=== PATIENT | male | born 1970 | race Caucasian/White ===

== ENCOUNTER 2021-04-27 20:36 | Observation (INO) | payer MEDICAID, SELFPAY ==
--- NOTE | ~2021-04-27 | XR_ITS ---
EXAMINATION: XR SHOULDER, LEFT CLINICAL INFORMATION: Fall and left shoulder pain COMPARISON: None TECHNIQUE: Three views of the left shoulder. FINDINGS: Humeral head is well-seated in the glenoid fossa. I do not appreciate any acute fracture or dislocation. Mild hypertrophic degenerative changes in the acromioclavicular joint. Visualized left ribs and chest unremarkable. XR/XR shoulder LT min 2V IMPRESSION: No acute bony abnormality.
--- NOTE | ~2021-04-27 | CT_ITS ---
EXAMINATION: CT ABDOMEN AND PELVIS WITHOUT CONTRAST CLINICAL INFORMATION: Abdominal pain and distention with vomiting. COMPARISON: None TECHNIQUE: Multidetector volumetric imaging was performed from the superior aspect of the liver through the pubic symphysis. Sagittal and coronal reformatted images were obtained on the technologist's workstation. This CT examination was performed using dose optimization techniques as appropriate, variously including the following: *Automated exposure control *Adjustment of mA and/or kV according to patient size (this includes techniques or standardized protocols for targeted exams where dose is matched to indication/reason for exam; i.e. extremities or head) *Use of iterative reconstruction technique DLP: 851 mGy-cm FINDINGS: Visualized lung bases demonstrate mild dependent atelectasis. The liver demonstrates normal size, contour and attenuation. 5 mm hypodensity within the posterolateral right hepatic lobe is too small to accurately characterize. The gallbladder is normal in appearance. Mild fatty atrophy of the pancreas. The spleen and adrenal glands are unremarkable. Symmetrically sized kidneys. No renal calculi or hydronephrosis bilaterally. Normal caliber loops of small and large bowel. Mild colonic diverticulosis without CT evidence to suggest active diverticulitis. Normal appendix. Tiny fat-containing umbilical hernia. Normal caliber abdominal aorta. No retroperitoneal lymphadenopathy. The bladder is normal in appearance. The prostate gland is normal in size. No gross free pelvic fluid. No inguinal lymphadenopathy. Mild to moderate degenerative changes of the spine. CT/CT abdomen pelvis wo con IMPRESSION: No CT evidence for acute abnormality within the abdomen or pelvis.
[2021-04-27 20:47] VITALS: BP 146/89; BP 147/92; PULSE 77; PULSE 98; RESP 18; TEMP 36.6; O2SAT 98; BMI 35.9
--- NOTE | 2021-04-27 20:55 | ECG_ITS ---
Test Reason : SYNCOPE Blood Pressure : / mmHG Vent. Rate : 054 BPM Atrial Rate : 067 BPM P-R Int : 000 ms QRS Dur : 090 ms QT Int : 468 ms P-R-T Axes : 000 033 052 degrees QTc Int : 443 ms Normal sinus rhythm competing with an ectopic atrial rhythm Borderline ECG No previous ECGs available Referred By: Leandro Sousa Electronically Signed By:Jaime Mcgovern
--- NOTE | 2021-04-27 20:58 | ED_ITS ---
HPI - Nausea/Vomiting/Diarrhea General Chief complaint: Nausea/Vomiting/Diarrhea Stated complaint: NAUSEA AND VOMITING Time Seen by Provider: 04/27/21 20:55 Source: patient and EMS Mode of arrival: EMS Limitations: no limitations History of Present Illness HPI Narrative: 51-year-old male came in by ambulance for evaluation of persistent nausea and vomiting. Symptoms started since yesterday with persistent nausea and vomiting, patient also feel his abdomen is bloated and distended, patient had a normal bowel move ment this morning, but unable to pass gas, patient declined any alcohol intake, no previous abdominal surgeries. Patient vomited several times at home today and patient passed out hurting his left shoulder complaining of left shoulder pain, patient is not taking any blood thinner and did not have head trauma. Has not had similar symptoms in the past. Patient smoked marijuana every night. Related Data Allergies Allergy/AdvReac Type Severity Reaction Status Date / Time Penicillins Allergy Unknown Verified 04/27/21 20:51 Review of Systems Review of Systems: All other systems are reviewed and are negative Constitutional: Reports as per HPI and Reports no additional constitutional complaints Eyes: Reports as per HPI and Reports no additional eye complaints Reports system reviewed and no additional complaints, except as documented Cardiovascular: Reports as per HPI and Reports no additional cardiovascular complaints Respiratory: Reports as per HPI and Reports no additional respiratory complaints Gastrointestinal: Reports as per HPI and Reports no additional gastrointestinal complaints Genitourinary: Reports no additional female genitourinary complaints Musculoskeletal: Reports no additional musculoskeletal complaints Skin/Breast: Reports system reviewed and no additional complaints, except as docu Psychiatric: Reports no additional psychiatric complaints Endocrine: Reports no additional endocrine complaints Hematologic/Lymphatic: Reports no additional hematologic/lymphatic complaints Allergic/Immunologic: Reports no additional allergic/immunologic complaints Reports system reviewed and no additional complaints, except as documented and Reports Abnormal speech present [facility] Past Medical History Medical History NAMITA (acute kidney injury) Heart attack Seizure Social History Social History Advance Directives: No Advance Directives Information Provided: Yes Physical Exam Vital Signs: Vital Signs: Last Vital Signs Temp 97.9 F 04/27/21 22:10 Pulse 59 04/27/21 23:29 Resp 14 04/27/21 23:29 BP 159/89 H 04/27/21 23:29 Pulse Ox 98 04/27/21 22:10 Body Mass Index 35.9 Vital signs have been reviewed as appeared to be correct. Blood pressure n ormal. Heart rate normal. Respiration rate normal. Temperature normal. Oxygen saturation normal. Appearance: Alert. Oriented X3. No acute distress. Head: Normal external exam. Normocephalic. Atraumatic. No Hernandez signs noted. No raccoon eyes noted Eyes: PERRLA. EOMI. Conjunctiva and sclera normal. Eyelids normal. ENT: TM's Normal. Pharynx normal. Uvula midline. Moist mucous membranes. No trismus noted. No drooling noted. No muffled voice noted. Neck: Normal inspection. Neck supple. FROM. No adenopathy. Thyroid Normal. No meningeal signs. No neck mass noted. CVS: Normal heart rate and rhythm. Heart sound normal. No murmurs noted. Pulses normal throughout. Respiratory: No respiratory distress. Painless inspiration. Breath sounds normal. No wheezes/rales/rhonchi noted. Chest nontender. No accessory muscle usage noted or decreased air movement noted. Abdomen: Soft and nontender. Bowel sounds normal in all 4 quadrants. No distention noted. No organomegaly noted. No visible injury noted. Back: No CVA tenderness. Full range of motion noted. Skin: Skin warm and dry. Normal skin color. Normal skin turgor. No rashes/lesions/lacerations noted. Extremities: No lower extremity edema. Extremities exhibit normal range of motion. Extremities nontender. Neuro: Oriented X 3. No motor deficit. No sensory deficit. Reflexes normal. Course Course Course Narrative: Assessment and plan. 51-year-old male came in with intractable vomiting, patient required multiple doses of antiemetic medication, and pain medication. CT revealed no acute intra-abdominal pathology. Patient with history of daily use of marijuana which can precipitate vomiting cyclic syndrome. Will admit the patient for IV hydration and aggressive vomiting treatment. MDM - Nausea/Vomiting/Diarrhea Lab Data Attestation: I reviewed the patient's lab results. Result diagrams: 04/27/21 21:18 04/27/21 21:18 Labs: Lab Results 04/27/21 04/27/21 04/27/21 Range/Units 21:18 21:18 21:18 WBC 14.0 H (4.8-10.8) X10*3/uL RBC 5.14 (4.60-5.80) X10*6/uL Hgb 15.1 (14.0-18.0) g/dl Hct 43.9 (42-52) % MCV 85.4 (80-98) fL MCH 29.4 (27.0-33.0) pg MCHC 34.4 (31.0-36.0) g/dl RDW 12.8 (11.0-16.0) % Plt Count 209 (160-400) X10*3/uL MPV 9.2 L (9.4-12.4) fL Immature Gran % (Auto) 0.6 H (0.0-0.4) % Neut % (Auto) 87.1 H (45-73) % Lymph % (Auto) 8.7 L (20-40) % [place] % (Auto) 3.3 (2-11) % Eos % (Auto) 0.0 (0-4) % Baso % (Auto) 0.3 (0-2) % Lymph # (Auto) 1.2 (1.2-4.9) X10*3/uL [place] # (Auto) 0.5 (0.1-1.2) X10*3/uL Eos # (Auto) 0.0 (0.0-0.4) X10*3/uL Baso # (Auto) 0.0 (0.0-0.2) X10*3/uL Abs Immat Gran (auto) 0.09 H (0.00-0.03) X10*3/uL Absolute Neuts (auto) 12.2 H (2.0-8.3) X10*3/uL Absolute Nucleated RBC 0.000 (0.0-0.012) X10*3/uL Nucleated RBC % (auto) 0.0 (0.0-0.2) /100WBC Sodium 140 (135-145) mmol/L Potassium 4.2 (3.3-5.1) mmol/L Chloride 111 H (96-108) mmol/L Carbon Dioxide 17 L (22-29) mmol/L Anion Gap 16 (12-20) BUN 17 H (9-16) mg/dL Creatinine 0.97 (0.5-1.4) mg/dL Estim Creat Clear Calc 106.8 Estimated GFR > 60 Random Glucose 145 H (60-115) mg/dL Calcium 9.2 (8.4-10.2) mg/dL Total Bilirubin 0.5 (0.0-1.0) mg/dL Direct Bilirubin 0.2 (0.0-0.5) mg/dL AST 32 (5-37) U/L ALT 57 H (0-40) U/L Alkaline Phosphatase 66 (39-117) U/L Troponin I High Sens < 3.5 (<3.5-35.0) ng/L Total Protein 7.5 (6.5-8.0) g/dL Albumin 4.7 (3.5-5.0) g/dL Lipase 17 (8-78) U/L Urine Color Urine Appearance Urine pH (5.0-8.0) Ur Specific [place] (1.005-1.025) Urine Protein (NEG-TRACE) MG/DL Urine Glucose (UA) (NEG) MG/DL Urine Ketones (NEG) MG/DL Urine Blood (NEG) Urine Nitrite (NEG) Ur Leukocyte Esterase (NEG) Urine RBC (0) /HPF Urine WBC (0-4) /HPF Ur Squamous Epith Cells /LPF Urine Bacteria /LPF COVID-19 (FADMUO) (Negative) COVID-19 Clin Com 04/27/21 04/27/21 Range/Units 21:19 22:16 WBC (4.8-10.8) X10*3/uL RBC (4.60-5.80) X10*6/uL Hgb (14.0-18.0) g/dl Hct (42-52) % MCV (80-98) fL MCH (27.0-33.0) pg MCHC (31.0-36.0) g/dl RDW (11.0-16.0) % Plt Count (160-400) X10*3/uL MPV (9.4-12.4) fL Immature Gran % (Auto) (0.0-0.4) % Neut % (Auto) (45-73) % Lymph % (Auto) (20-40) % [place] % (Auto) (2-11) % Eos % (Auto) (0-4) % Baso % (Auto) (0-2) % Lymph # (Auto) (1.2-4.9) X10*3/uL [place] # (Auto) (0.1-1.2) X10*3/uL Eos # (Auto) (0.0-0.4) X10*3/uL Baso # (Auto) (0.0-0.2) X10*3/uL Abs Immat Gran (auto) (0.00-0.03) X10*3/uL Absolute Neuts (auto) (2.0-8.3) X10*3/uL Absolute Nucleated RBC (0.0-0.012) X10*3/uL Nucleated RBC % (auto) (0.0-0.2) /100WBC Sodium (135-145) mmol/L Potassium (3.3-5.1) mmol/L Chloride (96-108) mmol/L Carbon Dioxide (22-29) mmol/L Anion Gap (12-20) BUN (9-16) mg/dL Creatinine (0.5-1.4) mg/dL Estim Creat Clear Calc Estimated GFR Random Glucose (60-115) mg/dL Calcium (8.4-10.2) mg/dL Total Bilirubin (0.0-1.0) mg/dL Direct Bilirubin (0.0-0.5) mg/dL AST (5-37) U/L ALT (0-40) U/L Alkaline Phosphatase (39-117) U/L Troponin I High Sens (<3.5-35.0) ng/L Total Protein (6.5-8.0) g/dL Albumin (3.5-5.0) g/dL Lipase (8-78) U/L Urine Color YELLOW Urine Appearance CLEAR Urine pH 6.0 (5.0-8.0) Ur Specific [place] >= 1.030 H (1.005-1.025) Urine Protein 1+ H (NEG-TRACE) MG/DL Urine Glucose (UA) NEG (NEG) MG/DL Urine Ketones NEG (NEG) MG/DL Urine Blood TRACE (NEG) Urine Nitrite NEG (NEG) Ur Leukocyte Esterase NEG (NEG) Urine RBC 0-2 (0) /HPF Urine WBC 0 (0-4) /HPF Ur Squamous Epith Cells NONE /LPF Urine Bacteria NONE /LPF COVID-19 (FADUMO) Negative (Negative) COVID-19 Clin Com See Note Imaging Data CT abdomen pelvis: Radiologist's impression: No acute pathology. Left shoulder x-ray: Radiologist's impression: No acute pathology. Discharge Plan Discharge Clinical Impression: Vomiting Patient Disposition: Admitted As Inpatient
[2021-04-27] MEDS: Famotidine/PF 20 MG/2 ML VIAL IVPUSH (21:12)
[2021-04-27] MEDS: 0.9 % Sodium Chloride 1,000 ML 999 ML IVCONT ×2 (21:14→23:40)
[2021-04-27 21:24] LABS: MANUAL DIFF FLAG NO
[2021-04-27 21:26] LABS: Basophils Percent Auto 0.3 % (0-2); Hematocrit 43.9 % (42-52); Hemoglobin 15.1 g/dl (14.0-18.0); Imm Gran Abs Auto 0.09 X10*3/uL (0.00-0.03); Imm Gran Pct Auto 0.6 % (0.0-0.4); Lymphocytes Absolute Auto 1.2 X10*3/uL (1.2-4.9); Lymphocytes Percent Auto 8.7 % (20-40); Mean Corpuscular HGB Conc 34.4 g/dl (31.0-36.0); Mean Corpuscular Hemoglobin 29.4 pg (27.0-33.0); Mean Corpuscular Volume 85.4 fL (80-98); Mean Platelet Volume 9.2 fL (9.4-12.4); Monocytes Absolute Auto 0.5 X10*3/uL (0.1-1.2); Monocytes Percent Auto 3.3 % (2-11); Neutrophils Absolute Auto 12.2 X10*3/uL (2.0-8.3); Neutrophils Percent Auto 87.1 % (45-73); Platelet Count 209 X10*3/uL (160-400); Red Blood Count 5.14 X10*6/uL (4.60-5.80); Red Cell Distribution Width 12.8 % (11.0-16.0)
[2021-04-27 21:42] LABS: COVID-19 Test Negative (Negative)
[2021-04-27 21:47] LABS: Alanine Aminotransferase 57 U/L (0-40); Albumin Level 4.7 g/dL (3.5-5.0); Alkaline Phosphatase 66 U/L (39-117); Anion Gap 16 (12-20); Aspartate Amino Transferase 32 U/L (5-37); Bilirubin Direct 0.2 mg/dL (0.0-0.5); Bilirubin Total 0.5 mg/dL (0.0-1.0); Blood Urea Nitrogen 17 mg/dL (9-16); Calcium 9.2 mg/dL (8.4-10.2); Carbon Dioxide 17 mmol/L (22-29); Chloride 111 mmol/L (96-108); Creatinine Clr Calc Pharmacy 106.8; Estimated Glomerular Filt Rate > 60; Glucose Random 145 mg/dL (60-115); Lipase 17 U/L (8-78); Potassium 4.2 mmol/L (3.3-5.1); Sodium 140 mmol/L (135-145); Total Protein 7.5 g/dL (6.5-8.0)
[2021-04-27] MEDS: Metoclopramide HCl 10 MG/2 ML VIAL IVPUSH (21:49)
--- NOTE | 2021-04-27 21:50 | PC.NURSE ---
Pt dry heaving, squiriming around in bed, states he is unable to stay still, c/o L shoulder pain,acute on chronic.
[2021-04-27 21:52] LABS: Troponin-I High Sensitivity < 3.5 ng/L (<3.5-35.0)
[2021-04-27] MEDS: Ketorolac Tromethamine 15 MG/ML VIAL 30 MG IVPUSH (22:09)
[2021-04-27 22:10] VITALS: BP 162/82; PULSE 50; PULSE 58; RESP 18; TEMP 36.6; O2SAT 98
[2021-04-27 22:12] VITALS: BP 163/78; BP 167/80; PULSE 56; PULSE 57
[2021-04-27 22:24] LABS: Appearance Urine CLEAR; Color Urine YELLOW; Glucose Urine UA NEG (NEG); Leukocyte Esterase Urine NEG (NEG); Nitrite Urine NEG (NEG); Specific Gravity - Urine >= 1.030 (1.005-1.025); UACC Culture Trigger NO; Urine Blood TRACE (NEG); Urine Ketones NEG (NEG); Urine Protein 1+ MG/DL (NEG-TRACE)
[2021-04-27 22:32] LABS: RBC Urine 0-2 /HPF (0); WBC Urine 0 /HPF (0-4)
--- NOTE | 2021-04-27 23:01 | PC.NURSE ---
Pt reports accidentally removing own IV, found laying on ground dry heaving. pt assisted back to bed. Drr. Sousa aware of request for antimetics and pain medication.
[2021-04-27 23:29] VITALS: BP 159/89; PULSE 59; RESP 14
[2021-04-28] VITALS (12 sets, daily range): BP systolic 104–172; BP diastolic 56–84; PULSE 50–90; RESP 16–20; TEMP 36.5–37; O2SAT 93–100
[2021-04-28] MEDS: Morphine Sulfate 2 MG/ML CARTRIDGE IVPUSH (00:13)
--- NOTE | 2021-04-28 00:43 | PC.NURSE ---
pt states his shoulder pain has resolved. pt still has 8/10 abd pain. pt is trying to vomit to feel better per pt. pt instructed not to force vomiting.
--- NOTE | 2021-04-28 01:11 | PC.NURSE ---
Repeat EKG done at 0109 by this pct
--- NOTE | 2021-04-28 02:13 | PM.IMHP ---
History of Present Illness Date of Service: 04/28/21 Chief Complaint: Nausea vomiting and abdominal discomfort 51-year-old male with a past medical history of hypertension, hyperlipidemia, asthma, anxiety, depression, bipolar, history of seizure disorder, history of chronic back pain, history of rotator cuff surgery; chronic shoulder pain presented to the hospital today with a chief complaint of nausea vomiting and abdominal discomfort. Patient mentions that for the past couple days he has been having nausea vomiting and abdominal discomfort; unable to keep anything down. Mentioned that he has been complaint adjust home medications. Mentions he uses cannabis. Denies any fever chills cough. Denies any urinary symptoms. Reports he has occasional blood streaks in the vomitus. Review of all other systems is negative except mentioned above ER course: Per ER team patient noted to have benign examination; CT scan showed no acute findings; admitted to the hospital for further management of cyclic vomiting syndrome. [facility] Medical History NAMITA (acute kidney injury) CAD (coronary artery disease) Chronic systolic (congestive) heart failure Seizure Surgical History Stented coronary artery Social History Patient Tobacco Use Status: Current everyday Tobacco user Tobacco use type: Cigarette Second Hand Smoke Exposure: No Advance Directives: No Advance Directives Information Provided: Yes service: Yes Current occupational status: disabled Meds Allergies Allergy/AdvReac Type Severity Reaction Status Date / Time Penicillins Allergy Unknown Unknown Verified 05/17/21 22:05 Active Medications: Current Medications Generic Name Dose Route Start Last Admin Trade Name Freq PRN Reason Stop Dose Admin Acetaminophen 650 mg 04/28/21 02:07 Acetaminophen 325 Mg Tablet PO Q6H PRN Pain, Mild (Pain Scale 1-3) Hydromorphone HCl 0.5 mg 04/28/21 02:07 Hydromorphone Hcl 0.5 Mg/0.5 Ml Syringe IVPUSH Q4H PRN Pain, Severe (Pain Scale 7-10) Dextrose/Sodium Chloride 1,000 mls @ 100 mls/hr 04/28/21 02:15 D51/2ns IVCONT .Q10H WILMER Levetiracetam 750 mg 04/28/21 02:15 Levetiracetam 250 Mg Tablet PO BID [facility] Melatonin 6 mg 04/28/21 02:07 Melatonin 3 Mg Tablet PO BEDTIME PRN Insomnia Sodium Chloride 3 ml 04/28/21 08:00 0.9 % Sodium Chloride Flush 3 Ml Syringe IVFLUSH QSHIFT [facility] Home Medications Medication Instructions Recorded Confirmed Last Taken Type albuterol sulfate 90 mcg/actuation 2 puff PO Q4H PRN 04/28/21 05/18/21 04/27/21 History aerosol inhaler aspirin 81 mg tablet,delayed 1 tab PO DAILY 04/28/21 05/18/21 04/27/21 History release cholecalciferol (vitamin D3) 25 25 mcg PO DAILY 04/28/21 05/18/21 04/27/21 History mcg (1,000 unit) tablet (Vitamin D3) cyanocobalamin (vitamin B-12) 1,000 mcg PO DAILY 04/28/21 05/18/21 04/27/21 History 1,000 mcg tablet mdcgazqh-ayt-azsej acid 300 1 tab PO DAILY 04/28/21 05/18/21 04/27/21 History mcg-lycopene 600 mcg-lutein 300 mcg tablet (Centrum Silver Men) nitroglycerin 0.4 mg sublingual 0.4 mg SUBLINGUAL Q5M PRN 04/28/21 05/18/21 04/27/21 History tablet amitriptyline 100 mg tablet 2 tab PO DAILY 05/17/21 05/18/21 Unknown History clonazepam 2 mg tablet 1 tab PO TID PRN 05/17/21 05/18/21 Unknown History clonidine HCl 0.1 mg tablet 1 tab PO BID 05/17/21 05/18/21 Unknown History famotidine 40 mg tablet 1 tab PO DAILY 05/17/21 05/18/21 Unknown History levetiracetam 750 mg tablet 1 tab PO Q12H 05/17/21 05/18/21 Unknown History loratadine 10 mg tablet 1 tab PO DAILY 05/17/21 05/18/21 Unknown History methocarbamol 750 mg tablet 1 tab PO BID PRN 05/17/21 05/18/21 Unknown History metoprolol succinate 25 mg 1 tab PO DAILY 05/17/21 05/18/21 Unknown History tablet,extended release 24 hr rosuvastatin 20 mg tablet 1 tab PO BEDTIME 05/17/21 05/18/21 Unknown History tamsulosin 0.4 mg capsule 1 cap PO DAILY 05/17/21 05/18/21 Unknown History testosterone 50 mg/5 gram (1 %) 5 g TOPICAL DAILY 05/17/21 05/18/21 Unknown History transdermal gel Physical Exam Vital Signs and Narrative: Vital Signs: Last Vital Signs Temp 97.9 F 04/27/21 22:10 Pulse 61 04/28/21 00:42 Resp 16 04/28/21 00:42 BP 136/78 04/28/21 00:42 Pulse Ox 97 04/28/21 00:42 Body Mass Index 35.9 Gen: Appears be in no acute distress HEENT: NCAT, Moist mucosa. Pulmonary: Vesicular breath sounds, fair air entry CVS: Normal S1-S2 Abdomen: BS+, Soft, mildly tender diffusely on deep palpation. Extremities: Warm well perfused Neuro: Alert and awake. Results Labs CBC and Chem 7: 04/30/21 06:38 04/30/21 06:38 Labs: Laboratory Results - last 24 hr 04/27/21 04/27/21 04/27/21 21:18 21:18 21:18 MCV 85.4 MCH 29.4 MCHC 34.4 RDW 12.8 Plt Count 209 MPV 9.2 L Immature Gran % (Auto) 0.6 H Neut % (Auto) 87.1 H Lymph % (Auto) 8.7 L [place] % (Auto) 3.3 Eos % (Auto) 0.0 Baso % (Auto) 0.3 Lymph # (Auto) 1.2 [place] # (Auto) 0.5 Eos # (Auto) 0.0 Baso # (Auto) 0.0 Abs Immat Gran (auto) 0.09 H Absolute Neuts (auto) 12.2 H Absolute Nucleated RBC 0.000 Nucleated RBC % (auto) 0.0 Anion Gap 16 Estim Creat Clear Calc 106.8 Estimated GFR > 60 Random Glucose 145 H Calcium 9.2 Total Bilirubin 0.5 Direct Bilirubin 0.2 AST 32 ALT 57 H Alkaline Phosphatase 66 Troponin I High Sens < 3.5 Total Protein 7.5 Albumin 4.7 Lipase 17 Urine Color Urine Appearance Urine pH Ur Specific [place] Urine Protein Urine Glucose (UA) Urine Ketones Urine Blood Urine Nitrite Ur Leukocyte Esterase Urine RBC Urine WBC Ur Squamous Epith Cells Urine Bacteria COVID-19 (FADUMO) COVID-19 Clin Com 04/27/21 04/27/21 21:19 22:16 MCV MCH MCHC RDW Plt Count MPV Immature Gran % (Auto) Neut % (Auto) Lymph % (Auto) [place] % (Auto) Eos % (Auto) Baso % (Auto) Lymph # (Auto) [place] # (Auto) Eos # (Auto) Baso # (Auto) Abs Immat Gran (auto) Absolute Neuts (auto) Absolute Nucleated RBC Nucleated RBC % (auto) Anion Gap Estim Creat Clear Calc Estimated GFR Random Glucose Calcium Total Bilirubin Direct Bilirubin AST ALT Alkaline Phosphatase Troponin I High Sens Total Protein Albumin Lipase Urine Color YELLOW Urine Appearance CLEAR Urine pH 6.0 Ur Specific [place] >= 1.030 H Urine Protein 1+ H Urine Glucose (UA) NEG Urine Ketones NEG Urine Blood TRACE Urine Nitrite NEG Ur Leukocyte Esterase NEG Urine RBC 0-2 Urine WBC 0 Ur Squamous Epith Cells NONE Urine Bacteria NONE COVID-19 (FADUMO) Negative COVID-19 Clin Com See Note Imaging Radiologist's Impressions: Impressions Shoulder X-Ray 04/27/21 20:55 IMPRESSION: No acute bony abnormality. Abdomen/Pelvis CT 04/27/21 20:57 IMPRESSION: No CT evidence for acute abnormality within the abdomen or pelvis. Assessment and Plan (1) Vomiting: Qualifiers: Nausea presence: with nausea Vomiting Intractability: intractable Status: Acute 51-year-old male with a past medical history of hypertension, hyperlipidemia, anxiety, depression, bipolar, seizure disorder, chronic back pain, chronic shoulder pain, history of rotator cuff surgery presented to the hospital with a chief complaint of nausea vomiting and abdominal discomfort; reports he uses cannabis; admitted to the hospital for cyclic vomiting syndrome. Cyclic vomiting syndrome on labs noted a mild leukocytosis. CT scan showed no acute intra-abdominal pathology. Supportive care IV fluids NPO-advanced diet as tolerated Zofran p.r.n. History of seizure disorder: Continue home Keppra. History of anxiety, depression; continue home medications Hypertension/hyperlipidemia: Continue home meds DVT prophylaxis: Subcu heparin Code status: Full code Quality Stroke Does the patient have a stroke diagnosis?: No VTE Prior VTE?: No VTE Risk Level:: Medical - moderate - high VTE Device Contraindication: N/A - Device Ordered VTE Drug Contraindication: Treatment Not Indicated
[2021-04-28] MEDS: levETIRAcetam 250 MG TABLET 750 MG PO ×3 (02:46→20:32)
[2021-04-28] MEDS: Dextrose 5 % and 0.45 % NaCl 1,000 ML 100 ML IVCONT ×2 (03:20→11:40)
[2021-04-28] MEDS: HYDROmorphone HCl 0.5 MG/0.5 ML SYRINGE IVPUSH ×5 (03:20→20:31)
[2021-04-28] MEDS: Famotidine/PF 20 MG/2 ML VIAL IVPUSH ×2 (06:27→20:32)
[2021-04-28 06:28] LABS: MANUAL DIFF FLAG NO
[2021-04-28 06:45] LABS: Basophils Percent Auto 0.2 % (0-2); Hematocrit 41.8 % (42-52); Hemoglobin 14.2 g/dl (14.0-18.0); Imm Gran Abs Auto 0.06 X10*3/uL (0.00-0.03); Imm Gran Pct Auto 0.5 % (0.0-0.4); Lymphocytes Absolute Auto 1.3 X10*3/uL (1.2-4.9); Lymphocytes Percent Auto 11.4 % (20-40); Mean Corpuscular Hemoglobin 29.5 pg (27.0-33.0); Mean Corpuscular Volume 86.9 fL (80-98); Mean Platelet Volume 9.9 fL (9.4-12.4); Monocytes Absolute Auto 0.6 X10*3/uL (0.1-1.2); Monocytes Percent Auto 5.4 % (2-11); Neutrophils Absolute Auto 9.3 X10*3/uL (2.0-8.3); Neutrophils Percent Auto 82.5 % (45-73); Platelet Count 214 X10*3/uL (160-400); Red Blood Count 4.81 X10*6/uL (4.60-5.80); Red Cell Distribution Width 12.9 % (11.0-16.0); White Blood Count 11.3 X10*3/uL (4.8-10.8)
[2021-04-28 07:05] LABS: Anion Gap 12 (12-20); Blood Urea Nitrogen 14 mg/dL (9-16); Calcium 8.6 mg/dL (8.4-10.2); Carbon Dioxide 25 mmol/L (22-29); Chloride 107 mmol/L (96-108); Creatinine Clr Calc Pharmacy 124.8; Estimated Glomerular Filt Rate > 60; Glucose Random 141 mg/dL (60-115); Potassium 4.2 mmol/L (3.3-5.1); Sodium 140 mmol/L (135-145)
--- NOTE | 2021-04-28 07:14 | PC.NURSE ---
Rn and [employer] Lead Engineer [facility], pt found on with knees on floor leaning on bed in praying postion. Pt stated multiple times to this RN That he did not fall that he put himself this way to help with nausea and abd pain. Confirmed with Tele sitter that pt did not fall but placed himself that way. This Rn gave zofran at this time. pt made aware that pain medication not do at this time. pt helped back to bed and educated again on high fall risk, call montanez use. pt stated he cannot help it that it makes his stomach feel better. Bed alarm on telesitter remains in place, reported to nursing sujpervisor and oncoming RN. will continue to monitor
[2021-04-28] MEDS: 0.9 % Sodium Chloride Flush 3 ML SYRINGE IVFLUSH ×3 (07:34→20:33)
--- NOTE | 2021-04-28 08:38 | PHA.MEDREC ---
Pharmacy Consult ? Medication Reconciliation Pharmacy has completed the medication reconciliation.Spoke with patient on floor
--- NOTE | 2021-04-28 09:34 | MHC.CM.PN ---
RU 04/28/21 Male 51 DX Cyclical vomiting. [place] He uses a cane. He requires supervision/assist with ADLs. PMX SZ disorder PMH Rolator cuff and knee surgery. DP home with resumption of [employer] 1.5hours 4-7 x a week. He may need assistance with transportation at discharge
--- NOTE | 2021-04-28 13:52 | HO.PM.IMPN ---
Subjective Subjective Date of Service: 04/28/21 Interval History: anusea Cardiovascular Cardiovascular: Reports no additional cardiovascular complaints Respiratory Respiratory: Reports no additional respiratory complaints Physical Exam Vital Signs: Vital Signs: Last Vital Signs Temp 98.6 F 04/28/21 11:31 Pulse 87 04/28/21 11:31 Resp 18 04/28/21 11:31 BP 104/63 04/28/21 11:31 Pulse Ox 96 04/28/21 11:31 Body Mass Index 35.9 General: AO X 3, no acute distress Resp: CTA bilateral CVS: S1,S2,RRR GI: soft, non tender, non distended Neuro: motor grossly intact Psych: appropriate affect Objective Data Current Medications Generic Name Dose Route Start Last Admin Trade Name Freq PRN Reason Stop Dose Admin Acetaminophen 650 mg 04/28/21 02:07 Acetaminophen 325 Mg Tablet PO Q6H PRN Pain, Mild (Pain Scale 1-3) Famotidine 20 mg 04/28/21 09:00 04/28/21 06:27 Famotidine/Pf 20 Mg/2 Ml Vial IVPUSH 20 mg BID WILMER Administration Hydromorphone HCl 0.5 mg 04/28/21 02:07 04/28/21 12:22 Hydromorphone Hcl 0.5 Mg/0.5 Ml Syringe IVPUSH 0.5 mg Q4H PRN Administration Pain, Severe (Pain Scale 7-10) Dextrose/Sodium Chloride 1,000 mls @ 100 mls/hr 04/28/21 02:15 04/28/21 11:40 D51/2ns IVCONT 100 mls/hr .Q10H WILMER Administration Levetiracetam 750 mg 04/28/21 02:15 04/28/21 07:34 Levetiracetam 250 Mg Tablet PO 750 mg BID WILMER Administration Melatonin 6 mg 04/28/21 02:07 Melatonin 3 Mg Tablet PO BEDTIME PRN Insomnia Ondansetron HCl 4 mg 04/28/21 06:24 04/28/21 06:40 Ondansetron Hcl 4 Mg/2 Ml Vial IVPUSH 4 mg Q8H PRN Administration Nausea and Vomiting Sodium Chloride 3 ml 04/28/21 08:00 04/28/21 07:34 0.9 % Sodium Chloride Flush 3 Ml Syringe IVFLUSH 3 ml QSHIFT WILMER Administration Labs CBC & Chem 7: 04/28/21 05:29 04/28/21 05:29 Labs: Laboratory Results - last 24 hr 04/27/21 04/27/21 04/27/21 21:18 21:18 21:18 MCV 85.4 MCH 29.4 MCHC 34.4 RDW 12.8 Plt Count 209 MPV 9.2 L Immature Gran % (Auto) 0.6 H Neut % (Auto) 87.1 H Lymph % (Auto) 8.7 L [place] % (Auto) 3.3 Eos % (Auto) 0.0 Baso % (Auto) 0.3 Lymph # (Auto) 1.2 [place] # (Auto) 0.5 Eos # (Auto) 0.0 Baso # (Auto) 0.0 Abs Immat Gran (auto) 0.09 H Absolute Neuts (auto) 12.2 H Absolute Nucleated RBC 0.000 Nucleated RBC % (auto) 0.0 Anion Gap 16 Estim Creat Clear Calc 106.8 Estimated GFR > 60 Random Glucose 145 H Calcium 9.2 Total Bilirubin 0.5 Direct Bilirubin 0.2 AST 32 ALT 57 H Alkaline Phosphatase 66 Troponin I High Sens < 3.5 Total Protein 7.5 Albumin 4.7 Lipase 17 Urine Color Urine Appearance Urine pH Ur Specific [place] Urine Protein Urine Glucose (UA) Urine Ketones Urine Blood Urine Nitrite Ur Leukocyte Esterase Urine RBC Urine WBC Ur Squamous Epith Cells Urine Bacteria COVID-19 ([facility]) COVID-19 Clin Com 04/27/21 04/27/21 04/28/21 21:19 22:16 05:29 MCV 86.9 MCH 29.5 MCHC 34.0 RDW 12.9 Plt Count 214 MPV 9.9 Immature Gran % (Auto) 0.5 H Neut % (Auto) 82.5 H Lymph % (Auto) 11.4 L [place] % (Auto) 5.4 Eos % (Auto) 0.0 Baso % (Auto) 0.2 Lymph # (Auto) 1.3 [place] # (Auto) 0.6 Eos # (Auto) 0.0 Baso # (Auto) 0.0 Abs Immat Gran (auto) 0.06 H Absolute Neuts (auto) 9.3 H Absolute Nucleated RBC 0.000 Nucleated RBC % (auto) 0.0 Anion Gap Estim Creat Clear Calc Estimated GFR Random Glucose Calcium Total Bilirubin Direct Bilirubin AST ALT Alkaline Phosphatase Troponin I High Sens Total Protein Albumin Lipase Urine Color YELLOW Urine Appearance CLEAR Urine pH 6.0 Ur Specific [place] >= 1.030 H Urine Protein 1+ H Urine Glucose (UA) NEG Urine Ketones NEG Urine Blood TRACE Urine Nitrite NEG Ur Leukocyte Esterase NEG Urine RBC 0-2 Urine WBC 0 Ur Squamous Epith Cells NONE Urine Bacteria NONE COVID-19 ([facility]) Negative COVID-19 Clin Com See Note 04/28/21 05:29 MCV MCH MCHC RDW Plt Count MPV Immature Gran % (Auto) Neut % (Auto) Lymph % (Auto) [place] % (Auto) Eos % (Auto) Baso % (Auto) Lymph # (Auto) [place] # (Auto) Eos # (Auto) Baso # (Auto) Abs Immat Gran (auto) Absolute Neuts (auto) Absolute Nucleated RBC Nucleated RBC % (auto) Anion Gap 12 Estim Creat Clear Calc 124.8 Estimated GFR > 60 Random Glucose 141 H Calcium 8.6 D Total Bilirubin Direct Bilirubin AST ALT Alkaline Phosphatase Troponin I High Sens Total Protein Albumin Lipase Urine Color Urine Appearance Urine pH Ur Specific [place] Urine Protein Urine Glucose (UA) Urine Ketones Urine Blood Urine Nitrite Ur Leukocyte Esterase Urine RBC Urine WBC Ur Squamous Epith Cells Urine Bacteria COVID-19 ([facility]) COVID-19 Clin Com Assessment and Plan (1) Chronic systolic (congestive) heart failure: Status: Acute Assessment and Plan: 51M presented with nasuea and vomiting cyclic vomitting advance as tolerated symptomatic management seirzure disorder keppra CAD s/p pci 2018 asa, statin ischemic cardiomyopathy with recovered EF toprol bph flomax htn clonidine, toprol Quality Stroke Does the patient have a stroke diagnosis?: No VTE Prior VTE?: No VTE Risk Level:: Medical - moderate - high VTE Device Contraindication: N/A - Device Ordered VTE Drug Contraindication: Treatment Not Indicated
[2021-04-28] MEDS: Atorvastatin Calcium 80 MG TABLET PO (20:32)
[2021-04-28] MEDS: Melatonin 3 MG TABLET 6 MG PO (20:32)
[2021-04-29 03:52] VITALS: BP 155/85; PULSE 76; RESP 18; TEMP 36.6; O2SAT 93
[2021-04-29] MEDS: HYDROmorphone HCl 0.5 MG/0.5 ML SYRINGE IVPUSH ×5 (03:57→22:10)
[2021-04-29 06:12] LABS: Hematocrit 44.1 % (42-52); Hemoglobin 14.8 g/dl (14.0-18.0); Mean Corpuscular HGB Conc 33.6 g/dl (31.0-36.0); Mean Corpuscular Hemoglobin 28.8 pg (27.0-33.0); Mean Platelet Volume 9.8 fL (9.4-12.4); Platelet Count 189 X10*3/uL (160-400); Red Blood Count 5.13 X10*6/uL (4.60-5.80); Red Cell Distribution Width 12.8 % (11.0-16.0); White Blood Count 6.3 X10*3/uL (4.8-10.8)
[2021-04-29 06:36] LABS: Anion Gap 11 (12-20); Blood Urea Nitrogen 16 mg/dL (9-16); Carbon Dioxide 25 mmol/L (22-29); Chloride 108 mmol/L (96-108); Creatinine Clr Calc Pharmacy 110.2; Estimated Glomerular Filt Rate > 60; Glucose Fasting 96 mg/dL (60-99); Magnesium 2.1 mg/dL (1.6-2.6); Sodium 140 mmol/L (135-145)
[2021-04-29 08:00] VITALS: BP 126/87; PULSE 75; RESP 18; TEMP 36.5; O2SAT 95
[2021-04-29] MEDS: Famotidine/PF 20 MG/2 ML VIAL IVPUSH ×2 (08:17→22:10)
[2021-04-29] MEDS: 0.9 % Sodium Chloride Flush 3 ML SYRINGE IVFLUSH ×3 (08:18→22:11)
[2021-04-29] MEDS: levETIRAcetam 250 MG TABLET 750 MG PO ×2 (08:19→22:11)
[2021-04-29] MEDS: Thiamine HCL 100 MG TABLET 50 MG PO (08:19)
[2021-04-29] MEDS: Cyanocobalamin (Vitamin B-12) 1,000 MCG TABLET 1000 MCG PO (08:19)
[2021-04-29 08:20] VITALS: BP 126/87; PULSE 75
[2021-04-29] MEDS: Vitamin E (Dl,Tocopheryl Acet) 180 MG (400 UNIT) CAPSULE PO (08:20)
[2021-04-29] MEDS: Metoprolol Succinate ER 25 MG TAB.ER.24H PO (08:20)
[2021-04-29] MEDS: Aspirin Enteric Coated 81 MG TABLET.DR PO (08:20)
[2021-04-29 12:00] VITALS: BP 178/93; PULSE 52; RESP 19; TEMP 37.6; O2SAT 95
--- NOTE | 2021-04-29 12:07 | HO.PM.IMPN ---
Subjective Subjective Date of Service: 04/29/21 Interval History: nausea Constitutional Constitutional: Reports no additional constitutional complaints Eyes Eyes: Reports no additional eye complaints Physical Exam Vital Signs: Vital Signs: Last Vital Signs Temp 97.7 F 04/29/21 08:00 Pulse 75 04/29/21 08:20 Resp 18 04/29/21 08:00 BP 126/87 04/29/21 08:20 Pulse Ox 95 04/29/21 08:00 Body Mass Index 35.9 General: AO X 3, no acute distress Resp:? CTA bilateral CVS: S1,S2,RRR GI: soft, non tender, non distended Neuro:? motor grossly intact Psych: appropriate affect Objective Data Current Medications Generic Name Dose Route Start Last Admin Trade Name Freq PRN Reason Stop Dose Admin Acetaminophen 650 mg 04/28/21 02:07 Acetaminophen 325 Mg Tablet PO Q6H PRN Pain, Mild (Pain Scale 1-3) Amitriptyline HCl 200 mg 04/29/21 21:00 Amitriptyline Hcl 25 Mg Tablet PO BEDTIME WILMER Aspirin 81 mg 04/29/21 09:00 04/29/21 08:20 Aspirin Enteric Coated 81 Mg Tablet. PO 81 mg DAILY WILMER Administration Atorvastatin Calcium 80 mg 04/28/21 21:00 04/28/21 20:32 Atorvastatin Calcium 80 Mg Tablet PO 80 mg BEDTIME WILMER Administration Cyanocobalamin 1,000 mcg 04/29/21 09:00 04/29/21 08:19 Cyanocobalamin (Vitamin B-12) 1,000 Mcg Tablet PO 1,000 mcg DAILY WILMER Administration Famotidine 20 mg 04/28/21 09:00 04/29/21 08:17 Famotidine/Pf 20 Mg/2 Ml Vial IVPUSH 20 mg BID WILMER Administration Hydromorphone HCl 0.5 mg 04/28/21 02:07 04/29/21 12:05 Hydromorphone Hcl 0.5 Mg/0.5 Ml Syringe IVPUSH 0.5 mg Q4H PRN Administration Pain, Severe (Pain Scale 7-10) Levetiracetam 750 mg 04/28/21 02:15 04/29/21 08:19 Levetiracetam 250 Mg Tablet PO 750 mg BID WILMER Administration Melatonin 6 mg 04/28/21 02:07 08/04/21 20:32 Melatonin 3 Mg Tablet PO 6 mg BEDTIME PRN Administration Insomnia Metoprolol Succinate 25 mg 04/29/21 09:00 04/29/21 08:20 Metoprolol Succinate Er 25 Mg Tab.Er.24h PO 25 mg DAILY WILMER Administration Protocol Ondansetron HCl 4 mg 04/28/21 06:24 04/29/21 12:05 Ondansetron Hcl 4 Mg/2 Ml Vial IVPUSH 4 mg Q8H PRN Administration Nausea and Vomiting Sodium Chloride 3 ml 04/28/21 08:00 04/29/21 08:18 0.9 % Sodium Chloride Flush 3 Ml Syringe IVFLUSH 3 ml QSHIFT WILMER Administration Thiamine HCl 50 mg 04/29/21 09:00 04/29/21 08:19 Thiamine Hcl 100 Mg Tablet PO 50 mg DAILY WILMER Administration Vitamin E 180 mg 04/29/21 09:00 04/29/21 08:20 Vitamin E (Dl,Tocopheryl Acet) 180 Mg (400 Unit) Capsule PO 180 mg DAILY WILMER Administration Labs CBC & Chem 7: 04/29/21 05:31 04/29/21 05:31 Labs: Laboratory Results - last 24 hr 04/29/21 04/29/21 05:31 05:31 MCV 86.0 MCH 28.8 MCHC 33.6 RDW 12.8 Plt Count 189 MPV 9.8 Absolute Nucleated RBC 0.000 Nucleated RBC % (auto) 0.0 Anion Gap 11 L Estim Creat Clear Calc 110.2 Estimated GFR > 60 Fasting Glucose 96 Calcium 9.0 Magnesium 2.1 Assessment and Plan (1) Chronic systolic (congestive) heart failure: Status: Acute Assessment and Plan: 51M presented with nasuea and vomiting cyclic vomitting advance as tolerated symptomatic management did well with dinner last night, but nausea and vomitting this AM seirzure disorder keppra CAD s/p pci 2018 asa, statin ischemic cardiomyopathy with recovered EF toprol bph flomax htn clonidine, toprol Quality Stroke Does the patient have a stroke diagnosis?: No VTE Prior VTE?: No VTE Risk Level:: Medical - moderate - high VTE Device Contraindication: N/A - Device Ordered VTE Drug Contraindication: Treatment Not Indicated
[2021-04-29 15:08] VITALS: BP 151/80; PULSE 71; RESP 20; TEMP 36.8; O2SAT 97
[2021-04-29 19:07] VITALS: BP 146/75; PULSE 99; RESP 20; TEMP 37.3; O2SAT 94
[2021-04-29] MEDS: Melatonin 3 MG TABLET 6 MG PO (22:12)
[2021-04-29] MEDS: Atorvastatin Calcium 80 MG TABLET PO (22:12)
[2021-04-29] MEDS: Amitriptyline HCl 25 MG TABLET 200 MG PO (22:12)
[2021-04-30] VITALS (9 sets, daily range): BP systolic 114–160; BP diastolic 60–92; PULSE 77–108; RESP 15–20; TEMP 35.5–37.5; O2SAT 93–96
--- NOTE | 2021-04-30 | ECG_ITS ---
Test Reason : pain Blood Pressure : / mmHG Vent. Rate : 073 BPM Atrial Rate : 073 BPM P-R Int : 164 ms QRS Dur : 090 ms QT Int : 400 ms P-R-T Axes : 027 003 038 degrees QTc Int : 440 ms Normal sinus rhythm Inferior infarct , age undetermined Abnormal ECG No previous ECGs available Referred By: Derian Mays Electronically Signed By:Jaime Mcgovern
[2021-04-30 06:52] LABS: Hematocrit 47.3 % (42-52); Hemoglobin 16.3 g/dl (14.0-18.0); Mean Corpuscular HGB Conc 34.5 g/dl (31.0-36.0); Mean Corpuscular Hemoglobin 29.1 pg (27.0-33.0); Mean Corpuscular Volume 84.3 fL (80-98); Mean Platelet Volume 9.4 fL (9.4-12.4); Platelet Count 215 X10*3/uL (160-400); Red Blood Count 5.61 X10*6/uL (4.60-5.80); Red Cell Distribution Width 12.6 % (11.0-16.0); White Blood Count 8.1 X10*3/uL (4.8-10.8)
[2021-04-30 07:16] LABS: Anion Gap 16 (12-20); Blood Urea Nitrogen 16 mg/dL (9-16); Calcium 9.3 mg/dL (8.4-10.2); Carbon Dioxide 20 mmol/L (22-29); Chloride 106 mmol/L (96-108); Creatinine Clr Calc Pharmacy 120.5; Estimated Glomerular Filt Rate > 60; Glucose Fasting 109 mg/dL (60-99); Magnesium 2.2 mg/dL (1.6-2.6); Potassium 3.6 mmol/L (3.3-5.1); Sodium 138 mmol/L (135-145)
[2021-04-30] MEDS: Famotidine/PF 20 MG/2 ML VIAL IVPUSH ×2 (08:58→21:37)
[2021-04-30] MEDS: 0.9 % Sodium Chloride Flush 3 ML SYRINGE IVFLUSH ×3 (08:58→21:38)
[2021-04-30] MEDS: Metoprolol Succinate ER 25 MG TAB.ER.24H PO (08:59)
[2021-04-30] MEDS: HYDROmorphone HCl 0.5 MG/0.5 ML SYRINGE IVPUSH ×2 (08:59→13:09)
[2021-04-30] MEDS: Aspirin Enteric Coated 81 MG TABLET.DR PO (08:59)
[2021-04-30] MEDS: Vitamin E (Dl,Tocopheryl Acet) 180 MG (400 UNIT) CAPSULE PO (08:59)
[2021-04-30] MEDS: Cyanocobalamin (Vitamin B-12) 1,000 MCG TABLET 1000 MCG PO (08:59)
[2021-04-30] MEDS: levETIRAcetam 250 MG TABLET 750 MG PO ×2 (08:59→21:37)
[2021-04-30] MEDS: Thiamine HCL 100 MG TABLET 50 MG PO (08:59)
[2021-04-30] MEDS: Albuterol Sulfate 90 MCG 8 GM INHALER 2 PUFF INHALE (09:21)
--- NOTE | 2021-04-30 12:07 | HO.PM.IMPN ---
Subjective Subjective Date of Service: 04/30/21 Interval History: still nauseous Constitutional Constitutional: Reports no additional constitutional complaints Eyes Eyes: Reports no additional eye complaints Physical Exam Vital Signs: Vital Signs: Last Vital Signs Temp 96 F L 04/30/21 11:10 Pulse 90 04/30/21 11:10 Resp 18 04/30/21 11:10 BP 132/68 04/30/21 11:10 Pulse Ox 96 04/30/21 11:10 Body Mass Index 35.9 General: AO X 3, no acute distress Resp: CTA bilateral CVS: S1,S2,RRR GI: soft, non tender, non distended Neuro: motor grossly intact Psych: appropriate affect Objective Data Current Medications Generic Name Dose Route Start Last Admin Trade Name Freq PRN Reason Stop Dose Admin Acetaminophen 650 mg 04/28/21 02:07 Acetaminophen 325 Mg Tablet PO Q6H PRN Pain, Mild (Pain Scale 1-3) Albuterol Sulfate 2 puff 04/29/21 12:07 04/30/21 09:21 Albuterol Sulfate 90 Mcg 8 Gm Inhaler INHALE 2 puff RQ4H PRN Administration sob Amitriptyline HCl 200 mg 04/29/21 21:00 04/29/21 22:12 Amitriptyline Hcl 25 Mg Tablet PO 200 mg BEDTIME WILMER Administration Aspirin 81 mg 04/29/21 09:00 04/30/21 08:59 Aspirin Enteric Coated 81 Mg Tablet.Dr PO 81 mg DAILY WILMER Administration Atorvastatin Calcium 80 mg 04/28/21 21:00 04/29/21 22:12 Atorvastatin Calcium 80 Mg Tablet PO 80 mg BEDTIME WILMER Administration Cyanocobalamin 1,000 mcg 04/29/21 09:00 04/30/21 08:59 Cyanocobalamin (Vitamin B-12) 1,000 Mcg Tablet PO 1,000 mcg DAILY WILMER Administration Famotidine 20 mg 04/28/21 09:00 04/30/21 08:58 Famotidine/Pf 20 Mg/2 Ml Vial IVPUSH 20 mg BID WILMER Administration Hydromorphone HCl 0.5 mg 04/28/21 02:07 04/30/21 08:59 Hydromorphone Hcl 0.5 Mg/0.5 Ml Syringe IVPUSH 0.5 mg Q4H PRN Administration Pain, Severe (Pain Scale 7-10) Levetiracetam 750 mg 04/28/21 02:15 04/30/21 08:59 Levetiracetam 250 Mg Tablet PO 750 mg BID WILMER Administration Melatonin 6 mg 04/28/21 02:07 04/29/21 22:12 Melatonin 3 Mg Tablet PO 6 mg BEDTIME PRN Administration Insomnia Metoprolol Succinate 25 mg 04/29/21 09:00 04/30/21 08:59 Metoprolol Succinate Er 25 Mg Tab.Er.24h PO 25 mg DAILY WILMER Administration Protocol Ondansetron HCl 4 mg 04/28/21 06:24 04/29/21 22:10 Ondansetron Hcl 4 Mg/2 Ml Vial IVPUSH 4 mg Q8H PRN Administration Nausea and Vomiting Sodium Chloride 3 ml 04/28/21 08:00 04/30/21 08:58 0.9 % Sodium Chloride Flush 3 Ml Syringe IVFLUSH 3 ml QSHIFT WILMER Administration Thiamine HCl 50 mg 04/29/21 09:00 04/30/21 08:59 Thiamine Hcl 100 Mg Tablet PO 50 mg DAILY WILMER Administration Vitamin E 180 mg 04/29/21 09:00 04/30/21 08:59 Vitamin E (Dl,Tocopheryl Acet) 180 Mg (400 Unit) Capsule PO 180 mg DAILY WILMER Administration Labs CBC & Chem 7: 04/30/21 06:38 04/30/21 06:38 Labs: Laboratory Results - last 24 hr 04/30/21 04/30/21 06:38 06:38 MCV 84.3 MCH 29.1 MCHC 34.5 RDW 12.6 Plt Count 215 MPV 9.4 Absolute Nucleated RBC 0.000 Nucleated RBC % (auto) 0.0 Anion Gap 16 Estim Creat Clear Calc 120.5 Estimated GFR > 60 Fasting Glucose 109 H Calcium 9.3 Magnesium 2.2 Assessment and Plan (1) Chronic systolic (congestive) heart failure: Status: Acute Assessment and Plan: 51M presented with nasuea and vomiting cyclic vomitting advance as tolerated symptomatic management continues to have nausea and vomiting seirzure disorder keppra CAD s/p pci 2018 asa, statin ischemic cardiomyopathy with recovered EF toprol bph flomax htn clonidine, toprol Quality Stroke Does the patient have a stroke diagnosis?: No VTE Prior VTE?: No VTE Risk Level:: Medical - moderate - high VTE Device Contraindication: N/A - Device Ordered VTE Drug Contraindication: Treatment Not Indicated
--- NOTE | 2021-04-30 15:20 | MHC.CM.PN ---
Male 51 DX Cyclic vomiting syndrome. 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 He will need assistance with transportation home. CM will follow. Pt continues to N/V+ today per MD rounds.
[2021-04-30] MEDS: HYDROmorphone HCl 1 MG/ML SYRINGE 0.5 MG IVPUSH ×2 (16:54→21:38)
[2021-04-30] MEDS: Atorvastatin Calcium 80 MG TABLET PO (21:37)
[2021-04-30] MEDS: Amitriptyline HCl 25 MG TABLET 200 MG PO (21:48)
[2021-04-30] MEDS: Nitroglycerin 0.4 MG TAB.SUBL SUBLINGUAL (22:57)
--- NOTE | 2021-04-30 23:33 | PC.NURSE ---
Pt c/o sudden 05/[address] Mays notified. Ekg ordered and completed. Nitro ordered and administered with good effect. Troponins ordered, first troponin negative. Pt now resting in bed, tele to be placed on pt.
[2021-04-30 23:50] LABS: Troponin-I High Sensitivity 5.7 ng/L (<3.5-35.0)
[2021-05-01] VITALS: BP 126/68; PULSE 84; RESP 18; TEMP 37; O2SAT 95
[2021-05-01 02:35] LABS: Troponin-I High Sensitivity 4.4 ng/L (<3.5-35.0)
[2021-05-01 03:55] VITALS: BP 130/65; PULSE 82; RESP 18; TEMP 37.1; O2SAT 96
[2021-05-01 07:42] VITALS: BP 120/76; PULSE 98; RESP 17; TEMP 36.6; O2SAT 92
[2021-05-01 08:31] VITALS: BP 120/76; PULSE 98
[2021-05-01] MEDS: Metoprolol Succinate ER 25 MG TAB.ER.24H PO (08:31)
[2021-05-01] MEDS: levETIRAcetam 250 MG TABLET 750 MG PO (08:31)
[2021-05-01] MEDS: Famotidine/PF 20 MG/2 ML VIAL IVPUSH (08:31)
[2021-05-01] MEDS: Thiamine HCL 100 MG TABLET 50 MG PO (08:32)
[2021-05-01] MEDS: Aspirin Enteric Coated 81 MG TABLET.DR PO (08:34)
[2021-05-01] MEDS: 0.9 % Sodium Chloride Flush 3 ML SYRINGE IVFLUSH (08:34)
[2021-05-01] MEDS: Cyanocobalamin (Vitamin B-12) 1,000 MCG TABLET 1000 MCG PO (08:34)
[2021-05-01] MEDS: Vitamin E (Dl,Tocopheryl Acet) 180 MG (400 UNIT) CAPSULE PO (08:34)
[2021-05-01] MEDS: HYDROmorphone HCl 1 MG/ML SYRINGE 0.5 MG IVPUSH (09:07)
--- NOTE | 2021-05-01 10:41 | PM.DS ---
DS: Providers Provider Date of Service: 05/01/21 Date of admission: 04/28/21 02:07 Primary care physician: Jessy Dwyer NP DS: Diagnosis Discharge Diagnosis (1) Chronic systolic (congestive) heart failure: Status: Acute DS: Medications Discharge Medications Home Medications: Home Medications Medication Instructions Recorded Confirmed albuterol sulfate 90 mcg/actuation 2 puff PO Q4H PRN 04/28/21 04/28/21 aerosol inhaler amitriptyline 100 mg tablet 2 tab PO BEDTIME 04/28/21 04/29/21 aspirin 81 mg tablet,delayed 1 tab PO DAILY 04/28/21 04/28/21 release cholecalciferol (vitamin D3) 25 25 mcg PO DAILY 04/28/21 04/28/21 mcg (1,000 unit) tablet (Vitamin D3) clonazepam 2 mg tablet 2 tab PO TID PRN 04/28/21 04/28/21 clonidine HCl 0.1 mg tablet 1 tab PO BID 04/28/21 04/28/21 cyanocobalamin (vitamin B-12) 1,000 mcg PO DAILY 04/28/21 04/28/21 1,000 mcg tablet famotidine 40 mg tablet 1 tab PO DAILY 04/28/21 04/28/21 levetiracetam 750 mg tablet 1 tab PO BID 04/28/21 04/28/21 lisinopril 2.5 mg tablet 1 tab PO DAILY 04/28/21 04/28/21 loratadine 10 mg tablet 1 tab PO DAILY 04/28/21 04/28/21 meloxicam 15 mg tablet 1 tab PO DAILY PRN 04/28/21 04/28/21 methocarbamol 750 mg tablet 1 tab PO BID PRN 04/28/21 04/28/21 metoprolol succinate 25 mg 1 tab PO DAILY 04/28/21 04/28/21 tablet,extended release 24 hr [id number] acid 300 1 tab PO DAILY 04/28/21 04/28/21 mcg-lycopene 600 mcg-lutein 300 mcg tablet (Centrum Silver Men) nitroglycerin 0.4 mg sublingual 0.4 mg SUBLINGUAL Q5M PRN 04/28/21 04/28/21 tablet rosuvastatin 20 mg tablet 1 tab PO BEDTIME 04/28/21 04/28/21 tamsulosin 0.4 mg capsule 1 cap PO DAILY@1700 04/28/21 04/28/21 testosterone 50 mg/5 gram (1 %) 5 g TOPICAL DAILY 04/28/21 04/28/21 transdermal gel thiamine HCl (vitamin B1) 50 mg 50 mg PO DAILY 04/28/21 04/28/21 tablet vitamin E 400 unit capsule 400 unit PO DAILY 04/28/21 04/28/21 DS: Summary Hospital Course Hospital Course: kwasi was admitted for cyclic vomiting episode. he was treated symptomatically and eventaully improved 75% by time of discharge and was able to tolerate solid diet. he is feeling better and will be discharged home. Time Spent with Patient Time attestation: Total time spent providing and/or coordinating discharge services: Discharge coordination time: Greater than 30 minutes Quality: Stroke Does the patient have a stroke diagnosis?: No Physical Exam Vital Signs: Vital Signs: Last Vital Signs Temp 97.8 F 05/01/21 07:42 Pulse 98 05/01/21 08:31 Resp 17 05/01/21 07:42 BP 120/76 05/01/21 08:31 Pulse Ox 92 05/01/21 07:42 Body Mass Index 35.9 General: AO X 3, no acute distress Resp: CTA bilateral CVS: S1,S2,RRR GI: soft, non tender, non distended Neuro: motor grossly intact Psych: appropriate affect DS: Data Data Completed and Pending Labs on day of discharge: Laboratory Results - last 24 hr 04/30/21 05/01/21 23:14 01:52 Troponin I High Sens 5.7 D 4.4 Discharge Plan Discharge Patient Disposition: Home, Self-Care Referrals: Jessy Dwyer [employer] [Primary Care Provider] - 1 Week Discharge Medications: Continued clonidine HCl 0.1 mg tablet 1 tab PO BID RF: 0 meloxicam 15 mg tablet 1 tab PO DAILY PRN (Reason: right arm pain) RF: 0 famotidine 40 mg tablet 1 tab PO DAILY RF: 0 cyanocobalamin (vitamin B-12) 1,000 mcg Tablet 1,000 mcg PO DAILY RF: 0 aspirin 81 mg tablet,delayed release (DR/EC) 1 tab PO DAILY RF: 0 tamsulosin 0.4 mg capsule 1 cap PO DAILY@1700 RF: 0 clonazepam 2 mg tablet 2 tab PO TID PRN (Reason: Anxiety) RF: 0 nitroglycerin 0.4 mg Tablet, Sublingual 0.4 mg SUBLINGUAL Q5M PRN (Reason: Chest Pain) RF: 0 levetiracetam 750 mg tablet 1 tab PO BID RF: 0 metoprolol succinate 25 mg tablet extended release 24 hr 1 tab PO DAILY RF: 0 albuterol sulfate 90 mcg/actuation HFA aerosol inhaler 2 puff PO Q4H PRN (Reason: Shortness Of Breath) RF: 0 amitriptyline 100 mg tablet 2 tab PO BEDTIME RF: 0 lisinopril 2.5 mg tablet 1 tab PO DAILY RF: 0 vitamin E 400 unit Capsule 400 unit PO DAILY RF: 0 loratadine 10 mg tablet 1 tab PO DAILY RF: 0 thiamine HCl (vitamin B1) 50 mg Tablet 50 mg PO DAILY RF: 0 rosuvastatin 20 mg tablet 1 tab PO BEDTIME RF: 0 testosterone 50 mg/5 gram (1 %) gel 5 g topical DAILY RF: 0 cholecalciferol (vitamin D3) [Vitamin D3] 25 mcg (1,000 unit) Tablet 25 mcg PO DAILY RF: 0 Centrum Silver Men 300-600-300 mcg Tablet 1 tab PO DAILY RF: 0 methocarbamol 750 mg tablet 1 tab PO BID PRN (Reason: Muscle Spasm) RF: 0 Discharge Orders: Discharge Order (Routine); Ordered 05/01/21 Ordered By: Dick Lees Diet: advance to usual diet Activity on Discharge: As tolerated Stand Alone Forms: Patient Portal Discharge page Care Plan Goals: recovery Health Concerns: nausea and vomitting Plan of Treatment: maintain hydration Assessment: see above
--- NOTE | 2021-05-01 10:53 | MHC.CM.PN ---
Addendum entered by Jeanie Hodge 05/01/21 13:26: PT UNABLE TO SECURE A RIDE HOME. [employer] PROVIDED Original Note: PT CLEARED FOR DC HOME TODAY WITH RESUMPTION OF HIS DIRECTOR REPORT SERVICES.
[2021-05-01 11:37] VITALS: BP 100/77; PULSE 90; RESP 18; TEMP 36.5; O2SAT 95
== END 2021-05-01 14:19 | disposition home or self-care (01) ==
LOC: HO.ED 04-28 00:09 → HO.IMC 04-28 02:33
PROVIDERS: Admitting Provider Hospitalist; Emergency Provider Emergency Medicine; PCP Nurse Practitioner Family; Visit Provider Internal Medicine
DX: I50.22 Chronic systolic (congestive) heart failure (principal); R55 Syncope and collapse; R11.15 Cyclical vomiting syndrome unrelated to migraine; R10.9 Unspecified abdominal pain; R14.0 Abdominal distension (gaseous); N17.9 Acute kidney failure, unspecified; R94.31 Abnormal electrocardiogram [ECG] [EKG]; F12.10 Cannabis abuse, uncomplicated; Z20.822 Contact with and (suspected) exposure to COVID-19; Z88.0 Allergy status to penicillin; Z79.899 Other long term (current) drug therapy
CPT/HCPCS: 36415; 73030; 74176; 80048; 80076; 81001; 83690; 83735; 84484; 85025; 85027; 87635; 93005; 96374; 96375; 96376; 99219; 99285; J1170; J1885; J2270; J2405; J2765

== ENCOUNTER 2021-05-17 21:40 | Emergency (ER) | payer MEDICAID, SELFPAY ==
[2021-05-17 22:06] VITALS: BP 108/70; BP 94/58; PULSE 66; PULSE 69; RESP 18; TEMP 36.9; O2SAT 95; O2SAT 96; BMI 34.9
--- NOTE | 2021-05-17 22:14 | ED_ITS ---
HPI - Psych General Chief Complaint: Psychiatric Symptoms Stated Complaint: crisis Time Seen by Provider: 05/17/21 22:03 Source: patient and EMS Mode of arrival: EMS Limitations: no limitations History of Present Illness HPI Narrative: Patient comes to the emergency room for SI. EMS reports that the patient: After patient woke up, patient realized that he had a loose laceration to the left upper extremity. Patient reported to EMS that he has history of dissociative seizures disorder, patient told EMS that he had plants with a friend which got canceled because he blacked out a few times today due to the seizures, then seems that he self lacerated his left arm. Patient states that he does not remember grabbing a knife, but remembers cutting himself and did not want to stop. When asked if he has any plans of attempting harming himself, patient states that he does not know but states ?I can tell you I do note that I would rather be ? Related Data Home Medications Medication Instructions Recorded Confirmed albuterol sulfate 90 mcg/actuation 2 puff PO Q4H PRN 04/28/21 04/28/21 aerosol inhaler aspirin 81 mg tablet,delayed 1 tab PO DAILY 04/28/21 04/28/21 release cholecalciferol (vitamin D3) 25 25 mcg PO DAILY 04/28/21 04/28/21 mcg (1,000 unit) tablet (Vitamin D3) cyanocobalamin (vitamin B-12) 1,000 mcg PO DAILY 04/28/21 04/28/21 1,000 mcg tablet ixjkrpko-fen-hhhzl acid 300 1 tab PO DAILY 04/28/21 04/28/21 mcg-lycopene 600 mcg-lutein 300 mcg tablet (Centrum Silver Men) nitroglycerin 0.4 mg sublingual 0.4 mg SUBLINGUAL Q5M PRN 04/28/21 04/28/21 tablet Allergies Allergy/AdvReac Type Severity Reaction Status Date / Time Penicillins Allergy Unknown Unknown Verified 05/17/21 22:05 Review of Systems Review of Systems: Constitutional : No Weight loss, No Fever, No Chills, No Night Sweats, No Fatigue, No Malaise ENT/Mouth : No Hearing loss, No Ear Pain, No Nasal Congestion, No Sinus Pain, No Hoarseness, No sore throat, No Rhinorrhea, No Swallowing Difficulty Eyes: No Eye Pain, No Swelling, No Redness, No Foreign Body, No Discharge, No Vision Changes Cardiovascular : No Chest Pain, No SOB, No Dyspnea on Exertion, No Orthopnea, No Edema, No Palpitations Respiratory : No Cough, No Sputum, No Wheezing, No Smoke Exposure, No Dyspnea Gastrointestinal : No Nausea, No Vomiting, No Diarrhea, No Constipation, No abdominal Pain, No Hematochezia, No Melena Genitourinary : no irregular bleeding, No Dysuria, No Urinary Frequency, No Hematuria, No Urinary Incontinence, No Urgency, No Flank Pain, No Urinary Flow Changes, No Hesitancy Musculoskeletal : No joint pain, No Myalgias, No Joint Swelling Skin : Signing a large laceration to the forearm on the left side Neuro : No Weakness, No Numbness, No Paresthesias, No Loss of Consciousness, No Dizziness, No Headache Psych : No Anxiety/Panic, complaining of depression and possible suicide attempt Heme/Lymph: No Bruising, No Bleeding,No Lymphadenopathy Endocrine : No Polyuria, No Polydipsia, No Temperature Intolerance [facility] Past Medical History Medical History NAMITA (acute kidney injury) CAD (coronary artery disease) Chronic systolic (congestive) heart failure Seizure Surgical History Stented coronary artery Social History Social History Patient Tobacco Use Status: Current everyday Tobacco user Tobacco use type: Cigarette Second Hand Smoke Exposure: No Advance Directives: No Advance Directives Information Provided: Yes service: Yes Current occupational status: disabled Physical Exam Vital Signs: Vital Signs: Last Vital Signs Temp 98.4 F 05/17/21 22:06 Pulse 66 05/17/21 22:06 Resp 18 05/17/21 22:06 BP 94/58 L 05/17/21 22:06 Pulse Ox 95 05/17/21 22:06 Body Mass Index 34.9 Const: Other: Appearance: Alert. Oriented X3. No acute distress. Seems intoxicated, calm and cooperative Eyes: Pupils equal, round and reactive to light. ENT: Pharynx normal. Neck: Normal inspection. Neck supple. No lymph nodes noted. No crepitus CVS: Normal heart rate and rhythm. Pulses normal. Normal S1 and S2 Respiratory: No respiratory distress. Breath sounds normal. No Wheezing. No rales Abdomen: Soft and nontender. No rigidity. No distention. good BS x4 Skin: Skin warm and dry. Two 5 cm lacerations in the forearm on the left side Extremities: No lower extremity edema. No Lacerations. No Rash Neuro: Oriented X 3. No motor deficit. No sensory deficit. Moving all exter mities. No slurred speech. Course Course Course Narrative: Positive for benzos, marijuana and alcohol. Patient's forearm was sutured, he required 12 figure 8 stitches. Patient states he is up-to-date with his immunization, patient states it has been less than 5 years since he get immunized. Patient ready to be seen by [facility] consult pending, patient is under Section 12 Physician observation started at 23:50 [facility] - Psych Lab Data Result diagrams: 05/17/21 22:58 05/17/21 22:58 Labs: Lab Results 05/17/21 05/17/21 05/17/21 Range/Units 22:11 22:58 22:58 WBC 7.3 (4.8-10.8) X10*3/uL RBC 4.86 (4.60-5.80) X10*6/uL Hgb 14.2 (14.0-18.0) g/dl Hct 41.5 L (42-52) % MCV 85.4 (80-98) fL MCH 29.2 (27.0-33.0) pg MCHC 34.2 (31.0-36.0) g/dl RDW 13.1 (11.0-16.0) % Plt Count 213 (160-400) X10*3/uL MPV 9.4 (9.4-12.4) fL Immature Gran % (Auto) 0.5 H (0.0-0.4) % Neut % (Auto) 62.6 (45-73) % Lymph % (Auto) 27.5 (20-40) % [place] % (Auto) 6.9 (2-11) % Eos % (Auto) 1.8 (0-4) % Baso % (Auto) 0.7 (0-2) % Lymph # (Auto) 2.0 (1.2-4.9) X10*3/uL [place] # (Auto) 0.5 (0.1-1.2) X10*3/uL Eos # (Auto) 0.1 (0.0-0.4) X10*3/uL Baso # (Auto) 0.1 (0.0-0.2) X10*3/uL Abs Immat Gran (auto) 0.04 H (0.00-0.03) X10*3/uL Absolute Neuts (auto) 4.6 (2.0-8.3) X10*3/uL Absolute Nucleated RBC 0.000 (0.0-0.012) X10*3/uL Nucleated RBC % (auto) 0.0 (0.0-0.2) /100WBC Sodium 140 (135-145) mmol/L Potassium 4.0 (3.3-5.1) mmol/L Chloride 109 H (96-108) mmol/L Carbon Dioxide 19 L (22-29) mmol/L Anion Gap 16 (12-20) BUN 10 (9-16) mg/dL Creatinine 0.99 (0.5-1.4) mg/dL Estim Creat Clear Calc 103.3 Estimated GFR > 60 POC Glucose 108 (60-115) mg/dL Random Glucose 102 (60-115) mg/dL Lactic Acid (0.5-2.0) mmol/L Calcium 8.9 (8.4-10.2) mg/dL Total Bilirubin 0.4 (0.0-1.0) mg/dL Direct Bilirubin 0.2 (0.0-0.5) mg/dL AST 27 (5-37) U/L ALT 59 H (0-40) U/L Alkaline Phosphatase 59 (39-117) U/L Total Protein 6.7 (6.5-8.0) g/dL Albumin 4.2 (3.5-5.0) g/dL Urine Opiates Screen (Not Detect) Urine Fentanyl Screen (Not Detect) Ur Barbiturates Screen (Not Detect) Ur Phencyclidine Scrn (Not Detect) Ur Amphetamines Screen (Not Detect) U Benzodiazepines Scrn (Not Detect) Urine Cocaine Screen (Not Detect) U Marijuana (THC) Screen (Not Detect) Ethyl Alcohol mg/dL COVID-19 (FADUMO) (Negative) COVID-19 Clin Com 05/17/21 05/17/21 05/17/21 Range/Units 22:58 22:58 22:58 WBC (4.8-10.8) X10*3/uL RBC (4.60-5.80) X10*6/uL Hgb (14.0-18.0) g/dl Hct (42-52) % MCV (80-98) fL MCH (27.0-33.0) pg MCHC (31.0-36.0) g/dl RDW (11.0-16.0) % Plt Count (160-400) X10*3/uL MPV (9.4-12.4) fL Immature Gran % (Auto) (0.0-0.4) % Neut % (Auto) (45-73) % Lymph % (Auto) (20-40) % [place] % (Auto) (2-11) % Eos % (Auto) (0-4) % Baso % (Auto) (0-2) % Lymph # (Auto) (1.2-4.9) X10*3/uL [place] # (Auto) (0.1-1.2) X10*3/uL Eos # (Auto) (0.0-0.4) X10*3/uL Baso # (Auto) (0.0-0.2) X10*3/uL Abs Immat Gran (auto) (0.00-0.03) X10*3/uL Absolute Neuts (auto) (2.0-8.3) X10*3/uL Absolute Nucleated RBC (0.0-0.012) X10*3/uL Nucleated RBC % (auto) (0.0-0.2) /100WBC Sodium (135-145) mmol/L Potassium (3.3-5.1) mmol/L Chloride (96-108) mmol/L Carbon Dioxide (22-29) mmol/L Anion Gap (12-20) BUN (9-16) mg/dL Creatinine (0.5-1.4) mg/dL Estim Creat Clear Calc Estimated GFR POC Glucose (60-115) mg/dL Random Glucose (60-115) mg/dL Lactic Acid 1.5 (0.5-2.0) mmol/L Calcium (8.4-10.2) mg/dL Total Bilirubin (0.0-1.0) mg/dL Direct Bilirubin (0.0-0.5) mg/dL AST (5-37) U/L ALT (0-40) U/L Alkaline Phosphatase (39-117) U/L Total Protein (6.5-8.0) g/dL Albumin (3.5-5.0) g/dL Urine Opiates Screen (Not Detect) Urine Fentanyl Screen (Not Detect) Ur Barbiturates Screen (Not Detect) Ur Phencyclidine Scrn (Not Detect) Ur Amphetamines Screen (Not Detect) U Benzodiazepines Scrn (Not Detect) Urine Cocaine Screen (Not Detect) U Marijuana (THC) Screen (Not Detect) Ethyl Alcohol 82 mg/dL COVID-19 (FADUMO) Negative (Negative) COVID-19 Clin Com See Note 05/17/21 Range/Units 22:58 WBC (4.8-10.8) X10*3/uL RBC (4.60-5.80) X10*6/uL Hgb (14.0-18.0) g/dl Hct (42-52) % MCV (80-98) fL MCH (27.0-33.0) pg MCHC (31.0-36.0) g/dl RDW (11.0-16.0) % Plt Count (160-400) X10*3/uL MPV (9.4-12.4) fL Immature Gran % (Auto) (0.0-0.4) % Neut % (Auto) (45-73) % Lymph % (Auto) (20-40) % [place] % (Auto) (2-11) % Eos % (Auto) (0-4) % Baso % (Auto) (0-2) % Lymph # (Auto) (1.2-4.9) X10*3/uL [place] # (Auto) (0.1-1.2) X10*3/uL Eos # (Auto) (0.0-0.4) X10*3/uL Baso # (Auto) (0.0-0.2) X10*3/uL Abs Immat Gran (auto) (0.00-0.03) X10*3/uL Absolute Neuts (auto) (2.0-8.3) X10*3/uL Absolute Nucleated RBC (0.0-0.012) X10*3/uL Nucleated RBC % (auto) (0.0-0.2) /100WBC Sodium (135-145) mmol/L Potassium (3.3-5.1) mmol/L Chloride (96-108) mmol/L Carbon Dioxide (22-29) mmol/L Anion Gap (12-20) BUN (9-16) mg/dL Creatinine (0.5-1.4) mg/dL Estim Creat Clear Calc Estimated GFR POC Glucose (60-115) mg/dL Random Glucose (60-115) mg/dL Lactic Acid (0.5-2.0) mmol/L Calcium (8.4-10.2) mg/dL Total Bilirubin (0.0-1.0) mg/dL Direct Bilirubin (0.0-0.5) mg/dL AST (5-37) U/L ALT (0-40) U/L Alkaline Phosphatase (39-117) U/L Total Protein (6.5-8.0) g/dL Albumin (3.5-5.0) g/dL Urine Opiates Screen Not Detected (Not Detect) Urine Fentanyl Screen Not Detected (Not Detect) Ur Barbiturates Screen Not Detected (Not Detect) Ur Phencyclidine Scrn Not Detected (Not Detect) Ur Amphetamines Screen Not Detected (Not Detect) U Benzodiazepines Scrn POSITIVE H (Not Detect) Urine Cocaine Screen Not Detected (Not Detect) U Marijuana (THC) Screen POSITIVE H (Not Detect) Ethyl Alcohol mg/dL COVID-19 (FADUMO) (Negative) COVID-19 Clin Com Procedures Laceration Laceration 1: Site: upper extremity Side (If applicable): left Size (cm): 15 Description: linear Depth: simple, single layer Local Anesthetic: lidocaine 2% Amount of anesthesia used (mL): 10 Pre-repair: wound explored Skin layer closed with: nylon Size (cm): 4-0 Number of sutures: 12 Technique: other (Figure 8) Discharge Plan Discharge Clinical Impression: Suicide attempt, Polysubstance abuse, Laceration Prescriptions: No Action cyanocobalamin (vitamin B-12) 1,000 mcg Tablet 1,000 mcg PO DAILY RF: 0 aspirin 81 mg tablet,delayed release (DR/EC) 1 tab PO DAILY RF: 0 nitroglycerin 0.4 mg Tablet, Sublingual 0.4 mg SUBLINGUAL Q5M PRN (Reason: Chest Pain) RF: 0 albuterol sulfate 90 mcg/actuation HFA aerosol inhaler 2 puff PO Q4H PRN (Reason: Shortness Of Breath) RF: 0 cholecalciferol (vitamin D3) [Vitamin D3] 25 mcg (1,000 unit) Tablet 25 mcg PO DAILY RF: 0 Centrum Silver Men 300-600-300 mcg Tablet 1 tab PO DAILY RF: 0
[2021-05-17 22:15] LABS: Glucose, Whole Blood 108 mg/dL (60-115)
[2021-05-17] MEDS: Lidocaine HCl 2 % MPF 5 ML VIAL 10 ML INFILTRATI (22:37)
--- NOTE | 2021-05-17 22:37 | PC.NURSE ---
carine scanned and given to Dr Infante for bedside use.
[2021-05-17 23:04] LABS: MANUAL DIFF FLAG NO
[2021-05-17 23:05] LABS: Basophils Absolute Auto 0.1 X10*3/uL (0.0-0.2); Basophils Percent Auto 0.7 % (0-2); Eosinophils Absolute Auto 0.1 X10*3/uL (0.0-0.4); Eosinophils Percent Auto 1.8 % (0-4); Hematocrit 41.5 % (42-52); Hemoglobin 14.2 g/dl (14.0-18.0); Imm Gran Abs Auto 0.04 X10*3/uL (0.00-0.03); Imm Gran Pct Auto 0.5 % (0.0-0.4); Lymphocytes Percent Auto 27.5 % (20-40); Mean Corpuscular HGB Conc 34.2 g/dl (31.0-36.0); Mean Corpuscular Hemoglobin 29.2 pg (27.0-33.0); Mean Corpuscular Volume 85.4 fL (80-98); Mean Platelet Volume 9.4 fL (9.4-12.4); Monocytes Absolute Auto 0.5 X10*3/uL (0.1-1.2); Monocytes Percent Auto 6.9 % (2-11); Neutrophils Absolute Auto 4.6 X10*3/uL (2.0-8.3); Neutrophils Percent Auto 62.6 % (45-73); Platelet Count 213 X10*3/uL (160-400); Red Blood Count 4.86 X10*6/uL (4.60-5.80); Red Cell Distribution Width 13.1 % (11.0-16.0); White Blood Count 7.3 X10*3/uL (4.8-10.8)
--- NOTE | 2021-05-17 23:14 | PC.NURSE ---
Pt with seizure pads on both side rails of stretcher. Pt continues with 1:1 sitter at bedside.
--- NOTE | 2021-05-17 23:14 | PC.NURSE ---
Dr Infante at bedside providing wound care to pt.
[2021-05-17 23:17] LABS: COVID-19 Test Negative (Negative)
[2021-05-17 23:23] LABS: Lactic Acid 1.5 mmol/L (0.5-2.0)
[2021-05-17 23:26] LABS: Ethanol 82 mg/dL
[2021-05-17 23:30] LABS: Alanine Aminotransferase 59 U/L (0-40); Amphetamine Screen Urine Not Detected (Not Detect); Barbiturates, Urine Not Detected (Not Detect); Benzodiazepines Screen Urine POSITIVE (Not Detect); Bilirubin Direct 0.2 mg/dL (0.0-0.5); Cannabinoid Screen Urine POSITIVE (Not Detect); Cocaine Screen Urine Not Detected (Not Detect); Fentanyl, urine Not Detected (Not Detect); Opiate Screen Urine Not Detected (Not Detect); Phencyclidine Screen Urine Not Detected (Not Detect)
[2021-05-17 23:34] LABS: Albumin Level 4.2 g/dL (3.5-5.0); Alkaline Phosphatase 59 U/L (39-117); Anion Gap 16 (12-20); Aspartate Amino Transferase 27 U/L (5-37); Bilirubin Total 0.4 mg/dL (0.0-1.0); Blood Urea Nitrogen 10 mg/dL (9-16); Calcium 8.9 mg/dL (8.4-10.2); Carbon Dioxide 19 mmol/L (22-29); Chloride 109 mmol/L (96-108); Creatinine Clr Calc Pharmacy 103.3; Estimated Glomerular Filt Rate > 60; Glucose Random 102 mg/dL (60-115); Sodium 140 mmol/L (135-145); Total Protein 6.7 g/dL (6.5-8.0)
[2021-05-18 00:28] VITALS: BP 104/70; PULSE 74; RESP 18; TEMP 36.6; O2SAT 95
[2021-05-18] MEDS: Ibuprofen 800 MG TABLET PO (02:29)
[2021-05-18] MEDS: clonazePAM 1 MG TABLET 2 MG PO (02:30)
[2021-05-18] MEDS: traMADoL HCL 50 MG TABLET PO ×2 (03:22→10:11)
--- NOTE | 2021-05-18 03:45 | PC.NURSE ---
Patient complain of left hand pain 03/04, ibuprofen 800 mg administered as ordered, patient reported no effect and reported 04/03, provider notified/ordered Tramodol 50 mg/administered as ordered/pending effect, GANESHN referall completed confirmed by MILAGRO, patient will be seen in the morning, will continue to monitor.
--- NOTE | 2021-05-18 06:30 | PC.NURSE ---
Patient over all slept well, patient was up from 0230 and 0330, sleeping since 329, no distress reported at this time, patient has self inflicted laceration on left hand with 14 sutures, covered with gauze and secured with paper taps, patent's referral completed/confirmed/awaiting BHN evaluation in the morning, med compliant, behavior appropriate mostly, elimination intact, VSS, will continue to monitor.
--- NOTE | 2021-05-18 07:16 | PC.NURSE ---
patient appeared to remain at rest upon arrival to shift, at present, the patient is nearly coninually talking to staff, seems a little restless.
[2021-05-18 07:31] VITALS: BP 120/74; PULSE 78; RESP 14; TEMP 36.6; O2SAT 97
[2021-05-18 08:34] VITALS: BP 120/74; PULSE 78
[2021-05-18] MEDS: Cyanocobalamin (Vitamin B-12) 1,000 MCG TABLET 1000 MCG PO (08:34)
[2021-05-18] MEDS: Aspirin Enteric Coated 81 MG TABLET.DR PO (08:34)
[2021-05-18] MEDS: Cholecalciferol (Vitamin D3) 25 MCG TABLET PO (08:34)
[2021-05-18] MEDS: Loratadine 10 MG TABLET PO (08:34)
[2021-05-18] MEDS: cloNIDine HCL 0.1 MG TABLET PO (08:34)
--- NOTE | 2021-05-18 08:53 | PHA.MEDREC ---
Pharmacy Consult ? Medication Reconciliation Med rec completed by nurse overnight. Pharmacy reviewed work. Yumiko Martin, MilkaD
[2021-05-18] MEDS: Famotidine 20 MG TABLET 40 MG PO (09:08)
[2021-05-18 09:09] VITALS: BP 120/74; PULSE 78
[2021-05-18] MEDS: levETIRAcetam 250 MG TABLET 750 MG PO (09:09)
[2021-05-18] MEDS: Metoprolol Succinate ER 25 MG TAB.ER.24H PO (09:09)
[2021-05-18] MEDS: Tamsulosin HCL 0.4 MG CAPSULE PO (09:09)
== END 2021-05-18 11:53 | disposition home or self-care (01) ==
PROVIDERS: Emergency Provider Emergency Medicine
DX: S41.112A Laceration without foreign body of left upper arm, initial encounter (principal); F33.1 Major depressive disorder, recurrent, moderate; R45.851 Suicidal ideations; W26.9XXA Contact with unspecified sharp object(s), initial encounter; Y93.9 Activity, unspecified; Y92.9 Unspecified place or not applicable; Y99.9 Unspecified external cause status; Z20.822 Contact with and (suspected) exposure to COVID-19; Z79.899 Other long term (current) drug therapy; Z79.82 Long term (current) use of aspirin
CPT/HCPCS: 12005; 36415; 80048; 80076; 80307; 82077; 82947; 83605; 85025; 87635; 99284; 99285

== ENCOUNTER 2022-01-28 18:25 | Emergency (ER) | payer MEDICARE, MEDICAID, SELFPAY ==
--- NOTE | ~2022-01-28 | CT_ITS ---
EXAMINATION: CT HEAD WITHOUT CONTRAST CLINICAL INFORMATION: Fall, loss of consciousness COMPARISON: None TECHNIQUE: Contiguous axial imaging was performed from the skull base to vertex without intravenous administration of contrast. This CT examination was performed using dose optimization techniques as appropriate, variously including the following: *Automated exposure control *Adjustment of mA and/or kV according to patient size (this includes techniques or standardized protocols for targeted exams where dose is matched to indication/reason for exam; i.e. extremities or head) *Use of iterative reconstruction technique DLP: 881 mGy-cm FINDINGS: There is no evidence of acute intracranial hemorrhage or territorial infarction. No abnormal mass effect or midline shift is seen. Kay to white matter differentiation is well preserved. No extra-axial fluid collections are identified. The ventricles are normal in size. There is no abnormal attenuation within the brain parenchyma. The osseous structures and soft tissues are normal. The mastoid air cells and visualized portions of the paranasal sinuses are well aerated. CT/CT head/brain wo con IMPRESSION: No acute intracranial pathology.
--- NOTE | ~2022-01-28 | US_ITS ---
EXAMINATION: US VENOUS ULTRASOUND WITH DOPPLER LOWER EXTREMITY, LEFT CLINICAL INFORMATION: Status post knee surgery, severe calf pain COMPARISON: None TECHNIQUE: Ultrasound of the deep veins is performed from the hip to the calf with compression sonography and color and pulse Doppler assessment. Spectral analysis with color-flow imaging is performed. FINDINGS: There is normal venous compression and respiratory variation and augmented flow. The visualized common femoral vein, superficial femoral vein, profunda femoral vein, popliteal vein, and the trifurcation region shows no evidence of deep venous thrombosis. There is no significant popliteal fossa cyst. If the patient's symptoms persist, followup ultrasound in 5 days 7 days might be of value to exclude proximal propagation from a non-visualized calf vein. US/US venous duplex LE LT IMPRESSION: No DVT demonstrated in the left lower extremity.
[2022-01-28 19:43] VITALS: BP 104/71; PULSE 86; RESP 18; TEMP 36.8; O2SAT 98; BMI 34.2
--- NOTE | 2022-01-28 19:52 | PC.NURSE ---
IV to left hand by EMS removed in triage
[2022-01-28 20:04] LABS: MANUAL DIFF FLAG NO
[2022-01-28 20:10] LABS: Basophils Absolute Auto 0.1 X10*3/uL (0.0-0.2); Basophils Percent Auto 0.7 % (0-2); Eosinophils Absolute Auto 0.2 X10*3/uL (0.0-0.4); Hematocrit 46.1 % (42.0-52.0); Hemoglobin 15.3 g/dl (14.0-18.0); Lymphocytes Absolute Auto 1.9 X10*3/uL (1.2-4.9); Lymphocytes Percent Auto 18.9 % (20-40); Mean Corpuscular HGB Conc 33.2 g/dl (31.0-36.0); Mean Corpuscular Hemoglobin 29.4 pg (27.0-33.0); Mean Corpuscular Volume 88.5 fL (80.0-98.0); Mean Platelet Volume 9.4 fL (9.4-12.4); Monocytes Absolute Auto 0.8 X10*3/uL (0.1-1.2); Monocytes Percent Auto 7.5 % (2-11); Neutrophils Percent Auto 68.9 % (45-73); Platelet Count 209 X10*3/uL (160-400); Red Blood Count 5.21 X10*6/uL (4.60-5.80); Red Cell Distribution Width 13.6 % (11.0-16.0); White Blood Count 10.1 X10*3/uL (4.8-10.8)
[2022-01-28 20:17] LABS: Anion Gap 12 (12-20); Blood Urea Nitrogen 10 mg/dL (9-16); Calcium 8.9 mg/dL (8.4-10.2); Carbon Dioxide 22 mmol/L (22-29); Chloride 107 mmol/L (96-108); Creatinine Clr Calc Pharmacy 123.4; Estimated Glomerular Filt Rate > 60; Glucose Random 154 mg/dL (60-115); Potassium 3.9 mmol/L (3.3-5.1); Sodium 137 mmol/L (135-145)
--- NOTE | 2022-01-29 00:31 | ECG_ITS ---
Test Reason : SOB Blood Pressure : / mmHG Vent. Rate : 073 BPM Atrial Rate : 073 BPM P-R Int : 208 ms QRS Dur : 098 ms QT Int : 372 ms P-R-T Axes : 061 055 058 degrees QTc Int : 409 ms Normal sinus rhythm Normal ECG When compared with ECG of 30-APR-2021 22:40, Criteria for Inferior infarct are no longer Present Referred By: Lilliana Infante Electronically Signed By:Jaime Mcgovern
--- NOTE | 2022-01-29 00:50 | ED_ITS ---
HPI - General Adult General Chief complaint: Extremity Problem Stated complaint: L LEG PAIN Time Seen by Provider: 01/29/22 00:27 Source: patient Mode of arrival: ambulatory Limitations: no limitations History of Present Illness HPI narrative: Patient comes to the emergency room complaining of left lower extremity pain. Eight days ago, patient had a knee surgery done at [facility]. Patient states that the 1st 2 days he was doing well, but shortly after he started developing calf pain. Patient states his leg is now swollen and tender from the ankle up to the knee especially in the posterior aspect. Patient is not on blood thinners. Also, patient states that 2 days ago he went to sleep, and in the morning he woke up with a bump in his head. Patient states that he has history of seizures, not on medications, last seizure 4-5 years ago. Patient states he is not sure if he had a seizure. Patient has no headache, no other injuries. Related Data Home Medications Medication Instructions Recorded Confirmed albuterol sulfate 90 mcg/actuation 2 puff PO Q4H PRN 04/28/21 05/18/21 aerosol inhaler aspirin 81 mg tablet,delayed 1 tab PO DAILY 04/28/21 05/18/21 release cholecalciferol (vitamin D3) 25 25 mcg PO DAILY 04/28/21 05/18/21 mcg (1,000 unit) tablet (Vitamin D3) cyanocobalamin (vitamin B-12) 1,000 mcg PO DAILY 04/28/21 05/18/21 1,000 mcg tablet ruxmvkbr-ioo-pcfyw acid 300 1 tab PO DAILY 04/28/21 05/18/21 mcg-lycopene 600 mcg-lutein 300 mcg tablet (Centrum Silver Men) nitroglycerin 0.4 mg sublingual 0.4 mg SUBLINGUAL Q5M PRN 04/28/21 05/18/21 tablet amitriptyline 100 mg tablet 2 tab PO DAILY 05/17/21 05/18/21 clonazepam 2 mg tablet 1 tab PO TID PRN 05/17/21 05/18/21 clonidine HCl 0.1 mg tablet 1 tab PO BID 05/17/21 05/18/21 famotidine 40 mg tablet 1 tab PO DAILY 05/17/21 05/18/21 levetiracetam 750 mg tablet 1 tab PO Q12H 05/17/21 05/18/21 loratadine 10 mg tablet 1 tab PO DAILY 05/17/21 05/18/21 methocarbamol 750 mg tablet 1 tab PO BID PRN 05/17/21 05/18/21 metoprolol succinate 25 mg 1 tab PO DAILY 05/17/21 05/18/21 tablet,extended release 24 hr rosuvastatin 20 mg tablet 1 tab PO BEDTIME 05/17/21 05/18/21 tamsulosin 0.4 mg capsule 1 cap PO DAILY 05/17/21 05/18/21 testosterone 50 mg/5 gram (1 %) 5 g TOPICAL DAILY 05/17/21 05/18/21 transdermal gel Previous Rx's Medication Instructions Recorded ketorolac 10 mg tablet 10 mg PO BID PRN #8 tab 01/29/22 oxycodone 5 mg tablet 5 mg PO BID PRN #7 tab 01/29/22 Allergies Allergy/AdvReac Type Severity Reaction Status Date / Time Penicillins Allergy Unknown Unknown Verified 01/28/22 19:50 Review of Systems Review of Systems: Constitutional : No Weight loss, No Fever, No Chills, No Night Sweats, No Fatigue, No Malaise ENT/Mouth : No Hearing loss, No Ear Pain, No Nasal Congestion, No Sinus Pain, No Hoarseness, No sore throat, No Rhinorrhea, No Swallowing Difficulty Eyes: No Eye Pain, No Swelling, No Redness, No Foreign Body, No Discharge, No Vision Changes Cardiovascular : No Chest Pain, No SOB, No Dyspnea on Exertion, No Orthopnea, No Edema, No Palpitations Respiratory : No Cough, No Sputum, No Wheezing, No Smoke Exposure, No Dyspnea Gastrointestinal : No Nausea, No Vomiting, No Diarrhea, No Constipation, No abdominal Pain, No Hematochezia, No Melena Genitourinary : no irregular bleeding, No Dysuria, No Urinary Frequency, No Hematuria, No Urinary Incontinence, No Urgency, No Flank Pain, No Urinary Flow Changes, No Hesitancy Musculoskeletal : Patient complaining of left lower extremity pain swelling, status post knee surgery Skin : Complaining of a small ecchymosis in his forehead. [place] Neuro : No Weakness, No Numbness, No Paresthesias, No Loss of Consciousness, No Dizziness, No Headache Psych : No Anxiety/Panic, No Depression, No SI/HI/AH/VH, No Social Issues, Heme/Lymph: No Bruising, No Bleeding,No Lymphadenopathy Endocrine : No Polyuria, No Polydipsia, No Temperature Intolerance [facility] Past Medical History Medical History NAMITA (acute kidney injury) CAD (coronary artery disease) Chronic systolic (congestive) heart failure Seizure Surgical History Stented coronary artery Social History Social History Patient Tobacco Use Status: Current everyday Tobacco user Tobacco use type: Cigarette Second Hand Smoke Exposure: No Advance Directives: No Advance Directives Information Provided: Yes service: Yes Current occupational status: disabled Physical Exam ED Vital Signs: Vital Signs - 24 hr 01/28/22 19:43 01/29/22 01:56 Temperature 98.3 F 97.5 F Pulse Rate 86 81 Respiratory Rate 18 18 Blood Pressure 104/71 113/76 Pulse Oximetry 98 95 BMI result Body Mass Index 34.2 Const Other: Appearance: Alert. Oriented X3. No acute distress. Eyes: Pupils equal, round and reactive to light. ENT: Pharynx normal. Neck: Normal inspection. Neck supple. No lymph nodes noted. No crepitus CVS: Normal heart rate and rhythm. Pulses normal. Normal S1 and S2 Respiratory: No respiratory distress. Breath sounds normal. No Wheezing. No rales Abdomen: Soft and nontender. No rigidity. No distention. Skin: Skin warm and dry. Normal skin color. Normal skin turgor. Extremities: +1 nonpitting edema in left lower extremity, painful to touch especially in the calf area, no signs of infection in the knee, able to flex and extend with no pain, joint infection of suspected. No joint effusion, no redness, no additional warmth to touch Neuro: Oriented X 3. No motor deficit. No sensory deficit. Moving all extremities. No slurred speech. CN 2 through 12 grossly intact Psych: calm, cooperative, normal affect Course Course Course Narrative: It is unclear why patient has a small ecchymosis in his forehead. Patient does not recall having a seizure, patient was in bed and woke up with a small ecchymosis. Left lower extremity ultrasound pending Patient was given 1 dose of IM ketorolac and 1 dose of p.o. oxycodone Ultrasound negative for DVT. Patient instructed to follow-up with his primary care physician. Medical Decision Making Lab Data Result diagrams: 01/28/22 19:58 01/28/22 19:58 Labs: Lab Results 01/28/22 01/28/22 01/29/22 Range/Units 19:58 19:58 01:26 WBC 10.1 (4.8-10.8) X10*3/uL RBC 5.21 (4.60-5.80) X10*6/uL Hgb 15.3 (14.0-18.0) g/dl Hct 46.1 (42.0-52.0) % MCV 88.5 (80.0-98.0) fL MCH 29.4 (27.0-33.0) pg MCHC 33.2 (31.0-36.0) g/dl RDW 13.6 (11.0-16.0) % Plt Count 209 (160-400) X10*3/uL MPV 9.4 (9.4-12.4) fL Immature Gran % (Auto) 2.0 H (0.0-0.4) % Neut % (Auto) 68.9 (45-73) % Lymph % (Auto) 18.9 L (20-40) % Ford % (Auto) 7.5 (2-11) % Eos % (Auto) 2.0 (0-4) % Baso % (Auto) 0.7 (0-2) % Lymph # (Auto) 1.9 (1.2-4.9) X10*3/uL [place] # (Auto) 0.8 (0.1-1.2) X10*3/uL Eos # (Auto) 0.2 (0.0-0.4) X10*3/uL Baso # (Auto) 0.1 (0.0-0.2) X10*3/uL Abs Immat Gran (auto) 0.20 H (0.00-0.03) X10*3/uL Absolute Neuts (auto) 7.0 (2.0-8.3) x10*3/uL Absolute Nucleated RBC 0.000 (0.0-0.012) X10*3/uL Nucleated RBC % (auto) 0.0 (0.0-0.2) /100WBC Sodium 137 (135-145) mmol/L Potassium 3.9 (3.3-5.1) mmol/L Chloride 107 (96-108) mmol/L Carbon Dioxide 22 (22-29) mmol/L Anion Gap 12 (12-20) BUN 10 (9-16) mg/dL Creatinine 0.82 (0.5-1.4) mg/dL Estim Creat Clear Calc 123.4 Estimated GFR > 60 Random Glucose 154 H D (60-115) mg/dL Lactic Acid 1.0 (0.5-2.0) mmol/L Calcium 8.9 (8.4-10.2) mg/dL Total Creatine Kinase 78 (38-174) U/L Troponin I High Sens (<3.5-35.0) ng/L 01/29/22 Range/Units 19:58 WBC (4.8-10.8) X10*3/uL RBC (4.60-5.80) X10*6/uL Hgb (14.0-18.0) g/dl Hct (42.0-52.0) % MCV (80.0-98.0) fL MCH (27.0-33.0) pg MCHC (31.0-36.0) g/dl RDW (11.0-16.0) % Plt Count (160-400) X10*3/uL MPV (9.4-12.4) fL Immature Gran % (Auto) (0.0-0.4) % Neut % (Auto) (45-73) % Lymph % (Auto) (20-40) % Ford % (Auto) (2-11) % Eos % (Auto) (0-4) % Baso % (Auto) (0-2) % Lymph # (Auto) (1.2-4.9) X10*3/uL Ford # (Auto) (0.1-1.2) X10*3/uL Eos # (Auto) (0.0-0.4) X10*3/uL Baso # (Auto) (0.0-0.2) X10*3/uL Abs Immat Gran (auto) (0.00-0.03) X10*3/uL Absolute Neuts (auto) (2.0-8.3) x10*3/uL Absolute Nucleated RBC (0.0-0.012) X10*3/uL Nucleated RBC % (auto) (0.0-0.2) /100WBC Sodium (135-145) mmol/L Potassium (3.3-5.1) mmol/L Chloride (96-108) mmol/L Carbon Dioxide (22-29) mmol/L Anion Gap (12-20) BUN (9-16) mg/dL Creatinine (0.5-1.4) mg/dL Estim Creat Clear Calc Estimated GFR Random Glucose (60-115) mg/dL Lactic Acid (0.5-2.0) mmol/L Calcium (8.4-10.2) mg/dL Total Creatine Kinase (38-174) U/L Troponin I High Sens < 3.5 (<3.5-35.0) ng/L Imaging Data CT scan - head: Radiologist's impression: FINDINGS: There is no evidence of acute intracranial hemorrhage or territorial infarction. No abnormal mass effect or midline shift is seen. Kay to white matter differentiation is well preserved. No extra-axial fluid collections are identified. The ventricles are normal in size. There is no abnormal attenuation within the brain parenchyma. The osseous structures and soft tissues are normal. The mastoid air cells and visualized portions of the paranasal sinuses are well aerated. ? CT/CT head/brain wo con IMPRESSION: No acute intracranial pathology. Venous US: Radiologist's impression: FINDINGS: There is normal venous compression and respiratory variation and augmented flow. The visualized common femoral vein, superficial femoral vein, profunda femoral vein, popliteal vein, and the trifurcation region shows no evidence of deep venous thrombosis. There is no significant popliteal fossa cyst. If the patient's symptoms persist, followup ultrasound in 5 days 7 days might be of value to exclude proximal propagation from a non-visualized calf vein. US/US venous duplex LE LT IMPRESSION: No DVT demonstrated in the left lower extremity. Discharge Plan Discharge Clinical Impression: Left leg pain Patient Disposition: Home, Self-Care Instructions: Leg Pain (ED) Additional Instructions: Please follow-up with your orthopedic surgeon and with your primary care physician tomorrow. If you have any worsening or new symptoms, please return to the emergency room or call 911 Prescriptions: New ketorolac 10 mg tablet 10 mg PO BID PRN (Reason: pain) Qty: 8 0RF oxycodone 5 mg tablet 5 mg PO BID PRN (Reason: pain) Qty: 7 0RF Rx Instructions: Avoid taking oxycodone, tried ketorolac first No Action cyanocobalamin (vitamin B-12) 1,000 mcg Tablet 1,000 mcg PO DAILY 0RF aspirin 81 mg tablet,delayed release (DR/EC) 1 tab PO DAILY 0RF nitroglycerin 0.4 mg Tablet, Sublingual 0.4 mg SUBLINGUAL Q5M PRN (Reason: Chest Pain) 0RF albuterol sulfate 90 mcg/actuation HFA aerosol inhaler 2 puff PO Q4H PRN (Reason: Shortness Of Breath) 0RF cholecalciferol (vitamin D3) [Vitamin D3] 25 mcg (1,000 unit) Tablet 25 mcg PO DAILY 0RF Centrum Silver Men 300-600-300 mcg Tablet 1 tab PO DAILY 0RF clonidine HCl 0.1 mg tablet 1 tab PO BID 0RF famotidine 40 mg tablet 1 tab PO DAILY 0RF methocarbamol 750 mg tablet 1 tab PO BID PRN (Reason: Pain) 0RF tamsulosin 0.4 mg capsule 1 cap PO DAILY 0RF clonazepam 2 mg tablet 1 tab PO TID PRN (Reason: Anxiety) 0RF levetiracetam 750 mg tablet 1 tab PO Q12H 0RF metoprolol succinate 25 mg tablet extended release 24 hr 1 tab PO DAILY 0RF amitriptyline 100 mg tablet 2 tab PO DAILY 0RF loratadine 10 mg tablet 1 tab PO DAILY 0RF testosterone 50 mg/5 gram (1 %) gel 5 g topical DAILY 0RF rosuvastatin 20 mg tablet 1 tab PO BEDTIME 0RF
[2022-01-29 01:09] LABS: Troponin-I High Sensitivity < 3.5 ng/L (<3.5-35.0)
[2022-01-29 01:56] VITALS: BP 113/76; PULSE 81; RESP 18; TEMP 36.4; O2SAT 95
[2022-01-29] MEDS: oxyCODONE HCl Immed Release 5 MG TABLET PO (02:17)
[2022-01-29] MEDS: Ketorolac Tromethamine 60 MG/2 ML VIAL IM (02:17)
== END 2022-01-29 02:32 | disposition home or self-care (01) ==
PROVIDERS: Emergency Provider Emergency Medicine
DX: M79.605 Pain in left leg (principal); R23.3 Spontaneous ecchymoses; I50.20 Unspecified systolic (congestive) heart failure
CPT/HCPCS: 36415; 70450; 80048; 82550; 83605; 84484; 85025; 93005; 93971; 96372; 99284; J1885

== ENCOUNTER 2022-03-20 09:07 | Inpatient (IN) | payer MEDICARE, MEDICAID, SELFPAY ==
[2022-03-20] VITALS (8 sets, daily range): BP systolic 110–162; BP diastolic 58–109; PULSE 88–133; RESP 14–26; TEMP 36.9–37.1; O2SAT 92–96; BMI 38.6
--- NOTE | ~2022-03-20 | CT_ITS ---
EXAMINATION: CT ABDOMEN AND PELVIS WITHOUT CONTRAST CLINICAL INFORMATION: Epigastric pain COMPARISON: CT abdomen 04/27/2021 TECHNIQUE: Multidetector volumetric imaging was performed from the superior aspect of the liver through the pubic symphysis. Sagittal and coronal reformatted images were obtained on the technologist's workstation. This CT examination was performed using dose optimization techniques as appropriate, variously including the following: *Automated exposure control *Adjustment of mA and/or kV according to patient size (this includes techniques or standardized protocols for targeted exams where dose is matched to indication/reason for exam; i.e. extremities or head) *Use of iterative reconstruction technique DLP: 962 mGy-cm FINDINGS: LUNG BASES: Patchy patchy airspace/ground glass opacities in the lingula. There is peribronchial opacities in the right middle lobe and right lower lobe. This may reflect infectious or inflammatory process. LIVER, GALLBLADDER, AND BILIARY TREE: Hepatic steatosis. No focal liver lesion. No biliary duct dilatation. The previously seen hypodense lesion in the right lobe is not clearly evident in today's study. The gallbladder is unremarkable with no evidence of radiopaque gallstones, gallbladder wall thickening, or obvious pericholecystic inflammatory changes. PANCREAS: Hypoattenuation suggestive of edema within the pancreas, with inflammatory changes surrounding the pancreas and in the right abdomen extending inferiorly to the pelvis. Findings are compatible with pancreatitis. No loculated fluid collections are seen. SPLEEN: Unremarkable. ADRENAL GLANDS: Unremarkable. KIDNEYS AND URETERS: The kidneys are normal in size, shape, and attenuation. No hydronephrosis, hydroureter, or calculi seen. No perinephric stranding. BLADDER: Unremarkable. GASTROINTESTINAL TRACT: Mild colonic diverticulosis without evidence of diverticulitis. Nonobstructive bowel gas pattern. The appendix of normal caliber containing air. There are inflammatory changes adjacent to the appendix, but these appear to be related to the inflammatory changes associated with the pancreas. ABDOMINAL WALL: No significant hernia is appreciated. LYMPH NODES: No adenopathy seen in the abdomen or pelvis. VASCULAR: Normal caliber aorta. Atherosclerotic vascular calcification. PELVIC VISCERA: Prostate is within normal limits. OSSEOUS STRUCTURES: Multilevel degenerative changes spine. CT/CT abdomen pelvis wo con IMPRESSION: 1. Findings associated with pancreas correlate with acute pancreatitis. Recommend follow-up imaging to ensure resolution.. 2. Hepatic steatosis. 3. Colonic diverticulosis without evidence of diverticulitis. 4. There are some inflammatory changes adjacent to the appendix, with these appear to be secondary to the inflammatory changes from the acute pancreatitis. 5. Findings in the lingula and the right middle lobes, could be related to infectious or inflammatory process. Fleischner guidelines were followed.
--- NOTE | ~2022-03-20 | XR_ITS ---
EXAMINATION: XR CHEST CLINICAL INFORMATION: Fever COMPARISON: None TECHNIQUE: Frontal view of the chest was obtained. FINDINGS: Lung volumes are slightly low. Opacity at the left lung base blunted left costophrenic angle with partial obscuration of the left hemidiaphragm. Mild patchy opacity at the medial right lung base, presumably atelectasis. No right pleural effusion or pneumothorax. Normal cardiomediastinal silhouette and pulmonary vascularity. No acute osseous injury. Suture anchors in the left humeral head compatible with prior rotator cuff repair. XR/XR chest 1V IMPRESSION: 1. Patchy opacity at the left lung base which could represent atelectasis or consolidation/pneumonia with suspected small left pleural effusion. 2. Probable moderate bibasilar atelectasis.
--- NOTE | ~2022-03-20 | US_ITS ---
EXAMINATION: US ABDOMEN LIMITED CLINICAL INFORMATION: Acute pancreatitis. Rule out cholecystitis. COMPARISON: CT abdomen and pelvis 03/20/2022. TECHNIQUE: Real-time imaging of the right upper quadrant abdominal viscera. FINDINGS: PANCREAS: Not visualized due to bowel gas LIVER: Liver echotexture is increased. The liver contour is normal. No focal hepatic lesion. There is no intrahepatic biliary duct dilatation seen. GALLBLADDER: The gallbladder is upper normal in size. There is a fluid fluid level with dependent echogenic bile in the gallbladder. No gallstones are seen. The gallbladder wall does not appear thickened. There is no pericholecystic fluid. The medical technologist clinical reports the patient is tender over the gallbladder. COMMON BILE DUCT: Normal in caliber measuring 0.6 cm in diameter. RIGHT KIDNEY: Normal. No hydronephrosis. No renal calculi or focal parenchymal lesions. The kidney measures 12.2 cm in maximum dimension. FREE FLUID: None. US/US abdomen limited IMPRESSION: Upper normal-size gallbladder with a fluid fluid level and dependent echogenic bile. No gallstones seen. Normal gallbladder wall. If there is clinical concern of cholecystitis, HIDA scan would be recommended. Echogenic liver probably representing fatty infiltration. Nonvisualization of the pancreas.
--- NOTE | ~2022-03-20 | CT_ITS ---
EXAMINATION: CT ABDOMEN AND PELVIS WITH CONTRAST CLINICAL INFORMATION: abd pain/pancreatitis/fevers COMPARISON: 10/20/2021 TECHNIQUE: Multidetector volumetric images were obtained from the superior aspect of the liver through the pubic symphysis following administration 85 mL of Omnipaque 350 intravenous contrast. Sagittal and coronal reformatted images were obtained on the technologist's workstation. Oral contrast: No This CT examination was performed using dose optimization techniques as appropriate, variously including the following: *Automated exposure control *Adjustment of mA and/or kV according to patient size (this includes techniques or standardized protocols for targeted exams where dose is matched to indication/reason for exam; i.e. extremities or head) *Use of iterative reconstruction technique DLP: 1020 mGy-cm FINDINGS: LUNG BASES: Mild dependent atelectasis. Trace left pleural effusion. LIVER, GALLBLADDER, AND BILIARY TREE: Relative hypoattenuation of the hepatic parenchyma is most consistent with hepatic steatosis. There is a more focal fatty infiltration evident in the right hepatic lobe anteriorly. Small wedge-shaped focus of hypoattenuation adjacent to the falciform ligament likely corresponds or more pronounced focal fatty infiltration. No suspicious hepatic lesions. Liver is mildly enlarged, measuring 21 cm craniocaudal. Normal hepatic contour. The gallbladder is unremarkable with no evidence of radiopaque gallstones, gallbladder wall thickening, or obvious pericholecystic inflammatory changes. PANCREAS: There is diffuse peripancreatic fat stranding with a small volume of fluid in the retroperitoneal fascial planes. The pancreatic parenchyma appears edematous. No focal areas of nonenhancement are identified on this single phase of enhancement. No pancreatic ductal dilatation. No focal lesions are identified on these images. SPLEEN: Unremarkable. ADRENAL GLANDS: Unremarkable. KIDNEYS AND URETERS: The kidneys are normal in size, shape, and attenuation. No hydronephrosis, hydroureter, or calculi seen. No perinephric stranding. BLADDER: Unremarkable. GASTROINTESTINAL TRACT: Stomach, small bowel, and colon are normal in caliber. There is likely secondary inflammation of the second and third portions of the duodenum due to the adjacent pancreatitis. No evidence of obstruction. No additional areas of bowel inflammation identified.. Appendix is normal. No intraperitoneal free fluid or free air. ABDOMINAL WALL: Injection-related foci of gas are present in the subcutaneous soft tissues anteriorly. A small fat-containing umbilical hernia. No bowel involvement. LYMPH NODES: Normal. VASCULAR: Atherosclerotic calcifications are present in the abdominal aorta and iliac arteries. No aneurysmal dilatation. PELVIC VISCERA: The prostate and seminal vesicles are unremarkable. OSSEOUS STRUCTURES: Mild multilevel degenerative spondylosis. No acute osseous findings. CT/CT abdomen pelvis w con IMPRESSION: 1. Acute interstitial pancreatitis with a small volume of surrounding fluid in the adjacent retroperitoneal fascial planes. No appreciable ductal dilatation or ductal calcifications. 2. Hepatic steatosis and mild hepatomegaly. 3. Trace left pleural effusion. Fleischner guidelines were followed.
--- NOTE | 2022-03-20 11:06 | ED_ITS ---
HPI - Abdominal Pain General Chief Complaint: Abdominal Pain Stated Complaint: ABD PAIN Time Seen by Provider: 03/20/22 11:06 Source: patient Mode of arrival: ambulatory Limitations: no limitations History of Present Illness HPI narrative: 52 year old female history of CAD, heart faliure, seizure presents today with abdominal pain, nausea, vomiting, constipation that has been progressively worsening since 17:00 yesterday. Patient reports abdominal pain in the epigastric region that radiates to bilateral flanks pain is reported as ?15 at of 10? that is constant in nature, nausea constant throughout the day, constipation noted over the last 3 days patient reports taking an unknown laxative medication yesterday and today and notes that his stool has been small hard and dark in color, however having bowel movements and passing flatus. Patient is diaphoretic in complaints of shortness of breath not relieved by rest and not made worse by exertion. Patient denies drug use and alchol use. Patient denies headache, fever, palpitations, chest pain. MD elicited complaint: abdominal pain Pertinent past history: none Onset (ago): day(s) (2) Related Data Home Medications Medication Instructions Recorded Confirmed albuterol sulfate 90 mcg/actuation 2 puff PO Q4H PRN Shortness Of 04/28/21 05/18/21 aerosol inhaler Breath aspirin 81 mg tablet,delayed 1 tab PO DAILY 04/28/21 05/18/21 release cholecalciferol (vitamin D3) 25 25 mcg PO DAILY 04/28/21 05/18/21 mcg (1,000 unit) tablet (Vitamin D3) cyanocobalamin (vitamin B-12) 1,000 mcg PO DAILY 04/28/21 05/18/21 1,000 mcg tablet enmdfbkg-dqs-qgrzy acid 300 1 tab PO DAILY 04/28/21 05/18/21 mcg-lycopene 600 mcg-lutein 300 mcg tablet (Centrum Silver Men) nitroglycerin 0.4 mg sublingual 0.4 mg sublingual Q5M PRN Chest 04/28/21 05/18/21 tablet Pain amitriptyline 100 mg tablet 2 tab PO DAILY 05/17/21 05/18/21 clonazepam 2 mg tablet 1 tab PO TID PRN Anxiety 05/17/21 05/18/21 clonidine HCl 0.1 mg tablet 1 tab PO BID 05/17/21 05/18/21 famotidine 40 mg tablet 1 tab PO DAILY 05/17/21 05/18/21 levetiracetam 750 mg tablet 1 tab PO Q12H 05/17/21 05/18/21 loratadine 10 mg tablet 1 tab PO DAILY 05/17/21 05/18/21 methocarbamol 750 mg tablet 1 tab PO BID PRN Pain 05/17/21 05/18/21 metoprolol succinate 25 mg 1 tab PO DAILY 05/17/21 05/18/21 tablet,extended release 24 hr rosuvastatin 20 mg tablet 1 tab PO BEDTIME 05/17/21 05/18/21 tamsulosin 0.4 mg capsule 1 cap PO DAILY 05/17/21 05/18/21 testosterone 50 mg/5 gram (1 %) 5 g topical DAILY 05/17/21 05/18/21 transdermal gel Previous Rx's Medication Instructions Recorded ketorolac 10 mg tablet 10 mg PO BID PRN pain 0 days #8 01/29/22 tabs oxycodone 5 mg tablet 5 mg PO BID PRN pain #7 tabs 01/29/22 Allergies Allergy/AdvReac Type Severity Reaction Status Date / Time Penicillins Allergy Unknown Unknown Verified 01/28/22 19:50 Review of Systems Review of Systems Constitutional : No Weight loss, No Fever, No Chills, No Fatigue, No Malaise ENT/Mouth : No sore throat, No Rhinorrhea Eyes: No Eye Pain, No Swelling, No Redness Cardiovascular : + SOB, No Chest Pain, No Dyspnea on Exertion, No Orthopnea, No Edema, No Palpitations Respiratory : No Cough, No Sputum, No Wheezing Gastrointestinal : + Nausea, + Vomiting, + Constipation, + abdominal Pain, No Hematochezia, No Melena, No Diarrhea Genitourinary : No Dysuria, No Urinary Frequency, No Hematuria, Musculoskeletal : No joint pain, No Myalgias, No Joint Swelling Skin : No Skin Lesions, No rash Neuro : No Weakness, No Numbness, No Dizziness, No Headache Psych : No Anxiety/Panic, No Depression All other systems reviewed and are negative Yes all other systems are reviewed and are negative [facility] Past Medical History Attestation statement: The following information was validated with the patient. Source: old records reviewed and nursing notes reviewed Medical History (Updated 03/20/22 @ 12:58 by TARUN Meade) NAMITA (acute kidney injury) Heart attack Seizure Surgical History Stented coronary artery Social History Social History Patient Tobacco Use Status: Former Tobacco user Tobacco use type: Cigarette Second Hand Smoke Exposure: No Use of substances other than those prescribed or required for medical reasons: No Advance Directives: No Advance Directives Information Provided: No service: Yes Current occupational status: disabled Physical Exam ED Vital Signs: Vital Signs - 24 hr 03/20/22 09:25 03/20/22 09:33 03/20/22 12:32 Temperature 98.7 F 98.4 F Pulse Rate 129 H 128 H 127 H Respiratory Rate 22 H 26 H 22 H Blood Pressure 148/103 H 148/103 H 150/104 H Pulse Oximetry 94 92 Oxygen Delivery Method Room Air Room Air 03/20/22 12:38 Temperature Pulse Rate Respiratory Rate Blood Pressure 158/99 H Pulse Oximetry Oxygen Delivery Method BMI result Body Mass Index 38.6 BP elevated and tachycardia Appearance: Alert.? Oriented X3.? No acute distress.? Head: Normocephalic, atraumatic, no step-offs or deformities Eyes: Pupils equal, round and reactive to light.? ENT: Pharynx normal.? Neck: Normal inspection.? Neck supple.? CVS: Normal heart rate and rhythm.? Pulses normal.? Respiratory: No respiratory distress.? Breath sounds normal.? Abdomen: Soft and +severe diffusely tender .? Skin: Skin warm and dry.? Normal skin color.? Normal skin turgor.? Extremities: No lower extremity edema.? No calf ttp. 5/5 strength to bilateral upper and lower extremities Neuro: Oriented X 3.? No motor deficit.? No sensory deficit. CN 2-12 intact Course Reevaluation(s) Reevaluation #1: Patient is noted to have a significant leukocytosis, severe pain, at this time rolling around pain out of proportion of this time infection is suspected blood cultures, lactic acid, fluids and antibiotics will be ordered. Patient has a PNC allergy will order IV levo and Flagyl at this time. At this time sepsis alert called. Time: 12:54 Reevaluation #2: Patient is noted to have a significant leukocytosis, hemoconcentration, transa minases slightly elevated, lipase 1021 consistent with acute pancreatitis. Time: 13:06 Reevaluation #3: Dr. Madrigal also suspects acute pancreatitis, radiology report pending. Plan at this time is hospital admission spoke w/ Dr. Lees who will admit patient. Time: 13:36 MDM - Abdominal Pain MDM Narrative Medical decision making narrative: 1131 52 yo m hx of CAD, heart faliure, seizure, presents with diffuse abdominal pain, nausea, vomiting, constipation that has been progressively worsening since 17:00 yesterday. PE:Diffuse abdominal pain, high blood pressure, tachycardia diet, diaphoresis. Patient's is tachycardic and hypertensive likely secondary to significant pain. Will rule out nephrolithiasis, appendicitis, diverticulitis, cholecystitis, pancreatitis Concern for acute abdomen Plan: Will obtain CT abdomen, basic labs, OBS, UA with of culture and reflux. Medical Records Attestation: I reviewed the patient's medical records. Lab Data Attestation: I reviewed the patient's lab results. Result diagrams: 03/20/22 12:18 03/20/22 12:18 Labs: Lab Results 03/20/22 03/20/22 03/20/22 Range/Units 12:18 12:18 12:18 WBC 31.0 H* (4.8-10.8) X10*3/uL RBC 6.50 H D (4.60-5.80) X10*6/uL Hgb 19.1 H D (14.0-18.0) g/dl Hct 56.0 H D (42.0-52.0) % MCV 86.2 (80.0-98.0) fL MCH 29.4 (27.0-33.0) pg MCHC 34.1 (31.0-36.0) g/dl RDW 13.8 (11.0-16.0) % Plt Count 203 (160-400) X10*3/uL MPV 9.2 L (9.4-12.4) fL Immature Gran % (Auto) Cancelled Neut % (Auto) Cancelled Lymph % (Auto) Cancelled [place] % (Auto) Cancelled Eos % (Auto) Cancelled Baso % (Auto) Cancelled Lymph # (Auto) Cancelled [place] # (Auto) Cancelled Eos # (Auto) Cancelled Baso # (Auto) Cancelled Abs Immat Gran (auto) Cancelled Absolute Neuts (auto) Cancelled Absolute Nucleated RBC 0.000 (0.0-0.012) X10*3/uL Nucleated RBC % (auto) 0.0 (0.0-0.2) /100WBC Neutrophils % (Manual) 78 H (45-73) % Band Neutrophils % 17 H (3-5) % Lymphocytes % (Manual) 1 L (20-40) % Monocytes % (Manual) 4 (2-11) % Abs Neuts (Manual) 29.5 H (2.0-8.3) X10*3/uL Lymphocytes # (Manual) 0.3 L (1.2-4.9) X10*3/uL Monocytes # (Manual) 1.2 (0.1-1.2) X10*3/uL Platelet Estimate NORMAL (NORMAL) Plt Morphology Comment NORMAL RBC Morphology NORMAL Sodium 136 (135-145) mmol/L Potassium 3.7 (3.3-5.1) mmol/L Chloride 103 (96-108) mmol/L Carbon Dioxide 20 L (22-29) mmol/L Anion Gap 17 (12-20) BUN 21 H D (9-16) mg/dL Creatinine 0.90 (0.5-1.4) mg/dL Estim Creat Clear Calc 118.3 Estimated GFR > 60 Random Glucose 138 H (60-115) mg/dL Lactic Acid (0.5-2.0) mmol/L Calcium 9.0 (8.4-10.2) mg/dL Magnesium 1.8 (1.6-2.6) mg/dL Total Bilirubin 1.0 (0.0-1.0) mg/dL AST 54 H (5-37) U/L ALT 76 H (0-40) U/L Alkaline Phosphatase 85 D (39-117) U/L Total Protein 7.7 (6.5-8.0) g/dL Albumin 4.4 (3.5-5.0) g/dL Lipase 1021 H (8-78) U/L Stool Occult Blood (NEGATIVE) COVID-19 (FADUMO) Negative (Negative) COVID-19 Clin Com See Note 06/26/22 06/26/22 Range/Units 12:19 13:02 WBC (4.8-10.8) X10*3/uL RBC (4.60-5.80) X10*6/uL Hgb (14.0-18.0) g/dl Hct (42.0-52.0) % MCV (80.0-98.0) fL MCH (27.0-33.0) pg MCHC (31.0-36.0) g/dl RDW (11.0-16.0) % Plt Count (160-400) X10*3/uL MPV (9.4-12.4) fL Immature Gran % (Auto) Neut % (Auto) Lymph % (Auto) [place] % (Auto) Eos % (Auto) Baso % (Auto) Lymph # (Auto) [place] # (Auto) Eos # (Auto) Baso # (Auto) Abs Immat Gran (auto) Absolute Neuts (auto) Absolute Nucleated RBC (0.0-0.012) X10*3/uL Nucleated RBC % (auto) (0.0-0.2) /100WBC Neutrophils % (Manual) (45-73) % Band Neutrophils % (3-5) % Lymphocytes % (Manual) (20-40) % Monocytes % (Manual) (2-11) % Abs Neuts (Manual) (2.0-8.3) X10*3/uL Lymphocytes # (Manual) (1.2-4.9) X10*3/uL Monocytes # (Manual) (0.1-1.2) X10*3/uL Platelet Estimate (NORMAL) Plt Morphology Comment RBC Morphology Sodium (135-145) mmol/L Potassium (3.3-5.1) mmol/L Chloride (96-108) mmol/L Carbon Dioxide (22-29) mmol/L Anion Gap (12-20) BUN (9-16) mg/dL Creatinine (0.5-1.4) mg/dL Estim Creat Clear Calc Estimated GFR Random Glucose (60-115) mg/dL Lactic Acid 1.4 (0.5-2.0) mmol/L Calcium (8.4-10.2) mg/dL Magnesium (1.6-2.6) mg/dL Total Bilirubin (0.0-1.0) mg/dL AST (5-37) U/L ALT (0-40) U/L Alkaline Phosphatase (39-117) U/L Total Protein (6.5-8.0) g/dL Albumin (3.5-5.0) g/dL Lipase (8-78) U/L Stool Occult Blood NEGATIVE (NEGATIVE) COVID-19 (FADUMO) (Negative) COVID-19 Clin Com Critical Care Time Critical Care Time Critical Care Time: Yes Total Critical Care Time: 35 Attestation: I attest to this time spent taking care of the patient, obtaining history, phy sical, reviewing labs, imaging, speaking to my attending, speaking to specialist. Discharge Plan Discharge Clinical Impression: Acute pancreatitis Patient Disposition: Admitted As Inpatient
[2022-03-20] MEDS: Morphine Sulfate 4 MG/ML CARTRIDGE IVPUSH (12:22)
[2022-03-20 12:26] LABS: OBS Int Ctl Valid YES; OBS1 NEGATIVE (NEGATIVE)
[2022-03-20 12:26] LABS: Hemoglobin 19.1 g/dl (14.0-18.0); Mean Corpuscular HGB Conc 34.1 g/dl (31.0-36.0); Mean Corpuscular Hemoglobin 29.4 pg (27.0-33.0); Mean Corpuscular Volume 86.2 fL (80.0-98.0); Mean Platelet Volume 9.2 fL (9.4-12.4); Platelet Count 203 X10*3/uL (160-400); Red Cell Distribution Width 13.8 % (11.0-16.0)
--- NOTE | 2022-03-20 12:34 | PC.NURSE ---
pt alert and oriented, skin pwd, respirations even and unlabored, pt reports 4 days of abd pain/vomiting/constipation, abd very distended/hard to touch this rn did not hear bowel sounds on the left and right upper quadrant of the abd, very mini bowels sounds on the lower left and right, pt reports feeling sob, ls clear in all story but sating only 92% on room air, sinus tach on the monitor. pt also states he did not urinate since about 0200 last night and having nausea, last bowel movement this morning but very minim as well per pt rabbit pellets
[2022-03-20 12:43] LABS: Alanine Aminotransferase 76 U/L (0-40); Albumin Level 4.4 g/dL (3.5-5.0); Alkaline Phosphatase 85 U/L (39-117); Anion Gap 17 (12-20); Aspartate Amino Transferase 54 U/L (5-37); Blood Urea Nitrogen 21 mg/dL (9-16); Carbon Dioxide 20 mmol/L (22-29); Chloride 103 mmol/L (96-108); Creatinine Clr Calc Pharmacy 118.3; Estimated Glomerular Filt Rate > 60; Glucose Random 138 mg/dL (60-115); Lipase 1021 U/L (8-78); Magnesium 1.8 mg/dL (1.6-2.6); Potassium 3.7 mmol/L (3.3-5.1); Sodium 136 mmol/L (135-145); Total Protein 7.7 g/dL (6.5-8.0)
[2022-03-20 12:47] LABS: COVID-19 Test Negative (Negative)
[2022-03-20 12:50] LABS: Band Neutrophils Percent 17 % (3-5); Lymphocytes Absolute Manual 0.3 X10*3/uL (1.2-4.9); Lymphocytes Percent Manual 1 % (20-40); Monocytes Absolute Manual 1.2 X10*3/uL (0.1-1.2); Monocytes Percent Manual 4 % (2-11); Neutrophils Absolute Manual 29.5 X10*3/uL (2.0-8.3); Neutrophils Percent Manual 78 % (45-73)
[2022-03-20 12:51] LABS: Platelet Estimate NORMAL (NORMAL); Platelet Morphology Comment NORMAL; RBC Morphology NORMAL
[2022-03-20] MEDS: metroNIDAZOLE/NS 500 MG/100 ML PIGGYBACK 100 MG IV (13:07)
--- NOTE | 2022-03-20 13:15 | PC.NURSE ---
pt put on oxygen at 2l via nasal cannual because oxygen dropping down to 90% on room air
[2022-03-20 13:30] LABS: Lactic Acid 1.4 mmol/L (0.5-2.0)
[2022-03-20] MEDS: HYDROmorphone HCl 1 MG/ML SYRINGE IVPUSH (14:24)
[2022-03-20] MEDS: levoFLOXacin/D5W 750 MG/150 ML PIGGYBACK 100 MG IV (14:29)
[2022-03-20 14:30] LABS: Appearance Urine HAZY; Color Urine YELLOW; Glucose Urine UA NEG (NEG); Leukocyte Esterase Urine NEG (NEG); Nitrite Urine NEG (NEG); Specific Gravity - Urine 1.025 (1.005-1.025); UACC Culture Trigger NO; Urine Blood 3+ (NEG); Urine Ketones >=80 MG/DL (NEG); Urine Protein 2+ MG/DL (NEG-TRACE)
[2022-03-20 14:45] LABS: Triglycerides 74 mg/dL
[2022-03-20 14:53] LABS: Bacteria Urine TRACE /LPF; Mucus Urine 1+ /LPF; WBC Urine 0-2 /HPF (0-4)
--- NOTE | 2022-03-20 15:08 | PHA.MEDREC ---
Pharmacy Consult ? Medication Reconciliation Pharmacy has completed the medication reconciliation. Pt had list of medications, said all were current.
--- NOTE | 2022-03-20 15:20 | PM.IMHP ---
History of Present Illness Date of Service: 03/20/22 Chief Complaint: Abdominal pain 52 year old female history of CAD, heart faliure, seizure desorder, alcohol use desorder who presents with excruciating epigagstric abdominal pain radiating to the flank area, nausea, vomiting that started after dinner the day prior and has been progressively intensifying, pain i s 15/10 . No pariticular agravating factors, paritial relief with dialudid in the ED.? He has been fairly constipated despite OTC laxative, describes stool as hard dark, no kathrine blood. ED work up: WBC 31, Hgb 19, BUN 21, Cr 0.9, normal lactic acid, AST 54, ALT 76, triglyceride 74, LIPASE 1021. CT report pending per my review inflamation around pancreas Review of Systems Review of Systems: Gen: no fever Resp: no sob, no cough CV: no chest, no REYES, no leg edema GI: +n/v, + abd pain Neuro: No confusion, no seizures Yes all other systems are reviewed and are negative [facility] Medical History NAMITA (acute kidney injury) Heart attack Seizure Surgical History Stented coronary artery Social History Patient Tobacco Use Status: Former Tobacco user Tobacco use type: Cigarette Second Hand Smoke Exposure: No Use of substances other than those prescribed or required for medical reasons: No Advance Directives: No Advance Directives Information Provided: No service: Yes Current occupational status: disabled Meds Allergies Allergy/AdvReac Type Severity Reaction Status Date / Time Penicillins Allergy Unknown Unknown Verified 01/28/22 19:50 Home Medications Medication Instructions Recorded Confirmed Last Taken Type albuterol sulfate 90 mcg/actuation 2 puff PO Q4H PRN Shortness Of 04/28/21 03/20/22 04/27/21 History aerosol inhaler Breath aspirin 81 mg tablet,delayed 1 tab PO DAILY 04/28/21 03/20/22 03/19/22 History release cholecalciferol (vitamin D3) 25 25 mcg PO DAILY 04/28/21 03/20/22 03/20/22 History mcg (1,000 unit) tablet (Vitamin D3) cyanocobalamin (vitamin B-12) 1,000 mcg PO DAILY 04/28/21 03/20/22 03/19/22 History 1,000 mcg tablet amitriptyline 100 mg tablet 2 tab PO BEDTIME 05/17/21 03/20/22 03/19/22 History clonazepam 2 mg tablet 1 tab PO DAILY@1200 05/17/21 03/20/22 03/20/22 History clonidine HCl 0.1 mg tablet 1 tab PO DAILY 05/17/21 03/20/22 03/19/22 History famotidine 40 mg tablet 2 tab PO DAILY 05/17/21 03/20/22 03/19/22 History levetiracetam 750 mg tablet 1 tab PO BID 05/17/21 03/20/22 03/19/22 History loratadine 10 mg tablet 1 tab PO DAILY 05/17/21 03/20/22 03/19/22 History metoprolol succinate 25 mg 1 tab PO DAILY 05/17/21 03/20/22 03/19/22 History tablet,extended release 24 hr rosuvastatin 20 mg tablet 1 tab PO DAILY 05/17/21 03/20/22 03/19/22 History tamsulosin 0.4 mg capsule 1 cap PO DAILY 05/17/21 03/20/22 03/19/22 History acetaminophen 325 mg tablet 975 mg PO Q8H PRN Pain 03/20/22 03/20/22 03/19/22 History aspirin 325 mg tablet,delayed 1 tab PO DAILY@1200 PRN Pain 03/20/22 03/20/22 Unknown History release clonazepam 2 mg tablet 1 tab PO DAILY PRN Anxiety 03/20/22 03/20/22 Unknown History multivitamin 1 tab PO DAILY 03/20/22 03/20/22 03/20/22 History testosterone 20.25 mg/1.25 gram 5 pump topical DAILY 03/20/22 03/20/22 03/19/22 History (1.62 %) transdermal gel pump Physical Exam Vital Signs and Narrative: Vital Signs: Last Vital Signs Temp 98.4 F 03/20/22 12:32 Pulse 127 H 03/20/22 12:32 Resp 22 H 03/20/22 12:32 BP 158/99 H 03/20/22 12:38 Pulse Ox 92 06/26/22 12:32 O2 Del Method 03/20/22 12:32 BMI result Body Mass Index 38.6 Const: Other: Constitutional: Alert, in no distress, Mental Status: Oriented to person, place and time. Eyes: Pupils are equal, round and reactive to light. Ear, Nose and Throat: Oropharynx clear, mucous membranes moist. Respiratory: Clear to auscultation. No wheezing, rales or rhonchi. Cardiovascular: S1 S2 regular. No murmurs, rubs or gallops. tachycardic Gastrointestinal: Abdomen soft, epigastric tenderness and voluntary guardingr, non-distended. decrease bowel sounds Neurologic: Cranial nerves II-XII grossly intact. No focal neurological deficits. Moves all extremities spontaneously.? Skin: No rashes or lesions.? Musculoskeletal: No cyanosis or clubbing. Psychiatric: Normal mood and affect? Results Labs CBC and Chem 7: 03/20/22 12:18 03/20/22 12:18 Assessment and Plan (1) Acute pancreatitis: Status: Acute (2) SIRS (systemic inflammatory response syndrome): Status: Acute (3) Leukocytosis: Status: Acute (4) Alcohol withdrawal: Status: Acute Plan 52 year old mal with history of CAD, alcohol use, seizure desorder here with abdominal pain, SIRS, due to acute pancreatitis, likely alcoholic related #Acute pancreatitis--conservative management now -Agresive IV fluid, IV dilaudid for pain #SIRS d/t above, treat underlying issues #Alcohol use desorder and high risk for withdrawal -Start Phenobarbital -Folic Acid and thiamine #Luekocytosis--reactive #Hemoconcentration #Dehydration --these are all related to dehydration and should improve with IVF Lovneox for DVT prophylaxis Admission to [facility] at least 2 midnight for treatment of acute, severe pancratitis, SIRS need IVF and IV narcotics Quality Stroke Does the patient have a stroke diagnosis?: No VTE Prior VTE?: No VTE Risk Level:: Medical - moderate - high VTE Device Contraindication: Treatment Not Indicated VTE Drug Contraindication: N/A - Med Ordered
[2022-03-20] MEDS: HYDROmorphone HCl 0.5 MG/0.5 ML SYRINGE 1 MG IVPUSH (16:37)
[2022-03-20] MEDS: Enoxaparin Sodium 40 MG/0.4 ML SYRINGE SUBCUT (16:37)
[2022-03-20] MEDS: 0.9 % Sodium Chloride Flush 3 ML SYRINGE IVFLUSH (16:42)
[2022-03-20] MEDS: Dextrose 5 % and 0.45 % NaCl 1,000 ML 200 ML IVCONT (16:59)
[2022-03-20] MEDS: PHENobarbitaL 200 MG, PHENobarbitaL 60 MG, PHENobarbitaL 15 MG 275 MG PO (17:03)
[2022-03-20] MEDS: PHENobarbitaL 200 MG, PHENobarbitaL 15 MG 215 MG PO (21:13)
[2022-03-20] MEDS: levETIRAcetam 500 MG TABLET PO (21:15)
[2022-03-20] MEDS: levETIRAcetam 250 MG TABLET PO (21:15)
--- NOTE | 2022-03-20 21:15 | PC.NURSE ---
Hospitlaiist ordered to give phenobarbital with DBP 109
--- NOTE | 2022-03-20 21:18 | PC.NURSE ---
Pharmacy clarified order for Jesus. Amptryptilin being brought to ED from pharmacy.
[2022-03-20] MEDS: Amitriptyline HCl 50 MG TABLET 200 MG PO (22:01)
[2022-03-21] VITALS (8 sets, daily range): BP systolic 122–162; BP diastolic 63–97; PULSE 62–132; RESP 17–40; TEMP 36.4–37.3; O2SAT 88–97; BMI 38.6
[2022-03-21] MEDS: PHENobarbitaL 200 MG, PHENobarbitaL 15 MG 215 MG PO (00:24)
[2022-03-21] MEDS: HYDROmorphone HCl 0.5 MG/0.5 ML SYRINGE 1 MG IVPUSH ×2 (00:38→05:10)
[2022-03-21] MEDS: clonazePAM 1 MG TABLET 2 MG PO ×2 (00:39→12:10)
--- NOTE | 2022-03-21 00:46 | PC.NURSE ---
IV established by this RN, IVF infusing per MAR. Pt noted to be extremely anxious and restless. Pt noted to be tachycardic @ 130 bpm. Pt medicated for pain/anxiety, assisted into POC. VSS @ this time. Continue to monitor.
[2022-03-21] MEDS: 0.9 % Sodium Chloride Flush 3 ML SYRINGE IVFLUSH ×2 (01:14→21:42)
--- NOTE | 2022-03-21 07:23 | PC.NURSE ---
THIS FILM BOOKER ASSUMED CARE OF THIS PT AT 0700. PT ALERT AND ORIENTED, VSS. HE REMAINS NPO. BED ASSIGNED [id number]. THIS FILM BOOKER CALLED TO GIVE NURSE-NURSE REPORT, RECEIVING NURSE IN REPORT, WILL CALL WHEN DONE.
[2022-03-21] MEDS: Dextrose 5 % and 0.45 % NaCl 1,000 ML 200 ML IVCONT ×4 (07:41→21:44)
--- NOTE | 2022-03-21 08:35 | PC.NURSE ---
0200 SCHEDULED D5 1/2 NS NOT HUNG BY PREVIOUS RN. THIS ACID PURIFIER HUNG SCHEDULES 0700 D5 1/2 NS AT 0741. NURSE TO NURSE REPORT GIVEN TO RECEIVING RN TAD. PT TO BE TRANFERRED TO 487, HE IS AWARE OF THE PLAN.
[2022-03-21 08:40] LABS: Basophils Absolute Auto 0.1 X10*3/uL (0.0-0.2); Basophils Percent Auto 0.2 % (0-2); Hematocrit 43.9 % (42.0-52.0); Hemoglobin 14.9 g/dl (14.0-18.0); Imm Gran Abs Auto 0.43 X10*3/uL (0.00-0.03); Imm Gran Pct Auto 1.6 % (0.0-0.4); Lymphocytes Absolute Auto 0.9 X10*3/uL (1.2-4.9); Lymphocytes Percent Auto 3.1 % (20-40); MANUAL DIFF FLAG SCAN; Mean Corpuscular HGB Conc 33.9 g/dl (31.0-36.0); Mean Corpuscular Hemoglobin 30.5 pg (27.0-33.0); Mean Platelet Volume 9.6 fL (9.4-12.4); Monocytes Absolute Auto 1.4 X10*3/uL (0.1-1.2); Monocytes Percent Auto 5.2 % (2-11); Neutrophils Absolute Auto 24.8 x10*3/uL (2.0-8.3); Neutrophils Percent Auto 89.9 % (45-73); Platelet Count 143 X10*3/uL (160-400); Red Blood Count 4.88 X10*6/uL (4.60-5.80); Red Cell Distribution Width 14.2 % (11.0-16.0); SCAN SMEAR FLAG 1; White Blood Count 27.6 X10*3/uL (4.8-10.8)
[2022-03-21 09:29] LABS: SLIDE REVIEW VERIFIED
[2022-03-21 10:02] LABS: Anion Gap 15 (12-20); Blood Urea Nitrogen 12 mg/dL (9-16); Calcium 7.2 mg/dL (8.4-10.2); Carbon Dioxide 21 mmol/L (22-29); Chloride 103 mmol/L (96-108); Creatinine Clr Calc Pharmacy 136.5; Estimated Glomerular Filt Rate > 60; Glucose Random 144 mg/dL (60-115); Potassium 3.7 mmol/L (3.3-5.1); Sodium 135 mmol/L (135-145)
[2022-03-21] MEDS: Cyanocobalamin (Vitamin B-12) 1,000 MCG TABLET 1000 MCG PO (10:34)
[2022-03-21] MEDS: Metoprolol Succinate ER 25 MG TAB.ER.24H PO (10:35)
[2022-03-21] MEDS: levETIRAcetam 250 MG TABLET PO ×2 (10:35→21:43)
[2022-03-21] MEDS: PHENobarbitaL 15 MG TABLET 45 MG PO ×2 (10:35→21:44)
[2022-03-21] MEDS: cloNIDine HCL 0.1 MG TABLET PO (10:35)
[2022-03-21] MEDS: hydrOXYzine HCL 25 MG TABLET PO ×2 (10:36→17:35)
[2022-03-21] MEDS: Cholecalciferol (Vitamin D3) 25 MCG TABLET PO (10:36)
[2022-03-21] MEDS: Aspirin Enteric Coated 81 MG TABLET.DR PO (10:36)
[2022-03-21] MEDS: Folic Acid 1 MG TABLET PO (10:36)
[2022-03-21] MEDS: Famotidine 20 MG TABLET 80 MG PO (10:36)
[2022-03-21] MEDS: Tamsulosin HCL 0.4 MG CAPSULE PO (10:36)
[2022-03-21] MEDS: Loratadine 10 MG TABLET PO (10:37)
[2022-03-21] MEDS: levETIRAcetam 500 MG TABLET PO ×2 (10:38→21:42)
[2022-03-21] MEDS: Thiamine HCL 100 MG TABLET 50 MG PO (10:44)
--- NOTE | 2022-03-21 12:04 | P.CDIC_ITS ---
CDI Concurrent Query Documentation Clarification: PHYSICIAN'S DOCUMENTATION REQUEST Date of Query: 03/21/22 1205 Patient Name: Audie Nuñez Admit Date: 03/20/22 Dear Doctor, A review of the medical record indicates additional documentation may be needed. Please review below and update the documentation accordingly. Clinical Indicators: Risk Factors/Clinical Indicators/Treatments Nursing height and weight - BMI 38.6 Class II Obesity If possible, please provide an associated diagnosis related to the abnormal BMI, such as: l For a BMI >= 35: * Overweight * Obesity * Due to excess calories * Drug induced * Due to other cause * Severe or Morbid Obesity * With alveolar hypoventilation * Without alveolar hypoventilation Or: * BMI is not significant * Other (please specify) * Unable to determine Use of terms such as suspected, likely, concern for, or probable (associated with a specific diagnosis that is being evaluated, monitored, or treated as if it exists) are acceptable and can be coded in the inpatient setting, when documented at the time of discharge. Thank you, Janette Torres [facility], CDIS Extension: [phone] Please use your independent medical judgment in providing your response. THIS QUERY IS PART OF THE PERMANENT MEDICAL RECORD Provider Response: Obesity
--- NOTE | 2022-03-21 12:04 | MHC.CDI.CONC ---
CDI Concurrent Query Documentation Clarification: PHYSICIAN'S DOCUMENTATION REQUEST Date of Query: 03/21/22 1205 Patient Name: Audie Nuñez Admit Date: 03/20/22 Dear Doctor, A review of the medical record indicates additional documentation may be needed. Please review below and update the documentation accordingly. Clinical Indicators: Risk Factors/Clinical Indicators/Treatments Nursing height and weight - BMI 38.6 Class II Obesity If possible, please provide an associated diagnosis related to the abnormal BMI, such as: For a BMI >= 35: Overweight Obesity Due to excess calories Drug induced Due to other cause Severe or Morbid Obesity With alveolar hypoventilation Without alveolar hypoventilation Or: BMI is not significant Other (please specify) Unable to determine Use of terms such as suspected, likely, concern for, or probable (associated with a specific diagnosis that is being evaluated, monitored, or treated as if it exists) are acceptable and can be coded in the inpatient setting, when documented at the time of discharge. Thank you, Janette Torres [facility], CDIS Extension: [phone] Please use your independent medical judgment in providing your response. THIS QUERY IS PART OF THE PERMANENT MEDICAL RECORD Provider Response: Obesity
--- NOTE | 2022-03-21 12:52 | MHC.CM.PN ---
Addendum entered by Celi Dick 03/21/22 13:18: nO vaxx Original Note: Male 52 DX Acute Pancreatitis. He lives in [place] apartment [facility]. He is independent with ADLs. Recent rt knee surgery. He uses a cane prn. [facility] has [facility] for [facility] is Jessy Dwyer. DP home resume VNA services. Patient may need assist with transportation.
--- NOTE | 2022-03-21 12:59 | P.PNIM_ITS ---
Subjective Subjective Date of Service: 04/03/22 Interval History: Seen in f/u for acute pancreatitis, alcohol withdrawal Interval history: Persistent abdominal pain that is slightly better, but still excruciating Review of Systems Gen: no fever Resp: no sob, no cough CV: no chest, no REYES, no leg edema GI: -n/v, + abd pain Neuro: No confusion, no seizures Physical Exam 2 Vital Signs: Vital Signs: Last Vital Signs Temp 98.3 F 03/21/22 07:32 Pulse 126 H 03/21/22 07:32 Resp 23 H 03/21/22 07:32 BP 159/97 H 03/21/22 07:32 Pulse Ox 93 03/21/22 07:32 O2 Del Method 03/21/22 07:32 O2 Flow Rate 4 03/21/22 07:32 BMI result Body Mass Index 38.6 Const: Other: General: AO X 3, no acute distress Resp: CTA bilateral CVS: S1,S2,RRR GI: +epigastric tenderness, voluntary guarding, +BS Skin: No rash Neuro: motor grossly intact Psych: appropriate affect Objective Data Active Medications Acetaminophen (Acetaminophen Supp 650 Mg Supp.Rect) 650 mg PA Q6H PRN PRN Reason: Pain, Mild (Pain Scale 1-3) Albuterol Sulfate (Albuterol Sulfate 90 Mcg 8 Gm Inhaler) 2 puff INHALE Q4H PRN PRN Reason: Shortness Of Breath Amitriptyline HCl (Amitriptyline Hcl 50 Mg Tablet) 200 mg PO BEDTIME [facility] Last Admin: 03/20/22 22:01 Dose: 200 mg Documented By: LUANNE Aspirin (Aspirin Enteric Coated 81 Mg Tablet.) 81 mg PO DAILY [facility] Last Admin: 03/21/22 10:36 Dose: 81 mg Documented By: ASTRID Atorvastatin Calcium (Atorvastatin Calcium 80 Mg Tablet) 80 mg PO DAILY [facility] Last Admin: 03/21/22 08:59 Dose: Not Given Documented By: GIOVANNI Non-Admin Reason: NPO Clonazepam (Clonazepam 1 Mg Tablet) 2 mg PO DAILY PRN PRN Reason: Anxiety Last Admin: 03/21/22 00:39 Dose: 2 mg Documented By: TORITO Clonazepam (Clonazepam 1 Mg Tablet) 2 mg PO DAILY@1200 [facility] Last Admin: 03/21/22 12:10 Dose: 2 mg Documented By: ASTRID Clonidine HCl (Clonidine Hcl 0.1 Mg Tablet) 0.1 mg PO DAILY [facility]; Protocol Last Admin: 03/21/22 10:35 Dose: 0.1 mg Documented By: ASTRID Cyanocobalamin (Cyanocobalamin (Vitamin B-12) 1,000 Mcg Tablet) 1,000 mcg PO DAILY [facility] Last Admin: 03/21/22 10:34 Dose: 1,000 mcg Documented By: ASTRID Enoxaparin Sodium (Enoxaparin Sodium 40 Mg/0.4 Ml Syringe) 40 mg SUBCUT Q24H [facility] Last Admin: 03/20/22 16:37 Dose: 40 mg Documented By: ANGELICA Famotidine (Famotidine 20 Mg Tablet) 80 mg PO DAILY [facility] Last Admin: 03/21/22 10:36 Dose: 80 mg Documented By: ASTRID Folic Acid (Folic Acid 1 Mg Tablet) 1 mg PO DAILY [facility] Stop: 03/23/22 09:01 Last Admin: 03/21/22 10:36 Dose: 1 mg Documented By: ASTRID Hydromorphone HCl (Hydromorphone Hcl 0.5 Mg/0.5 Ml Syringe) 1 mg IVPUSH Q4H PRN; Protocol PRN Reason: Pain, Severe (Pain Scale 7-10) Last Admin: 03/21/22 05:10 Dose: 1 mg Documented By: LEONILA Hydroxyzine HCl (Hydroxyzine Hcl 25 Mg Tablet) 25 mg PO Q6H PRN PRN Reason: Anxiety Last Admin: 03/21/22 10:36 Dose: 25 mg Documented By: ASTRID Dextrose/Sodium Chloride (D51/2ns) 1,000 mls @ 200 mls/hr IVCONT .Q5H [facility] Last Admin: 03/21/22 12:09 Dose: 200 mls/hr Documented By: ASTRID Levetiracetam (Levetiracetam 250 Mg Tablet) 250 mg PO BID [facility] Last Admin: 03/21/22 10:35 Dose: 250 mg Documented By: ASTRID Levetiracetam (Levetiracetam 500 Mg Tablet) 500 mg PO BID [facility] Last Admin: 03/21/22 10:38 Dose: 500 mg Documented By: ASTRID Loratadine (Loratadine 10 Mg Tablet) 10 mg PO DAILY [facility] Last Admin: 03/21/22 10:37 Dose: 10 mg Documented By: ASTRID Magnesium Hydroxide (Milk Of Magnesia 30 Ml Oral.Susp) 30 ml PO DAILY PRN PRN Reason: Constipation Melatonin (Melatonin 3 Mg Tablet) 6 mg PO BEDTIME PRN PRN Reason: Insomnia Metoprolol Succinate (Metoprolol Succinate Er 25 Mg Tab.Er.24h) 25 mg PO DAILY [facility]; Protocol Last Admin: 03/21/22 10:35 Dose: 25 mg Documented By: ASTRID Multivitamins/Vitamin C (Multivitamin Tablet) 1 tab PO DAILY [facility] Last Admin: 03/21/22 09:00 Dose: Not Given Documented By: GIOVANNI Non-Admin Reason: NPO Non-Formulary Medication (Testosterone) 5 pump TOPICAL DAILY [facility] Pharmacy Consult (Consult Rx Etoh Phenob Po Only) 1 each MISCELLANE ONCE PRN; Protocol PRN Reason: Consult order Phenobarbital (Phenobarbital 15 Mg Tablet) 45 mg PO BID [facility] Stop: 03/22/22 21:01 Last Admin: 03/21/22 10:35 Dose: 45 mg Documented By: ASTRID Phenobarbital (Phenobarbital 15 Mg Tablet) 15 mg PO BID [facility] Stop: 03/24/22 21:01 Phenobarbital (Phenobarbital 15 Mg Tablet) 15 mg PO DAILY [facility] Stop: 03/26/22 09:01 Sodium Chloride (0.9 % Sodium Chloride Flush 3 Ml Syringe) 3 ml IVFLUSH QSHIFT [facility] Last Admin: 03/21/22 07:53 Dose: Not Given Documented By: GIOVANNI Non-Admin Reason: IV Running Tamsulosin HCl (Tamsulosin Hcl 0.4 Mg Capsule) 0.4 mg PO DAILY [facility] Last Admin: 03/21/22 10:36 Dose: 0.4 mg Documented By: ASTRID Thiamine HCl (Thiamine Hcl 100 Mg Tablet) 50 mg PO DAILY [facility] Last Admin: 03/21/22 10:44 Dose: 50 mg Documented By: ASTRID Vitamin D (Cholecalciferol (Vitamin D3) 25 Mcg Tablet) 25 mcg PO DAILY [facility] Last Admin: 03/21/22 10:36 Dose: 25 mcg Documented By: ASTRID Labs CBC & Chem 7: 03/26/22 06:19 03/26/22 06:19 Labs: Laboratory Results - last 24 hr 03/20/22 03/20/22 03/20/22 12:18 13:02 14:18 MCV MCH MCHC RDW Plt Count MPV Immature Gran % (Auto) Neut % (Auto) Lymph % (Auto) Cloud % (Auto) Eos % (Auto) Baso % (Auto) Lymph # (Auto) Cloud # (Auto) Eos # (Auto) Baso # (Auto) Abs Immat Gran (auto) Absolute Neuts (auto) Absolute Nucleated RBC Nucleated RBC % (auto) Smear Tech's Comments Anion Gap Estim Creat Clear Calc Estimated GFR Random Glucose Lactic Acid 1.4 Calcium Triglycerides 74 Urine Color YELLOW Urine Appearance HAZY Urine pH 6.0 Ur Specific [place] 1.025 Urine Protein 2+ H Urine Glucose (UA) NEG Urine Ketones >=80 Urine Blood 3+ H Urine Nitrite NEG Ur Leukocyte Esterase NEG Urine RBC 15-29 H Urine WBC 0-2 Ur Squamous Epith Cells NONE Urine Bacteria TRACE Urine Mucus 1+ 03/21/22 03/21/22 08:24 09:33 MCV 90.0 MCH 30.5 MCHC 33.9 RDW 14.2 Plt Count 143 L D MPV 9.6 Immature Gran % (Auto) 1.6 H Neut % (Auto) 89.9 H Lymph % (Auto) 3.1 L Cloud % (Auto) 5.2 Eos % (Auto) 0.0 Baso % (Auto) 0.2 Lymph # (Auto) 0.9 L Cloud # (Auto) 1.4 H Eos # (Auto) 0.0 Baso # (Auto) 0.1 Abs Immat Gran (auto) 0.43 H Absolute Neuts (auto) 24.8 H Absolute Nucleated RBC 0.000 Nucleated RBC % (auto) 0.0 Smear Tech's Comments VERIFIED Anion Gap 15 Estim Creat Clear Calc 136.5 Estimated GFR > 60 Random Glucose 144 H Lactic Acid Calcium 7.2 L D Triglycerides Urine Color Urine Appearance Urine pH Ur Specific [place] Urine Protein Urine Glucose (UA) Urine Ketones Urine Blood Urine Nitrite Ur Leukocyte Esterase Urine RBC Urine WBC Ur Squamous Epith Cells Urine Bacteria Urine Mucus Assessment and Plan (1) Fever: Status: Acute (2) Alcohol withdrawal: Status: Acute (3) Leukocytosis: Status: Acute Plan 52 year old mal with history of CAD, alcohol use, seizure desorder here with abdominal pain, SIRS, due to acute pancreatitis, likely alcoholic related #Acute pancreatitis likely from alcohol, normal TG, no stones seen on CT -Agresive IV fluid, IV dilaudid for pain and follow clinicall #? PNA on CT with Low O2, and high WBC, will treat empirically with Levaquin #Sepsis d/t PNA--Levaquint as above #Alcohol use desorder and high risk for withdrawal -continue Phenobarbital -Folic Acid and thiamine #Luekocytosis--reactive and possibly due to pna #Hemoconcentration #Dehydration --these are all related to dehydration and should improve with IVF Lovneox for DVT prophylaxis Need for admission: Sepsis, severe pancreaitis with excruciating pain and needin IV narcotics Quality Stroke Does the patient have a stroke diagnosis?: No VTE Prior VTE?: No VTE Risk Level:: Medical - moderate - high VTE Device Contraindication: Treatment Not Indicated VTE Drug Contraindication: N/A - Med Ordered
[2022-03-21] MEDS: HYDROmorphone HCl 1 MG/ML SYRINGE IVPUSH ×3 (14:58→21:42)
[2022-03-21] MEDS: Milk of Magnesia 30 ML ORAL.SUSP PO (14:58)
[2022-03-21] MEDS: levoFLOXacin/D5W 750 MG/150 ML PIGGYBACK 100 MG IV (14:59)
--- NOTE | 2022-03-21 15:08 | MHC.CLN ---
PT TRIGGERED FOR -# WT LOSS ON NURSING ADMISSION ASSESSMENT WT HX REVEALS FOLLOWS: 115.2KG 03/20/22 107KG 04/27/21 PT WITH 8% NONSIGNIFICANT WT GAIN X 10 MONTHS PT DOES NOT TRIGGER FOR WT LOSS AT THIS TIME RD TO FOLLOW WEEKLY
[2022-03-21] MEDS: Enoxaparin Sodium 40 MG/0.4 ML SYRINGE SUBCUT (17:35)
[2022-03-21] MEDS: Amitriptyline HCl 50 MG TABLET 200 MG PO (21:43)
[2022-03-22] VITALS (7 sets, daily range): BP systolic 131–175; BP diastolic 74–90; PULSE 98–127; RESP 16–20; TEMP 36.8–37.4; O2SAT 89–93
[2022-03-22] MEDS: HYDROmorphone HCl 1 MG/ML SYRINGE IVPUSH ×7 (00:36→23:30)
[2022-03-22] MEDS: Dextrose 5 % and 0.45 % NaCl 1,000 ML 200 ML IVCONT ×4 (03:46→13:12)
[2022-03-22 06:12] LABS: Hematocrit 48.1 % (42.0-52.0); Hemoglobin 15.9 g/dl (14.0-18.0); Mean Corpuscular HGB Conc 33.1 g/dl (31.0-36.0); Mean Corpuscular Hemoglobin 29.4 pg (27.0-33.0); Mean Corpuscular Volume 89.1 fL (80.0-98.0); Mean Platelet Volume 9.5 fL (9.4-12.4); Platelet Count 152 X10*3/uL (160-400); Red Cell Distribution Width 13.9 % (11.0-16.0); White Blood Count 24.5 X10*3/uL (4.8-10.8)
[2022-03-22 06:33] LABS: Anion Gap 14 (12-20); Blood Urea Nitrogen 12 mg/dL (9-16); Calcium 7.4 mg/dL (8.4-10.2); Carbon Dioxide 22 mmol/L (22-29); Chloride 102 mmol/L (96-108); Creatinine Clr Calc Pharmacy 145.8; Estimated Glomerular Filt Rate > 60; Glucose Random 106 mg/dL (60-115); Potassium 3.3 mmol/L (3.3-5.1); Sodium 135 mmol/L (135-145)
[2022-03-22] MEDS: 0.9 % Sodium Chloride Flush 3 ML SYRINGE IVFLUSH ×2 (08:12→20:30)
[2022-03-22] MEDS: Thiamine HCL 100 MG TABLET 50 MG PO (08:12)
[2022-03-22] MEDS: Loratadine 10 MG TABLET PO (08:14)
[2022-03-22] MEDS: Famotidine 20 MG TABLET 80 MG PO (08:14)
[2022-03-22] MEDS: PHENobarbitaL 15 MG TABLET 45 MG PO ×2 (08:15→20:30)
[2022-03-22] MEDS: Metoprolol Succinate ER 25 MG TAB.ER.24H PO (08:16)
[2022-03-22] MEDS: Cyanocobalamin (Vitamin B-12) 1,000 MCG TABLET 1000 MCG PO (08:16)
[2022-03-22] MEDS: cloNIDine HCL 0.1 MG TABLET PO (08:16)
[2022-03-22] MEDS: Atorvastatin Calcium 80 MG TABLET PO (08:16)
[2022-03-22] MEDS: Aspirin Enteric Coated 81 MG TABLET.DR PO (08:16)
[2022-03-22] MEDS: Tamsulosin HCL 0.4 MG CAPSULE PO (08:16)
[2022-03-22] MEDS: Multivitamin TABLET 1 TAB PO (08:17)
[2022-03-22] MEDS: levETIRAcetam 500 MG TABLET PO ×2 (08:17→20:29)
[2022-03-22] MEDS: hydrOXYzine HCL 25 MG TABLET PO ×2 (08:18→14:30)
[2022-03-22] MEDS: Folic Acid 1 MG TABLET PO (08:18)
[2022-03-22] MEDS: levETIRAcetam 250 MG TABLET PO ×2 (08:18→20:29)
[2022-03-22] MEDS: Cholecalciferol (Vitamin D3) 25 MCG TABLET PO (08:18)
[2022-03-22] MEDS: Milk of Magnesia 30 ML ORAL.SUSP PO (08:21)
[2022-03-22] MEDS: Potassium Chloride/H20 10 MEQ/100 ML PIGGYBACK 100 MEQ IV ×2 (11:27→13:11)
[2022-03-22] MEDS: clonazePAM 1 MG TABLET 2 MG PO (11:28)
[2022-03-22] MEDS: Enoxaparin Sodium 40 MG/0.4 ML SYRINGE SUBCUT (14:30)
--- NOTE | 2022-03-22 15:01 | HO.PM.IMPN ---
Subjective Subjective Date of Service: 03/22/22 Interval History: f/u for acute pancreatitis, alcohol withdrawal Review of Systems still has abd pain , feels nauseated , does not tolerate diet. Physical Exam Vital Signs: Vital Signs: Last Vital Signs Temp 98.2 F 03/22/22 12:00 Pulse 105 H 03/22/22 12:00 Resp 20 03/22/22 12:00 BP 131/74 03/22/22 12:00 Pulse Ox 92 03/22/22 12:00 O2 Del Method 03/22/22 12:00 O2 Flow Rate 4 03/21/22 07:32 BMI result Body Mass Index 38.6 General: AO X 3, no acute distress Resp:? CTA bilateral CVS: S1,S2,RRR GI: +epigastric tenderness, voluntary guarding, +BS Skin: No rash Neuro:? motor grossly intact Psych: appropriate affect Objective Data Active Medications Acetaminophen (Acetaminophen Supp 650 Mg Supp.Rect) 650 mg RI Q6H PRN PRN Reason: Pain, Mild (Pain Scale 1-3) Albuterol Sulfate (Albuterol Sulfate 90 Mcg 8 Gm Inhaler) 2 puff INHALE Q4H PRN PRN Reason: Shortness Of Breath Amitriptyline HCl (Amitriptyline Hcl 50 Mg Tablet) 200 mg PO BEDTIME [facility] Last Admin: 03/21/22 21:43 Dose: 200 mg Documented By: RUPALI Aspirin (Aspirin Enteric Coated 81 Mg Tablet.) 81 mg PO DAILY [facility] Last Admin: 03/22/22 08:16 Dose: 81 mg Documented By: ASTRID Atorvastatin Calcium (Atorvastatin Calcium 80 Mg Tablet) 80 mg PO DAILY [facility] Last Admin: 03/22/22 08:16 Dose: 80 mg Documented By: ASTRID Clonazepam (Clonazepam 1 Mg Tablet) 2 mg PO DAILY PRN PRN Reason: Anxiety Last Admin: 03/21/22 00:39 Dose: 2 mg Documented By: TORITO Clonazepam (Clonazepam 1 Mg Tablet) 2 mg PO DAILY@1200 [facility] Last Admin: 03/22/22 11:28 Dose: 2 mg Documented By: ASTRID Clonidine HCl (Clonidine Hcl 0.1 Mg Tablet) 0.1 mg PO DAILY [facility]; Protocol Last Admin: 03/22/22 08:16 Dose: 0.1 mg Documented By: ASTRID Cyanocobalamin (Cyanocobalamin (Vitamin B-12) 1,000 Mcg Tablet) 1,000 mcg PO DAILY [facility] Last Admin: 03/22/22 08:16 Dose: 1,000 mcg Documented By: ASTRID Enoxaparin Sodium (Enoxaparin Sodium 40 Mg/0.4 Ml Syringe) 40 mg SUBCUT Q24H [facility] Last Admin: 03/22/22 14:30 Dose: 40 mg Documented By: ASTRID Famotidine (Famotidine 20 Mg Tablet) 80 mg PO DAILY [facility] Last Admin: 03/22/22 08:14 Dose: 80 mg Documented By: ASTRID Folic Acid (Folic Acid 1 Mg Tablet) 1 mg PO DAILY [facility] Stop: 03/23/22 09:01 Last Admin: 03/22/22 08:18 Dose: 1 mg Documented By: ASTRID Hydromorphone HCl (Hydromorphone Hcl 1 Mg/Ml Syringe) 1 mg IVPUSH Q3H PRN; Protocol PRN Reason: Pain, Severe (Pain Scale 7-10) Last Admin: 03/22/22 11:41 Dose: 1 mg Documented By: ASTRID Hydroxyzine HCl (Hydroxyzine Hcl 25 Mg Tablet) 25 mg PO Q6H PRN PRN Reason: Anxiety Last Admin: 03/22/22 14:30 Dose: 25 mg Documented By: ASTRID Dextrose/Sodium Chloride (D51/2ns) 1,000 mls @ 200 mls/hr IVCONT .Q5H [facility] Last Admin: 03/22/22 13:12 Dose: 200 mls/hr Documented By: ASTRID Levofloxacin (Levaquin) 750 mg in 150 mls @ 100 mls/hr IV Q24H [facility] Last Infusion: 03/21/22 17:31 Dose: 0 mls/hr Documented By: ASTRID Levetiracetam (Levetiracetam 250 Mg Tablet) 250 mg PO BID [facility] Last Admin: 03/22/22 08:18 Dose: 250 mg Documented By: ASTRID Levetiracetam (Levetiracetam 500 Mg Tablet) 500 mg PO BID [facility] Last Admin: 03/22/22 08:17 Dose: 500 mg Documented By: ASTRID Loratadine (Loratadine 10 Mg Tablet) 10 mg PO DAILY [facility] Last Admin: 03/22/22 08:14 Dose: 10 mg Documented By: ASTRID Magnesium Hydroxide (Milk Of Magnesia 30 Ml Oral.Susp) 30 ml PO DAILY PRN PRN Reason: Constipation Last Admin: 03/22/22 08:21 Dose: 30 ml Documented By: ASTRID Melatonin (Melatonin 3 Mg Tablet) 6 mg PO BEDTIME PRN PRN Reason: Insomnia Metoprolol Succinate (Metoprolol Succinate Er 25 Mg Tab.Er.24h) 25 mg PO DAILY [facility]; Protocol Last Admin: 03/22/22 08:16 Dose: 25 mg Documented By: ASTRID Multivitamins/Vitamin C (Multivitamin Tablet) 1 tab PO DAILY [facility] Last Admin: 03/22/22 08:17 Dose: 1 tab Documented By: ASTRID Non-Formulary Medication (Testosterone) 5 pump TOPICAL DAILY [facility] Pharmacy Consult (Consult Rx Etoh Phenob Po Only) 1 each MISCELLANE ONCE PRN; Protocol PRN Reason: Consult order Phenobarbital (Phenobarbital 15 Mg Tablet) 45 mg PO BID [facility] Stop: 03/22/22 21:01 Last Admin: 03/22/22 08:15 Dose: 45 mg Documented By: ASTRID Phenobarbital (Phenobarbital 15 Mg Tablet) 15 mg PO BID [facility] Stop: 03/24/22 21:01 Phenobarbital (Phenobarbital 15 Mg Tablet) 15 mg PO DAILY [facility] Stop: 03/26/22 09:01 Sodium Chloride (0.9 % Sodium Chloride Flush 3 Ml [facility]) [facility] Admin: 03/22/22 08:12 Dose: 3 ml Documented By: ASTRID Tamsulosin HCl (Tamsulosin Hcl 0.4 Mg Capsule) 0.4 mg PO DAILY [facility] Last Admin: 03/22/22 08:16 Dose: 0.4 mg Documented By: ASTRID Thiamine HCl (Thiamine Hcl 100 Mg Tablet) 50 mg PO DAILY [facility] Last Admin: 03/22/22 08:12 Dose: 50 mg Documented By: ASTRID Vitamin D (Cholecalciferol (Vitamin D3) 25 Mcg Tablet) 25 mcg PO DAILY [facility] Last Admin: 03/22/22 08:18 Dose: 25 mcg Documented By: ASTRID Labs CBC & Chem 7: 03/22/22 05:38 03/22/22 05:38 Labs: Laboratory Results - last 24 hr 03/22/22 03/22/22 05:38 05:38 MCV 89.1 MCH 29.4 MCHC 33.1 RDW 13.9 Plt Count 152 L MPV 9.5 Absolute Nucleated RBC 0.000 Nucleated RBC % (auto) 0.0 Anion Gap 14 Estim Creat Clear Calc 145.8 Estimated GFR > 60 Random Glucose 106 Calcium 7.4 L Magnesium 2.0 Microbiology Microbiology Results: Microbiology 03/20/22 13:05 Blood Culture - Preliminary Blood - Venous No growth after 24 hours. 03/20/22 13:02 Blood Culture - Preliminary Blood - Venous No growth after 24 hours. Assessment and Plan (1) Alcohol withdrawal: Status: Acute (2) Acute pancreatitis: Status: Acute Plan 52 year old mal with history of CAD, alcohol use, seizure desorder here with abdominal pain, SIRS, due to acute pancreatitis, likely alcoholic related #Acute pancreatitis likely from alcohol, normal TG, no stones seen on CT -Agresive IV fluid, IV dilaudid for pain and follow clinicall added Gi eval #? PNA on CT with Low O2, and high WBC, will treat empirically with Levaquin Leukocytosis trending down, blood culture negative at 48 hours #Sepsis d/t PNA--Levaquin as above #Alcohol use desorder and high risk for withdrawal -continue Phenobarbital -Folic Acid and thiamine #Luekocytosis--reactive and possibly due to pna #Hemoconcentration #Dehydration --these are all related to dehydration and should improve with IVF Lovneox for DVT prophylaxis Need for admission: Sepsis, severe pancreaitis with excruciating pain and needin IV narcotics Quality Stroke Does the patient have a stroke diagnosis?: No VTE Prior VTE?: No VTE Risk Level:: Medical - moderate - high VTE Device Contraindication: Treatment Not Indicated VTE Drug Contraindication: N/A - Med Ordered
--- NOTE | 2022-03-22 15:28 | PM.GICN ---
History of Present Illness Data of Consult Service Date: 03/22/22 Requesting physician: Sheryl Deras Primary Care Provider: Unknown Physician HPI Reason for consult: acute pancreatitis 52 YM with CAD, heart faliure, seizure desorder, alcohol abuse admitted on 03/20/22 with excruciating epigagstric pain radiating to the flank area, nausea, vomiting that started after dinner the day prior and has been progressively intensifying Pt described the pain as 15/10 in intensity. No pariticular? agravating factors,? paritial relief with dialudid in the ED.? Pt has been fairly constipated despite OTC laxative, describes stool as hard dark, no kathrine blood.? ED work up: WBC 31, Hgb 19, BUN 21, Cr 0.9, normal lactic acid, AST 54, ALT 76, triglyceride 74,??LIPASE 1021.? Pt reports abdominal pain improved to 8/10 today. Taking a liquid diet and complains of abdominal pain on taking liquids. Admits to drinking 1-2 drinks of Vodka a few times a week. Patient denies past history of pancreatitis. Patient denies family history of pancreatic disease, colon polyps or GI malignancy. 03/20/[address] SCAN SHOWED: 1. Findings associated with pancreas correlate with acute pancreatitis. Recommend follow-up imaging to ensure resolution.. ?2. Hepatic steatosis. ?3. Colonic diverticulosis without evidence of diverticulitis. ?4. There are some inflammatory changes adjacent to the appendix, with these appear to be secondary to the inflammatory changes from the acute pancreatitis. ?5. Findings in the lingula and the right middle lobes, could be related to infectious or inflammatory process. Review of Systems Review of Systems: Gen: no fever Resp: no sob, no cough CV: no chest, no REYES, no leg edema GI: +n/v, + abd pain Neuro: No confusion, no seizures Yes all other systems are reviewed and are negative [facility] Past Medical History Medical History NAMITA (acute kidney injury) Heart attack Seizure Surgical History Surgical History Stented coronary artery Social History Social History (Updated 03/21/22 @ 11:01 by Michelle Tanmay Sofia, RN) Household Members: None Housing: Apartment Are you a primary cardiac care nurse to a significant other at home: No Do you presently have visiting nurse or other home services: Yes Patient Tobacco Use Status: Former Tobacco user Tobacco use type: Cigarette Second Hand Smoke Exposure: No Use of substances other than those prescribed or required for medical reasons: No Substance Use Type: Marijuana Substance Use Frequency: Weekly Last Used Substance: Days (ago) Last Used Substance Other:: marijuana Currently Displaying Signs/Symptoms of Drug Intoxication Withdrawal: No Any prior treatment program specific to substance use: No Have you been hit, kicked, punched, or otherwise hurt by someone within the past year? If so, by whom?: No Do you feel safe in your current relationship?: Yes Is there a partner from a previous relationship who is making you feel unsafe now?: No Are you made to feel afraid or neglected: No Advance Directives: No Advance Directives Information Provided: No Do you have thoughts of harming others: None Do you have a plan to hurt others: No Plan Recently lost weight without trying: Yes How much weight loss: 14-23 pounds Nutrition Risks: No Nutritional Risk Poor oral hygiene: No service: Yes Current occupational status: disabled Meds Allergies Allergy/AdvReac Type Severity Reaction Status Date / Time Penicillins Allergy Unknown Unknown Verified 01/28/22 19:50 Active Medications: Current Medications Acetaminophen (Acetaminophen Supp 650 Mg Supp.Rect) 650 mg [place] Q6H PRN PRN Reason: Pain, Mild (Pain Scale 1-3) Albuterol Sulfate (Albuterol Sulfate 90 Mcg 8 Gm Inhaler) 2 puff INHALE Q4H PRN PRN Reason: Shortness Of Breath Amitriptyline HCl (Amitriptyline Hcl 50 Mg Tablet) 200 mg PO BEDTIME [facility] Last Admin: 03/21/22 21:43 Dose: 200 mg Aspirin (Aspirin Enteric Coated 81 Mg Tablet.Dr) 81 mg PO DAILY [facility] Last Admin: 03/22/22 08:16 Dose: 81 mg Atorvastatin Calcium (Atorvastatin Calcium 80 Mg Tablet) 80 mg PO DAILY [facility] Last Admin: 03/22/22 08:16 Dose: 80 mg Clonazepam (Clonazepam 1 Mg Tablet) 2 mg PO DAILY PRN PRN Reason: Anxiety Last Admin: 03/21/22 00:39 Dose: 2 mg Clonazepam (Clonazepam 1 Mg Tablet) 2 mg PO DAILY@1200 [facility] Last Admin: 03/22/22 11:28 Dose: 2 mg Clonidine HCl (Clonidine Hcl 0.1 Mg Tablet) 0.1 mg PO DAILY [facility]; Protocol Last Admin: 03/22/22 08:16 Dose: 0.1 mg Cyanocobalamin (Cyanocobalamin (Vitamin B-12) 1,000 Mcg Tablet) 1,000 mcg PO DAILY [facility] Last Admin: 03/22/22 08:16 Dose: 1,000 mcg Enoxaparin Sodium (Enoxaparin Sodium 40 Mg/0.4 Ml Syringe) 40 mg SUBCUT Q24H [facility] Last Admin: 03/22/22 14:30 Dose: 40 mg Famotidine (Famotidine 20 Mg Tablet) 80 mg PO DAILY [facility] Last Admin: 03/22/22 08:14 Dose: 80 mg Folic Acid (Folic Acid 1 Mg Tablet) 1 mg PO DAILY [facility] Stop: 03/23/22 09:01 Last Admin: 03/22/22 08:18 Dose: 1 mg Hydromorphone HCl (Hydromorphone Hcl 1 Mg/Ml Syringe) 1 mg IVPUSH Q3H PRN; Protocol PRN Reason: Pain, Severe (Pain Scale 7-10) Last Admin: 03/22/22 11:41 Dose: 1 mg Hydroxyzine HCl (Hydroxyzine Hcl 25 Mg Tablet) 25 mg PO Q6H PRN PRN Reason: Anxiety Last Admin: 03/22/22 14:30 Dose: 25 mg Dextrose/Sodium Chloride (D51/2ns) 1,000 mls @ 200 mls/hr IVCONT .Q5H [facility] Last Admin: 03/22/22 13:12 Dose: 200 mls/hr Levofloxacin (Levaquin) 750 mg in 150 mls @ 100 mls/hr IV Q24H [facility] Last Infusion: 03/21/22 17:31 Dose: Infused Levetiracetam (Levetiracetam 250 Mg Tablet) 250 mg PO BID [facility] Last Admin: 03/22/22 08:18 Dose: 250 mg Levetiracetam (Levetiracetam 500 Mg Tablet) 500 mg PO BID [facility] Last Admin: 03/22/22 08:17 Dose: 500 mg Loratadine (Loratadine 10 Mg Tablet) 10 mg PO DAILY [facility] Last Admin: 03/22/22 08:14 Dose: 10 mg Magnesium Hydroxide (Milk Of Magnesia 30 Ml Oral.Susp) 30 ml PO DAILY PRN PRN Reason: Constipation Last Admin: 03/22/22 08:21 Dose: 30 ml Melatonin (Melatonin 3 Mg Tablet) 6 mg PO BEDTIME PRN PRN Reason: Insomnia Metoprolol Succinate (Metoprolol Succinate Er 25 Mg Tab.Er.24h) 25 mg PO DAILY [facility]; Protocol Last Admin: 03/22/22 08:16 Dose: 25 mg Multivitamins/Vitamin C (Multivitamin Tablet) 1 tab PO DAILY [facility] Last Admin: 03/22/22 08:17 Dose: 1 tab Non-Formulary Medication (Testosterone) 5 pump TOPICAL DAILY [facility] Pharmacy Consult (Consult Rx Etoh Phenob Po Only) 1 each MISCELLANE ONCE PRN; Protocol PRN Reason: Consult order Phenobarbital (Phenobarbital 15 Mg Tablet) 45 mg PO BID [facility] Stop: 03/22/22 21:01 Last Admin: 03/22/22 08:15 Dose: 45 mg Phenobarbital (Phenobarbital 15 Mg Tablet) 15 mg PO BID [facility] Stop: 03/24/22 21:01 Phenobarbital (Phenobarbital 15 Mg Tablet) 15 mg PO DAILY [facility] Stop: 03/26/22 09:01 Sodium Chloride (0.9 % Sodium Chloride Flush 3 Ml Syringe) 3 ml IVFLUSH QSHIFT [facility] Last Admin: 03/22/22 08:12 Dose: 3 ml Tamsulosin HCl (Tamsulosin Hcl 0.4 Mg Capsule) 0.4 mg PO DAILY [facility] Last Admin: 03/22/22 08:16 Dose: 0.4 mg Thiamine HCl (Thiamine Hcl 100 Mg Tablet) 50 mg PO DAILY [facility] Last Admin: 03/22/22 08:12 Dose: 50 mg Vitamin D (Cholecalciferol (Vitamin D3) 25 Mcg Tablet) 25 mcg PO DAILY [facility] Last Admin: 03/22/22 08:18 Dose: 25 mcg Home Medications Medication Instructions Recorded Confirmed Last Taken Type albuterol sulfate 90 mcg/actuation 2 puff PO Q4H PRN Shortness Of 04/28/21 03/20/22 04/27/21 History aerosol inhaler Breath aspirin 81 mg tablet,delayed 1 tab PO DAILY 04/28/21 03/20/22 03/19/22 History release cholecalciferol (vitamin D3) 25 25 mcg PO DAILY 04/28/21 03/20/2222 History mcg (1,000 unit) tablet (Vitamin D3) cyanocobalamin (vitamin B-12) 1,000 mcg PO DAILY 04/28/21 03/20/22 03/19/22 History 1,000 mcg tablet amitriptyline 100 mg tablet 2 tab PO BEDTIME 05/17/21 03/20/22 03/19/22 History clonazepam 2 mg tablet 1 tab PO DAILY@1200 05/17/21 03/20/22 03/20/22 History clonidine HCl 0.1 mg tablet 1 tab PO DAILY 05/17/21 03/20/22 03/19/22 History famotidine 40 mg tablet 2 tab PO DAILY 05/17/21 03/20/22 03/19/22 History levetiracetam 750 mg tablet 1 tab PO BID 05/17/21 03/20/22 03/19/22 History loratadine 10 mg tablet 1 tab PO DAILY 05/17/21 03/20/22 03/19/22 History metoprolol succinate 25 mg 1 tab PO DAILY 05/17/21 03/20/22 03/19/22 History tablet,extended release 24 hr rosuvastatin 20 mg tablet 1 tab PO DAILY 05/17/21 03/20/22 03/19/22 History tamsulosin 0.4 mg capsule 1 cap PO DAILY 05/17/21 03/20/22 03/19/22 History acetaminophen 325 mg tablet 975 mg PO Q8H PRN Pain 03/20/22 03/20/22 03/19/22 History aspirin 325 mg tablet,delayed 1 tab PO DAILY@1200 PRN Pain 03/20/22 03/20/22 Unknown History release clonazepam 2 mg tablet 1 tab PO DAILY PRN Anxiety 03/20/22 03/20/22 Unknown History multivitamin 1 tab PO DAILY 03/20/22 03/20/22 03/20/22 History testosterone 20.25 mg/1.25 gram 5 pump topical DAILY 03/20/22 03/20/22 03/19/22 History (1.62 %) transdermal gel pump Physical Exam Vital Signs: Vital Signs: Last Vital Signs Temp 98.2 F 03/22/22 12:00 Pulse 105 H 03/22/22 12:00 Resp 20 03/22/22 12:00 BP 131/74 03/22/22 12:00 Pulse Ox 92 03/22/22 12:00 O2 Del Method 03/22/22 12:00 O2 Flow Rate 4 03/21/22 07:32 BMI result Body Mass Index 38.6 Const: General: no acute distress Nutritional Appearance: obese Orientation/consciousness: patient oriented x3 Limitations: no limitations HEENT: Head: Yes normal to inspection Ears: hearing grossly normal bilaterally Mouth: Normal oral and palatal mucosa present Eyes: Sclerae: sclerae normal Pupils: Equal, round and reactive pupils present Neck: Neck: Yes normal visual inspection Chest: Chest palpation & inspection: normal inspection of the chest Resp: Effort & Inspection: normal respiratory effort Auscultation: clear to auscultation bilaterally Cardio: Palpation: normal PMI Rate: regular rate Rhythm: regular rhythm Heart sounds: S1 normal heart sound present, S2 normal heart sound present and no murmurs GI: Inspection: Yes distended Palpation (GI): Soft to palpation, Tenderness to palpation present (GI) (mild epigastric tenderness without rebound) and No hepatosplenomegaly present Auscultation: normal bowel sounds Rectal Exam - Male: Yes deferred Skin: General skin exam: no rashes or lesions noted Neuro: General: patient oriented x3, gait normal and moves all extremities Cranial nerves: Yes Equal, round and reactive pupils present Psych: Appearance: grossly normal Mental Status: mental status grossly normal Results Labs CBC & Chem 7: 03/26/22 06:19 03/26/22 06:19 Labs: Short CBC 03/22/22 Range/Units 05:38 WBC 24.5 H (4.8-10.8) X10*3/uL Hgb 15.9 (14.0-18.0) g/dl Hct 48.1 (42.0-52.0) % Plt Count 152 L (160-400) X10*3/uL BMP 03/22/22 05:38 Sodium 135 Potassium 3.3 Chloride 102 Carbon Dioxide 22 BUN 12 Creatinine 0.73 Calcium 7.4 L Microbiology Microbiology Results: Microbiology 03/20/22 13:05 Blood - Venous Blood Culture - Preliminary No growth after 48 hours. 03/20/22 13:02 Blood - Venous Blood Culture - Preliminary No growth after 48 hours. Assessment and Plan (1) Acute pancreatitis: Status: Acute Plan 52 YM with CAD, heart faliure, seizure desorder, alcohol abuse admitted on 6/26/22 with abdominal pain radiating to the flank area, nausea, vomiting and elevated lipase. Abdominal pain is improving slowly and patient is taking a liquid diet. Marked elevation of WBC count which is improving Normal triglycerides. Pt has mildly elevated transaminases likely due to SOUZA related to obesity. RECOMMENDATIONS: 1. Continue IV fluids and pain medications 2. Repeat lipase and LFTs in the am. 3. Advance to a full liquid diet in the am if lipase is normal. 4. Abdominal US to rule out [id number] gallstones Procedures Date of Service Date of Service: 03/22/22
[2022-03-22] MEDS: levoFLOXacin/D5W 750 MG/150 ML PIGGYBACK 100 MG IV (16:42)
[2022-03-22] MEDS: polyethylene glycoL 3350 17 GM POWD.PACK PO (19:12)
[2022-03-22] MEDS: Amitriptyline HCl 50 MG TABLET 200 MG PO (20:29)
[2022-03-22] MEDS: Docusate Sodium 100 MG CAPSULE PO (20:29)
[2022-03-23 04:00] VITALS: BP 147/88; PULSE 112; RESP 18; TEMP 36.8; O2SAT 90
[2022-03-23] MEDS: HYDROmorphone HCl 1 MG/ML SYRINGE IVPUSH ×5 (04:34→20:52)
[2022-03-23 07:25] VITALS: BP 145/91; PULSE 112; RESP 20; TEMP 37.1; O2SAT 90
[2022-03-23 07:33] LABS: Alanine Aminotransferase 53 U/L (0-40); Alkaline Phosphatase 86 U/L (39-117); Anion Gap 15 (12-20); Aspartate Amino Transferase 42 U/L (5-37); Bilirubin Total 0.7 mg/dL (0.0-1.0); Blood Urea Nitrogen 10 mg/dL (9-16); Calcium 7.5 mg/dL (8.4-10.2); Carbon Dioxide 21 mmol/L (22-29); Chloride 102 mmol/L (96-108); Creatinine Clr Calc Pharmacy 154.3; Estimated Glomerular Filt Rate > 60; Glucose Random 107 mg/dL (60-115); Lipase 24 U/L (8-78); Potassium 3.4 mmol/L (3.3-5.1); Sodium 135 mmol/L (135-145)
[2022-03-23 07:43] LABS: Albumin Level 3.4 g/dL (3.5-5.0); Total Protein 5.9 g/dL (6.5-8.0)
[2022-03-23] MEDS: 0.9 % Sodium Chloride Flush 3 ML SYRINGE IVFLUSH ×3 (08:34→20:55)
[2022-03-23] MEDS: Thiamine HCL 100 MG TABLET 50 MG PO (10:52)
[2022-03-23] MEDS: Aspirin Enteric Coated 81 MG TABLET.DR PO (10:52)
[2022-03-23] MEDS: Famotidine 20 MG TABLET 80 MG PO (10:52)
[2022-03-23] MEDS: Metoprolol Succinate ER 25 MG TAB.ER.24H PO (10:53)
[2022-03-23] MEDS: Cyanocobalamin (Vitamin B-12) 1,000 MCG TABLET 1000 MCG PO (10:53)
[2022-03-23] MEDS: levETIRAcetam 250 MG TABLET PO ×2 (10:53→20:52)
[2022-03-23] MEDS: levETIRAcetam 500 MG TABLET PO ×2 (10:53→20:55)
[2022-03-23] MEDS: cloNIDine HCL 0.1 MG TABLET PO (10:54)
[2022-03-23] MEDS: Cholecalciferol (Vitamin D3) 25 MCG TABLET PO (10:54)
[2022-03-23] MEDS: Multivitamin TABLET 1 TAB PO (10:54)
[2022-03-23] MEDS: Loratadine 10 MG TABLET PO (10:54)
[2022-03-23] MEDS: Tamsulosin HCL 0.4 MG CAPSULE PO (10:54)
[2022-03-23] MEDS: Atorvastatin Calcium 80 MG TABLET PO (10:54)
[2022-03-23] MEDS: PHENobarbitaL 15 MG TABLET PO ×2 (10:54→20:55)
[2022-03-23] MEDS: Folic Acid 1 MG TABLET PO (10:54)
[2022-03-23 11:11] VITALS: BP 145/86; PULSE 108; RESP 16; TEMP 36.9; O2SAT 93
[2022-03-23] MEDS: Milk of Magnesia 30 ML ORAL.SUSP PO (11:33)
[2022-03-23] MEDS: clonazePAM 1 MG TABLET 2 MG PO (11:33)
[2022-03-23] MEDS: levoFLOXacin/D5W 750 MG/150 ML PIGGYBACK 100 MG IV (15:06)
[2022-03-23 15:43] VITALS: BP 158/86; PULSE 101; RESP 16; TEMP 36.8; O2SAT 93
--- NOTE | 2022-03-23 16:10 | P.PNIM_ITS ---
Subjective Subjective Date of Service: 03/23/22 Interval History: Acute pancreatitis Review of Systems Abdominal pain slightly better than yesterday, denies any chest pain or shortness of breath or fever chills or cough or phlegm Physical Exam Vital Signs: Vital Signs: Last Vital Signs Temp 98.3 F 03/23/22 15:43 Pulse 101 H 03/23/22 15:43 Resp 16 03/23/22 15:43 BP 158/86 H 03/23/22 15:43 Pulse Ox 93 03/23/22 15:43 O2 Del Method 03/23/22 15:43 O2 Flow Rate 4 03/21/22 07:32 BMI result Body Mass Index 38.6 General: AO X 3, no acute distress Resp:? CTA bilateral CVS: S1,S2,RRR GI: +epigastric tenderness, voluntary guarding, +BS Skin: No rash Neuro:? motor grossly intact Psych: appropriate affect Objective Data Active Medications Acetaminophen (Acetaminophen Supp 650 Mg Supp.Rect) 650 mg NE Q6H PRN PRN Reason: Pain, Mild (Pain Scale 1-3) Albuterol Sulfate (Albuterol Sulfate 90 Mcg 8 Gm Inhaler) 2 puff INHALE Q4H PRN PRN Reason: Shortness Of Breath Amitriptyline HCl (Amitriptyline Hcl 50 Mg Tablet) 200 mg PO BEDTIME [facility] Last Admin: 03/22/22 20:29 Dose: 200 mg Documented By: RUPALI Aspirin (Aspirin Enteric Coated 81 Mg Tablet.) 81 mg PO DAILY [facility] Last Admin: 03/23/22 10:52 Dose: 81 mg Documented By: JOHN Atorvastatin Calcium (Atorvastatin Calcium 80 Mg Tablet) 80 mg PO DAILY [facility] Last Admin: 03/23/22 10:54 Dose: 80 mg Documented By: JOHN Clonazepam (Clonazepam 1 Mg Tablet) 2 mg PO DAILY PRN PRN Reason: Anxiety Last Admin: 03/21/22 00:39 Dose: 2 mg Documented By: TORITO Clonazepam (Clonazepam 1 Mg Tablet) 2 mg PO DAILY@1200 [facility] Last Admin: 03/23/22 11:33 Dose: 2 mg Documented By: JOHN Clonidine HCl (Clonidine Hcl 0.1 Mg Tablet) 0.1 mg PO DAILY [facility]; Protocol Last Admin: 03/23/22 10:54 Dose: 0.1 mg Documented By: JOHN Cyanocobalamin (Cyanocobalamin (Vitamin B-12) 1,000 Mcg Tablet) 1,000 mcg PO DAILY [facility] Last Admin: 03/23/22 10:53 Dose: 1,000 mcg Documented By: JOHN Docusate Sodium (Docusate Sodium 100 Mg Capsule) 100 mg PO BEDTIME [facility] Last Admin: 03/22/22 20:29 Dose: 100 mg Documented By: RUPALI Enoxaparin Sodium (Enoxaparin Sodium 40 Mg/0.4 Ml Syringe) 40 mg SUBCUT Q24H [facility] Last Admin: 03/22/22 14:30 Dose: 40 mg Documented By: ASTRID Famotidine (Famotidine 20 Mg Tablet) 80 mg PO DAILY [facility] Last Admin: 03/23/22 10:52 Dose: 80 mg Documented By: JOHN Hydromorphone HCl (Hydromorphone Hcl 1 Mg/Ml Syringe) 1 mg IVPUSH Q4H PRN; Protocol PRN Reason: Pain, Severe (Pain Scale 7-10) Last Admin: 03/23/22 12:02 Dose: 1 mg Documented By: JOHN Hydroxyzine HCl (Hydroxyzine Hcl 25 Mg Tablet) 25 mg PO Q6H PRN PRN Reason: Anxiety Last Admin: 03/22/22 14:30 Dose: 25 mg Documented By: ASTRID Levofloxacin (Levaquin) 750 mg in 150 mls @ 100 mls/hr IV Q24H [facility] Last Admin: 03/23/22 15:06 Dose: 100 mls/hr Documented By: JOHN Levetiracetam (Levetiracetam 250 Mg Tablet) 250 mg PO BID [facility] Last Admin: 03/23/22 10:53 Dose: 250 mg Documented By: JOHN Levetiracetam (Levetiracetam 500 Mg Tablet) 500 mg PO BID [facility] Last Admin: 03/23/22 10:53 Dose: 500 mg Documented By: JOHN Loratadine (Loratadine 10 Mg Tablet) 10 mg PO DAILY [facility] Last Admin: 03/23/22 10:54 Dose: 10 mg Documented By: JOHN Magnesium Hydroxide (Milk Of Magnesia 30 Ml Oral.Susp) 30 ml PO DAILY PRN PRN Reason: Constipation Last Admin: 03/23/22 11:33 Dose: 30 ml Documented By: JOHN Melatonin (Melatonin 3 Mg Tablet) 6 mg PO BEDTIME PRN PRN Reason: Insomnia Metoprolol Succinate (Metoprolol Succinate Er 25 Mg Tab.Er.24h) 25 mg PO DAILY [facility]; Protocol Last Admin: 03/23/22 10:53 Dose: 25 mg Documented By: JOHN Multivitamins/Vitamin C (Multivitamin Tablet) 1 tab PO DAILY [facility] Last Admin: 03/23/22 10:54 Dose: 1 tab Documented By: JOHN Non-Formulary Medication (Testosterone) 5 pump TOPICAL DAILY [facility] Pharmacy Consult (Consult Rx Etoh Phenob Po Only) 1 each MISCELLANE ONCE PRN; Protocol PRN Reason: Consult order Phenobarbital (Phenobarbital 15 Mg Tablet) 15 mg PO BID [facility] Stop: 03/24/22 21:01 Last Admin: 03/23/22 10:54 Dose: 15 mg Documented By: JOHN Phenobarbital (Phenobarbital 15 Mg Tablet) 15 mg PO DAILY [facility] Stop: 03/26/22 09:01 Polyethylene Glycol (Polyethylene Glycol 3350 17 Gm Powd.Pack) 17 gm PO BIDWM [facility] Sodium Chloride (0.9 % Sodium Chloride Flush 3 Ml Syringe) 3 ml IVFLUSH QSHIFT [facility] Last Admin: 03/23/22 08:34 Dose: 3 ml Documented By: JOHN Tamsulosin HCl (Tamsulosin Hcl 0.4 Mg Capsule) 0.4 mg PO DAILY [facility] Last Admin: 03/23/22 10:54 Dose: 0.4 mg Documented By: JOHN Thiamine HCl (Thiamine Hcl 100 Mg Tablet) 50 mg PO DAILY [facility] Last Admin: 03/23/22 10:52 Dose: 50 mg Documented By: JOHN Vitamin D (Cholecalciferol (Vitamin D3) 25 Mcg Tablet) 25 mcg PO DAILY [facility] Last Admin: 03/23/22 10:54 Dose: 25 mcg Documented By: JOHN Labs CBC & Chem 7: 03/22/22 05:38 03/23/22 06:25 Labs: Laboratory Results - last 24 hr 03/23/22 06:25 Anion Gap 15 Estim Creat Clear Calc 154.3 Estimated GFR > 60 Random Glucose 107 Calcium 7.5 L Total Bilirubin 0.7 AST 42 H ALT 53 H Alkaline Phosphatase 86 Total Protein 5.9 L D Albumin 3.4 L D Lipase 24 Microbiology Microbiology Results: Microbiology 03/20/22 13:05 Blood Culture - Preliminary Blood - Venous No growth after 48 hours. 03/20/22 13:02 Blood Culture - Preliminary Blood - Venous No growth after 48 hours. Assessment and Plan (1) Alcohol withdrawal: Status: Acute (2) Acute pancreatitis: Status: Acute Plan 52 year old mal with history of CAD, alcohol use, seizure desorder here with abdominal pain, SIRS, due to acute pancreatitis, likely alcoholic related #Acute pancreatitis likely from alcohol, normal TG, no stones seen on CT -Agresive IV fluid, IV dilaudid for pain and follow clinically lipase and lft's improving abd us -seems fine ,no gallstone Gi eval noted-advanced diet to full liquids #? PNA on CT with Low O2, and high WBC, will treat empirically with Levaquin Leukocytosis trending down, blood culture negative at 48 hours #Sepsis d/t PNA--Levaquin as above #Alcohol use desorder and high risk for withdrawal -continue Phenobarbital -Folic Acid and thiamine #Luekocytosis--reactive and possibly due to pna #Hemoconcentration #Dehydration --these are all related to dehydration and should improve with IVF Lovneox for DVT prophylaxis Need for admission: Sepsis, severe pancreaitis with excruciating pain and needin IV narcotics Quality Stroke Does the patient have a stroke diagnosis?: No VTE Prior VTE?: No VTE Risk Level:: Medical - moderate - high VTE Device Contraindication: Treatment Not Indicated VTE Drug Contraindication: N/A - Med Ordered
[2022-03-23] MEDS: Enoxaparin Sodium 40 MG/0.4 ML SYRINGE SUBCUT (16:28)
[2022-03-23] MEDS: polyethylene glycoL 3350 17 GM POWD.PACK PO (16:30)
[2022-03-23 19:16] VITALS: BP 156/100; PULSE 104; RESP 16; TEMP 36.8; O2SAT 93
[2022-03-23] MEDS: Amitriptyline HCl 50 MG TABLET 200 MG PO (20:52)
[2022-03-23] MEDS: Melatonin 3 MG TABLET 6 MG PO (20:54)
[2022-03-23 23:49] VITALS: BP 177/93; PULSE 114; RESP 16; TEMP 36.6; O2SAT 91
[2022-03-24] VITALS (7 sets, daily range): BP systolic 133–153; BP diastolic 77–93; PULSE 87–106; RESP 16–20; TEMP 36.9–37.2; O2SAT 90–94
[2022-03-24] MEDS: HYDROmorphone HCl 1 MG/ML SYRINGE IVPUSH ×4 (02:26→19:15)
[2022-03-24] MEDS: Docusate Sodium 100 MG CAPSULE PO ×2 (02:27→19:16)
[2022-03-24] MEDS: Milk of Magnesia 30 ML ORAL.SUSP PO ×2 (02:32→19:20)
[2022-03-24] MEDS: Metoprolol Succinate ER 25 MG TAB.ER.24H PO (07:24)
[2022-03-24] MEDS: polyethylene glycoL 3350 17 GM POWD.PACK PO ×2 (07:24→16:59)
[2022-03-24] MEDS: Cyanocobalamin (Vitamin B-12) 1,000 MCG TABLET 1000 MCG PO (07:24)
[2022-03-24] MEDS: levETIRAcetam 500 MG TABLET PO ×2 (07:25→19:16)
[2022-03-24] MEDS: Aspirin Enteric Coated 81 MG TABLET.DR PO (07:25)
[2022-03-24] MEDS: Famotidine 20 MG TABLET 80 MG PO (07:25)
[2022-03-24] MEDS: Atorvastatin Calcium 80 MG TABLET PO (07:26)
[2022-03-24] MEDS: Thiamine HCL 100 MG TABLET 50 MG PO (07:26)
[2022-03-24] MEDS: Loratadine 10 MG TABLET PO (07:26)
[2022-03-24] MEDS: PHENobarbitaL 15 MG TABLET PO ×2 (07:26→19:16)
[2022-03-24] MEDS: Multivitamin TABLET 1 TAB PO (07:26)
[2022-03-24] MEDS: Tamsulosin HCL 0.4 MG CAPSULE PO (07:27)
[2022-03-24] MEDS: cloNIDine HCL 0.1 MG TABLET PO (07:27)
[2022-03-24] MEDS: Cholecalciferol (Vitamin D3) 25 MCG TABLET PO (07:27)
[2022-03-24] MEDS: levETIRAcetam 250 MG TABLET PO ×2 (07:27→19:16)
[2022-03-24] MEDS: 0.9 % Sodium Chloride Flush 3 ML SYRINGE IVFLUSH ×3 (07:28→19:17)
[2022-03-24] MEDS: clonazePAM 1 MG TABLET 2 MG PO (12:30)
--- NOTE | 2022-03-24 12:58 | HO.PM.IMPN ---
Subjective Subjective Date of Service: 03/24/22 Interval History: Acute pancreatitis Review of Systems Patient has abdominal pain but slowly improving, denies any nausea or vomiting. Will try to advance the diet further. Denies any chest pain or shortness of breath or fever or chills. Physical Exam Vital Signs: Vital Signs: Last Vital Signs Temp 98.5 F 03/24/22 12:00 Pulse 87 03/24/22 12:00 Resp 20 03/24/22 12:00 BP 142/88 H 03/24/22 12:00 Pulse Ox 91 L 03/24/22 12:00 O2 Del Method 03/24/22 12:00 O2 Flow Rate 4 03/21/22 07:32 BMI result Body Mass Index 38.6 General: AO X 3, no acute distress Resp:? CTA bilateral CVS: S1,S2,RRR GI: +epigastric tenderness, voluntary guarding, +BS Skin: No rash Neuro:? motor grossly intact Psych: appropriate affect Objective Data Active Medications Acetaminophen (Acetaminophen Supp 650 Mg Supp.Rect) 650 mg DE Q6H PRN PRN Reason: Pain, Mild (Pain Scale 1-3) Albuterol Sulfate (Albuterol Sulfate 90 Mcg 8 Gm Inhaler) 2 puff INHALE Q4H PRN PRN Reason: Shortness Of Breath Amitriptyline HCl (Amitriptyline Hcl 50 Mg Tablet) 200 mg PO BEDTIME [facility] Last Admin: 03/23/22 20:52 Dose: 200 mg Documented By: KAREN Aspirin (Aspirin Enteric Coated 81 Mg Tablet.) 81 mg PO DAILY [facility] Last Admin: 03/24/22 07:25 Dose: 81 mg Documented By: RICKY Atorvastatin Calcium (Atorvastatin Calcium 80 Mg Tablet) 80 mg PO DAILY [facility] Last Admin: 03/24/22 07:26 Dose: 80 mg Documented By: RICKY Clonazepam (Clonazepam 1 Mg Tablet) 2 mg PO DAILY PRN PRN Reason: Anxiety Last Admin: 03/21/22 00:39 Dose: 2 mg Documented By: TORITO Clonazepam (Clonazepam 1 Mg Tablet) 2 mg PO DAILY@1200 [facility] Last Admin: 03/24/22 12:30 Dose: 2 mg Documented By: RICKY Clonidine HCl (Clonidine Hcl 0.1 Mg Tablet) 0.1 mg PO DAILY [facility]; Protocol Last Admin: 03/24/22 07:27 Dose: 0.1 mg Documented By: RICKY Cyanocobalamin (Cyanocobalamin (Vitamin B-12) 1,000 Mcg Tablet) 1,000 mcg PO DAILY [facility] Last Admin: 03/24/22 07:24 Dose: 1,000 mcg Documented By: RICKY Docusate Sodium (Docusate Sodium 100 Mg Capsule) 100 mg PO BEDTIME [facility] Last Admin: 03/24/22 02:27 Dose: 100 mg Documented By: KAERN Enoxaparin Sodium (Enoxaparin Sodium 40 Mg/0.4 Ml Syringe) 40 mg SUBCUT Q24H [facility] Last Admin: 03/23/22 16:28 Dose: 40 mg Documented By: RICKY Famotidine (Famotidine 20 Mg Tablet) 80 mg PO DAILY [facility] Last Admin: 03/24/22 07:25 Dose: 80 mg Documented By: RICKY Hydromorphone HCl (Hydromorphone Hcl 1 Mg/Ml Syringe) 1 mg IVPUSH Q6H PRN; Protocol PRN Reason: Pain, Severe (Pain Scale 7-10) Hydroxyzine HCl (Hydroxyzine Hcl 25 Mg Tablet) 25 mg PO Q6H PRN PRN Reason: Anxiety Last Admin: 03/22/22 14:30 Dose: 25 mg Documented By: CTORRDiallo Levofloxacin (Levaquin) 750 mg in 150 mls @ 100 mls/hr IV Q24H [facility] Last Infusion: 03/23/22 16:37 Dose: 0 mls/hr Documented By: RICKY Levetiracetam (Levetiracetam 250 Mg Tablet) 250 mg PO BID [facility] Last Admin: 03/24/22 07:27 Dose: 250 mg Documented By: RICKY Levetiracetam (Levetiracetam 500 Mg Tablet) 500 mg PO BID [facility] Last Admin: 03/24/22 07:25 Dose: 500 mg Documented By: RICKY Loratadine (Loratadine 10 Mg Tablet) 10 mg PO DAILY [facility] Last Admin: 03/24/22 07:26 Dose: 10 mg Documented By: RICKY Magnesium Hydroxide (Milk Of Magnesia 30 Ml Oral.Susp) 30 ml PO DAILY PRN PRN Reason: Constipation Last Admin: 03/24/22 02:32 Dose: 30 ml Documented By: KAREN Melatonin (Melatonin 3 Mg Tablet) 6 mg PO BEDTIME PRN PRN Reason: Insomnia Last Admin: 03/23/22 20:54 Dose: 6 mg Documented By: KAREN Metoprolol Succinate (Metoprolol Succinate Er 25 Mg Tab.Er.24h) 25 mg PO DAILY [facility]; Protocol Last Admin: 03/24/22 07:24 Dose: 25 mg Documented By: RICKY Multivitamins/Vitamin C (Multivitamin Tablet) 1 tab PO DAILY [facility] Last Admin: 03/24/22 07:26 Dose: 1 tab Documented By: RICKY Non-Formulary Medication (Testosterone) 5 pump TOPICAL DAILY [facility] Pharmacy Consult (Consult Rx Etoh Phenob Po Only) 1 each MISCELLANE ONCE PRN; Protocol PRN Reason: Consult order Phenobarbital (Phenobarbital 15 Mg Tablet) 15 mg PO BID [facility] Stop: 03/24/22 21:01 Last Admin: 03/24/22 07:26 Dose: 15 mg Documented By: RICKY Phenobarbital (Phenobarbital 15 Mg Tablet) 15 mg PO DAILY [facility] Stop: 03/26/22 09:01 Polyethylene Glycol (Polyethylene Glycol 3350 17 Gm Powd.Pack) 17 gm PO BIDWM [facility] Last Admin: 03/24/22 07:24 Dose: 17 gm Documented By: RICKY Sodium Chloride (0.9 % Sodium Chloride Flush 3 Ml Syringe) 3 ml IVFLUSH [facility] Last Admin: 03/24/22 07:28 Dose: 3 ml Documented By: RICKY Tamsulosin HCl (Tamsulosin Hcl 0.4 Mg Capsule) 0.4 mg PO DAILY [facility] Last Admin: 03/24/22 07:27 Dose: 0.4 mg Documented By: RICKY Thiamine HCl (Thiamine Hcl 100 Mg Tablet) 50 mg PO DAILY [facility] Last Admin: 03/24/22 07:26 Dose: 50 mg Documented By: RICKY Vitamin D (Cholecalciferol (Vitamin D3) 25 Mcg Tablet) 25 mcg PO DAILY [facility] Last Admin: 03/24/22 07:27 Dose: 25 mcg Documented By: RICKY Labs CBC & Chem 7: 03/22/22 05:38 03/23/22 06:25 Assessment and Plan (1) Alcohol withdrawal: Status: Acute (2) Acute pancreatitis: Status: Acute Plan 52 year old mal with history of CAD, alcohol use, seizure desorder here with abdominal pain, SIRS, due to acute pancreatitis, likely alcoholic related #Acute pancreatitis likely from alcohol, normal TG, no stones seen on CT -Agresive IV fluid, IV dilaudid for pain and follow clinically lipase and lft's improving abd us -seems fine ,no gallstone ?Gi eval noted-advanced diet further but says still could not tolerate has pain #? PNA on CT with Low O2, and high WBC, will treat empirically with Levaquin Leukocytosis trending down, blood culture negative at 48 hours #Sepsis d/t PNA--Levaquin as above #Alcohol use desorder and high risk for withdrawal -continue Phenobarbital -Folic Acid and thiamine #Luekocytosis--reactive and possibly due to pna #Hemoconcentration #Dehydration --these are all related to dehydration and should improve with? IVF Lovneox for DVT prophylaxis Need for admission:? Sepsis, severe pancreaitis with excruciating pain and needin IV narcotics Quality Stroke Does the patient have a stroke diagnosis?: No VTE Prior VTE?: No VTE Risk Level:: Medical - moderate - high VTE Device Contraindication: Treatment Not Indicated VTE Drug Contraindication: N/A - Med Ordered
[2022-03-24] MEDS: levoFLOXacin/D5W 750 MG/150 ML PIGGYBACK 150 MG IV (13:22)
[2022-03-24] MEDS: Enoxaparin Sodium 40 MG/0.4 ML SYRINGE SUBCUT (16:49)
[2022-03-24] MEDS: Amitriptyline HCl 50 MG TABLET 200 MG PO (19:16)
[2022-03-25] VITALS (7 sets, daily range): BP systolic 130–159; BP diastolic 79–96; PULSE 85–104; RESP 16–20; TEMP 36.4–38.4; O2SAT 90–98
[2022-03-25] MEDS: HYDROmorphone HCl 1 MG/ML SYRINGE IVPUSH (04:02)
[2022-03-25] MEDS: Thiamine HCL 100 MG TABLET 50 MG PO (08:58)
[2022-03-25] MEDS: Famotidine 20 MG TABLET 80 MG PO (08:59)
[2022-03-25] MEDS: Atorvastatin Calcium 80 MG TABLET PO (09:00)
[2022-03-25] MEDS: Multivitamin TABLET 1 TAB PO (09:00)
[2022-03-25] MEDS: Cholecalciferol (Vitamin D3) 25 MCG TABLET PO (09:01)
[2022-03-25] MEDS: cloNIDine HCL 0.1 MG TABLET PO (09:01)
[2022-03-25] MEDS: levETIRAcetam 500 MG TABLET PO ×2 (09:01→20:27)
[2022-03-25] MEDS: Tamsulosin HCL 0.4 MG CAPSULE PO (09:01)
[2022-03-25] MEDS: levETIRAcetam 250 MG TABLET PO ×2 (09:01→20:26)
[2022-03-25] MEDS: Metoprolol Succinate ER 25 MG TAB.ER.24H PO (09:02)
[2022-03-25] MEDS: Loratadine 10 MG TABLET PO (09:02)
[2022-03-25] MEDS: 0.9 % Sodium Chloride Flush 3 ML SYRINGE IVFLUSH ×2 (09:02→20:27)
[2022-03-25] MEDS: Cyanocobalamin (Vitamin B-12) 1,000 MCG TABLET 1000 MCG PO (09:02)
[2022-03-25] MEDS: PHENobarbitaL 15 MG TABLET PO (09:02)
[2022-03-25] MEDS: polyethylene glycoL 3350 17 GM POWD.PACK PO (09:03)
[2022-03-25] MEDS: Aspirin Enteric Coated 81 MG TABLET.DR PO (09:04)
[2022-03-25] MEDS: HYDROmorphone HCl 2 MG TABLET 1 MG PO ×4 (09:33→23:59)
[2022-03-25] MEDS: hydrOXYzine HCL 25 MG TABLET PO ×2 (09:37→23:58)
[2022-03-25] MEDS: clonazePAM 1 MG TABLET 2 MG PO ×2 (12:12→19:13)
[2022-03-25] MEDS: Milk of Magnesia 30 ML ORAL.SUSP PO (13:29)
--- NOTE | 2022-03-25 14:45 | MHC.CM.PN ---
PT WILL DC SATUDAY WITH [facility]F [facility]. PT TO ARRANGE HIS OWN TRANSPORTATION
[2022-03-25] MEDS: Enoxaparin Sodium 40 MG/0.4 ML SYRINGE SUBCUT (15:44)
--- NOTE | 2022-03-25 16:01 | HO.PM.IMPN ---
Subjective Subjective Date of Service: 03/25/22 Interval History: Acute pancreatitis Review of Systems Patient has fever, still has abdominal pain Denies any nausea vomiting otherwise started tolerating little bit tight today, but not feeling well yet abdominal pain reed and also feels weak. Physical Exam Vital Signs: Vital Signs: Last Vital Signs Temp 101.2 F H 03/25/22 15:20 Pulse 100 03/25/22 15:20 Resp 16 03/25/22 15:20 BP 141/86 H 03/25/22 15:20 Pulse Ox 90 L 03/25/22 15:20 O2 Del Method 03/25/22 15:20 O2 Flow Rate 4 03/21/22 07:32 BMI result Body Mass Index 38.6 ?General: AO X 3, no acute distress Resp:? CTA bilateral CVS: S1,S2,RRR GI: +epigastric tenderness, no guarding or distension, +BS,passed bm today as per patient Skin: No rash Neuro:? motor grossly intact Psych: appropriate affect Objective Data Active Medications Acetaminophen (Acetaminophen Supp 650 Mg Supp.Rect) 650 mg [place] Q6H PRN PRN Reason: Pain, Mild (Pain Scale 1-3) Acetaminophen (Acetaminophen 325 Mg Tablet) 975 mg PO Q6H PRN PRN Reason: Pain, Mild (Pain Scale 1-3) Albuterol Sulfate (Albuterol Sulfate 90 Mcg 8 Gm Inhaler) 2 puff INHALE Q4H PRN PRN Reason: Shortness Of Breath Amitriptyline HCl (Amitriptyline Hcl 50 Mg Tablet) 200 mg PO BEDTIME [facility] Last Admin: 03/24/22 19:16 Dose: 200 mg Documented By: CHRISTIANO Aspirin (Aspirin Enteric Coated 81 Mg Tablet.) 81 mg PO DAILY [facility] Last Admin: 03/25/22 09:04 Dose: 81 mg Documented By: MELANIE Atorvastatin Calcium (Atorvastatin Calcium 80 Mg Tablet) 80 mg PO DAILY [facility] Last Admin: 03/25/22 09:00 Dose: 80 mg Documented By: MELANIE Clonazepam (Clonazepam 1 Mg Tablet) 2 mg PO DAILY PRN PRN Reason: Anxiety Last Admin: 03/21/22 00:39 Dose: 2 mg Documented By: TORITO Clonazepam (Clonazepam 1 Mg Tablet) 2 mg PO DAILY@1200 [facility] Last Admin: 03/25/22 12:12 Dose: 2 mg Documented By: MELANIE Clonidine HCl (Clonidine Hcl 0.1 Mg Tablet) 0.1 mg PO DAILY [facility]; Protocol Last Admin: 03/25/22 09:01 Dose: 0.1 mg Documented By: MELANIE Cyanocobalamin (Cyanocobalamin (Vitamin B-12) 1,000 Mcg Tablet) 1,000 mcg PO DAILY [facility] Last Admin: 03/25/22 09:02 Dose: 1,000 mcg Documented By: MELANIE Docusate Sodium (Docusate Sodium 100 Mg Capsule) 100 mg PO BEDTIME [facility] Last Admin: 03/24/22 19:16 Dose: 100 mg Documented By: CHRISTIANO Enoxaparin Sodium (Enoxaparin Sodium 40 Mg/0.4 Ml Syringe) 40 mg SUBCUT Q24H [facility] Last Admin: 03/25/22 15:44 Dose: 40 mg Documented By: MELANIE Famotidine (Famotidine 20 Mg Tablet) 80 mg PO DAILY [facility] Last Admin: 03/25/22 08:59 Dose: 80 mg Documented By: MELANIE Hydromorphone HCl (Hydromorphone Hcl 2 Mg Tablet) 1 mg PO Q8H PRN PRN Reason: Pain, Mild (Pain Scale 1-3) Last Admin: 03/25/22 13:30 Dose: 1 mg Documented By: MELANIE Hydroxyzine HCl (Hydroxyzine Hcl 25 Mg Tablet) 25 mg PO Q6H PRN PRN Reason: Anxiety Last Admin: 03/25/22 09:37 Dose: 25 mg Documented By: MELANIE Levofloxacin (Levaquin) 750 mg in 150 mls @ 100 mls/hr IV Q24H [facility] Last Admin: 03/25/22 15:42 Dose: 150 mls/hr Documented By: MELANIE Levetiracetam (Levetiracetam 250 Mg Tablet) 250 mg PO BID [facility] Last Admin: 03/25/22 09:01 Dose: 250 mg Documented By: MELANIE Levetiracetam (Levetiracetam 500 Mg Tablet) 500 mg PO BID [facility] Last Admin: 03/25/22 09:01 Dose: 500 mg Documented By: MELANIE Loratadine (Loratadine 10 Mg Tablet) 10 mg PO DAILY [facility] Last Admin: 03/25/22 09:02 Dose: 10 mg Documented By: MELANIE Magnesium Hydroxide (Milk Of Magnesia 30 Ml Oral.Susp) 30 ml PO DAILY PRN PRN Reason: Constipation Last Admin: 03/24/22 19:20 Dose: 30 ml Documented By: CHRISTIANO Melatonin (Melatonin 3 Mg Tablet) 6 mg PO BEDTIME PRN PRN Reason: Insomnia Last Admin: 03/23/22 20:54 Dose: 6 mg Documented By: KAREN Metoprolol Succinate (Metoprolol Succinate Er 25 Mg Tab.Er.24h) 25 mg PO DAILY [facility]; Protocol Last Admin: 03/25/22 09:02 Dose: 25 mg Documented By: MELANIE Multivitamins/Vitamin C (Multivitamin Tablet) 1 tab PO DAILY [facility] Last Admin: 03/25/22 09:00 Dose: 1 tab Documented By: MELANIE Pharmacy Consult (Consult Rx Etoh Phenob Po Only) 1 each MISCELLANE ONCE PRN; Protocol PRN Reason: Consult order Phenobarbital (Phenobarbital 15 Mg Tablet) 15 mg PO DAILY [facility] Stop: 03/26/22 09:01 Last Admin: 03/25/22 09:02 Dose: 15 mg Documented By: MELANIE Polyethylene Glycol (Polyethylene Glycol 3350 17 Gm Powd.Pack) 17 gm PO BIDWM [facility] Last Admin: 03/25/22 09:03 Dose: 17 gm Documented By: MELANIE Sodium Chloride (0.9 % Sodium Chloride Flush 3 Ml Syringe) 3 ml IVFLUSH QSHIFT [facility] Last Admin: 03/25/22 09:02 Dose: 3 ml Documented By: MELANIE Tamsulosin HCl (Tamsulosin Hcl 0.4 Mg Capsule) 0.4 mg PO DAILY [facility] Last Admin: 03/25/22 09:01 Dose: 0.4 mg Documented By: MELANIE Thiamine HCl (Thiamine Hcl 100 Mg Tablet) 50 mg PO DAILY [facility] Last Admin: 03/25/22 08:58 Dose: 50 mg Documented By: MELANIE Vitamin D (Cholecalciferol (Vitamin D3) 25 Mcg Tablet) 25 mcg PO DAILY [facility] Last Admin: 03/25/22 09:01 Dose: 25 mcg Documented By: MELANIE Labs CBC & Chem 7: 03/22/22 05:38 03/23/22 06:25 Microbiology Microbiology Results: Microbiology 03/20/22 13:05 Blood Culture - Final Blood - Venous No growth after 5 days. 03/20/22 13:02 Blood Culture - Final Blood - Venous No growth after 5 days. Assessment and Plan (1) Alcohol withdrawal: Status: Acute (2) Leukocytosis: Status: Acute (3) Acute pancreatitis: Status: Acute Plan 52 year old mal with history of CAD, alcohol use, seizure desorder here with abdominal pain, SIRS, due to acute pancreatitis, likely alcoholic related #Acute pancreatitis likely from alcohol, normal TG, no stones seen on CT -Agresive IV fluid, IV dilaudid for pain and follow clinically lipase and lft's improving abd us -seems fine ,no gallstone we will repeat cxr,ua ,abd ct -since still has abd pain/fevers ?Gi eval noted-advanced diet further but says still could not tolerate has pain #? PNA on CT with Low O2, and high WBC, will treat empirically with Levaquin Leukocytosis trending down, blood culture negative at 48 hours #Sepsis d/t PNA--Levaquin as above #Alcohol use desorder and high risk for withdrawal -continue Phenobarbital -Folic Acid and thiamine #Luekocytosis--reactive and possibly due to pna #Hemoconcentration #Dehydration --these are all related to dehydration and should improve with? IVF Lovneox for DVT prophylaxis Need for admission:? Sepsis, pancreatitis , fever Quality Stroke Does the patient have a stroke diagnosis?: No VTE Prior VTE?: No VTE Risk Level:: Medical - moderate - high VTE Device Contraindication: Treatment Not Indicated VTE Drug Contraindication: N/A - Med Ordered
[2022-03-25 16:35] LABS: Hemoglobin 16.2 g/dl (14.0-18.0); Mean Corpuscular HGB Conc 33.8 g/dl (31.0-36.0); Mean Corpuscular Hemoglobin 29.7 pg (27.0-33.0); Mean Corpuscular Volume 88.1 fL (80.0-98.0); Mean Platelet Volume 8.9 fL (9.4-12.4); Platelet Count 225 X10*3/uL (160-400); Red Blood Count 5.45 X10*6/uL (4.60-5.80); Red Cell Distribution Width 14.2 % (11.0-16.0); White Blood Count 17.5 X10*3/uL (4.8-10.8)
[2022-03-25 16:58] LABS: Anion Gap 14 (12-20); Blood Urea Nitrogen 11 mg/dL (9-16); Carbon Dioxide 26 mmol/L (22-29); Chloride 98 mmol/L (96-108); Creatinine Clr Calc Pharmacy 136.5; Estimated Glomerular Filt Rate > 60; Glucose Random 144 mg/dL (60-115); Lipase 60 U/L (8-78); Potassium 3.6 mmol/L (3.3-5.1); Sodium 134 mmol/L (135-145)
[2022-03-25 18:06] LABS: Alanine Aminotransferase 116 U/L (0-40); Albumin Level 3.4 g/dL (3.5-5.0); Alkaline Phosphatase 147 U/L (39-117); Aspartate Amino Transferase 94 U/L (5-37); Bilirubin Direct 0.3 mg/dL (0.0-0.5); Bilirubin Total 0.6 mg/dL (0.0-1.0); Total Protein 6.5 g/dL (6.5-8.0)
[2022-03-25 18:25] LABS: Procalcitonin 0.31 ng/mL
[2022-03-25 18:26] LABS: Lactic Acid 1.5 mmol/L (0.5-2.0)
[2022-03-25] MEDS: Amitriptyline HCl 50 MG TABLET 200 MG PO (20:26)
[2022-03-25] MEDS: Docusate Sodium 100 MG CAPSULE PO (20:27)
[2022-03-25] MEDS: iohexoL 350 MG/ML 100 ML INFUS..BTL IV (21:24)
[2022-03-26] MEDS: Lactated Ringers 1,000 ML 100 ML IVCONT ×2 (02:18→21:06)
[2022-03-26 03:21] VITALS: BP 139/79; PULSE 102; RESP 18; TEMP 36.5; O2SAT 95
[2022-03-26] MEDS: HYDROmorphone HCl 2 MG TABLET 1 MG PO ×4 (06:39→21:03)
[2022-03-26 07:13] LABS: Hematocrit 47.8 % (42.0-52.0); Mean Corpuscular HGB Conc 33.5 g/dl (31.0-36.0); Mean Corpuscular Volume 86.8 fL (80.0-98.0); Mean Platelet Volume 9.2 fL (9.4-12.4); Platelet Count 208 X10*3/uL (160-400); Red Blood Count 5.51 X10*6/uL (4.60-5.80); Red Cell Distribution Width 14.2 % (11.0-16.0); White Blood Count 17.6 X10*3/uL (4.8-10.8)
[2022-03-26 07:29] LABS: Anion Gap 14 (12-20); Blood Urea Nitrogen 10 mg/dL (9-16); Calcium 7.9 mg/dL (8.4-10.2); Carbon Dioxide 22 mmol/L (22-29); Chloride 101 mmol/L (96-108); Creatinine Clr Calc Pharmacy 141.9; Estimated Glomerular Filt Rate > 60; Glucose Random 151 mg/dL (60-115); Potassium 3.4 mmol/L (3.3-5.1); Sodium 134 mmol/L (135-145)
[2022-03-26 07:38] VITALS: BP 159/103; PULSE 107; RESP 20; TEMP 37.3; O2SAT 91
[2022-03-26 08:39] LABS: Alanine Aminotransferase 108 U/L (0-40); Albumin Level 3.3 g/dL (3.5-5.0); Alkaline Phosphatase 135 U/L (39-117); Aspartate Amino Transferase 73 U/L (5-37); Bilirubin Direct 0.3 mg/dL (0.0-0.5); Bilirubin Total 0.8 mg/dL (0.0-1.0); Total Protein 6.3 g/dL (6.5-8.0)
[2022-03-26] MEDS: Metoprolol Succinate ER 25 MG TAB.ER.24H PO (09:13)
[2022-03-26] MEDS: Aspirin Enteric Coated 81 MG TABLET.DR PO (09:14)
[2022-03-26] MEDS: Cholecalciferol (Vitamin D3) 25 MCG TABLET PO (09:14)
[2022-03-26] MEDS: PHENobarbitaL 15 MG TABLET PO (09:14)
[2022-03-26] MEDS: cloNIDine HCL 0.1 MG TABLET PO (09:14)
[2022-03-26] MEDS: Multivitamin TABLET 1 TAB PO (09:15)
[2022-03-26] MEDS: Famotidine 20 MG TABLET 80 MG PO (09:15)
[2022-03-26] MEDS: Cyanocobalamin (Vitamin B-12) 1,000 MCG TABLET 1000 MCG PO (09:16)
[2022-03-26] MEDS: Tamsulosin HCL 0.4 MG CAPSULE PO (09:16)
[2022-03-26] MEDS: Thiamine HCL 100 MG TABLET 50 MG PO (09:17)
[2022-03-26] MEDS: Atorvastatin Calcium 80 MG TABLET PO (09:17)
[2022-03-26] MEDS: levETIRAcetam 500 MG TABLET PO ×2 (09:17→21:02)
[2022-03-26] MEDS: polyethylene glycoL 3350 17 GM POWD.PACK PO ×2 (09:21→17:23)
[2022-03-26] MEDS: Acetaminophen 325 MG TABLET 975 MG PO (09:26)
[2022-03-26] MEDS: levETIRAcetam 250 MG TABLET PO ×2 (09:40→21:02)
[2022-03-26 11:35] VITALS: BP 160/88; PULSE 107; RESP 20; TEMP 36.3; O2SAT 93
[2022-03-26] MEDS: Loratadine 10 MG TABLET PO (11:40)
[2022-03-26] MEDS: clonazePAM 1 MG TABLET 2 MG PO (11:46)
[2022-03-26 15:49] VITALS: BP 151/83; PULSE 105; RESP 17; TEMP 36.8; O2SAT 92
--- NOTE | 2022-03-26 16:02 | HO.PM.IMPN ---
Subjective Subjective Date of Service: 03/26/22 Interval History: abd pain,fevers Review of Systems No new fever episode today, still has abdominal pain when he eats otherwise improving slowly Physical Exam Vital Signs: Vital Signs: Last Vital Signs Temp 98.2 F 03/26/22 15:49 Pulse 105 H 03/26/22 15:49 Resp 17 03/26/22 15:49 BP 151/83 H 03/26/22 15:49 Pulse Ox 92 03/26/22 15:49 O2 Del Method 03/26/22 15:49 O2 Flow Rate 4 03/21/22 07:32 BMI result Body Mass Index 38.6 ?General: AO X 3, no acute distress Resp:? CTA bilateral CVS: S1,S2,RRR GI: +epigastric tendernessseems improving, no guarding or distension, +BS,passed bm today as per patient Skin: No rash Neuro:? motor grossly intact Psych: appropriate affect Objective Data Active Medications Acetaminophen (Acetaminophen Supp 650 Mg Supp.Rect) 650 mg [place] Q6H PRN PRN Reason: Pain, Mild (Pain Scale 1-3) Acetaminophen (Acetaminophen 325 Mg Tablet) 975 mg PO Q6H PRN PRN Reason: Pain, Mild (Pain Scale 1-3) Last Admin: 03/26/22 09:26 Dose: 975 mg Documented By: ASTRID Albuterol Sulfate (Albuterol Sulfate 90 Mcg 8 Gm Inhaler) 2 puff INHALE Q4H PRN PRN Reason: Shortness Of Breath Amitriptyline HCl (Amitriptyline Hcl 50 Mg Tablet) 200 mg PO BEDTIME [facility] Last Admin: 03/25/22 20:26 Dose: 200 mg Documented By: SANTOS Aspirin (Aspirin Enteric Coated 81 Mg Tablet.) 81 mg PO DAILY [facility] Last Admin: 03/26/22 09:14 Dose: 81 mg Documented By: ASTRID Atorvastatin Calcium (Atorvastatin Calcium 80 Mg Tablet) 80 mg PO DAILY [facility] Last Admin: 03/26/22 09:17 Dose: 80 mg Documented By: ASTRID Clonazepam (Clonazepam 1 Mg Tablet) 2 mg PO DAILY PRN PRN Reason: Anxiety Last Admin: 03/25/22 19:13 Dose: 2 mg Documented By: MELANIE Clonazepam (Clonazepam 1 Mg Tablet) 2 mg PO DAILY@1200 [facility] Last Admin: 03/26/22 11:46 Dose: 2 mg Documented By: ASTRID Clonidine HCl (Clonidine Hcl 0.1 Mg Tablet) 0.1 mg PO DAILY [facility]; Protocol Last Admin: 03/26/22 09:14 Dose: 0.1 mg Documented By: ASTRID Cyanocobalamin (Cyanocobalamin (Vitamin B-12) 1,000 Mcg Tablet) 1,000 mcg PO DAILY [facility] Last Admin: 03/26/22 09:16 Dose: 1,000 mcg Documented By: ASTRID Docusate Sodium (Docusate Sodium 100 Mg Capsule) 100 mg PO BEDTIME [facility] Last Admin: 03/25/22 20:27 Dose: 100 mg Documented By: SANTOS Enoxaparin Sodium (Enoxaparin Sodium 40 Mg/0.4 Ml Syringe) 40 mg SUBCUT Q24H [facility] Last Admin: 03/25/22 15:44 Dose: 40 mg Documented By: MELANIE Famotidine (Famotidine 20 Mg Tablet) 80 mg PO DAILY [facility] Last Admin: 03/26/22 09:15 Dose: 80 mg Documented By: ASTRID Hydromorphone HCl (Hydromorphone Hcl 2 Mg Tablet) 1 mg PO Q4H PRN PRN Reason: Pain, Mild (Pain Scale 1-3) Last Admin: 03/26/22 11:42 Dose: 1 mg Documented By: ASTRID Hydroxyzine HCl (Hydroxyzine Hcl 25 Mg Tablet) 25 mg PO Q6H PRN PRN Reason: Anxiety Last Admin: 03/25/22 23:58 Dose: 25 mg Documented By: JEFF Levofloxacin (Levaquin) 750 mg in 150 mls @ 100 mls/hr IV Q24H [facility] Last Admin: 03/25/22 19:49 Dose: Not Given Documented By: MELANIE Non-Admin Reason: No Access Lactated Ringer's (Lr) 1,000 mls @ 100 mls/hr IVCONT .Q10H [facility] Last Infusion: 03/26/22 12:21 Dose: 0 mls/hr Documented By: TANISHA Levetiracetam (Levetiracetam 250 Mg Tablet) 250 mg PO BID [facility] Last Admin: 03/26/22 09:40 Dose: 250 mg Documented By: ASTRID Levetiracetam (Levetiracetam 500 Mg Tablet) 500 mg PO BID [facility] Last Admin: 03/26/22 09:17 Dose: 500 mg Documented By: ASTRID Loratadine (Loratadine 10 Mg Tablet) 10 mg PO DAILY [facility] Last Admin: 03/26/22 11:40 Dose: 10 mg Documented By: ASTRID Magnesium Hydroxide (Milk Of Magnesia 30 Ml Oral.Susp) 30 ml PO DAILY PRN PRN Reason: Constipation Last Admin: 03/24/22 19:20 Dose: 30 ml Documented By: CHRISTIANO Melatonin (Melatonin 3 Mg Tablet) 6 mg PO BEDTIME PRN PRN Reason: Insomnia Last Admin: 03/23/22 20:54 Dose: 6 mg Documented By: KAREN Metoprolol Succinate (Metoprolol Succinate Er 25 Mg Tab.Er.24h) 25 mg PO DAILY [facility]; Protocol Last Admin: 03/26/22 09:13 Dose: 25 mg Documented By: ASTRID Multivitamins/Vitamin C (Multivitamin Tablet) 1 tab PO DAILY [facility] Last Admin: 03/26/22 09:15 Dose: 1 tab Documented By: ASTRID Pharmacy Consult (Consult Rx Etoh Phenob Po Only) 1 each MISCELLANE ONCE PRN; Protocol PRN Reason: Consult order Polyethylene Glycol (Polyethylene Glycol 3350 17 Gm Powd.Pack) 17 gm PO BIDWM [facility] Last Admin: 03/26/22 09:21 Dose: 17 gm Documented By: ASTRID Sodium Chloride (0.9 % Sodium Chloride Flush 3 Ml Syringe) 3 ml IVFLUSH QSHIFT [facility] Last Admin: 03/25/22 20:27 Dose: 3 ml Documented By: SANTOS Tamsulosin HCl (Tamsulosin Hcl 0.4 Mg Capsule) 0.4 mg PO DAILY [facility] Last Admin: 03/26/22 09:16 Dose: 0.4 mg Documented By: ASTRID Thiamine HCl (Thiamine Hcl 100 Mg Tablet) 50 mg PO DAILY [facility] Last Admin: 03/26/22 09:17 Dose: 50 mg Documented By: ASTRID Vitamin D (Cholecalciferol (Vitamin D3) 25 Mcg Tablet) 25 mcg PO DAILY [facility] Last Admin: 03/26/22 09:14 Dose: 25 mcg Documented By: ASTRID Labs CBC & Chem 7: 03/26/22 06:19 03/26/22 06:19 Labs: Laboratory Results - last 24 hr 03/25/22 03/25/22 03/25/22 16:25 16:25 16:25 MCV 88.1 MCH 29.7 MCHC 33.8 RDW 14.2 Plt Count 225 D MPV 8.9 L Absolute Nucleated RBC 0.000 Nucleated RBC % (auto) 0.0 Anion Gap 14 Estim Creat Clear Calc 136.5 Estimated GFR > 60 Random Glucose 144 H Lactic Acid Calcium 8.0 L D Total Bilirubin 0.6 Direct Bilirubin 0.3 AST 94 H ALT 116 H Alkaline Phosphatase 147 H D Total Protein 6.5 Albumin 3.4 L Lipase 60 Cancelled Procalcitonin 03/25/22 03/25/22 03/26/22 16:25 18:10 06:19 MCV 86.8 MCH 29.0 MCHC 33.5 RDW 14.2 Plt Count 208 MPV 9.2 L Absolute Nucleated RBC 0.000 Nucleated RBC % (auto) 0.0 Anion Gap Estim Creat Clear Calc Estimated GFR Random Glucose Lactic Acid 1.5 Calcium Total Bilirubin Direct Bilirubin AST ALT Alkaline Phosphatase Total Protein Albumin Lipase Procalcitonin 0.31 03/26/22 06:19 MCV MCH MCHC RDW Plt Count MPV Absolute Nucleated RBC Nucleated RBC % (auto) Anion Gap 14 Estim Creat Clear Calc 141.9 Estimated GFR > 60 Random Glucose 151 H Lactic Acid Calcium 7.9 L Total Bilirubin 0.8 Direct Bilirubin 0.3 AST 73 H ALT 108 H Alkaline Phosphatase 135 H Total Protein 6.3 L Albumin 3.3 L Lipase Procalcitonin Microbiology Microbiology Results: Microbiology 03/20/22 13:05 Blood Culture - Final Blood - Venous No growth after 5 days. 03/20/22 13:02 Blood Culture - Final Blood - Venous No growth after 5 days. Assessment and Plan (1) Leukocytosis: Status: Acute (2) Acute pancreatitis: Status: Acute (3) Fever: Status: Acute Plan 52 year old mal with history of CAD, alcohol use, seizure desorder here with abdominal pain, SIRS, due to acute pancreatitis, likely alcoholic related #Acute pancreatitis likely from alcohol, normal TG, no stones seen on CT -Agresive IV fluid, IV dilaudid for pain and follow clinically lipase and lft's improving abd us -seems fine ,no gallstone we will repeat cxr,ua ,abd ct -since still has abd pain/fevers ?Gi eval noted-advanced diet further but says still could not tolerate has pain #? PNA on CT with Low O2, and high WBC, will treat empirically with Levaquin Leukocytosis trending down, blood culture negative at 48 hours #Sepsis d/t PNA--Levaquin as above #Alcohol use desorder and high risk for withdrawal -continue Phenobarbital -Folic Acid and thiamine #Luekocytosis/fvers --reactive and possibly due to pna added blood cultures-pendin ct abd seems fine #Hemoconcentration #Dehydration --these are all related to dehydration and should improve with? IVF Lovneox for DVT prophylaxis Need for admission:? Sepsis, pancreatitis , fever-moniter until blood culture neg 24 hrs Quality Stroke Does the patient have a stroke diagnosis?: No VTE Prior VTE?: No VTE Risk Level:: Medical - moderate - high VTE Device Contraindication: Treatment Not Indicated VTE Drug Contraindication: N/A - Med Ordered
[2022-03-26] MEDS: Enoxaparin Sodium 40 MG/0.4 ML SYRINGE SUBCUT (17:24)
[2022-03-26] MEDS: 0.9 % Sodium Chloride Flush 3 ML SYRINGE IVFLUSH ×2 (18:02→21:03)
[2022-03-26] MEDS: levoFLOXacin/D5W 750 MG/150 ML PIGGYBACK 100 MG IV (18:08)
[2022-03-26 20:00] VITALS: BP 130/78; PULSE 111; RESP 18; TEMP 37.1; O2SAT 92
[2022-03-26] MEDS: Amitriptyline HCl 50 MG TABLET 200 MG PO (21:02)
[2022-03-26] MEDS: Docusate Sodium 100 MG CAPSULE PO (21:03)
[2022-03-27] VITALS: BP 132/81; PULSE 103; RESP 18; TEMP 37; O2SAT 92
[2022-03-27] MEDS: HYDROmorphone HCl 2 MG TABLET 1 MG PO ×2 (01:18→09:08)
[2022-03-27 04:00] VITALS: BP 148/76; PULSE 110; RESP 18; TEMP 36.4; O2SAT 92
[2022-03-27 08:00] VITALS: BP 148/86; PULSE 107; RESP 20; TEMP 36.7; O2SAT 93
[2022-03-27] MEDS: Thiamine HCL 100 MG TABLET 50 MG PO (09:09)
[2022-03-27] MEDS: Tamsulosin HCL 0.4 MG CAPSULE PO (09:10)
[2022-03-27] MEDS: polyethylene glycoL 3350 17 GM POWD.PACK PO (09:10)
[2022-03-27] MEDS: levETIRAcetam 250 MG TABLET PO (09:10)
[2022-03-27] MEDS: Multivitamin TABLET 1 TAB PO (09:10)
[2022-03-27] MEDS: Aspirin Enteric Coated 81 MG TABLET.DR PO (09:10)
[2022-03-27] MEDS: cloNIDine HCL 0.1 MG TABLET PO (09:10)
[2022-03-27] MEDS: Famotidine 20 MG TABLET 80 MG PO (09:10)
[2022-03-27] MEDS: Metoprolol Succinate ER 25 MG TAB.ER.24H PO (09:11)
[2022-03-27] MEDS: Atorvastatin Calcium 80 MG TABLET PO (09:11)
[2022-03-27] MEDS: Cyanocobalamin (Vitamin B-12) 1,000 MCG TABLET 1000 MCG PO (09:11)
[2022-03-27] MEDS: Loratadine 10 MG TABLET PO (09:11)
[2022-03-27] MEDS: levETIRAcetam 500 MG TABLET PO (09:11)
[2022-03-27] MEDS: Cholecalciferol (Vitamin D3) 25 MCG TABLET PO (09:11)
[2022-03-27] MEDS: levoFLOXacin 750 MG TABLET PO (10:16)
--- NOTE | 2022-03-27 10:55 | MHC.CM.PN ---
PT TO DC HOME TODAY WITH NO SERVICES
--- NOTE | 2022-04-19 08:32 | P.DS_ITS ---
DS: Providers Provider Date of Service: 03/27/22 Date of admission: 03/20/22 15:46 Primary care physician: Jessy Dwyer NP Consults: 03/22/22 15:08 Consult to Gastroenterology Routine Consulting Provider: [facility] [place] [facility] Reason for consultation: acute pancreatitis Has provider been notified: No DS: Diagnosis Discharge Diagnosis (1) Fever: Status: Acute (2) Alcohol withdrawal: Status: Acute (3) Leukocytosis: Status: Acute DS: Summary Hospital Course Hospital Course: Date of discharge and service: 03/27/22. Hpi:52 year old female history of CAD, heart faliure, seizure desorder, alcohol use desorder who presents with excruciating epigagstric ? abdominal pain radiating to the flank area, nausea, vomiting that started after dinner the day prior and has been progressively intensifying, pain i s 09/07 . No pariticular? agravating factors,? paritial relief with dialudid in the ED.? He has been fairly constipated despite OTC laxative, describes stool as hard dark, no kathrine blood.? ED work up: WBC 31, Hgb 19, BUN 21, Cr 0.9, normal lactic acid, AST 54, ALT 76, triglyceride 74,?lipase 1021.?CT report pending per my review inflamation around pancrease. hospital course: Patient was admitted because of alcohol withdrawal, acute pancreatitis, pneumonia-treated with supportive care for alcohol withdrawal and phenobarb protocol, also completed antibiotics treatment for pneumonia as well as pancreatitis improved with supportive care. patient is tolerating diet, no fever or cough, WBC count trending down, lft's improving,repeat blood cultures negative prelim@24hrs. Patient is going home. Further management outpatient with PCP. Patient was strongly advised to abstain from alcohol. Above management discussed with the patient in detail length he understand and in agreement with the above plan, time spent 50 minutes and 50% time spent on counseling. Significant findings: As above. Procedures performed: None. Treatment and response: As above. Complications: None. Time Spent with Patient Time attestation: Total time spent providing and/or coordinating discharge services: Discharge coordination time: Greater than 30 minutes Quality: Safe Use of Opioids Does Pt have an Active Cancer Diagnosis on the Problem List?: No Quality: Stroke Does the patient have a stroke diagnosis?: No Physical Exam Vital Signs: Vital Signs: Last Vital Signs Temp 98.1 F 03/27/22 08:00 Pulse 107 H 03/27/22 08:00 Resp 20 03/27/22 08:00 BP 148/86 H 03/27/22 08:00 Pulse Ox 93 03/27/22 08:00 O2 Del Method 03/27/22 08:00 O2 Flow Rate 4 03/21/22 07:32 BMI result Body Mass Index 38.6 General: AO X 3, no acute distress Resp:? CTA bilateral CVS: S1,S2,RRR GI: soft, no guarding or distension, +BS,passed bm today as per patient Skin: No rash Neuro:? motor grossly intact Psych: appropriate affect DS: Data Data Completed and Pending Completed studies during hospitalization [Text1]: Procedures Detoxification Services for Substance Abuse Treatment (03/20/22) Additional Comments Additional comments: 03/25/22 03/25/22 03/25/22 ? 16:25 16:25 16:25 MCV ?88.1 ? ? MCH ?29.7 ? ? MCHC ?33.8 ? ? RDW ?14.2 ? ? Plt Count ?225? D ? ? MPV ?8.9 L ? ? Absolute Nucleated RBC ?0.000 ? ? Nucleated RBC % (auto) ?0.0 ? ? Anion Gap ? ?14 ? Estim Creat Clear Calc ? ?136.5 ? Estimated GFR ? ?> 60 ? Random Glucose ? ?144 H ? Lactic Acid ? ? ? Calcium ? ?8.0 L D ? Total Bilirubin ? ?0.6 ? Direct Bilirubin ? ?0.3 ? AST ? ?94 H ? ALT ? ?116 H ? Alkaline Phosphatase ? ?147 H D ? Total Protein ? ?6.5 ? Albumin ? ?3.4 L ? Lipase ? ?60 ?Cancelled Procalcitonin ? 03/25/22 03/25/22 03/26/22 ? 16:25 18:10 06:19 MCV ? ? ?86.8 MCH ? ? ?29.0 MCHC ? ? ?33.5 RDW ? ? ?14.2 Plt Count ? ? ?208 MPV ? ? ?9.2 L Absolute Nucleated RBC ? ? ?0.000 D Nucleated RBC % (auto) ? ? ?0.0 Anion Gap ? ? ? Estim Creat Clear Calc ? ? ? Estimated GFR ? ? ? Random Glucose ? ? ? Lactic Acid ? ?1.5 ? Calcium ? ? ? Total Bilirubin ? ? ? Direct Bilirubin ? ? ? AST ? ? ? ALT ? ? ? Alkaline Phosphatase ? ? ? Total Protein ? ? ? Albumin ? ? ? Lipase ? ? ? Procalcitonin ?0.31 ? ? ? 03/26/22 ? 06:19 MCV ? MCH ? MCHC ? RDW ? Plt Count ? MPV ? Absolute Nucleated RBC ? Nucleated RBC % (auto) ? Anion Gap ?14 Estim Creat Clear Calc ?141.9 Estimated GFR ?> 60 Random Glucose ?151 H Lactic AcidB ? Calcium ?7.9 L Total Bilirubin ?0.8 Direct Bilirubin ?0.3 AST ?73 H ALT ?108 H Alkaline Phosphatase ?135 H Total Protein ?6.3 L D Albumin ?3.3 L Lipase ? Procalcitonin ? Microbiology Microbiology Results: Microbiology ?03/20/22 13:05 Blood Culture - Final ?Blood - Venous ?? No growth after 5 days. ?03/20/22 13:02 Blood Culture - Final ?Blood - Venous ?? No growth after 5 days. Discharge Plan Discharge Patient Disposition: Home, Self-Care Discharge Diagnosis: Pneumonia, acute pancreatitis Referrals: Jessy Dwyer, [employer] [Primary Care Provider] - 1 Week Discharge Medications: New polyethylene glycol 3350 17 gram Powder In Packet 17 g PO BIDWM Qty: 10 0RF docusate sodium 100 mg Capsule 100 mg PO BEDTIME Qty: 30 0RF thiamine mononitrate (vit B1) 100 mg Tablet 50 mg PO DAILY Qty: 30 0RF oxycodone 5 mg capsule 5 mg PO BID PRN (Reason: pain) Qty: 6 0RF Rx Instructions: Partial Fill upon patient request. Continued cyanocobalamin (vitamin B-12) 1,000 mcg Tablet 1,000 mcg PO DAILY aspirin 81 mg tablet,delayed release (DR/EC) 1 tab PO DAILY albuterol sulfate 90 mcg/actuation HFA aerosol inhaler 2 puff PO Q4H PRN (Reason: Shortness Of Breath) cholecalciferol (vitamin D3) [Vitamin D3] 25 mcg (1,000 unit) Tablet 25 mcg PO DAILY clonidine HCl 0.1 mg tablet 1 tab PO DAILY famotidine 40 mg tablet 2 tab PO DAILY tamsulosin 0.4 mg capsule 1 cap PO DAILY clonazepam 2 mg tablet 1 tab PO DAILY@1200 levetiracetam 750 mg tablet 1 tab PO BID metoprolol succinate 25 mg tablet extended release 24 hr 1 tab PO DAILY amitriptyline 100 mg tablet 2 tab PO BEDTIME loratadine 10 mg tablet 1 tab PO DAILY rosuvastatin 20 mg tablet 1 tab PO DAILY aspirin 325 mg tablet,delayed release (DR/EC) 1 tab PO DAILY@1200 PRN (Reason: Pain) testosterone 20.25 mg/1.25 gram (1.62 %) gel in metered-dose pump 5 pump topical DAILY multivitamin Tablet 1 tab PO DAILY acetaminophen 325 mg Tablet 975 mg PO Q8H PRN (Reason: Pain) clonazepam 2 mg tablet 1 tab PO DAILY PRN (Reason: Anxiety) Discharge Orders: Discharge Order (Routine); Ordered 03/27/22 Ordered By: Sheryl Deras Diet: Advance to usual diet Activity on Discharge: As tolerated Stand Alone Forms: Patient Portal Discharge page Care Plan Goals: Patient was admitted because of alcohol withdrawal, acute pancreatitis, pneumonia-treated with supportive care for alcohol withdrawal and phenobarb protocol, also completed treatment for pneumonia as well as supportive care for pancreatitis. patient is tolerating diet, no fever or cough, WBC count trending down,repeat blood cultures negative prelim@24hrs. Patient is going home. Further management outpatient with PCP. Patient was strongly advised to abstain from alcohol. Health Concerns: As above. Plan of Treatment: As above. Assessment: As above. Discharge Date/Time: 03/27/22 10:29
== END 2022-03-27 10:29 | disposition home or self-care (01) | DRG 871 ==
LOC: HO.ED 13:34 → HO.EDOVER 15:54 → HO.IMC 03-21 07:08
PROVIDERS: Internal Medicine Gastroenterology; Physician Assistant; Admitting Provider Internal Medicine; Emergency Provider Emergency Medicine Emergency Medical Services; PCP Nurse Practitioner Family; Visit Provider Internal Medicine
DX: A41.9 Sepsis, unspecified organism (principal); J18.9 Pneumonia, unspecified organism; K85.20 Alcohol induced acute pancreatitis without necrosis or infection; I50.22 Chronic systolic (congestive) heart failure; F10.139 Alcohol abuse with withdrawal, unspecified; I25.10 Atherosclerotic heart disease of native coronary artery without angina pectoris; Z20.822 Contact with and (suspected) exposure to COVID-19; K59.00 Constipation, unspecified; I25.2 Old myocardial infarction; E86.0 Dehydration; E66.9 Obesity, unspecified; Z68.38 Body mass index [BMI] 38.0-38.9, adult; G40.909 Epilepsy, unspecified, not intractable, without status epilepticus; Z87.891 Personal history of nicotine dependence; Z79.82 Long term (current) use of aspirin; Z79.899 Other long term (current) drug therapy
CPT/HCPCS: 36415; 71045; 74176; 74177; 76705; 80048; 80053; 80076; 81001; 82272; 83605; 83690; 83735; 84145; 84478; 85007; 85025; 85027; 87040; 87635; 96361; 96374; 96375; 99285; J1170; J1650; J1956; J2270; Q9967

== ENCOUNTER 2022-06-19 11:37 | Inpatient (IN) | payer MEDICARE, MEDICAID, SELFPAY ==
[2022-06-19] VITALS (10 sets, daily range): BP systolic 114–158; BP diastolic 77–98; PULSE 70–111; RESP 12–22; TEMP 36.9; O2SAT 92–98; BMI 33.4
--- NOTE | ~2022-06-19 | XR_ITS ---
EXAMINATION: XR CHEST CLINICAL INFORMATION: Syncope COMPARISON: Previous chest x-ray March 2022 TECHNIQUE: Frontal view of the chest was obtained. FINDINGS: The cardiac and mediastinal contours are stable. There is mild subsegmental atelectasis at the lung bases. The lungs are otherwise clear. There is no pleural effusion or pneumothorax. There are degenerative changes of the spine. There are postsurgical changes to the shoulders. XR/XR chest 1V IMPRESSION: Minimal subsegmental atelectasis at the lung bases.
--- NOTE | ~2022-06-19 | CT_ITS ---
EXAMINATION: CT abdomen pelvis w IV con CLINICAL INFORMATION: Reason for Exam Bilateral flank pain. Diffuse abdominal pain COMPARISON: No prior CT available for comparison. TECHNIQUE: Multidetector volumetric imaging was performed from the superior aspect of the liver through the pubic symphysis 85 mL Omnipaque 350 injected Sagittal and coronal reformatted images were obtained on the technologist's workstation. This CT examination was performed using dose optimization techniques as appropriate, variously including the following: *Automated exposure control *Adjustment of mA and/or kV according to patient size (this includes techniques or standardized protocols for targeted exams where dose is matched to indication/reason for exam; i.e. extremities or head) *Use of iterative reconstruction technique DLP: 830 mGy-cm FINDINGS: LOWER THORAX: Included lung bases are clear. HEPATOBILIARY: No focal hepatic lesions. No biliary ductal dilatation. GALLBLADDER: Gallbladder unremarkable. SPLEEN: Spleen is normal in size. PANCREAS: Complex solid and cystic mass protruding from the head of the pancreas measures 4.6 x 3.4 cm differential diagnoses would include cystic mass, pseudocyst. This may require further evaluation with MRI or EUS ultrasound. STOMACH AND GASTROINTESTINAL TRACT: Stomach is grossly unremarkable. There is no bowel distention or thickening. No CT evidence of appendicitis. ADRENALS: No adrenal nodules. KIDNEYS/URETERS: No hydronephrosis, stones or solid mass lesions. URINARY BLADDER: Partially decompressed. PELVIC VISCERA: Unremarkable PERITONEUM: No free air or fluid. LYMPH NODES: No lymphadenopathy. VASCULAR:Abdominal aorta normal in size, no aneurysm found. BONES, ABDOMINAL WALL AND SOFT TISSUES: Age-appropriate changes of the spine and skeletal system, no destructive osteolytic or osteosclerotic bone lesion found CT/CT abdomen pelvis w IV con IMPRESSION: *Complex solid and cystic mass protruding from the head of the pancreas roughly 4 cm, cannot rule out pancreatic neoplasm, this would require further investigation with contrast-enhanced MRI and/or EUS. *No CT evidence of kidney stone or hydronephrosis. (Referring physician staff is being called, to be alerted of the above findings and recommendations.) AJ
--- NOTE | ~2022-06-19 | CT_ITS ---
EXAM: Noncontrast CT scan of the head and cervical spine. INDICATION: Unknown head trauma COMPARISON: Head CT January 29, 2022 TECHNIQUE: Axial slices were obtained from skull base to vertex and displayed. This was followed by helical, multislice, multidetector axial images from the occiput to the upper thorax. Coronal and sagittal reformats of the cervical spine in addition to coronal reformats of the head were obtained at the technologist workstation. DLP: 1460 mGy-cm FINDINGS: HEAD: There is no evidence of acute intracranial hemorrhage or territorial infarction. No abnormal mass effect or midline shift is appreciated. Kay-white differentiation is well preserved. No extra-axial fluid collections. The ventricular system and cortical sulci are normal in size. The osseous structures and soft tissues are normal. There are mild calcifications of the cavernous internal carotid arteries. The visualized paranasal sinuses and mastoid air cells are well aerated. SPINE: There is straightening of the normal cervical lordosis. Alignment is otherwise unremarkable. Normal C1/2 articulation. Cervical vertebral body heights are maintained. There is mild to moderate narrowing of the C5/6 and C6/7 disc space heights. Small osteophytes are noted within the mid and lower cervical spine. Mild diffuse facet hypertrophy bilaterally, but slightly more prominent on the left. CT/CT cervical spine wo IV con IMPRESSION: 1. No acute intracranial pathology. 2. No fractures or dislocations of the cervical spine. This CT examination was performed using dose optimization techniques as appropriate, variously including the following: *Automated exposure control *Adjustment of mA and/or kV according to patient size (this includes techniques or standardized protocols for targeted exams where dose is matched to indication/reason for exam; i.e. extremities or head) *Use of iterative reconstruction technique
--- NOTE | ~2022-06-19 | MR_ITS ---
EXAMINATION: MRI ABDOMEN WITH AND WITHOUT CONTRAST CLINICAL INFORMATION: Pancreatic mass COMPARISON: CT scans 06/19/2022 and 03/25/2022 TECHNIQUE: Multiple routine MRI sequences through the abdomen were obtained on a high-field 1.5 Diane MRI before and after the uneventful administration of 10 mL of Gadavist gadolinium-based IV contrast. Dynamic post-contrast images were obtained. FINDINGS: LUNG BASES: Bibasilar atelectasis. Normal heart size. No pleural or pericardial effusion. LIVER: Mild to moderate patchy loss of signal on opposed phase gradient echo T1 weighted images consistent with patchy hepatic steatosis. Liver enhances normally. 6 mm cyst along the posterior lateral periphery of the right lobe of the liver. No suspicious or concerning liver lesion seen.. Hepatic and portal veins enhance normally. GALLBLADDER AND BILIARY TREE: There is a fold in the neck of the gallbladder. No definite calculi seen. No gallbladder wall thickening or pericholecystic fluid. No biliary ductal dilatation. SPLEEN: Normal. Normal size. No focal lesion. Splenic vein enhances normally. PANCREAS: Mild peripancreatic fluid is present. The appearance is similar to the CT scan 06/19/2022 but actually improved from the CT scan 03/25/2022 which showed a greater degree of peripancreatic fluid consistent with acute interstitial pancreatitis. There is mild irregularity of the pancreatic duct but it is nondilated. Anterior and inferior to the head of the pancreas there is an irregular heterogeneous 4.1 x 3.1 cm rim-enhancing fluid collection. There were focal phlegmonous changes in this location on the prior CT scan 03/25/2022 favoring this represents interval development of a pseudocyst. No pancreatic necrosis identified on the current exam nor on the prior CT 03/25/2012. There is a 1.6 cm focus of dark T2, bright T1 signal posterior to the proximal body of the pancreas series 4 image 19/33 and series 10 image 49/92. This corresponds to a high density fluid seen on series 4 image [address] scan. The appearance is consistent with peripancreatic fluid with internal proteinaceous material or blood products. No peripheral rim enhancement. ADRENAL GLANDS: Normal. No adrenal mass. KIDNEYS AND URETERS: Normal symmetric renal enhancement. No hydronephrosis or mass. LYMPHOVASCULAR STRUCTURES: Normal caliber aorta. IVC patent. No pathologically enlarged abdominal or retroperitoneal lymphadenopathy by short axis size criteria. OSSEOUS STRUCTURES: No acute or suspicious osseous abnormalities. MR/MR abdomen wo/w con IMPRESSION: Heterogeneous 4.1 cm rim-enhancing fluid collection seen anterior to the inferior aspect of the head of the pancreas. Given the findings of acute interstitial pancreatitis on the prior study 03/25/2022 with phlegmonous changes in this region, most likely this represents a pseudocyst. It seems much less likely that a pancreatic malignancy has developed in the short interval since the earlier CT scan. Recommend continued attention on CT follow-up. Mild peripancreatic fluid is seen, improved but not resolved from the prior study which showed acute interstitial pancreatitis. There is an additional 1.6 cm and encapsulated collection of fluid posterior to the proximal body of the pancreas with MRI signal suggesting internal blood products or proteinaceous material. The splenic vein, main portal vein, and superior mesenteric vein enhance normally without evidence of thrombosis. Mild bibasilar atelectasis.
--- NOTE | 2022-06-19 11:40 | ED.GENADULT ---
HPI - General Adult General Stated complaint: SYNCOPE X 2, FALL,+COLLAR,-THINNERS, BLACKOUT Time Seen by Provider: 06/19/22 11:40 Source: patient Mode of arrival: ambulatory Limitations: no limitations Related Data Home Medications Medication Instructions Recorded Confirmed albuterol sulfate 90 mcg/actuation 2 puff PO Q4H PRN Shortness Of 04/28/21 03/20/22 aerosol inhaler Breath aspirin 81 mg tablet,delayed 1 tab PO DAILY 04/28/21 03/20/22 release cholecalciferol (vitamin D3) 25 25 mcg PO DAILY 04/28/21 03/20/22 mcg (1,000 unit) tablet (Vitamin D3) cyanocobalamin (vitamin B-12) 1,000 mcg PO DAILY 04/28/21 03/20/22 1,000 mcg tablet amitriptyline 100 mg tablet 2 tab PO BEDTIME 05/17/21 03/20/22 clonazepam 2 mg tablet 1 tab PO DAILY@1200 05/17/21 03/20/22 clonidine HCl 0.1 mg tablet 1 tab PO DAILY 05/17/21 03/20/22 famotidine 40 mg tablet 2 tab PO DAILY 05/17/21 03/20/22 levetiracetam 750 mg tablet 1 tab PO BID 05/17/21 03/20/22 loratadine 10 mg tablet 1 tab PO DAILY 05/17/21 03/20/22 metoprolol succinate 25 mg 1 tab PO DAILY 05/17/21 03/20/22 tablet,extended release 24 hr rosuvastatin 20 mg tablet 1 tab PO DAILY 05/17/21 03/20/22 tamsulosin 0.4 mg capsule 1 cap PO DAILY 05/17/21 03/20/22 acetaminophen 325 mg tablet 975 mg PO Q8H PRN Pain 03/20/22 03/20/22 aspirin 325 mg tablet,delayed 1 tab PO DAILY@1200 PRN Pain 03/20/22 03/20/22 release clonazepam 2 mg tablet 1 tab PO DAILY PRN Anxiety 03/20/22 03/20/22 multivitamin 1 tab PO DAILY 03/20/22 03/20/22 testosterone 20.25 mg/1.25 gram 5 pump topical DAILY 03/20/22 03/20/22 (1.62 %) transdermal gel pump Previous Rx's Medication Instructions Recorded docusate sodium 100 mg capsule 100 mg PO BEDTIME #30 caps 03/27/22 oxycodone 5 mg capsule 5 mg PO BID PRN pain #6 caps 03/27/22 polyethylene glycol 3350 17 gram 17 g PO BIDWM #10 ea 03/27/22 oral powder packet thiamine mononitrate (vit B1) 100 50 mg PO DAILY #30 tabs 03/27/22 mg tablet Allergies Allergy/AdvReac Type Severity Reaction Status Date / Time Penicillins Allergy Unknown Unknown Verified 01/28/22 19:50 [facility], [facility] Past Medical History Medical History NAMITA (acute kidney injury) Heart attack Seizure Surgical History Stented coronary artery Social History Social History (Updated 03/21/22 @ 11:01 by Michelle Sofia RN) Household Members: None Housing: Apartment Are you a primary care asst to a significant other at home: No Do you presently have visiting nurse or other home services: Yes Patient Tobacco Use Status: Former Tobacco user Tobacco use type: Cigarette Second Hand Smoke Exposure: No Substance Use Type: Marijuana service: Yes Current occupational status: disabled Discharge Plan Discharge Prescriptions: No Action cyanocobalamin (vitamin B-12) 1,000 mcg Tablet 1,000 mcg PO DAILY aspirin 81 mg tablet,delayed release (DR/EC) 1 tab PO DAILY albuterol sulfate 90 mcg/actuation HFA aerosol inhaler 2 puff PO Q4H PRN (Reason: Shortness Of Breath) cholecalciferol (vitamin D3) [Vitamin D3] 25 mcg (1,000 unit) Tablet 25 mcg PO DAILY clonidine HCl 0.1 mg tablet 1 tab PO DAILY famotidine 40 mg tablet 2 tab PO DAILY tamsulosin 0.4 mg capsule 1 cap PO DAILY clonazepam 2 mg tablet 1 tab PO DAILY@1200 levetiracetam 750 mg tablet 1 tab PO BID metoprolol succinate 25 mg tablet extended release 24 hr 1 tab PO DAILY amitriptyline 100 mg tablet 2 tab PO BEDTIME loratadine 10 mg tablet 1 tab PO DAILY rosuvastatin 20 mg tablet 1 tab PO DAILY aspirin 325 mg tablet,delayed release (DR/EC) 1 tab PO DAILY@1200 PRN (Reason: Pain) testosterone 20.25 mg/1.25 gram (1.62 %) gel in metered-dose pump 5 pump topical DAILY multivitamin Tablet 1 tab PO DAILY acetaminophen 325 mg Tablet 975 mg PO Q8H PRN (Reason: Pain) clonazepam 2 mg tablet 1 tab PO DAILY PRN (Reason: Anxiety) polyethylene glycol 3350 17 gram Powder In Packet 17 g PO BIDWM Qty: 10 0RF docusate sodium 100 mg Capsule 100 mg PO BEDTIME Qty: 30 0RF thiamine mononitrate (vit B1) 100 mg Tablet 50 mg PO DAILY Qty: 30 0RF oxycodone 5 mg capsule 5 mg PO BID PRN (Reason: pain) Qty: 6 0RF Rx Instructions: Partial Fill upon patient request.
--- NOTE | 2022-06-19 12:17 | ECG_ITS ---
Test Reason : SYNCOPE Blood Pressure : / mmHG Vent. Rate : 063 BPM Atrial Rate : 063 BPM P-R Int : 112 ms QRS Dur : 092 ms QT Int : 408 ms P-R-T Axes : 108 058 068 degrees QTc Int : 417 ms Normal sinus rhythm Normal ECG When compared with ECG of 29-JAN-2022 01:10, No significant change was found Referred By: Lola Gill Electronically Signed By:TONIA ROJAS
[2022-06-19] MEDS: ondansetron HCL 4 MG/2 ML VIAL IVPUSH ×2 (12:40→18:53)
[2022-06-19] MEDS: Famotidine/PF 20 MG/2 ML VIAL IVPUSH (12:41)
[2022-06-19] MEDS: Morphine Sulfate 2 MG/ML CARTRIDGE IVPUSH ×2 (12:42→16:46)
[2022-06-19] MEDS: 0.9 % Sodium Chloride 1,000 ML 999 ML IV ×3 (12:43→16:46)
--- NOTE | 2022-06-19 12:53 | ED_ITS ---
HPI - Syncope General Chief Complaint: Syncope Stated Complaint: SYNCOPE X 2, FALL,+COLLAR,-THINNERS, BLACKOUT Time Seen by Provider: 06/19/22 11:40 Source: patient and EMS Mode of arrival: EMS History of Present Illness HPI narrative: 52-year-old male with a past medical history of CAD, heart failure, seizure disorder, alcohol use disorder, recently admitted to our facility discharged on 03/30/2022 for alcohol withdrawal, acute pancreatitis, and pneumonia, presenting to the ED today complaining of multiple syncopal episodes at home since last night, unsure if hit head, lives home alone, admits to waking up on the ground. Reports associated hematuria, dysuria, bilateral flank pain and diffuse abdominal pain with nausea and vomiting. Was recently treated for UTI by PCP. Unclear if syncope was secondary to pain. Denies chest pain, shortness of breath, pedal edema, fever, chills, headache, neck pain. Denies taking anticoagulation. Patient denies being daily drinker, denies ETOH today or history of ETOH withdrawal MD complaint: loss of consciousness and felt faint Onset (ago): hour(s) Related Data Home Medications Medication Instructions Recorded Confirmed albuterol sulfate 90 mcg/actuation 2 puff PO Q4H PRN Shortness Of 04/28/21 06/19/22 aerosol inhaler Breath aspirin 81 mg tablet,delayed 1 tab PO DAILY 04/28/21 06/19/22 release amitriptyline 100 mg tablet 2 tab PO BEDTIME 05/17/21 06/19/22 clonidine HCl 0.1 mg tablet 1 tab PO BID 05/17/21 06/19/22 famotidine 40 mg tablet 1 tab PO DAILY 05/17/21 06/19/22 levetiracetam 750 mg tablet 1 tab PO BID 05/17/21 06/19/22 loratadine 10 mg tablet 1 tab PO DAILY 05/17/21 06/19/22 metoprolol succinate 25 mg 1 tab PO DAILY 05/17/21 06/19/22 tablet,extended release 24 hr rosuvastatin 20 mg tablet 1 tab PO DAILY 05/17/21 06/19/22 tamsulosin 0.4 mg capsule 1 cap PO BID 05/17/21 06/19/22 acetaminophen 325 mg tablet 975 mg PO Q8H PRN Pain 03/20/22 06/19/22 clonazepam 2 mg tablet 1 tab PO BID PRN Anxiety 03/20/22 06/19/22 multivitamin 1 tab PO DAILY 03/20/22 06/19/22 testosterone 20.25 mg/1.25 gram 5 pump topical DAILY 03/20/22 06/19/22 (1.62 %) transdermal gel pump clonazepam 2 mg tablet 1 tab PO DAILY 06/19/22 06/19/22 sulfamethoxazole 800 1 tab PO Q12H 06/19/22 mg-trimethoprim 160 mg tablet Allergies Allergy/AdvReac Type Severity Reaction Status Date / Time Penicillins Allergy Unknown Unknown Verified 01/28/22 19:50 Review of Systems Review of Systems: Constitutional: No Fever, No Chills, No Fatigue, No Malaise ENT/Mouth: No Ear Pain, No Nasal Congestion, No sore throat, No Rhinorrhea, No Swallowing Difficulty Eyes: No Eye Pain, No Swelling, No Redness, No Vision Changes Cardiovascular: No Chest Pain, No SOB, No Dyspnea on Exertion, No Orthopnea, No Edema, No Palpitations Respiratory: No Cough, No Sputum, No Dyspnea Gastrointestinal: + Nausea, + Vomiting, No Diarrhea, No Constipation, + Abdominal pain Genitourinary: + Dysuria, No Urinary Frequency, + Hematuria, No Urinary Incontinence/retention, No Urgency, + Flank Pain, No Urinary Flow Changes, No Hesitancy Musculoskeletal: No joint pain, No Myalgias, No Joint Swelling Skin: No Skin Lesions, No rash Neuro: No Weakness, No Numbness, No Paresthesias, + Loss of Consciousness, No Dizziness, No Headache Yes all other systems are reviewed and are negative Constitutional: Constitutional: Reports as per HPI Neurologic: Denies Abnormal speech present [facility] Past Medical History Attestation statement: The following information was validated with the patient. Medical History NAMITA (acute kidney injury) CAD (coronary artery disease) Chronic systolic (congestive) heart failure Heart attack Seizure Surgical History Stented coronary artery Social History Social History Household Members: None Housing: Apartment Are you a primary primary care provider to a significant other at home: No Do you presently have visiting nurse or other home services: Yes Patient Tobacco Use Status: Former Tobacco user Tobacco use type: Cigarette Second Hand Smoke Exposure: No Substance Use Type: Marijuana Advance Directives: No Advance Directives Information Provided: Yes service: Yes Current occupational status: disabled Physical Exam Vital Signs: Vital Signs: Last Vital Signs Temp 98.5 F 06/19/22 11:45 Pulse 70 06/19/22 11:45 Resp 20 06/19/22 12:42 BP 158/98 H 06/19/22 11:45 Pulse Ox 96 06/19/22 11:45 O2 Del Method 06/19/22 11:45 BMI result Body Mass Index 33.4 Const: Other: In pain General: cooperative, healthy appearing and no acute distress Orientation/consciousness: patient oriented x3 Limitations: no limitations HEENT: Head: Yes normal to inspection and Yes atraumatic Ears: hearing xu ssly normal bilaterally General nose exam: Normal external nose present Face and sinus: Yes normal facial exam Mouth: Normal oral and palatal mucosa present Throat: Yes posterior oropharynx normal Eyes: General: appearance normal, both eyes and all related structures Pupils: Equal, round and reactive pupils present EOM: EOMs intact bilaterally Neck: Neck: Yes normal visual inspection and Yes no meningeal signs Resp: Effort & Inspection: normal respiratory effort and no respiratory distress Auscultation: clear to auscultation bilaterally, no crackles, no rales, no rhonchi and no wheezes Cardio: Rate: regular rate Heart sounds: S1 normal heart sound present and S2 normal heart sound present GI: Inspection: Yes normal to inspection and Yes distended Palpation (GI): Soft to palpation, Tenderness to palpation present (GI) (Diffuse) with no rebound tenderness, no guarding and not rigid : General: Yes CVA tenderness bilateral Back/Spine/Pelvis: Back: CVA tenderness Skin: Rashes: no rashes Wounds: no wounds Neuro: General: patient oriented x3, tone normal, moves all extremities, no meningeal signs, no focal motor deficits and CN's II-XI intact bilaterally Cranial nerves: Yes CN's II-XII intact bilaterally, Yes Equal, round and reactive pupils present and Yes Bilaterally intact EOM present Cognition (Neuro): normal cognition Speech: No Abnormal speech present Motor exam (neuro): 5/5 motor strength present throughout, Pronator motor function not present and no tremor noted Coordination: [id number] test normal Romberg Test: Negative Extrem: General: Yes normal to inspection Course Course Course Narrative: -1414--noted leukocytosis of 14.4 > likely reactive from nausea/vomiting. D- dimer negative. Lactic acid negative. Initial troponin 6.1 > will obtain 3 hour repeat, labs otherwise reassuring -ethanol negative XR chest 1V IMPRESSION: Minimal subsegmental atelectasis at the lung bases. ? 1610--CT head/brain wo IV con/CT cervical spine wo IV con IMPRESSION: 1. No acute intracranial pathology. 2. No fractures or dislocations of the cervical spine. ? CT abdomen pelvis w IV con IMPRESSION: *Complex solid and cystic mass protruding from the head of the pancreas roughly 4 cm, cannot rule out pancreatic neoplasm, this would require further investigation with contrast-enhanced MRI and/or EUS. ? *No CT evidence of kidney stone or hydronephrosis. >> will consult General surgery, Dr. Madrigal -Dr. 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 Plan to admit patient for further management MDM - Syncope MDM Narrative Medical decision making narrative: 52-year-old male with a past medical history of CAD, heart failure, seizure disorder, alcohol use disorder, recently admitted to our facility discharged on 03/30/2022 for alcohol withdrawal, acute pancreatitis, and pneumonia, presenting to the ED today complaining of multiple syncopal episodes at home since last night, w/ associated hematuria, dysuria, bilateral flank pain and diffuse abdominal pain, nausea and vomiting. On exam vital signs stable, appears in pain, no focal neuro deficits, lungs CTA, bilateral CVA tenderness and diffuse abdominal tenderness noted, no rebound or guarding. No pedal edema. Concern for renal stone/pyelo/UTI vs recurrent pancreatitis vs appendicitis/diverticulitis vs ACS/PE vs Vasovagal syncope secondary to pain /dehydrationg from emesis. R/o ICH although of low suspicion. Low suspicion for CVA Plan: EKG, labs, UA, CXR, head/C-spine CT, CT abdomen/pelvis, IVF, orthostatics, admission Differential Diagnosis Differential diagnosis: Likely syncope due to orthostatic hypotension, vasovagal syncope, pulmonary embolism and dehydration Medical Records Attestation: I reviewed the patient's medical records. Lab Data Attestation: I reviewed the patient's lab results. Result diagrams: 06/19/22 13:05 06/19/22 13:05 Labs: Lab Results 06/19/22 06/19/22 06/19/22 Range/Units 13:04 13:05 13:05 WBC 14.4 H (4.8-10.8) X10*3/uL RBC 6.28 H (4.60-5.80) X10*6/uL Hgb 17.9 (14.0-18.0) g/dl Hct 54.4 H (42.0-52.0) % MCV 86.6 (80.0-98.0) fL MCH 28.5 (27.0-33.0) pg MCHC 32.9 (31.0-36.0) g/dl RDW 13.8 (11.0-16.0) % Plt Count 197 (160-400) X10*3/uL MPV 9.8 (9.4-12.4) fL Immature Gran % (Auto) 0.8 H (0.0-0.4) % Neut % (Auto) 88.6 H (45-73) % Lymph % (Auto) 7.8 L (20-40) % Crook % (Auto) 2.4 (2-11) % Eos % (Auto) 0.0 (0-4) % Baso % (Auto) 0.4 (0-2) % Lymph # (Auto) 1.1 L (1.2-4.9) X10*3/uL Crook # (Auto) 0.3 (0.1-1.2) X10*3/uL Eos # (Auto) 0.0 (0.0-0.4) X10*3/uL Baso # (Auto) 0.1 (0.0-0.2) X10*3/uL Abs Immat Gran (auto) 0.12 H (0.00-0.03) X10*3/uL Absolute Neuts (auto) 12.8 H (2.0-8.3) x10*3/uL Absolute Nucleated RBC 0.000 (0.0-0.012) X10*3/uL Nucleated RBC % (auto) 0.0 (0.0-0.2) /100WBC D-Dimer High Sensitivty NG/ML Sodium 139 (135-145) mmol/L Potassium 4.1 D (3.3-5.1) mmol/L Chloride 103 (96-108) mmol/L Carbon Dioxide 20 L (22-29) mmol/L Anion Gap 20 (12-20) BUN 12 (9-16) mg/dL Creatinine 0.92 (0.5-1.4) mg/dL Estim Creat Clear Calc 107.5 Estimated GFR > 60 Random Glucose 135 H (60-115) mg/dL Lactic Acid 1.8 (0.5-2.0) mmol/L Calcium 9.5 D (8.4-10.2) mg/dL Magnesium 1.8 (1.6-2.6) mg/dL Total Bilirubin 0.6 (0.0-1.0) mg/dL Direct Bilirubin 0.3 (0.0-0.5) mg/dL AST 27 D (5-37) U/L ALT 41 H (0-40) U/L Alkaline Phosphatase 90 D (39-117) U/L Total Creatine Kinase 194 H D (38-174) U/L Troponin I High Sens (<3.5-35.0) ng/L B-Natriuretic Peptide (<100) pg/mL Total Protein 8.0 D (6.5-8.0) g/dL Albumin 4.8 D (3.5-5.0) g/dL Lipase 4 L (8-78) U/L Ethyl Alcohol < 10 mg/dL COVID-19 ([facility]) (Negative) COVID-19 Clin Com 06/19/22 06/19/22 06/19/22 Range/Units 13:05 13:06 13:07 WBC (4.8-10.8) X10*3/uL RBC (4.60-5.80) X10*6/uL Hgb (14.0-18.0) g/dl Hct (42.0-52.0) % MCV (80.0-98.0) fL MCH (27.0-33.0) pg MCHC (31.0-36.0) g/dl RDW (11.0-16.0) % Plt Count (160-400) X10*3/uL MPV (9.4-12.4) fL Immature Gran % (Auto) (0.0-0.4) % Neut % (Auto) (45-73) % Lymph % (Auto) (20-40) % Crook % (Auto) (2-11) % Eos % (Auto) (0-4) % Baso % (Auto) (0-2) % Lymph # (Auto) (1.2-4.9) X10*3/uL Crook # (Auto) (0.1-1.2) X10*3/uL Eos # (Auto) (0.0-0.4) X10*3/uL Baso # (Auto) (0.0-0.2) X10*3/uL Abs Immat Gran (auto) (0.00-0.03) X10*3/uL Absolute Neuts (auto) (2.0-8.3) x10*3/uL Absolute Nucleated RBC (0.0-0.012) X10*3/uL Nucleated RBC % (auto) (0.0-0.2) /100WBC D-Dimer High Sensitivty NG/ML Sodium (135-145) mmol/L Potassium (3.3-5.1) mmol/L Chloride (96-108) mmol/L Carbon Dioxide (22-29) mmol/L Anion Gap (12-20) BUN (9-16) mg/dL Creatinine (0.5-1.4) mg/dL Estim Creat Clear Calc Estimated GFR Random Glucose (60-115) mg/dL Lactic Acid (0.5-2.0) mmol/L Calcium (8.4-10.2) mg/dL Magnesium (1.6-2.6) mg/dL Total Bilirubin (0.0-1.0) mg/dL Direct Bilirubin (0.0-0.5) mg/dL AST (5-37) U/L ALT (0-40) U/L Alkaline Phosphatase (39-117) U/L Total Creatine Kinase (38-174) U/L Troponin I High Sens 6.1 D (<3.5-35.0) ng/L B-Natriuretic Peptide 17 (<100) pg/mL Total Protein (6.5-8.0) g/dL Albumin (3.5-5.0) g/dL Lipase (8-78) U/L Ethyl Alcohol mg/dL COVID-19 ([facility]) Negative (Negative) COVID-19 Clin Com See Note 06/19/22 Range/Units 13:07 WBC (4.8-10.8) X10*3/uL RBC (4.60-5.80) X10*6/uL Hgb (14.0-18.0) g/dl Hct (42.0-52.0) % MCV (80.0-98.0) fL MCH (27.0-33.0) pg MCHC (31.0-36.0) g/dl RDW (11.0-16.0) % Plt Count (160-400) X10*3/uL MPV (9.4-12.4) fL Immature Gran % (Auto) (0.0-0.4) % Neut % (Auto) (45-73) % Lymph % (Auto) (20-40) % Crook % (Auto) (2-11) % Eos % (Auto) (0-4) % Baso % (Auto) (0-2) % Lymph # (Auto) (1.2-4.9) X10*3/uL Crook # (Auto) (0.1-1.2) X10*3/uL Eos # (Auto) (0.0-0.4) X10*3/uL Baso # (Auto) (0.0-0.2) X10*3/uL Abs Immat Gran (auto) (0.00-0.03) X10*3/uL Absolute Neuts (auto) (2.0-8.3) x10*3/uL Absolute Nucleated RBC (0.0-0.012) X10*3/uL Nucleated RBC % (auto) (0.0-0.2) /100WBC D-Dimer High Sensitivty < 150 NG/ML Sodium (135-145) mmol/L Potassium (3.3-5.1) mmol/L Chloride (96-108) mmol/L Carbon Dioxide (22-29) mmol/L Anion Gap (12-20) BUN (9-16) mg/dL Creatinine (0.5-1.4) mg/dL Estim Creat Clear Calc Estimated GFR Random Glucose (60-115) mg/dL Lactic Acid (0.5-2.0) mmol/L Calcium (8.4-10.2) mg/dL Magnesium (1.6-2.6) mg/dL Total Bilirubin (0.0-1.0) mg/dL Direct Bilirubin (0.0-0.5) mg/dL AST (5-37) U/L ALT (0-40) U/L Alkaline Phosphatase (39-117) U/L Total Creatine Kinase (38-174) U/L Troponin I High Sens (<3.5-35.0) ng/L B-Natriuretic Peptide (<100) pg/mL Total Protein (6.5-8.0) g/dL Albumin (3.5-5.0) g/dL Lipase (8-78) U/L Ethyl Alcohol mg/dL COVID-19 ([facility]) (Negative) COVID-19 Clin Com ECG Data Attestation: I personally reviewed and interpreted this ECG as follows: ECG interpretation date: 06/19/22 ECG interpretation time: 12:41 Prior ECG tracings: available for review Interpretation: EKG normal sinus rhythm at a rate of 63. Pr interval 112. No STEMI/nonischemic Discharge Plan Discharge Clinical Impression: Syncope and collapse, Mass of pancreas, Abdominal pain Patient Disposition: Admitted As Inpatient
[2022-06-19 13:14] LABS: MANUAL DIFF FLAG NO
[2022-06-19 13:29] LABS: Basophils Absolute Auto 0.1 X10*3/uL (0.0-0.2); Basophils Percent Auto 0.4 % (0-2); Hematocrit 54.4 % (42.0-52.0); Hemoglobin 17.9 g/dl (14.0-18.0); Imm Gran Abs Auto 0.12 X10*3/uL (0.00-0.03); Imm Gran Pct Auto 0.8 % (0.0-0.4); Lymphocytes Absolute Auto 1.1 X10*3/uL (1.2-4.9); Lymphocytes Percent Auto 7.8 % (20-40); Mean Corpuscular HGB Conc 32.9 g/dl (31.0-36.0); Mean Corpuscular Hemoglobin 28.5 pg (27.0-33.0); Mean Corpuscular Volume 86.6 fL (80.0-98.0); Mean Platelet Volume 9.8 fL (9.4-12.4); Monocytes Absolute Auto 0.3 X10*3/uL (0.1-1.2); Monocytes Percent Auto 2.4 % (2-11); Neutrophils Absolute Auto 12.8 x10*3/uL (2.0-8.3); Neutrophils Percent Auto 88.6 % (45-73); Platelet Count 197 X10*3/uL (160-400); Red Blood Count 6.28 X10*6/uL (4.60-5.80); Red Cell Distribution Width 13.8 % (11.0-16.0); White Blood Count 14.4 X10*3/uL (4.8-10.8)
[2022-06-19 13:30] LABS: COVID-19 Test Negative (Negative); IDNOW Serial# 55D5AD1C
[2022-06-19 13:41] LABS: D Dimer High Sensitivity < 150 NG/ML
[2022-06-19 13:45] LABS: Lactic Acid 1.8 mmol/L (0.5-2.0)
[2022-06-19 13:52] LABS: Alanine Aminotransferase 41 U/L (0-40); Albumin Level 4.8 g/dL (3.5-5.0); Alkaline Phosphatase 90 U/L (39-117); Anion Gap 20 (12-20); Aspartate Amino Transferase 27 U/L (5-37); Bilirubin Direct 0.3 mg/dL (0.0-0.5); Bilirubin Total 0.6 mg/dL (0.0-1.0); Blood Urea Nitrogen 12 mg/dL (9-16); Calcium 9.5 mg/dL (8.4-10.2); Carbon Dioxide 20 mmol/L (22-29); Chloride 103 mmol/L (96-108); Creatinine Clr Calc Pharmacy 107.5; Estimated Glomerular Filt Rate > 60; Ethanol < 10 mg/dL; Glucose Random 135 mg/dL (60-115); Lipase 4 U/L (8-78); Magnesium 1.8 mg/dL (1.6-2.6); Potassium 4.1 mmol/L (3.3-5.1); Sodium 139 mmol/L (135-145)
[2022-06-19 13:53] LABS: Troponin-I High Sensitivity 6.1 ng/L (<3.5-35.0)
[2022-06-19 13:54] LABS: B Type Natriuretic Peptide 17 pg/mL (<100)
--- NOTE | 2022-06-19 14:02 | PHA.MEDREC ---
Pharmacy Consult ? Medication Reconciliation Pharmacy has completed the medication reconciliation. BACTRIM WAS DISCONTINUED PER PATIENT Thanks Mark
[2022-06-19] MEDS: iohexoL 350 MG/ML 100 ML INFUS..BTL IV (14:48)
[2022-06-19 17:10] LABS: Appearance Urine Clear; Color Urine Yellow; Glucose Urine UA Negative (Negative); Leukocyte Esterase Urine Negative (Negative); Nitrite Urine Negative (Negative); PH 7.5 (5.0-9.0); Specific Gravity - Urine >= 1.030 (1.005-1.025); UMIC TRIGGER UACC YES; Urine Blood Trace (Negative); Urine Ketones 40 mg/dL (Negative); Urine Protein 30 (1+) mg/dL (Neg-Trace)
[2022-06-19 17:13] LABS: Bacteria Urine None Seen (None Seen); Hyaline Casts Urine 0-2 /LPF (0-2); Squamous Epithelial Cell Urine 0-2 /HPF (0-2); WBC Urine 0-5 /HPF (0-5)
[2022-06-19 17:21] LABS: Amphetamine Screen Urine Not Detected (Not Detect); Barbiturates, Urine Not Detected (Not Detect); Benzodiazepines Screen Urine Not Detected (Not Detect); Cannabinoid Screen Urine POSITIVE (Not Detect); Cocaine Screen Urine Not Detected (Not Detect); Fentanyl, urine Not Detected (Not Detect); Phencyclidine Screen Urine Not Detected (Not Detect)
--- NOTE | 2022-06-19 17:24 | P.HPHOSP_ITS ---
History of Present Illness Date of Service: 06/19/22 <TARUN Schultz - Last Filed: 06/19/22 18:28> Attending physician on admission: Jyoti Guzmán <TARUN Schultz - Last Filed: 06/19/22 18:28> Chief Complaint: syncope, abdominal pain <TARUN Schultz - Last Filed: 06/19/22 18:28> 52 year old male with history of CAD s/p MICHAEL 4 year ago, htn, hld, depression/anxiety, unspecified seizure disorder, former cigarette smoker with 30 pack year history, and history of alcohol abuse induced pancreatitis presented to the ED earlier today following syncopal episodes. Reports he developed diffuse abdominal pain, most prominent LUQ radiating rated 10/10 with associated nausea and many episodes of vomiting. Reports some bright red blood one episode vomiting that has not recurred. States following the vomiting episode, he was exiting the bathroom and developed lightheadedness with tunnel vision and syncopized. He is endorse how long he lost consciousness. No post ictal period. He states 2 similar episodes following this. Had one episode of diarrhea last night without any hematochezia or melena. He was recently treated outpt for UTI and tells me he had some trauma from blount catheter placed at [facility] following a seizure episode 2 weeks ago. He denies any ongoing dysuria, hematuria, increased urinary frequency. No fevers, chills. States he was diagnosed with an arrhythmia years ago in the service but has not had any issues with arrhythmia since. Denies lightheadedness currently, palpitations, or chest pain. He smokes marijuana multiple times daily for mental health and pain. Denies any illicit drug use. States has a history of excessive alcohol consumption but has been working on lifestyle and only consumes alcohol occassionally. Reports having a single alcoholic beverage two days ago. Has lost 60 pounds in the last 4 months intentionally with diet and exercise. Pt on tele in ED without dysrhythmia. Mildly tachycardic at times to 101 with intermittent tachypnea 22. Blood pressures normal, no hypoxia. EKG NSR, no ST/T wave abnormality. UA with elecated spec gravity, 1+ protein, neg leuks, neg nitrites, neg bacteria. WBC 14.4. Lactic acid 1.8. Renal function normal. Lipase 4. H/H baseline, no anemia. CXR with minimal subsegmental atelectasis b/l. Head CT and cervical spine CT negative for fracture/dislocation or acute intracranial patholgy. Ct abd/pelvis with complex solid and cystic mass protruding from neaveh head of the pancreas roughly 4cm, cannot rule out neoplasm without contrast enhanced-MRI and/or EUS. No evidence of kidney stone or hydronephrosis. <TARUN Schultz - Last Filed: 06/19/22 18:28> Review of Systems Review of Systems: General: No fevers, malaise, unintentional weight loss HEENT: No blurred vision, diplopia Cardiovascular: No chest pain, palpitations, or leg edema Respiratory: No shortness of breath, wheezing, cough GI: +abd pain, +n/v. No persistent diarrhea, constipation, melena, hematochezia : No dysuria, hematuria, increased urinary frequency MSK: +bilateral low back pain Neuro: +LOC, +lightheadedness. No headaches, weakness, paresthesias Skin: No rashes or lesions <TARUN Schultz Last Filed: 06/19/22 18:28> [facility] Medical History: Medical History (Updated 06/19/22 @ 17:53 by Sheldon Madrigal MD) Acute pancreatitis NAMITA (acute kidney injury) Alcohol withdrawal CAD (coronary artery disease) Chronic systolic (congestive) heart failure Depression with anxiety Heart attack Pancreatic cyst Seizure <TARUN Schultz - Last Filed: 06/19/22 18:28> Family History: Family History (Updated 06/19/22 @ 17:53 by TARUN Schultz) Mother Breast cancer CAD (coronary artery disease) Father Psoriasis <TARUN Schultz - Last Filed: 06/19/22 18:28> Surgical History: Surgical History Stented coronary artery <TARUN Schultz Last Filed: 06/19/22 18:28> Social History: Social History Household Members: None Housing: Apartment Are you a primary animal care specialist to a significant other at home: No Do you presently have visiting nurse or other home services: Yes Patient Tobacco Use Status: Former Tobacco user Tobacco use type: Cigarette Second Hand Smoke Exposure: No Substance Use Type: Marijuana Advance Directives: No Advance Directives Information Provided: Yes service: Yes Current occupational status: disabled <TARUN Schultz - Last Filed: 06/19/22 18:28> Meds Allergies/Adverse reactions: Allergies Allergy/AdvReac Type Severity Reaction Status Date / Time Penicillins Allergy Unknown Unknown Verified 01/28/22 19:50 <TARUN Schultz - Last Filed: 06/19/22 18:28> Active Medications: Current Medications Acetaminophen (Acetaminophen 325 Mg Tablet) 975 mg PO Q8H PRN PRN Reason: Pain, Mild (Pain Scale 1-3) Albuterol Sulfate (Albuterol Sulfate 90 Mcg 8 Gm Inhaler) 2 puff INHALE Q4H PRN PRN Reason: Shortness Of Breath Amitriptyline HCl (Amitriptyline Hcl 50 Mg Tablet) 200 mg PO BEDTIME [facility] Aspirin (Aspirin Enteric Coated 81 Mg Tablet.Dr) 81 mg PO DAILY [facility] Atorvastatin Calcium (Atorvastatin Calcium 80 Mg Tablet) 80 mg PO DAILY [facility] Clonazepam (Clonazepam 1 Mg Tablet) 2 mg PO BID PRN PRN Reason: Anxiety Clonazepam (Clonazepam 1 Mg Tablet) 2 mg PO DAILY [facility] Clonidine HCl (Clonidine Hcl 0.1 Mg Tablet) 0.1 mg PO BID [facility]; Protocol Famotidine (Famotidine 20 Mg Tablet) 40 mg PO DAILY [facility] Sodium Chloride (Ns) 1,000 mls @ 999 mls/hr IV .Q1H1M [facility] Stop: 06/19/22 17:45 Last Admin: 06/19/22 16:46 Dose: 999 mls/hr Levetiracetam (Levetiracetam 250 Mg Tablet) 750 mg PO BID [facility] Loratadine (Loratadine 10 Mg Tablet) 10 mg PO DAILY [facility] Metoprolol Succinate (Metoprolol Succinate Er 25 Mg Tab.Er.24h) 25 mg PO DAILY [facility]; Protocol Multivitamins/Vitamin C (Multivitamin Tablet) 1 tab PO DAILY [facility] Non-Formulary Medication (Testosterone) 5 pump TOPICAL DAILY [facility] Pharmacy Consult (Consult Rx Perform Med Rec) 1 each MISCELLANE ONCE PRN PRN Reason: Consult order Tamsulosin HCl (Tamsulosin Hcl 0.4 Mg Capsule) 0.4 mg PO BID [facility] <TARUN Schultz - Last Filed: 06/19/22 18:28> Home medications: Home Medications Medication Instructions Recorded Confirmed Last Taken Type albuterol sulfate 90 mcg/actuation 2 puff PO Q4H PRN Shortness Of 04/28/21 06/19/22 04/27/21 History aerosol inhaler Breath aspirin 81 mg tablet,delayed 1 tab PO DAILY 04/28/21 06/19/22 06/18/22 History release amitriptyline 100 mg tablet 2 tab PO BEDTIME 05/17/21 06/19/22 06/18/22 History clonidine HCl 0.1 mg tablet 1 tab PO BID 05/17/21 06/19/22 06/18/22 History famotidine 40 mg tablet 1 tab PO DAILY 05/17/21 06/19/22 06/18/22 History levetiracetam 750 mg tablet 1 tab PO BID 05/17/21 06/19/22 06/18/22 History loratadine 10 mg tablet 1 tab PO DAILY 05/17/21 06/19/22 06/18/22 History metoprolol succinate 25 mg 1 tab PO DAILY 05/17/21 06/19/22 06/18/22 History tablet,extended release 24 hr rosuvastatin 20 mg tablet 1 tab PO DAILY 05/17/21 06/19/22 06/18/22 History tamsulosin 0.4 mg capsule 1 cap PO BID 05/17/21 06/19/22 06/18/22 History acetaminophen 325 mg tablet 975 mg PO Q8H PRN Pain 03/20/22 06/19/22 03/19/22 History clonazepam 2 mg tablet 1 tab PO BID PRN Anxiety 03/20/22 06/19/22 Unknown History multivitamin 1 tab PO DAILY 03/20/22 06/19/22 06/18/22 History testosterone 20.25 mg/1.25 gram 5 pump topical DAILY 03/20/22 06/19/22 06/18/22 History (1.62 %) transdermal gel pump clonazepam 2 mg tablet 1 tab PO DAILY 06/19/22 06/19/22 06/18/22 History sulfamethoxazole 800 1 tab PO Q12H 06/19/22 Unknown History mg-trimethoprim 160 mg tablet <TARUN Schultz - Last Filed: 06/19/22 18:28> Physical Exam Vital Signs and Narrative: Vital Signs: Last Vital Signs Temp 98.5 F 06/19/22 11:45 Pulse 71 06/19/22 16:00 Resp 13 06/19/22 16:00 BP 147/98 H 06/19/22 16:00 Pulse Ox 96 06/19/22 16:00 O2 Del Method 06/19/22 16:00 BMI result Body Mass Index 33.4 <TARUN Schultz - Last Filed: 06/19/22 18:28> Constitutional - Awake and Alert, distressed holding abdomen Eyes - PERRLA, EOMI Cardiovascular - S1S2, RRR, No edema Respiratory - Normal lung expansion, Normal respiratory effort, No respiratory distress, CTA bilaterally Gastrointestinal - Moderately distended abdomen with diffuse ttp, worst in lower quadrants with involuntary guarding. +BS - No CVA tenderness Back: tenderness to palpation across low back Extremities - no calf tenderness bilaterally, no swelling Skin - Warm/Dry. Superficial farfan to upper chest and back secondary to tanning bed Neurological - Alert & oriented x3, CN II-XII in tact, 5/5 strength BUE and BLE, no sensory deficit Psychological - Appropriate affect <TARUN Schultz - Last Filed: 06/19/22 18:28> Results Labs CBC and Chem 7: : 06/19/22 13:05 06/19/22 13:05 <TARUN Schultz - Last Filed: 06/19/22 18:28> Labs: Laboratory Results - last 24 hr 06/19/22 06/19/22 06/19/22 13:04 13:05 13:05 MCV 86.6 MCH 28.5 MCHC 32.9 RDW 13.8 Plt Count 197 MPV 9.8 Immature Gran % (Auto) 0.8 H Neut % (Auto) 88.6 H Lymph % (Auto) 7.8 L [place] % (Auto) 2.4 Eos % (Auto) 0.0 Baso % (Auto) 0.4 Lymph # (Auto) 1.1 L [place] # (Auto) 0.3 Eos # (Auto) 0.0 Baso # (Auto) 0.1 Abs Immat Gran (auto) 0.12 H Absolute Neuts (auto) 12.8 H Absolute Nucleated RBC 0.000 Nucleated RBC % (auto) 0.0 D-Dimer High Sensitivty Anion Gap 20 Estim Creat Clear Calc 107.5 Estimated GFR > 60 Random Glucose 135 H Lactic Acid 1.8 Calcium 9.5 D Magnesium 1.8 Total Bilirubin 0.6 Direct Bilirubin 0.3 AST 27 D ALT 41 H Alkaline Phosphatase 90 D Total Creatine Kinase 194 H D B-Natriuretic Peptide Total Protein 8.0 D Albumin 4.8 D Lipase 4 L Urine Color Urine Appearance Urine pH Ur Specific [place] Urine Protein Urine Glucose (UA) Urine Ketones Urine Blood Urine Nitrite Ur Leukocyte Esterase Urine RBC Urine WBC Ur Squamous Epith Cells Urine Bacteria Hyaline Casts Urine Fentanyl Screen Ur Barbiturates Screen Ur Phencyclidine Scrn Ur Amphetamines Screen U Benzodiazepines Scrn Urine Cocaine Screen U Marijuana (THC) Screen Ethyl Alcohol < 10 COVID-19 (FADUMO) COVID-19 [employer] 06/19/22 06/19/22 06/19/22 13:06 13:07 13:07 MCV MCH MCHC RDW Plt Count MPV Immature Gran % (Auto) Neut % (Auto) Lymph % (Auto) [place] % (Auto) Eos % (Auto) Baso % (Auto) Lymph # (Auto) [place] # (Auto) Eos # (Auto) Baso # (Auto) Abs Immat Gran (auto) Absolute Neuts (auto) Absolute Nucleated RBC Nucleated RBC % (auto) D-Dimer High Sensitivty < 150 Anion Gap Estim Creat Clear Calc Estimated GFR Random Glucose Lactic Acid Calcium Magnesium Total Bilirubin Direct Bilirubin AST ALT Alkaline Phosphatase Total Creatine Kinase B-Natriuretic Peptide 17 Total Protein Albumin Lipase Urine Color Urine Appearance Urine pH Ur Specific [place] Urine Protein Urine Glucose (UA) Urine Ketones Urine Blood Urine Nitrite Ur Leukocyte Esterase Urine RBC Urine WBC Ur Squamous Epith Cells Urine Bacteria Hyaline Casts Urine Fentanyl Screen Ur Barbiturates Screen Ur Phencyclidine Scrn Ur Amphetamines Screen U Benzodiazepines Scrn Urine Cocaine Screen U Marijuana (THC) Screen Ethyl Alcohol COVID-19 ([facility]ADUMO) Negative COVID-19 [employer] See Note 06/19/22 06/19/22 16:59 16:59 MCV MCH MCHC RDW Plt Count MPV Immature Gran % (Auto) Neut % (Auto) Lymph % (Auto) [place] % (Auto) Eos % (Auto) Baso % (Auto) Lymph # (Auto) [place] # (Auto) Eos # (Auto) Baso # (Auto) Abs Immat Gran (auto) Absolute Neuts (auto) Absolute Nucleated RBC Nucleated RBC % (auto) D-Dimer High Sensitivty Anion Gap Estim Creat Clear Calc Estimated GFR Random Glucose Lactic Acid Calcium Magnesium Total Bilirubin Direct Bilirubin AST ALT Alkaline Phosphatase Total Creatine Kinase B-Natriuretic Peptide Total Protein Albumin Lipase Urine Color Yellow Urine Appearance Clear Urine pH 7.5 Ur Specific [place] >= 1.030 H Urine Protein 30 (1+) H Urine Glucose (UA) Negative Urine Ketones 40 Urine Blood Trace H Urine Nitrite Negative Ur Leukocyte Esterase Negative Urine RBC 3-5 H Urine WBC 0-5 Ur Squamous Epith Cells 0-2 Urine Bacteria None Seen Hyaline Casts 0-2 Urine Fentanyl Screen Not Detected Ur Barbiturates Screen Not Detected Ur Phencyclidine Scrn Not Detected Ur Amphetamines Screen Not Detected U Benzodiazepines Scrn Not Detected Urine Cocaine Screen Not Detected U Marijuana (THC) Screen POSITIVE H Ethyl Alcohol COVID-19 ([facility]) COVID-19 [facility] <TARUN Schultz - Last Filed: 06/19/22 18:28> Imaging Radiologist's Impressions: Impressions Chest X-Ray 06/19/22 12:25 IMPRESSION: Minimal subsegmental atelectasis at the lung bases. Abdomen/Pelvis CT 06/19/22 15:11 IMPRESSION: *Complex solid and cystic mass protruding from the head of the pancreas roughly 4 cm, cannot rule out pancreatic neoplasm, this would require further investigation with contrast-enhanced MRI and/or EUS. *No CT evidence of kidney stone or hydronephrosis. (Referring physician staff is being called, to be alerted of the above findings and recommendations.) AJ Cervical Spine CT 06/19/22 15:11 IMPRESSION: 1. No acute intracranial pathology. 2. No fractures or dislocations of the cervical spine. This CT examination was performed using dose optimization techniques as appropriate, variously including the following: *Automated exposure control *Adjustment of mA and/or kV according to patient size (this includes techniques or standardized protocols for targeted exams where dose is matched to indication/reason for exam; i.e. extremities or head) *Use of iterative reconstruction technique Head CT 06/19/22 15:11 IMPRESSION: 1. No acute intracranial pathology. 2. No fractures or dislocations of the cervical spine. This CT examination was performed using dose optimization techniques as appropriate, variously including the following: *Automated exposure control *Adjustment of mA and/or kV according to patient size (this includes techniques or standardized protocols for targeted exams where dose is matched to indication/reason for exam; i.e. extremities or head) *Use of iterative reconstruction technique <TARUN Schultz - Last Filed: 06/19/22 18:28> Assessment and Plan (1) Syncope and collapse: Status: Acute <TARUN Schultz - Last Filed: 06/19/22 18:28> (2) Abdominal pain: Status: Acute <TARUN Schultz - Last Filed: 06/19/22 18:28> 52 year old male with history of CAD s/p MICHAEL 4 year ago, htn, hld, depression/anxiety, unspecified seizure disorder, former cigarette smoker with 30 pack year history, and history of alcohol abuse induced pancreatitis admitted for syncopal episodes and intractable abdominal pain. 1- Syncope- unclear etiology at this time. Most likely vasovagal from cyclic vomiting or secondary to intractable abominal pain -Head CT/cervical spine CT negative -Hx seizure disorder. Denies post ictal period. Seizure precaution -EKG normal -CIWA protocol for possible alcohol withdrawal though pt denies -Electrolytes normal -Admit to tele- monitor for arrythmia -IV fluids for dehydration 2-Acute diffuse abdominal pain -Abd/pelvis CT with 4cm complex pancreatic mass. Lipase normal -Pt with leukocytosis, less likely infection, more likely reactive. Afebrile -Pain out of proportion to exam findings. General surgery consulted -Pain control with oxycodone, dilaudid per pain scale 3-Cyclic vomiting syndrome -Chronic MJ user vs alcohol abuse. Pt denies alcohol use in last 2 days -Recommend MJ cessation -Clear liquids, advance as tolerated -IVF -Zofran PRN 4-Dehydration- secondary to cyclic vomiting -IVF -Follow chemistries 5-SIRS criteria -Pt with mild tachycardia and tachypnea meeting SIRS criteria secondary to pain not infection -Leukocytosis likely relative secondary to cyclic vomiting and dehydration. See above. Follow CBC 6-Alcohol abuse -Pt denies alcohol consumption in last two days but has history of alcohol induced pancreatitis -CIWA scale initiated -Seizure precautions 7-Unspecified seizure disorder- pt reports h/o grand mal, petit mal, and dissociative seizures follows with neuro outpt -Denies hx alcohol withdrawal seizure -CIWA scale and seizure precautions as above -Continue keppra 8-CAD s/p MICHAEL 4 year ago- denies anginal chest pain -Continue metrolol and asa 9-Depression/anxiety -continue home meds 10- Hypogonadism -Pt must bring home testosterone per pharmacy DVT prophylaxis- lovenox Full code Pt requires inpt stay of at least 2 midnights for futher evaluation of syncope of unclear etiology, cyclic vomiting requiring diet advancement, cyclic vomiting requiring IVF, as well as acute intractable abdominal pain requiring IV pain management and surgical team evaluation. <TARUN Schultz - Last Filed: 06/19/22 18:28> 52 year old male with history of CAD s/p MICHAEL 4 year ago, htn, hld, depression/anxiety, unspecified seizure disorder, former cigarette smoker with 30 pack year history, and history of alcohol abuse induced pancreatitis admitted for syncopal episodes and intractable abdominal pain. 1- Syncope- unclear etiology at this time. Most likely vasovagal from cyclic vomiting or secondary to intractable abominal pain -Head CT/cervical spine CT negative -Hx seizure disorder. Denies post ictal period. Seizure precaution -EKG normal -CIWA protocol for possible alcohol withdrawal though pt denies -Electrolytes normal -Admit to tele- monitor for arrythmia, Check orthostatic blood pressure -IV fluids for dehydration 2-Acute diffuse abdominal pain -Abd/pelvis CT with 4cm complex pancreatic mass. Lipase normal -Pt with leukocytosis, less likely infection, more likely reactive. Afebrile -Pain out of proportion to exam findings. General surgery consulted -Pain control with oxycodone, dilaudid per pain scale 3-Cyclic vomiting syndrome -Chronic MJ user vs alcohol abuse. Pt denies alcohol use in last 2 days -Recommend MJ cessation -Clear liquids, advance as tolerated -IVF -Zofran PRN 4-Dehydration- secondary to cyclic vomiting -IVF -Follow chemistries 5-SIRS criteria -Pt with mild tachycardia and tachypnea meeting SIRS criteria secondary to pain not infection -Leukocytosis likely relative secondary to cyclic vomiting and dehydration. See above. Follow CBC 6-Alcohol abuse -Pt denies alcohol consumption in last two days but has history of alcohol induced pancreatitis -CIWA scale initiated -Seizure precautions 7-Unspecified seizure disorder- pt reports h/o grand mal, petit mal, and dissociative seizures follows with neuro outpt -Denies hx alcohol withdrawal seizure -CIWA scale and seizure precautions as above -Continue keppra 8-CAD s/p MICHAEL 4 year ago- denies anginal chest pain -Continue metrolol and asa 9-Depression/anxiety -continue home meds 10- Hypogonadism -Pt must bring home testosterone per pharmacy DVT prophylaxis- lovenox Full code Pt requires inpt stay of at least 2 midnights for futher evaluation of syncope of unclear etiology, cyclic vomiting requiring diet advancement, cyclic vomiting requiring IVF, as well as acute intractable abdominal pain requiring IV pain management and surgical team evaluation. <Jyoti Guzmán MD - Last Filed: 06/19/22 19:01> Quality Stroke Does the patient have a stroke diagnosis?: No <TARUN Schultz - Last Filed: 06/19/22 18:28> VTE Prior VTE?: No <TARUN Schultz - Last Filed: 06/19/22 18:28> VTE Risk Level:: Medical - moderate - high <TARUN Schultz - Last Filed: 06/19/22 18:28> VTE Device Contraindication: Treatment Not Indicated <TARUN Schultz - Last Filed: 06/19/22 18:28> VTE Drug Contraindication: N/A - Med Ordered <TARUN Schultz - Last Filed: 06/19/22 18:28>
[2022-06-19 17:26] LABS: Opiate Screen Urine POSITIVE (Not Detect)
--- NOTE | 2022-06-19 17:46 | P.CONGS_ITS ---
History of Present Illness Consult details Consult date: 06/19/22 Narrative: 52M referred for an abnormal CT scan of the pancreas. He has known ETOH abuse along with CAD, syncope and seizure disorder. He says that he passed out at home earlier today and has no recall of the events around that time. He had also complained of abdominal pain mostly on the upper part, so a CT scan was done showing what appears to be a complex cyst in the head of the pancreas. He does have ahx of alcohol pancreatitis. He was admitted here last March 2022 for withdrawal symptoms. He says he has not had ETOH intake for many weeks now. [facility] a [facility]. He says he vomitted eralier today. He also admits to having problems with depression and says he was admitted to [facility] recently for suicidal ideations. Review of Systems Constitutional: Constitutional: Denies chills and Denies fever(s) Cardiovascular: Cardiovascular: Denies chest pain, Denies dyspnea and Denies dyspnea on exertion Respiratory: Respiratory: Denies cough, Denies dyspnea and Denies dyspnea on exertion Gastrointestinal: Gastrointestinal: Denies hematochezia and Denies change in bowel habits Genitourinary: Genitourinary: Denies hematuria and Denies difficulty urinating Musculoskeletal: Musculoskeletal: Denies back pain and Denies limited range of motion Neurologic: Denies focal weakness and Denies convulsions Psychiatric: Psychiatric: Reports depression and Denies mood swings PMFSH Past Medical History Medical History (Updated 06/19/22 @ 17:53 by Sheldon Madrigal MD) Acute pancreatitis NAMITA (acute kidney injury) Alcohol withdrawal CAD (coronary artery disease) Chronic systolic (congestive) heart failure Depression with anxiety Heart attack Pancreatic cyst Seizure Family History Family History (Updated 06/19/22 @ 17:53 by TARUN Schultz) Mother Breast cancer CAD (coronary artery disease) Father Psoriasis Surgical History Surgical History Stented coronary artery Social History Social History Household Members: None Housing: Apartment Are you a primary rn palliative care to a significant other at home: No Do you presently have visiting nurse or other home services: Yes Patient Tobacco Use Status: Former Tobacco user Tobacco use type: Cigarette Second Hand Smoke Exposure: No Substance Use Type: Marijuana and Opiates service: Yes Current occupational status: disabled Meds Allergies Allergy/AdvReac Type Severity Reaction Status Date / Time Penicillins Allergy Unknown Unknown Verified 01/28/22 19:50 Active Medications: Current Medications Acetaminophen (Acetaminophen 325 Mg Tablet) 975 mg PO Q8H PRN PRN Reason: Pain, Mild (Pain Scale 1-3) Acetaminophen (Acetaminophen 325 Mg Tablet) 650 mg PO Q6H PRN PRN Reason: Pain, Mild (Pain Scale 1-3) Albuterol Sulfate (Albuterol Sulfate 90 Mcg 8 Gm Inhaler) 2 puff INHALE Q4H PRN PRN Reason: Shortness Of Breath Amitriptyline HCl (Amitriptyline Hcl 50 Mg Tablet) 200 mg PO BEDTIME COUNT INCLUDES THE [facility] Aspirin (Aspirin Enteric Coated 81 Mg Tablet.Dr) 81 mg PO DAILY COUNT INCLUDES THE [facility] Atorvastatin Calcium (Atorvastatin Calcium 80 Mg Tablet) 80 mg PO DAILY COUNT INCLUDES THE [facility] Clonazepam (Clonazepam 1 Mg Tablet) 2 mg PO BID PRN PRN Reason: Anxiety Clonazepam (Clonazepam 1 Mg Tablet) 2 mg PO DAILY COUNT INCLUDES THE [facility] Clonidine HCl (Clonidine Hcl 0.1 Mg Tablet) 0.1 mg PO BID COUNT INCLUDES THE [facility]; Protocol Docusate Sodium (Docusate Sodium 100 Mg Capsule) 100 mg PO BID PRN PRN Reason: constipation Famotidine (Famotidine 20 Mg Tablet) 40 mg PO DAILY COUNT INCLUDES THE [facility] Hydromorphone HCl (Hydromorphone Hcl 0.5 Mg/0.5 Ml Syringe) 0.5 mg IVPUSH Q4H PRN; Protocol PRN Reason: Pain, Severe (Pain Scale 7-10) Levetiracetam (Levetiracetam 250 Mg Tablet) 750 mg PO BID COUNT INCLUDES THE [facility] Loratadine (Loratadine 10 Mg Tablet) 10 mg PO DAILY COUNT INCLUDES THE [facility] Metoprolol Succinate (Metoprolol Succinate Er 25 Mg Tab.Er.24h) 25 mg PO DAILY COUNT INCLUDES THE [facility]; Protocol Multivitamins/Vitamin C (Multivitamin Tablet) 1 tab PO DAILY COUNT INCLUDES THE [facility] Non-Formulary Medication (Testosterone) 5 pump TOPICAL DAILY COUNT INCLUDES THE [facility] Ondansetron HCl (Ondansetron Hcl 4 Mg/2 Ml Vial) 4 mg IVPUSH Q8H PRN PRN Reason: Nausea and Vomiting Oxycodone HCl (Oxycodone Hcl Immed Release 5 Mg Tablet) 5 mg PO Q6H PRN PRN Reason: Pain, Moderate (Pain Scale 4-6 Pharmacy Consult (Consult Rx Perform Med Rec) 1 each MISCELLANE ONCE PRN PRN Reason: Consult order Sodium Chloride (0.9 % Sodium Chloride Flush 3 Ml Syringe) 3 ml IVFLUSH QSHIFT COUNT INCLUDES THE [facility] Tamsulosin HCl (Tamsulosin Hcl 0.4 Mg Capsule) 0.4 mg PO BID COUNT INCLUDES THE [facility] Home Medications Medication Instructions Recorded Confirmed Last Taken Type albuterol sulfate 90 mcg/actuation 2 puff PO Q4H PRN Shortness Of 04/28/21 06/19/22 04/27/21 History aerosol inhaler Breath aspirin 81 mg tablet,delayed 1 tab PO DAILY 04/28/21 06/19/22 06/18/22 History release amitriptyline 100 mg tablet 2 tab PO BEDTIME 05/17/21 06/19/22 06/18/22 History clonidine HCl 0.1 mg tablet 1 tab PO BID 05/17/21 06/19/22 06/18/22 History famotidine 40 mg tablet 1 tab PO DAILY 05/17/21 06/19/22 06/18/22 History levetiracetam 750 mg tablet 1 tab PO BID 05/17/21 06/19/22 06/18/22 History loratadine 10 mg tablet 1 tab PO DAILY 05/17/21 06/19/22 06/18/22 History metoprolol succinate 25 mg 1 tab PO DAILY 05/17/21 06/19/22 06/18/22 History tablet,extended release 24 hr rosuvastatin 20 mg tablet 1 tab PO DAILY 05/17/21 06/19/22 06/18/22 History tamsulosin 0.4 mg capsule 1 cap PO BID 05/17/21 06/19/22 06/18/22 History acetaminophen 325 mg tablet 975 mg PO Q8H PRN Pain 03/20/22 06/19/22 03/19/22 History clonazepam 2 mg tablet 1 tab PO BID PRN Anxiety 03/20/22 06/19/22 Unknown History multivitamin 1 tab PO DAILY 03/20/22 06/19/22 06/18/22 History testosterone 20.25 mg/1.25 gram 5 pump topical DAILY 03/20/22 06/19/22 06/18/22 History (1.62 %) transdermal gel pump clonazepam 2 mg tablet 1 tab PO DAILY 09/06/19/22 06/18/22 History Physical Exam Vital Signs: Vital Signs: Last Vital Signs Temp 98.5 F 06/19/22 11:45 Pulse 93 06/19/22 17:25 Resp 22 H 06/19/22 17:25 BP 126/81 06/19/22 17:25 Pulse Ox 98 06/19/22 17:25 O2 Del Method 06/19/22 16:00 BMI result Body Mass Index 33.4 Const: General: comfortable, no acute distress and alert Orientation/consciousness: patient oriented x3 Neck: Neck: Yes no lymphadenopathy Resp: Auscultation: clear to auscultation bilaterally Cardio: Rhythm: regular rhythm GI: Palpation (GI): Soft to palpation, Tenderness to palpation present (GI) (on upper abdomen) and no guarding Neuro: General: patient oriented x3 Results Labs Result diagrams: 06/21/22 07:42 06/21/22 07:42 Labs: Abnormal lab results 06/19/22 06/19/22 06/19/22 Range/Units 13:05 13:05 16:59 WBC 14.4 H (4.8-10.8) X10*3/uL RBC 6.28 H (4.60-5.80) X10*6/uL Hct 54.4 H (42.0-52.0) % Immature Gran % (Auto) 0.8 H (0.0-0.4) % Neut % (Auto) 88.6 H (45-73) % Lymph % (Auto) 7.8 L (20-40) % Lymph # (Auto) 1.1 L (1.2-4.9) X10*3/uL Abs Immat Gran (auto) 0.12 H (0.00-0.03) X10*3/uL Absolute Neuts (auto) 12.8 H (2.0-8.3) x10*3/uL Carbon Dioxide 20 L (22-29) mmol/L Random Glucose 135 H (60-115) mg/dL ALT 41 H (0-40) U/L Total Creatine Kinase 194 H D (38-174) U/L Lipase 4 L (8-78) U/L Ur Specific [place] >= 1.030 H (1.005-1.025) Urine Protein 30 (1+) H (Neg-Trace) mg/dL Urine Blood Trace H (Negative) Urine RBC 3-5 H (0-2) /HPF Urine Opiates Screen (Not Detect) U Marijuana (THC) Screen (Not Detect) 06/19/22 Range/Units 16:59 WBC (4.8-10.8) X10*3/uL RBC (4.60-5.80) X10*6/uL Hct (42.0-52.0) % Immature Gran % (Auto) (0.0-0.4) % Neut % (Auto) (45-73) % Lymph % (Auto) (20-40) % Lymph # (Auto) (1.2-4.9) X10*3/uL Abs Immat Gran (auto) (0.00-0.03) X10*3/uL Absolute Neuts (auto) (2.0-8.3) x10*3/uL Carbon Dioxide (22-29) mmol/L Random Glucose (60-115) mg/dL ALT (0-40) U/L Total Creatine Kinase (38-174) U/L Lipase (8-78) U/L Ur Specific [place] (1.005-1.025) Urine Protein (Neg-Trace) mg/dL Urine Blood (Negative) Urine RBC (0-2) /HPF Urine Opiates Screen POSITIVE H (Not Detect) U Marijuana (THC) Screen POSITIVE H (Not Detect) Short CBC 06/19/22 Range/Units 13:05 WBC 14.4 H (4.8-10.8) X10*3/uL Hgb 17.9 (14.0-18.0) g/dl Hct 54.4 H (42.0-52.0) % Plt Count 197 (160-400) X10*3/uL BMP 06/19/22 13:05 Sodium 139 Potassium 4.1 D Chloride 103 Carbon Dioxide 20 L BUN 12 Creatinine 0.92 Calcium 9.5 D Cardiac Enzymes 06/19/22 Range/Units 13:05 Total Creatine Kinase 194 H D (38-174) U/L Liver Function 06/19/22 Range/Units 13:05 Total Bilirubin 0.6 (0.0-1.0) mg/dL Direct Bilirubin 0.3 (0.0-0.5) mg/dL AST 27 D (5-37) U/L ALT 41 H (0-40) U/L Alkaline Phosphatase 90 D (39-117) U/L Albumin 4.8 D (3.5-5.0) g/dL Urine 06/19/22 Range/Units 16:59 Urine Color Yellow Urine Appearance Clear Urine pH 7.5 (5.0-9.0) Ur Specific [place] >= 1.030 H (1.005-1.025) Urine Protein 30 (1+) H (Neg-Trace) mg/dL Urine Glucose (UA) Negative (Negative) mg/dL All other labs normal. Imaging Additional studies: Laboratory Results WBC 14.4 X10*3/uL (4.8-10.8) H 06/19/22 13:05 RBC 6.28 X10*6/uL (4.60-5.80) H 06/19/22 13:05 Hgb 17.9 g/dl (14.0-18.0) 06/19/22 13:05 Hct 54.4 % (42.0-52.0) H 06/19/22 13:05 MCV 86.6 fL (80.0-98.0) 06/19/22 13:05 MCH 28.5 pg (27.0-33.0) 06/19/22 13:05 MCHC 32.9 g/dl (31.0-36.0) 06/19/22 13:05 RDW 13.8 % (11.0-16.0) 06/19/22 13:05 Plt Count 197 X10*3/uL (160-400) 06/19/22 13:05 MPV 9.8 fL (9.4-12.4) 06/19/22 13:05 Immature Gran % (Auto) 0.8 % (0.0-0.4) H 06/19/22 13:05 Neut % (Auto) 88.6 % (45-73) H 06/19/22 13:05 Lymph % (Auto) 7.8 % (20-40) L 06/19/22 13:05 [place] % (Auto) 2.4 % (2-11) 06/19/22 13:05 Eos % (Auto) 0.0 % (0-4) 06/19/22 13:05 Baso % (Auto) 0.4 % (0-2) 06/19/22 13:05 Lymph # (Auto) 1.1 X10*3/uL (1.2-4.9) L 06/19/22 13:05 [place] # (Auto) 0.3 X10*3/uL (0.1-1.2) 06/19/22 13:05 Eos # (Auto) 0.0 X10*3/uL (0.0-0.4) 06/19/22 13:05 Baso # (Auto) 0.1 X10*3/uL (0.0-0.2) 06/19/22 13:05 Abs Immat Gran (auto) 0.12 X10*3/uL (0.00-0.03) H 06/19/22 13:05 Absolute Neuts (auto) 12.8 x10*3/uL (2.0-8.3) H 06/19/22 13:05 Absolute Nucleated RBC 0.000 X10*3/uL (0.0-0.012) 06/19/22 13:05 Nucleated RBC % (auto) 0.0 /100WBC (0.0-0.2) 06/19/22 13:05 D-Dimer High Sensitivty < 150 NG/ML 06/19/22 13:07 Sodium 139 mmol/L (135-145) 06/19/22 13:05 Potassium 4.1 mmol/L (3.3-5.1) D 06/19/22 13:05 Chloride 103 mmol/L (96-108) 06/19/22 13:05 Carbon Dioxide 20 mmol/L (22-29) L 06/19/22 13:05 Anion Gap 20 (12-20) 06/19/22 13:05 BUN 12 mg/dL (9-16) 06/19/22 13:05 Creatinine 0.92 mg/dL (0.5-1.4) 06/19/22 13:05 Estim Creat Clear Calc 107.5 06/19/22 13:05 Estimated GFR > 60 06/19/22 13:05 Random Glucose 135 mg/dL (60-115) H 06/19/22 13:05 Lactic Acid 1.8 mmol/L (0.5-2.0) 06/19/22 13:04 Calcium 9.5 mg/dL (8.4-10.2) D 06/19/22 13:05 Magnesium 1.8 mg/dL (1.6-2.6) 06/19/22 13:05 Total Bilirubin 0.6 mg/dL (0.0-1.0) 06/19/22 13:05 Direct Bilirubin 0.3 mg/dL (0.0-0.5) 06/19/22 13:05 AST 27 U/L (5-37) D 06/19/22 13:05 ALT 41 U/L (0-40) H 06/19/22 13:05 Alkaline Phosphatase 90 U/L (39-117) D 06/19/22 13:05 Total Creatine Kinase 194 U/L (38-174) H D 06/19/22 13:05 Troponin I High Sens 6.1 ng/L (<3.5-35.0) D 06/19/22 13:05 B-Natriuretic Peptide 17 pg/mL (<100) 06/19/22 13:06 Total Protein 8.0 g/dL (6.5-8.0) D 06/19/22 13:05 Albumin 4.8 g/dL (3.5-5.0) D 06/19/22 13:05 Lipase 4 U/L (8-78) L 06/19/22 13:05 Urine Color Yellow 06/19/22 16:59 Urine Appearance Clear 06/19/22 16:59 Urine pH 7.5 (5.0-9.0) 06/19/22 16:59 Ur Specific [place] >= 1.030 (1.005-1.025) H 06/19/22 16:59 Urine Protein 30 (1+) mg/dL (Neg-Trace) H 06/19/22 16:59 Urine Glucose (UA) Negative mg/dL (Negative) 06/19/22 16:59 Urine Ketones 40 mg/dL (Negative) 06/19/22 16:59 Urine Blood Trace (Negative) H 06/19/22 16:59 Urine Nitrite Negative (Negative) 06/19/22 16:59 Ur Leukocyte Esterase Negative (Negative) 06/19/22 16:59 Urine RBC 3-5 /HPF (0-2) H 06/19/22 16:59 Urine WBC 0-5 /HPF (0-5) 09/25/22 16:59 Ur Squamous Epith Cells 0-2 /HPF (0-2) 06/19/22 16:59 Urine Bacteria None Seen (None Seen) 06/19/22 16:59 Hyaline Casts 0-2 /LPF (0-2) 06/19/22 16:59 Urine Opiates Screen POSITIVE (Not Detect) H 06/19/22 16:59 Urine Fentanyl Screen Not Detected (Not Detect) 06/19/22 16:59 Ur Barbiturates Screen Not Detected (Not Detect) 06/19/22 16:59 Ur Phencyclidine Scrn Not Detected (Not Detect) 06/19/22 16:59 Ur Amphetamines Screen Not Detected (Not Detect) 06/19/22 16:59 U Benzodiazepines Scrn Not Detected (Not Detect) 06/19/22 16:59 Urine Cocaine Screen Not Detected (Not Detect) 06/19/22 16:59 U Marijuana (THC) Screen POSITIVE (Not Detect) H 06/19/22 16:59 Ethyl Alcohol < 10 mg/dL 06/19/22 13:05 COVID-19 (FADUMO) Negative (Negative) 06/19/22 13:07 COVID-19 Clin Com See Note 06/19/22 13:07 Impressions Chest X-Ray 06/19/22 12:25 IMPRESSION: Minimal subsegmental atelectasis at the lung bases. Abdomen/Pelvis CT 06/19/22 15:11 IMPRESSION: *Complex solid and cystic mass protruding from the head of the pancreas roughly 4 cm, cannot rule out pancreatic neoplasm, this would require further investigation with contrast-enhanced MRI and/or EUS. *No CT evidence of kidney stone or hydronephrosis. (Referring physician staff is being called, to be alerted of the above findings and recommendations.) AJ Cervical Spine CT 06/19/22 15:11 IMPRESSION: 1. No acute intracranial pathology. 2. No fractures or dislocations of the cervical spine. This CT examination was performed using dose optimization techniques as appropriate, variously including the following: *Automated exposure control *Adjustment of mA and/or kV according to patient size (this includes techniques or standardized protocols for targeted exams where dose is matched to indication/reason for exam; i.e. extremities or head) *Use of iterative reconstruction technique Head CT 06/19/22 15:11 IMPRESSION: 1. No acute intracranial pathology. 2. No fractures or dislocations of the cervical spine. This CT examination was performed using dose optimization techniques as appropriate, variously including the following: *Automated exposure control *Adjustment of mA and/or kV according to patient size (this includes techniques or standardized protocols for targeted exams where dose is matched to indication/reason for exam; i.e. extremities or head) *Use of iterative reconstruction technique Assessment and Plan (1) Pancreatic cyst: Status: Acute He has a complex cyst in the head of the pancreas that is likely a developing ps eudocyst from chronic pancreatitis with ETOH. He otherwise has a benign exam. We can plan on doing an MRCP as well to further define this cyst. He has other medical issues as well. I will follow along while he is in the hospital. Procedures Date of Service Date of Service: 06/19/22
[2022-06-19] MEDS: Metoprolol Succinate ER 25 MG TAB.ER.24H PO (17:47)
[2022-06-19] MEDS: Aspirin Enteric Coated 81 MG TABLET.DR PO (17:48)
[2022-06-19] MEDS: Loratadine 10 MG TABLET PO (17:48)
[2022-06-19] MEDS: clonazePAM 1 MG TABLET 2 MG PO (17:48)
[2022-06-19] MEDS: Multivitamin TABLET 1 TAB PO (17:48)
[2022-06-19] MEDS: Famotidine 20 MG TABLET 40 MG PO (17:48)
[2022-06-19] MEDS: Lactated Ringers 1,000 ML 100 ML IVCONT (17:57)
[2022-06-19 18:43] LABS: Troponin-I High Sensitivity 7.8 ng/L (<3.5-35.0)
[2022-06-19] MEDS: HYDROmorphone HCl 0.5 MG/0.5 ML SYRINGE IVPUSH ×2 (18:52→23:01)
[2022-06-19] MEDS: Enoxaparin Sodium 40 MG/0.4 ML SYRINGE SUBCUT (18:53)
[2022-06-19] MEDS: cloNIDine HCL 0.1 MG TABLET PO (21:20)
[2022-06-19] MEDS: levETIRAcetam 250 MG TABLET 750 MG PO (21:20)
[2022-06-19] MEDS: Tamsulosin HCL 0.4 MG CAPSULE PO (21:20)
--- NOTE | 2022-06-19 22:38 | PC.NURSE ---
Amitriptyline administration delayed due to inavailability in ER. Called pharmacy around 2049 and they said they would bring it up
[2022-06-19] MEDS: Amitriptyline HCl 50 MG TABLET 200 MG PO (23:02)
[2022-06-20] MEDS: ondansetron HCL 4 MG/2 ML VIAL IVPUSH ×2 (02:53→12:36)
[2022-06-20] MEDS: Lactated Ringers 1,000 ML 100 ML IVCONT ×3 (03:59→23:05)
[2022-06-20 04:52] LABS: MANUAL DIFF FLAG NO
[2022-06-20 04:53] LABS: Basophils Absolute Auto 0.1 X10*3/uL (0.0-0.2); Basophils Percent Auto 0.8 % (0-2); Eosinophils Absolute Auto 0.1 X10*3/uL (0.0-0.4); Eosinophils Percent Auto 0.7 % (0-4); Hematocrit 46.5 % (42.0-52.0); Imm Gran Abs Auto 0.08 X10*3/uL (0.00-0.03); Imm Gran Pct Auto 0.9 % (0.0-0.4); Lymphocytes Absolute Auto 1.7 X10*3/uL (1.2-4.9); Lymphocytes Percent Auto 19.3 % (20-40); Mean Corpuscular HGB Conc 32.3 g/dl (31.0-36.0); Mean Corpuscular Hemoglobin 28.1 pg (27.0-33.0); Mean Corpuscular Volume 87.2 fL (80.0-98.0); Mean Platelet Volume 8.9 fL (9.4-12.4); Monocytes Absolute Auto 0.7 X10*3/uL (0.1-1.2); Monocytes Percent Auto 7.2 % (2-11); Neutrophils Absolute Auto 6.4 x10*3/uL (2.0-8.3); Neutrophils Percent Auto 71.1 % (45-73); Platelet Count 146 X10*3/uL (160-400); Red Blood Count 5.33 X10*6/uL (4.60-5.80); Red Cell Distribution Width 13.8 % (11.0-16.0)
[2022-06-20 05:15] LABS: Anion Gap 14 (12-20); Blood Urea Nitrogen 11 mg/dL (9-16); Calcium 8.2 mg/dL (8.4-10.2); Carbon Dioxide 22 mmol/L (22-29); Chloride 106 mmol/L (96-108); Creatinine Clr Calc Pharmacy 133.7; Estimated Glomerular Filt Rate > 60; Glucose Random 94 mg/dL (60-115); Potassium 3.4 mmol/L (3.3-5.1); Sodium 139 mmol/L (135-145)
[2022-06-20] MEDS: HYDROmorphone HCl 0.5 MG/0.5 ML SYRINGE IVPUSH ×4 (05:41→19:43)
[2022-06-20 06:00] VITALS: BP 120/82; PULSE 62; RESP 34; O2SAT 98
--- NOTE | 2022-06-20 07:36 | PC.NURSE ---
patient a/o x4 . pearrla . hear rate regular at 97 beats . lungs clear . skin pink warm and dry . abdomen , distended . rebound tenderness noted left side . patient also reports left flank pain also 6/10 pain level . positive bowel sounds noted throughout . DR. Taylor contacted for N.O for nausea . patient remains on clear liquid diet . patient aware of plan of care .
[2022-06-20] MEDS: 0.9 % Sodium Chloride Flush 3 ML SYRINGE IVFLUSH ×2 (07:41→14:58)
[2022-06-20 08:08] VITALS: BP 124/71; PULSE 92; RESP 12; O2SAT 92
--- NOTE | 2022-06-20 08:41 | PC.NURSE ---
rn to rn report given to daniel. pt aware of plan of care for transfer to room 376.
[2022-06-20] MEDS: cloNIDine HCL 0.1 MG TABLET PO ×2 (10:00→19:43)
[2022-06-20] MEDS: Atorvastatin Calcium 80 MG TABLET PO (10:00)
[2022-06-20] MEDS: Famotidine 20 MG TABLET 40 MG PO (10:00)
[2022-06-20] MEDS: Aspirin Enteric Coated 81 MG TABLET.DR PO (10:00)
[2022-06-20] MEDS: levETIRAcetam 250 MG TABLET 750 MG PO ×2 (10:00→19:44)
[2022-06-20 10:01] VITALS: BP 132/73; PULSE 91; RESP 20; TEMP 36.6; O2SAT 93
[2022-06-20] MEDS: Loratadine 10 MG TABLET PO (10:01)
[2022-06-20] MEDS: clonazePAM 1 MG TABLET 2 MG PO ×2 (10:01→21:41)
[2022-06-20] MEDS: Metoprolol Succinate ER 25 MG TAB.ER.24H PO (10:01)
[2022-06-20] MEDS: Multivitamin TABLET 1 TAB PO (10:01)
[2022-06-20] MEDS: Tamsulosin HCL 0.4 MG CAPSULE PO ×2 (10:01→19:44)
--- NOTE | 2022-06-20 10:26 | MHC.CM.PN ---
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
--- NOTE | 2022-06-20 12:40 | P.PNIM_ITS ---
Subjective Subjective Date of Service: 06/20/22 Review of Systems follow up syncope and pancreatic mass Still having pain to left upper abdomen No nausea or vomiting Physical Exam Vital Signs: Vital Signs: Last Vital Signs Temp 98 F 06/20/22 10:01 Pulse 91 06/20/22 10:01 Resp 20 06/20/22 10:01 BP 132/73 06/20/22 10:01 Pulse Ox 93 06/20/22 10:01 O2 Del Method 06/20/22 10:01 BMI result Body Mass Index 33.4 Appearing in no acute distress lung sounds are clear to auscultation heart regular rate rhythm, clear S1, S2 positive bowel sounds, abdomen is soft neuro patient is alert x3, no focal deficits Objective Data Active Medications Acetaminophen (Acetaminophen 325 Mg Tablet) 975 mg PO Q8H PRN PRN Reason: Pain, Mild (Pain Scale 1-3) Acetaminophen (Acetaminophen 325 Mg Tablet) 650 mg PO Q6H PRN PRN Reason: Pain, Mild (Pain Scale 1-3) Albuterol Sulfate (Albuterol Sulfate 90 Mcg 8 Gm Inhaler) 2 puff INHALE Q4H PRN PRN Reason: Shortness Of Breath Amitriptyline HCl (Amitriptyline Hcl 50 Mg Tablet) 200 mg PO BEDTIME [facility] Last Admin: 06/19/22 23:02 Dose: 200 mg Documented By: RUBIA Aspirin (Aspirin Enteric Coated 81 Mg Tablet.) 81 mg PO DAILY [facility] Last Admin: 06/20/22 10:00 Dose: 81 mg Documented By: CANDACE Atorvastatin Calcium (Atorvastatin Calcium 80 Mg Tablet) 80 mg PO DAILY [facility] Last Admin: 06/20/22 10:00 Dose: 80 mg Documented By: CANDACE Clonazepam (Clonazepam 1 Mg Tablet) 2 mg PO BID PRN PRN Reason: Anxiety Clonazepam (Clonazepam 1 Mg Tablet) 2 mg PO DAILY [facility] Last Admin: 06/20/22 10:01 Dose: 2 mg Documented By: CANDACE Clonidine HCl (Clonidine Hcl 0.1 Mg Tablet) 0.1 mg PO BID [facility]; Protocol Last Admin: 06/20/22 10:00 Dose: 0.1 mg Documented By: CANDACE Docusate Sodium (Docusate Sodium 100 Mg Capsule) 100 mg PO BID PRN PRN Reason: constipation Enoxaparin Sodium (Enoxaparin Sodium 40 Mg/0.4 Ml Syringe) 40 mg SUBCUT Q24H [facility] Last Admin: 06/19/22 18:53 Dose: 40 mg Documented By: GIOVANNI Famotidine (Famotidine 20 Mg Tablet) 40 mg PO DAILY [facility] Last Admin: 06/20/22 10:00 Dose: 40 mg Documented By: CANDACE Hydromorphone HCl (Hydromorphone Hcl 0.5 Mg/0.5 Ml Syringe) 0.5 mg IVPUSH Q4H PRN; Protocol PRN Reason: Pain, Severe (Pain Scale 7-10) Last Admin: 06/20/22 09:59 Dose: 0.5 mg Documented By: CANDACE Lactated Ringer's (Lr) 1,000 mls @ 100 mls/hr IVCONT .Q10H [facility] Last Admin: 06/20/22 12:36 Dose: 100 mls/hr Documented By: CANDACE Levetiracetam (Levetiracetam 250 Mg Tablet) 750 mg PO BID [facility] Last Admin: 06/20/22 10:00 Dose: 750 mg Documented By: CANDACE Loratadine (Loratadine 10 Mg Tablet) 10 mg PO DAILY [facility] Last Admin: 06/20/22 10:01 Dose: 10 mg Documented By: CANDACE Metoprolol Succinate (Metoprolol Succinate Er 25 Mg Tab.Er.24h) 25 mg PO DAILY [facility]; Protocol Last Admin: 06/20/22 10:01 Dose: 25 mg Documented By: CANDACE Multivitamins/Vitamin C (Multivitamin Tablet) 1 tab PO DAILY [facility] Last Admin: 06/20/22 10:01 Dose: 1 tab Documented By: CANDACE Non-Formulary Medication (Testosterone) 5 pump TOPICAL DAILY [facility] Ondansetron HCl (Ondansetron Hcl 4 Mg/2 Ml Vial) 4 mg IVPUSH Q8H PRN PRN Reason: Nausea and Vomiting Last Admin: 06/20/22 12:36 Dose: 4 mg Documented By: CANDACE Oxycodone HCl (Oxycodone Hcl Immed Release 5 Mg Tablet) 5 mg PO Q6H PRN PRN Reason: Pain, Moderate (Pain Scale 4-6 Pharmacy Consult (Consult Rx Perform Med Rec) 1 each MISCELLANE ONCE PRN PRN Reason: Consult order Sodium Chloride (0.9 % Sodium Chloride Flush 3 Ml Syringe) 3 ml IVFLUSH QSHIFT [facility] Last Admin: 06/20/22 07:41 Dose: 3 ml Documented By: JUAN C Tamsulosin HCl (Tamsulosin Hcl 0.4 Mg Capsule) 0.4 mg PO BID [facility] Last Admin: 06/20/22 10:01 Dose: 0.4 mg Documented By: CANDACE Labs CBC & Chem 7: 06/20/22 04:47 06/20/22 04:47 Labs: Laboratory Results - last 24 hr 06/19/22 06/19/22 06/19/22 13:04 13:05 13:05 MCV 86.6 MCH 28.5 MCHC 32.9 RDW 13.8 Plt Count 197 MPV 9.8 Immature Gran % (Auto) 0.8 H Neut % (Auto) 88.6 H Lymph % (Auto) 7.8 L [place] % (Auto) 2.4 Eos % (Auto) 0.0 Baso % (Auto) 0.4 Lymph # (Auto) 1.1 L [place] # (Auto) 0.3 Eos # (Auto) 0.0 Baso # (Auto) 0.1 Abs Immat Gran (auto) 0.12 H Absolute Neuts (auto) 12.8 H Absolute Nucleated RBC 0.000 Nucleated RBC % (auto) 0.0 D-Dimer High Sensitivty Anion Gap 20 Estim Creat Clear Calc 107.5 Estimated GFR > 60 Random Glucose 135 H Lactic Acid 1.8 Calcium 9.5 D Magnesium 1.8 Total Bilirubin 0.6 Direct Bilirubin 0.3 AST 27 D ALT 41 H Alkaline Phosphatase 90 D Total Creatine Kinase 194 H D B-Natriuretic Peptide Total Protein 8.0 D Albumin 4.8 D Lipase 4 L Urine Color Urine Appearance Urine pH Ur Specific Tell Urine Protein Urine Glucose (UA) Urine Ketones Urine Blood Urine Nitrite Ur Leukocyte Esterase Urine RBC Urine WBC Ur Squamous Epith Cells Urine Bacteria Hyaline Casts Urine Opiates Screen Urine Fentanyl Screen Ur Barbiturates Screen Ur Phencyclidine Scrn Ur Amphetamines Screen U Benzodiazepines Scrn Urine Cocaine Screen U Marijuana (THC) Screen Ethyl Alcohol < 10 COVID-19 ([facility]) COVID-19 Clin Com 06/19/22 06/19/22 06/19/22 13:06 13:07 13:07 MCV MCH MCHC RDW Plt Count MPV Immature Gran % (Auto) Neut % (Auto) Lymph % (Auto) [place] % (Auto) Eos % (Auto) Baso % (Auto) Lymph # (Auto) [place] # (Auto) Eos # (Auto) Baso # (Auto) Abs Immat Gran (auto) Absolute Neuts (auto) Absolute Nucleated RBC Nucleated RBC % (auto) D-Dimer High Sensitivty < 150 Anion Gap Estim Creat Clear Calc Estimated GFR Random Glucose Lactic Acid Calcium Magnesium Total Bilirubin Direct Bilirubin AST ALT Alkaline Phosphatase Total Creatine Kinase B-Natriuretic Peptide 17 Total Protein Albumin Lipase Urine Color Urine Appearance Urine pH Ur Specific [place] Urine Protein Urine Glucose (UA) Urine Ketones Urine Blood Urine Nitrite Ur Leukocyte Esterase Urine RBC Urine WBC Ur Squamous Epith Cells Urine Bacteria Hyaline Casts Urine Opiates Screen Urine Fentanyl Screen Ur Barbiturates Screen Ur Phencyclidine Scrn Ur Amphetamines Screen U Benzodiazepines Scrn Urine Cocaine Screen U Marijuana (THC) Screen Ethyl Alcohol COVID-19 ([facility]) Negative COVID-19 Clin Com See Note 06/19/22 06/19/22 06/20/22 16:59 16:59 04:47 MCV 87.2 MCH 28.1 MCHC 32.3 RDW 13.8 Plt Count 146 L D MPV 8.9 L Immature Gran % (Auto) 0.9 H Neut % (Auto) 71.1 Lymph % (Auto) 19.3 L [place] % (Auto) 7.2 Eos % (Auto) 0.7 Baso % (Auto) 0.8 Lymph # (Auto) 1.7 [place] # (Auto) 0.7 Eos # (Auto) 0.1 Baso # (Auto) 0.1 Abs Immat Gran (auto) 0.08 H Absolute Neuts (auto) 6.4 Absolute Nucleated RBC 0.000 Nucleated RBC % (auto) 0.0 D-Dimer High Sensitivty Anion Gap Estim Creat Clear Calc Estimated GFR Random Glucose Lactic Acid Calcium Magnesium Total Bilirubin Direct Bilirubin AST ALT Alkaline Phosphatase Total Creatine Kinase B-Natriuretic Peptide Total Protein Albumin Lipase Urine Color Yellow Urine Appearance Clear Urine pH 7.5 Ur Specific Tell >= 1.030 H Urine Protein 30 (1+) H Urine Glucose (UA) Negative Urine Ketones 40 Urine Blood Trace H Urine Nitrite Negative Ur Leukocyte Esterase Negative Urine RBC 3-5 H Urine WBC 0-5 Ur Squamous Epith Cells 0-2 Urine Bacteria None Seen Hyaline Casts 0-2 Urine Opiates Screen POSITIVE H Urine Fentanyl Screen Not Detected Ur Barbiturates Screen Not Detected Ur Phencyclidine Scrn Not Detected Ur Amphetamines Screen Not Detected U Benzodiazepines Scrn Not Detected Urine Cocaine Screen Not Detected U Marijuana (THC) Screen POSITIVE H Ethyl Alcohol COVID-19 ([facility]) COVID-19 Clin Com 06/20/22 04:47 MCV MCH MCHC RDW Plt Count MPV Immature Gran % (Auto) Neut % (Auto) Lymph % (Auto) [place] % (Auto) Eos % (Auto) Baso % (Auto) Lymph # (Auto) [place] # (Auto) Eos # (Auto) Baso # (Auto) Abs Immat Gran (auto) Absolute Neuts (auto) Absolute Nucleated RBC Nucleated RBC % (auto) D-Dimer High Sensitivty Anion Gap 14 Estim Creat Clear Calc 133.7 Estimated GFR > 60 Random Glucose 94 Lactic Acid Calcium 8.2 L D Magnesium Total Bilirubin Direct Bilirubin AST ALT Alkaline Phosphatase Total Creatine Kinase B-Natriuretic Peptide Total Protein Albumin Lipase Urine Color Urine Appearance Urine pH Ur Specific Tell Urine Protein Urine Glucose (UA) Urine Ketones Urine Blood Urine Nitrite Ur Leukocyte Esterase Urine RBC Urine WBC Ur Squamous Epith Cells Urine Bacteria Hyaline Casts Urine Opiates Screen Urine Fentanyl Screen Ur Barbiturates Screen Ur Phencyclidine Scrn Ur Amphetamines Screen U Benzodiazepines Scrn Urine Cocaine Screen U Marijuana (THC) Screen Ethyl Alcohol COVID-19 ([facility]) COVID-19 Clin Com Assessment and Plan (1) Pancreatic cyst: Status: Acute Plan 52 year old male with history of CAD s/p MICHAEL 4 year ago, htn, hld, depression/anxiety, unspecified seizure disorder, former cigarette smoker with 30 pack year history, and history of alcohol abuse induced pancreatitis admitted for syncopal episodes and intractable abdominal pain. Syncope. Seems likely vasovagal from vomiting and abdominal pain Head and cervical spine CT negative for acute abnormality History of seizure disorder the patient denied general tonic clonic seizure episode No ischemic changes on EKG Normal electrolytes Arrhythmia on telemetry monitoring No further episodes of syncope Pancreatitis with noted pancreatic mass MRCP General surgery aware Pain control IV fluids History of cyclical vomiting syndrome History of marijuana user No further episodes of vomiting noted since admission Liquid diet for now and advance as tolerated Antiemetics as needed History of alcohol abuse Patient reports he drinks maybe once a week, previously had been a more heavy drinker 10 monitor on CIWA Seizure disorder. No seizure activity noted while inpatient Continue Keppra Seizure precautions History of coronary artery disease Continue aspirin and beta-amish Mental health Continue home medications Hypogonadism Pt must bring home testosterone per pharmacy DVT prophylaxis- lovenox Attending Dr. Diaz Full code Continue hospitalization for treatment of acute pancreatitis with need for MRCP, IV fluids and electrolyte monitoring Quality Stroke Does the patient have a stroke diagnosis?: No VTE Prior VTE?: No VTE Risk Level:: Medical - moderate - high VTE Device Contraindication: Treatment Not Indicated VTE Drug Contraindication: N/A - Med Ordered
--- NOTE | 2022-06-20 12:59 | PM.PNGS ---
Subjective Subjective Date of Service: 06/20/22 Interval history: Describes upper abdominal pain No nausea vomiting Physical Exam Vital Signs: Vital Signs: Last Vital Signs Temp 98 F 06/20/22 10:01 Pulse 91 06/20/22 10:01 Resp 20 06/20/22 10:01 BP 132/73 06/20/22 10:01 Pulse Ox 93 06/20/22 10:01 O2 Del Method 06/20/22 10:01 BMI result Body Mass Index 33.4 Const: General: no acute distress Resp: Effort & Inspection: normal respiratory effort Cardio: Rate: regular rate GI: Other: Soft, no guarding or rebound, tender on the epigastric area Objective Data Active Medications Acetaminophen (Acetaminophen 325 Mg Tablet) 975 mg PO Q8H PRN PRN Reason: Pain, Mild (Pain Scale 1-3) Acetaminophen (Acetaminophen 325 Mg Tablet) 650 mg PO Q6H PRN PRN Reason: Pain, Mild (Pain Scale 1-3) Albuterol Sulfate (Albuterol Sulfate 90 Mcg 8 Gm Inhaler) 2 puff INHALE Q4H PRN PRN Reason: Shortness Of Breath Amitriptyline HCl (Amitriptyline Hcl 50 Mg Tablet) 200 mg PO BEDTIME [facility] Last Admin: 06/19/22 23:02 Dose: 200 mg Documented By: RUBIA Aspirin (Aspirin Enteric Coated 81 Mg Tablet.) 81 mg PO DAILY [facility] Last Admin: 06/20/22 10:00 Dose: 81 mg Documented By: CANDACE Atorvastatin Calcium (Atorvastatin Calcium 80 Mg Tablet) 80 mg PO DAILY [facility] Last Admin: 06/20/22 10:00 Dose: 80 mg Documented By: CANDACE Clonazepam (Clonazepam 1 Mg Tablet) 2 mg PO BID PRN PRN Reason: Anxiety Clonazepam (Clonazepam 1 Mg Tablet) 2 mg PO DAILY [facility] Last Admin: 06/20/22 10:01 Dose: 2 mg Documented By: CANDACE Clonidine HCl (Clonidine Hcl 0.1 Mg Tablet) 0.1 mg PO BID [facility]; Protocol Last Admin: 06/20/22 10:00 Dose: 0.1 mg Documented By: CANDACE Docusate Sodium (Docusate Sodium 100 Mg Capsule) 100 mg PO BID PRN PRN Reason: constipation Enoxaparin Sodium (Enoxaparin Sodium 40 Mg/0.4 Ml Syringe) 40 mg SUBCUT Q24H [facility] Last Admin: 06/19/22 18:53 Dose: 40 mg Documented By: GIOVANNI Famotidine (Famotidine 20 Mg Tablet) 40 mg PO DAILY [facility] Last Admin: 06/20/22 10:00 Dose: 40 mg Documented By: CANDACE Hydromorphone HCl (Hydromorphone Hcl 0.5 Mg/0.5 Ml Syringe) 0.5 mg IVPUSH Q4H PRN; Protocol PRN Reason: Pain, Severe (Pain Scale 7-10) Last Admin: 06/20/22 09:59 Dose: 0.5 mg Documented By: CANDACE Lactated Ringer's (Lr) 1,000 mls @ 100 mls/hr IVCONT .Q10H [facility] Last Admin: 06/20/22 12:36 Dose: 100 mls/hr Documented By: CANDACE Levetiracetam (Levetiracetam 250 Mg Tablet) 750 mg PO BID [facility] Last Admin: 06/20/22 10:00 Dose: 750 mg Documented By: CANDACE Loratadine (Loratadine 10 Mg Tablet) 10 mg PO DAILY [facility] Last Admin: 06/20/22 10:01 Dose: 10 mg Documented By: CANDACE Metoprolol Succinate (Metoprolol Succinate Er 25 Mg Tab.Er.24h) 25 mg PO DAILY [facility]; Protocol Last Admin: 06/20/22 10:01 Dose: 25 mg Documented By: CANDACE Multivitamins/Vitamin C (Multivitamin Tablet) 1 tab PO DAILY [facility] Last Admin: 06/20/22 10:01 Dose: 1 tab Documented By: CANDACE Non-Formulary Medication (Testosterone) 5 pump TOPICAL DAILY [facility] Ondansetron HCl (Ondansetron Hcl 4 Mg/2 Ml Vial) 4 mg IVPUSH Q8H PRN PRN Reason: Nausea and Vomiting Last Admin: 06/20/22 12:36 Dose: 4 mg Documented By: CANDACE Oxycodone HCl (Oxycodone Hcl Immed Release 5 Mg Tablet) 5 mg PO Q6H PRN PRN Reason: Pain, Moderate (Pain Scale 4-6 Pharmacy Consult (Consult Rx Perform Med Rec) 1 each MISCELLANE ONCE PRN PRN Reason: Consult order Sodium Chloride (0.9 % Sodium Chloride Flush 3 Ml Syringe) 3 ml IVFLUSH QSHIFT [facility] Last Admin: 06/20/22 07:41 Dose: 3 ml Documented By: JUAN C Tamsulosin HCl (Tamsulosin Hcl 0.4 Mg Capsule) 0.4 mg PO BID [facility] Last Admin: 06/20/22 10:01 Dose: 0.4 mg Documented By: CANDACE Labs CBC & Chem 7: 06/20/22 04:47 06/20/22 04:47 Labs: Laboratory Results - last 24 hr 06/19/22 06/19/22 06/19/22 13:04 13:05 13:05 MCV 86.6 MCH 28.5 MCHC 32.9 RDW 13.8 Plt Count 197 MPV 9.8 Immature Gran % (Auto) 0.8 H Neut % (Auto) 88.6 H Lymph % (Auto) 7.8 L [place] % (Auto) 2.4 Eos % (Auto) 0.0 Baso % (Auto) 0.4 Lymph # (Auto) 1.1 L [place] # (Auto) 0.3 Eos # (Auto) 0.0 Baso # (Auto) 0.1 Abs Immat Gran (auto) 0.12 H Absolute Neuts (auto) 12.8 H Absolute Nucleated RBC 0.000 Nucleated RBC % (auto) 0.0 D-Dimer High Sensitivty Anion Gap 20 Estim Creat Clear Calc 107.5 Estimated GFR > 60 Random Glucose 135 H Lactic Acid 1.8 Calcium 9.5 D Magnesium 1.8 Total Bilirubin 0.6 Direct Bilirubin 0.3 AST 27 D ALT 41 H Alkaline Phosphatase 90 D Total Creatine Kinase 194 H D B-Natriuretic Peptide Total Protein 8.0 D Albumin 4.8 D Lipase 4 L Urine Color Urine Appearance Urine pH Ur Specific [place] Urine Protein Urine Glucose (UA) Urine Ketones Urine Blood Urine Nitrite Ur Leukocyte Esterase Urine RBC Urine WBC Ur Squamous Epith Cells Urine Bacteria Hyaline Casts Urine Opiates Screen Urine Fentanyl Screen Ur Barbiturates Screen Ur Phencyclidine Scrn Ur Amphetamines Screen U Benzodiazepines Scrn Urine Cocaine Screen U Marijuana (THC) Screen Ethyl Alcohol < 10 COVID-19 ([facility]) COVID-19 Clin Com 06/19/22 06/19/22 06/19/22 13:06 13:07 13:07 MCV MCH MCHC RDW Plt Count MPV Immature Gran % (Auto) Neut % (Auto) Lymph % (Auto) [place] % (Auto) Eos % (Auto) Baso % (Auto) Lymph # (Auto) [place] # (Auto) Eos # (Auto) Baso # (Auto) Abs Immat Gran (auto) Absolute Neuts (auto) Absolute Nucleated RBC Nucleated RBC % (auto) D-Dimer High Sensitivty < 150 Anion Gap Estim Creat Clear Calc Estimated GFR Random Glucose Lactic Acid Calcium Magnesium Total Bilirubin Direct Bilirubin AST ALT Alkaline Phosphatase Total Creatine Kinase B-Natriuretic Peptide 17 Total Protein Albumin Lipase Urine Color Urine Appearance Urine pH Ur Specific [place] Urine Protein Urine Glucose (UA) Urine Ketones Urine Blood Urine Nitrite Ur Leukocyte Esterase Urine RBC Urine WBC Ur Squamous Epith Cells Urine Bacteria Hyaline Casts Urine Opiates Screen Urine Fentanyl Screen Ur Barbiturates Screen Ur Phencyclidine Scrn Ur Amphetamines Screen U Benzodiazepines Scrn Urine Cocaine Screen U Marijuana (THC) Screen Ethyl Alcohol COVID-19 ([facility]) Negative COVID-19 Clin Com See Note 06/19/22 06/19/22 06/20/22 16:59 16:59 04:47 MCV 87.2 MCH 28.1 MCHC 32.3 RDW 13.8 Plt Count 146 L D MPV 8.9 L Immature Gran % (Auto) 0.9 H Neut % (Auto) 71.1 Lymph % (Auto) 19.3 L [place] % (Auto) 7.2 Eos % (Auto) 0.7 Baso % (Auto) 0.8 Lymph # (Auto) 1.7 [place] # (Auto) 0.7 Eos # (Auto) 0.1 Baso # (Auto) 0.1 Abs Immat Gran (auto) 0.08 H Absolute Neuts (auto) 6.4 Absolute Nucleated RBC 0.000 Nucleated RBC % (auto) 0.0 D-Dimer High Sensitivty Anion Gap Estim Creat Clear Calc Estimated GFR Random Glucose Lactic Acid Calcium Magnesium Total Bilirubin Direct Bilirubin AST ALT Alkaline Phosphatase Total Creatine Kinase B-Natriuretic Peptide Total Protein Albumin Lipase Urine Color Yellow Urine Appearance Clear Urine pH 7.5 Ur Specific [place] >= 1.030 H Urine Protein 30 (1+) H Urine Glucose (UA) Negative Urine Ketones 40 Urine Blood Trace H Urine Nitrite Negative Ur Leukocyte Esterase Negative Urine RBC 3-5 H Urine WBC 0-5 Ur Squamous Epith Cells 0-2 Urine Bacteria None Seen Hyaline Casts 0-2 Urine Opiates Screen POSITIVE H Urine Fentanyl Screen Not Detected Ur Barbiturates Screen Not Detected Ur Phencyclidine Scrn Not Detected Ur Amphetamines Screen Not Detected U Benzodiazepines Scrn Not Detected Urine Cocaine Screen Not Detected U Marijuana (THC) Screen POSITIVE H Ethyl Alcohol COVID-19 ([facility]) COVID-19 Clin Com 06/20/22 04:47 MCV MCH MCHC RDW Plt Count MPV Immature Gran % (Auto) Neut % (Auto) Lymph % (Auto) [place] % (Auto) Eos % (Auto) Baso % (Auto) Lymph # (Auto) [place] # (Auto) Eos # (Auto) Baso # (Auto) Abs Immat Gran (auto) Absolute Neuts (auto) Absolute Nucleated RBC Nucleated RBC % (auto) D-Dimer High Sensitivty Anion Gap 14 Estim Creat Clear Calc 133.7 Estimated GFR > 60 Random Glucose 94 Lactic Acid Calcium 8.2 L D Magnesium Total Bilirubin Direct Bilirubin AST ALT Alkaline Phosphatase Total Creatine Kinase B-Natriuretic Peptide Total Protein Albumin Lipase Urine Color Urine Appearance Urine pH Ur Specific [place] Urine Protein Urine Glucose (UA) Urine Ketones Urine Blood Urine Nitrite Ur Leukocyte Esterase Urine RBC Urine WBC Ur Squamous Epith Cells Urine Bacteria Hyaline Casts Urine Opiates Screen Urine Fentanyl Screen Ur Barbiturates Screen Ur Phencyclidine Scrn Ur Amphetamines Screen U Benzodiazepines Scrn Urine Cocaine Screen U Marijuana (THC) Screen Ethyl Alcohol COVID-19 ([facility]) COVID-19 Clin Com Procedures Date of Service Date of Service: 06/20/22 Progress Note: A&P Assessment and plan (1) Pancreatic cyst: Status: Acute Assessment and Plan: Likely from chronic pancreatitis with alcohol abuse MRCP to further define pancreatic cyst Exam otherwise benign No fever Time Spent With Patient Time: Total time spent is greater than 50% in coordination of care (as documented) at patient's floor/unit and/or counseling patient: Quality Stroke Does the patient have a stroke diagnosis?: No VTE Prior VTE?: No VTE Risk Level:: Medical - moderate - high VTE Device Contraindication: Treatment Not Indicated VTE Drug Contraindication: N/A - Med Ordered
[2022-06-20 15:29] VITALS: BP 138/83; PULSE 68; RESP 20; TEMP 36.9; O2SAT 99
[2022-06-20] MEDS: Enoxaparin Sodium 40 MG/0.4 ML SYRINGE SUBCUT (17:48)
[2022-06-20] MEDS: Amitriptyline HCl 50 MG TABLET 200 MG PO (19:44)
[2022-06-20 19:46] VITALS: BP 122/74; PULSE 73; RESP 18; TEMP 35.8; O2SAT 94
[2022-06-21] VITALS (8 sets, daily range): BP systolic 120–134; BP diastolic 70–91; PULSE 57–78; RESP 12–20; TEMP 36.5–37; O2SAT 91–94
--- NOTE | 2022-06-21 05:55 | PC.NURSE ---
after 4 am heart rate dropped to 39 very briefly patient not symptomatic sleeping at the time.
[2022-06-21 07:59] LABS: Hematocrit 48.3 % (42.0-52.0); Hemoglobin 15.7 g/dl (14.0-18.0); Mean Corpuscular HGB Conc 32.5 g/dl (31.0-36.0); Mean Corpuscular Hemoglobin 28.6 pg (27.0-33.0); Mean Platelet Volume 9.1 fL (9.4-12.4); Platelet Count 135 X10*3/uL (160-400); Red Blood Count 5.49 X10*6/uL (4.60-5.80); Red Cell Distribution Width 13.4 % (11.0-16.0); White Blood Count 4.6 X10*3/uL (4.8-10.8)
[2022-06-21 08:18] LABS: Anion Gap 13 (12-20); Blood Urea Nitrogen 9 mg/dL (9-16); Calcium 8.5 mg/dL (8.4-10.2); Carbon Dioxide 26 mmol/L (22-29); Chloride 106 mmol/L (96-108); Creatinine Clr Calc Pharmacy 113.7; Estimated Glomerular Filt Rate > 60; Glucose Random 96 mg/dL (60-115); Potassium 4.3 mmol/L (3.3-5.1); Sodium 141 mmol/L (135-145)
[2022-06-21] MEDS: HYDROmorphone HCl 0.5 MG/0.5 ML SYRINGE IVPUSH ×5 (08:21→21:28)
[2022-06-21] MEDS: Lactated Ringers 1,000 ML 100 ML IVCONT (08:22)
[2022-06-21] MEDS: levETIRAcetam 250 MG TABLET 750 MG PO ×2 (08:25→21:28)
[2022-06-21] MEDS: clonazePAM 1 MG TABLET 2 MG PO ×2 (08:25→16:16)
[2022-06-21] MEDS: cloNIDine HCL 0.1 MG TABLET PO ×2 (08:25→21:28)
[2022-06-21] MEDS: Aspirin Enteric Coated 81 MG TABLET.DR PO (08:25)
[2022-06-21] MEDS: Loratadine 10 MG TABLET PO (08:25)
[2022-06-21] MEDS: Multivitamin TABLET 1 TAB PO (08:26)
[2022-06-21] MEDS: Famotidine 20 MG TABLET 40 MG PO (08:26)
[2022-06-21] MEDS: Atorvastatin Calcium 80 MG TABLET PO (08:26)
[2022-06-21] MEDS: Metoprolol Succinate ER 25 MG TAB.ER.24H PO (08:26)
[2022-06-21] MEDS: 0.9 % Sodium Chloride Flush 3 ML SYRINGE IVFLUSH ×2 (08:26→21:29)
[2022-06-21] MEDS: Tamsulosin HCL 0.4 MG CAPSULE PO ×2 (08:27→21:29)
--- NOTE | 2022-06-21 11:45 | HO.PM.IMPN ---
Subjective Subjective Date of Service: 06/21/22 Review of Systems follow up syncope and pancreatic mass Still having pain to left upper abdomen No nausea or vomiting Physical Exam Vital Signs: Vital Signs: Last Vital Signs Temp 97.8 F 06/21/22 11:28 Pulse 78 06/21/22 11:28 Resp 18 06/21/22 11:28 BP 134/82 06/21/22 11:28 Pulse Ox 94 06/21/22 11:28 O2 Del Method 06/21/22 11:28 BMI result Body Mass Index 33.4 Appearing in no acute distress lung sounds are clear to auscultation heart regular rate rhythm, clear S1, S2 positive bowel sounds, abdomen is soft, nontender neuro patient is alert x3, no focal deficits Objective Data Active Medications Acetaminophen (Acetaminophen 325 Mg Tablet) 975 mg PO Q8H PRN PRN Reason: Pain, Mild (Pain Scale 1-3) Acetaminophen (Acetaminophen 325 Mg Tablet) 650 mg PO Q6H PRN PRN Reason: Pain, Mild (Pain Scale 1-3) Albuterol Sulfate (Albuterol Sulfate 90 Mcg 8 Gm Inhaler) 2 puff INHALE Q4H PRN PRN Reason: Shortness Of Breath Amitriptyline HCl (Amitriptyline Hcl 50 Mg Tablet) 200 mg PO BEDTIME [facility] Last Admin: 06/20/22 19:44 Dose: 200 mg Documented By: KENNETH Aspirin (Aspirin Enteric Coated 81 Mg Tablet.) 81 mg PO DAILY [facility] Last Admin: 06/21/22 08:25 Dose: 81 mg Documented By: CANDACE Atorvastatin Calcium (Atorvastatin Calcium 80 Mg Tablet) 80 mg PO DAILY [facility] Last Admin: 06/21/22 08:26 Dose: 80 mg Documented By: CANDACE Clonazepam (Clonazepam 1 Mg Tablet) 2 mg PO BID PRN PRN Reason: Anxiety Last Admin: 06/20/22 21:41 Dose: 2 mg Documented By: KENNETH Clonazepam (Clonazepam 1 Mg Tablet) 2 mg PO DAILY [facility] Last Admin: 06/21/22 08:25 Dose: 2 mg Documented By: CANDACE Clonidine HCl (Clonidine Hcl 0.1 Mg Tablet) 0.1 mg PO BID [facility]; Protocol Last Admin: 06/21/22 08:25 Dose: 0.1 mg Documented By: CANDACE Docusate Sodium (Docusate Sodium 100 Mg Capsule) 100 mg PO BID PRN PRN Reason: constipation Enoxaparin Sodium (Enoxaparin Sodium 40 Mg/0.4 Ml Syringe) 40 mg SUBCUT Q24H [facility] Last Admin: 06/20/22 17:48 Dose: 40 mg Documented By: CANDACE Famotidine (Famotidine 20 Mg Tablet) 40 mg PO DAILY [facility] Last Admin: 06/21/22 08:26 Dose: 40 mg Documented By: CANDACE Hydromorphone HCl (Hydromorphone Hcl 0.5 Mg/0.5 Ml Syringe) 0.5 mg IVPUSH Q4H PRN; Protocol PRN Reason: Pain, Severe (Pain Scale 7-10) Last Admin: 06/21/22 08:21 Dose: 0.5 mg Documented By: CANDACE Lactated Ringer's (Lr) 1,000 mls @ 100 mls/hr IVCONT .Q10H [facility] Last Admin: 06/21/22 08:22 Dose: 100 mls/hr Documented By: CANDACE Levetiracetam (Levetiracetam 250 Mg Tablet) 750 mg PO BID [facility] Last Admin: 06/21/22 08:25 Dose: 750 mg Documented By: CANDACE Loratadine (Loratadine 10 Mg Tablet) 10 mg PO DAILY [facility] Last Admin: 06/21/22 08:25 Dose: 10 mg Documented By: CANDACE Metoprolol Succinate (Metoprolol Succinate Er 25 Mg Tab.Er.24h) 25 mg PO DAILY [facility]; Protocol Last Admin: 06/21/22 08:26 Dose: 25 mg Documented By: CANDACE Multivitamins/Vitamin C (Multivitamin Tablet) 1 tab PO DAILY [facility] Last Admin: 06/21/22 08:26 Dose: 1 tab Documented By: CANDACE Non-Formulary Medication (Testosterone) 5 pump TOPICAL DAILY [facility] Ondansetron HCl (Ondansetron Hcl 4 Mg/2 Ml Vial) 4 mg IVPUSH Q8H PRN PRN Reason: Nausea and Vomiting Last Admin: 06/20/22 12:36 Dose: 4 mg Documented By: CANDACE Oxycodone HCl (Oxycodone Hcl Immed Release 5 Mg Tablet) 5 mg PO Q6H PRN PRN Reason: Pain, Moderate (Pain Scale 4-6 Pharmacy Consult (Consult Rx Perform Med Rec) 1 each MISCELLANE ONCE PRN PRN Reason: Consult order Sodium Chloride (0.9 % Sodium Chloride Flush 3 Ml Syringe) 3 ml IVFLUSH QSHIFT [facility] Last Admin: 06/21/22 08:26 Dose: 3 ml Documented By: CANDACE Tamsulosin HCl (Tamsulosin Hcl 0.4 Mg Capsule) 0.4 mg PO BID [facility] Last Admin: 06/21/22 08:27 Dose: 0.4 mg Documented By: CANDACE Labs CBC & Chem 7: 06/21/22 07:42 06/21/22 07:42 Labs: Laboratory Results - last 24 hr 06/21/22 06/21/22 07:42 07:42 MCV 88.0 MCH 28.6 MCHC 32.5 RDW 13.4 Plt Count 135 L MPV 9.1 L Absolute Nucleated RBC 0.000 Nucleated RBC % (auto) 0.0 Anion Gap 13 Estim Creat Clear Calc 113.7 Estimated GFR > 60 Random Glucose 96 Calcium 8.5 Microbiology Microbiology Results: Microbiology 06/19/22 13:06 Blood Culture - Preliminary Blood - Venous No growth after 24 hours. 06/19/22 13:05 Blood Culture - Preliminary Blood - Venous No growth after 24 hours. Assessment and Plan (1) Pancreatic cyst: Status: Acute Plan 52 year old male with history of CAD s/p MICHAEL 4 year ago, htn, hld, depression/anxiety, unspecified seizure disorder, former cigarette smoker with 30 pack year history, and history of alcohol abuse induced pancreatitis admitted for syncopal episodes and intractable abdominal pain. Syncope. Seems likely vasovagal from vomiting and abdominal pain Head and cervical spine CT negative for acute abnormality History of seizure disorder the patient denied general tonic clonic seizure episode No ischemic changes on EKG Normal electrolytes Arrhythmia on telemetry monitoring No further episodes of syncope Pancreatitis with noted pancreatic mass looks like pseudocyst on MRCP rather than mass, will discuss with General surgery Pain control IV fluids Ppi, Carafate History of cyclical vomiting syndrome. No vomiting History of marijuana user No further episodes of vomiting noted since admission Liquid diet for now and advance as tolerated Antiemetics as needed History of alcohol abuse Patient reports he drinks maybe once a week, previously had been a more heavy drinker 10 monitor on CIWA Seizure disorder. No seizure activity noted while inpatient Continue Keppra Seizure precautions History of coronary artery disease Continue aspirin and beta-amish Mental health Continue home medications Hypogonadism Pt must bring home testosterone per pharmacy DVT prophylaxis- lovenox Attending Dr. Diaz Full code Continue hospitalization for treatment of acute pancreatitis, IV fluids and electrolyte monitoring Quality Stroke Does the patient have a stroke diagnosis?: No VTE Prior VTE?: No VTE Risk Level:: Medical - moderate - high VTE Device Contraindication: Treatment Not Indicated VTE Drug Contraindication: N/A - Med Ordered
--- NOTE | 2022-06-21 13:00 | PM.GICN ---
History of Present Illness Data of Consult Service Date: 06/21/22 Primary Care Provider: Unknown Physician HPI Reason for consult: pancreatic cyst 52 year old male with history of CAD s/p MICHAEL, htn, hld, depression/anxiety, unspecified seizure disorder, former cigarette smoker with 30 pack year history, and history of alcohol abuse induced pancreatitis who I am seeing for abn imaging and abdominal pain Patient was admitted few days ago with stabbing 10/10 LUQ abdominal pain with diffuse radiation, worse with food, no relieiving factors and associated with nausea and bloody emesis. He also had syncope and lightheadedness. He is passing gas but not had any bowel motions. Has aslo been using marijuana but not been using tobacco. Pain is much improved now and more 5/10 but he still has intense reflux which affects his appetite and gives him persistent nausea. No melena or rectal bleeding. He has still been drinking alcohol, also treated for UTI 2/2 traumatic blount insertion at [facility]. of note he did have admissions 03/16 and 04/15 for acute interstitial pancreatitis. Labs:; UA with elecated spec gravity, 1+ protein, neg leuks, neg nitrites, neg bacteria. WBC 14.4. Lactic acid 1.8. Renal function normal. Lipase 4. H/H baseline, no anemia. IMAGING: Ct abd/pelvis with complex solid and cystic mass protruding from the head of the pancreas roughly 4cm MRI:4.1 cm rim enhancing fluid collection head of pancreas and 1.6 cm cyst proximal body, mild pérez pancreatic fluid Review of Systems Review of Systems: Constitutional : No Weight loss, No Fever, No Chills ENT/Mouth : No sore throat, No Rhinorrhea Eyes: No Swelling, No Redness Cardiovascular : No Chest Pain, No SOB, No Edema Respiratory : No Cough, No Sputum, No Wheezing Gastrointestinal : see HPI Genitourinary : NO Dysuria, No Urinary Frequency, No Hematuria, No Urgency Musculoskeletal : No joint pain, No Myalgias, No Joint Swelling Skin : No Skin Lesions, No rash Neuro : No Weakness, No Numbness, No Dizziness, No Headache Psych : No Anxiety/Panic, No Depression Heme/Lymph: No Bruising, No Lymphadenopathy Endocrine : No Polyuria, No Polydipsia All other systems reviewed and are negative. [facility] Past Medical History Medical History (Updated 06/19/22 @ 17:53 by Sheldon Madrigal MD) Acute pancreatitis NAMITA (acute kidney injury) Alcohol withdrawal CAD (coronary artery disease) Chronic systolic (congestive) heart failure Depression with anxiety Heart attack Pancreatic cyst Seizure Family History Family History (Updated 06/19/22 @ 17:53 by TARUN Schultz) Mother Breast cancer CAD (coronary artery disease) Father Psoriasis Surgical History Surgical History Stented coronary artery Social History Social History Household Members: None Housing: Apartment Are you a primary healthcare applications analyst to a significant other at home: No Do you presently have visiting nurse or other home services: Yes Patient Tobacco Use Status: Former Tobacco user Tobacco use type: Cigarette Second Hand Smoke Exposure: No Substance Use Type: Marijuana and Opiates service: Yes Current occupational status: disabled Meds Allergies Allergy/AdvReac Type Severity Reaction Status Date / Time Penicillins Allergy Unknown Unknown Verified 01/28/22 19:50 Active Medications: Current Medications Acetaminophen (Acetaminophen 325 Mg Tablet) 975 mg PO Q8H PRN PRN Reason: Pain, Mild (Pain Scale 1-3) Acetaminophen (Acetaminophen 325 Mg Tablet) 650 mg PO Q6H PRN PRN Reason: Pain, Mild (Pain Scale 1-3) Albuterol Sulfate (Albuterol Sulfate 90 Mcg 8 Gm Inhaler) 2 puff INHALE Q4H PRN PRN Reason: Shortness Of Breath Amitriptyline HCl (Amitriptyline Hcl 50 Mg Tablet) 200 mg PO BEDTIME [facility] Last Admin: 06/20/22 19:44 Dose: 200 mg Aspirin (Aspirin Enteric Coated 81 Mg Tablet.) 81 mg PO DAILY [facility] Last Admin: 06/21/22 08:25 Dose: 81 mg Atorvastatin Calcium (Atorvastatin Calcium 80 Mg Tablet) 80 mg PO DAILY [facility] Last Admin: 06/21/22 08:26 Dose: 80 mg Clonazepam (Clonazepam 1 Mg Tablet) 2 mg PO BID PRN PRN Reason: Anxiety Last Admin: 06/20/22 21:41 Dose: 2 mg Clonazepam (Clonazepam 1 Mg Tablet) 2 mg PO DAILY [facility] Last Admin: 06/21/22 08:25 Dose: 2 mg Clonidine HCl (Clonidine Hcl 0.1 Mg Tablet) 0.1 mg PO BID [facility]; Protocol Last Admin: 06/21/22 08:25 Dose: 0.1 mg Docusate Sodium (Docusate Sodium 100 Mg Capsule) 100 mg PO BID PRN PRN Reason: constipation Enoxaparin Sodium (Enoxaparin Sodium 40 Mg/0.4 Ml Syringe) 40 mg SUBCUT Q24H [facility] Last Admin: 06/20/22 17:48 Dose: 40 mg Famotidine (Famotidine 20 Mg Tablet) 40 mg PO DAILY [facility] Last Admin: 06/21/22 08:26 Dose: 40 mg Hydromorphone HCl (Hydromorphone Hcl 0.5 Mg/0.5 Ml Syringe) 0.5 mg IVPUSH Q4H PRN; Protocol PRN Reason: Pain, Severe (Pain Scale 7-10) Last Admin: 06/21/22 08:21 Dose: 0.5 mg Lactated Ringer's (Lr) 1,000 mls @ 100 mls/hr IVCONT .Q10H [facility] Last Admin: 06/21/22 08:22 Dose: 100 mls/hr Levetiracetam (Levetiracetam 250 Mg Tablet) 750 mg PO BID [facility] Last Admin: 06/21/22 08:25 Dose: 750 mg Loratadine (Loratadine 10 Mg Tablet) 10 mg PO DAILY [facility] Last Admin: 06/21/22 08:25 Dose: 10 mg Metoprolol Succinate (Metoprolol Succinate Er 25 Mg Tab.Er.24h) 25 mg PO DAILY [facility]; Protocol Last Admin: 06/21/22 08:26 Dose: 25 mg Multivitamins/Vitamin C (Multivitamin Tablet) 1 tab PO DAILY [facility] Last Admin: 06/21/22 08:26 Dose: 1 tab Non-Formulary Medication (Testosterone) 5 pump TOPICAL DAILY [facility] Ondansetron HCl (Ondansetron Hcl 4 Mg/2 Ml Vial) 4 mg IVPUSH Q8H PRN PRN Reason: Nausea and Vomiting Last Admin: 06/20/22 12:36 Dose: 4 mg Oxycodone HCl (Oxycodone Hcl Immed Release 5 Mg Tablet) 5 mg PO Q6H PRN PRN Reason: Pain, Moderate (Pain Scale 4-6 Pharmacy Consult (Consult Rx Perform Med Rec) 1 each MISCELLANE ONCE PRN PRN Reason: Consult order Sodium Chloride (0.9 % Sodium Chloride Flush 3 Ml Syringe) 3 ml IVFLUSH QSHIFT [facility] Last Admin: 06/21/22 08:26 Dose: 3 ml Tamsulosin HCl (Tamsulosin Hcl 0.4 Mg Capsule) 0.4 mg PO BID [facility] Last Admin: 06/21/22 08:27 Dose: 0.4 mg Home Medications Medication Instructions Recorded Confirmed Last Taken Type albuterol sulfate 90 mcg/actuation 2 puff PO Q4H PRN Shortness Of 04/28/21 06/19/22 04/27/21 History aerosol inhaler Breath aspirin 81 mg tablet,delayed 1 tab PO DAILY 04/28/21 06/19/22 06/18/22 History release amitriptyline 100 mg tablet 2 tab PO BEDTIME 05/17/21 06/19/22 06/18/22 History clonidine HCl 0.1 mg tablet 1 tab PO BID 05/17/21 06/19/22 06/18/22 History famotidine 40 mg tablet 1 tab PO DAILY 05/17/21 06/19/22 06/18/22 History levetiracetam 750 mg tablet 1 tab PO BID 05/17/21 06/19/22 06/18/22 History loratadine 10 mg tablet 1 tab PO DAILY 05/17/21 06/19/22 06/18/22 History metoprolol succinate 25 mg 1 tab PO DAILY 05/17/21 06/19/22 06/18/22 History tablet,extended release 24 hr rosuvastatin 20 mg tablet 1 tab PO DAILY 05/17/21 06/19/22 06/18/22 History tamsulosin 0.4 mg capsule 1 cap PO BID 05/17/21 06/19/22 06/18/22 History acetaminophen 325 mg tablet 975 mg PO Q8H PRN Pain 03/20/22 06/19/22 03/19/22 History clonazepam 2 mg tablet 1 tab PO BID PRN Anxiety 03/20/22 06/19/22 Unknown History multivitamin 1 tab PO DAILY 03/20/22 06/19/22 06/18/22 History testosterone 20.25 mg/1.25 gram 5 pump topical DAILY 03/20/22 06/19/22 06/18/22 History (1.62 %) transdermal gel pump clonazepam 2 mg tablet 1 tab PO DAILY 06/19/22 06/19/22 06/18/22 History sulfamethoxazole 800 1 tab PO Q12H 06/19/22 Unknown History mg-trimethoprim 160 mg tablet Physical Exam Vital Signs: Vital Signs: Last Vital Signs Temp 97.8 F 06/21/22 11:28 Pulse 78 06/21/22 11:28 Resp 18 06/21/22 11:28 BP 134/82 06/21/22 11:28 Pulse Ox 94 06/21/22 11:28 O2 Del Method 06/21/22 11:28 BMI result Body Mass Index 33.4 EXAM: GENERAL: The patient is stable, talking easily VITAL SIGNS:see workflow HEENT: Nonicteric sclerae, PERRLA, EOMI. Oropharynx clear. Moist mucous membranes. Conjunctivae appear well perfused. No thyroid mass. CHEST: Chest wall is nontender. HEART: Regular rate and rhythm without murmurs. LUNGS: Clear to auscultation bilaterally. ABDOMEN: Soft, positive bowel sounds, tender epigastrium, no organomegaly.no flank tenderness SKIN: No rash, no excessive bruising, petechiae, or purpura. NEUROLOGIC: Cranial nerves II-XII intact without motor/sensory deficit. psych- normal affect Extrem: General: Yes normal to inspection Results Labs CBC & Chem 7: 06/21/22 07:42 06/21/22 07:42 Labs: Short CBC 06/21/22 Range/Units 07:42 WBC 4.6 L (4.8-10.8) X10*3/uL Hgb 15.7 (14.0-18.0) g/dl Hct 48.3 (42.0-52.0) % Plt Count 135 L (160-400) X10*3/uL BMP 06/21/22 07:42 Sodium 141 Potassium 4.3 D Chloride 106 Carbon Dioxide 26 BUN 9 Creatinine 0.87 Calcium 8.5 Microbiology Microbiology Results: Microbiology 06/19/22 13:06 Blood - Venous Blood Culture - Preliminary No growth after 24 hours. 06/19/22 13:05 Blood - Venous Blood Culture - Preliminary No growth after [address] scan - abdomen: Attestation: I personally reviewed and interpreted this imaging study as follows: My impression: cystic appearing swelling in head of pancreas, fatty liver Assessment and Plan (1) Pancreatic cyst: Status: Acute (2) Abdominal pain: Status: Acute Plan 1/ Recent hx of acute interstitial pancreatitis complicated by pseudocysts, not large enough to cause gastric outlet obstruction or obviously infected. Current sx may be due to alcoholic gastritis and antibiotic use. PLAN: 1/ alcohol cessation encouraged 2/ add PPI e.g pantoprazole 40 mg bid for 8 weeks then can titrate down, can also add carafate BID 3/ repeat MRI in 8 weeks or so to reassess cysts. 4/ can give trial of trental 400 mg tid and encourage PO intake 5/ if sx persist then EGD Procedures Date of Service Date of Service: 06/21/22
--- NOTE | 2022-06-21 14:09 | P.PNGS_ITS ---
Subjective Subjective Date of Service: 06/21/22 Interval history: Feels much better still with abdominal pain although less Physical Exam Vital Signs: Vital Signs: Last Vital Signs Temp 97.8 F 06/21/22 11:28 Pulse 78 06/21/22 11:28 Resp 19 06/21/22 13:00 BP 134/82 06/21/22 11:28 Pulse Ox 94 06/21/22 11:28 O2 Del Method 06/21/22 11:28 BMI result Body Mass Index 33.4 Const: General: comfortable and no acute distress Resp: Effort & Inspection: normal respiratory effort Cardio: Rate: regular rate GI: Other: mild tenderness epigastric area Palpation (GI): Soft to palpation, not firm and no guarding Objective Data Active Medications Acetaminophen (Acetaminophen 325 Mg Tablet) 975 mg PO Q8H PRN PRN Reason: Pain, Mild (Pain Scale 1-3) Acetaminophen (Acetaminophen 325 Mg Tablet) 650 mg PO Q6H PRN PRN Reason: Pain, Mild (Pain Scale 1-3) Albuterol Sulfate (Albuterol Sulfate 90 Mcg 8 Gm Inhaler) 2 puff INHALE Q4H PRN PRN Reason: Shortness Of Breath Amitriptyline HCl (Amitriptyline Hcl 50 Mg Tablet) 200 mg PO BEDTIME [facility] Last Admin: 06/20/22 19:44 Dose: 200 mg Documented By: KENNETH Aspirin (Aspirin Enteric Coated 81 Mg Tablet.Dr) 81 mg PO DAILY [facility] Last Admin: 06/21/22 08:25 Dose: 81 mg Documented By: CANDACE Atorvastatin Calcium (Atorvastatin Calcium 80 Mg Tablet) 80 mg PO DAILY [facility] Last Admin: 06/21/22 08:26 Dose: 80 mg Documented By: CANDACE Clonazepam (Clonazepam 1 Mg Tablet) 2 mg PO BID PRN PRN Reason: Anxiety Last Admin: 06/20/22 21:41 Dose: 2 mg Documented By: KENNETH Clonazepam (Clonazepam 1 Mg Tablet) 2 mg PO DAILY [facility] Last Admin: 06/21/22 08:25 Dose: 2 mg Documented By: CANDACE Clonidine HCl (Clonidine Hcl 0.1 Mg Tablet) 0.1 mg PO BID [facility]; Protocol Last Admin: 06/21/22 08:25 Dose: 0.1 mg Documented By: CANDACE Docusate Sodium (Docusate Sodium 100 Mg Capsule) 100 mg PO BID PRN PRN Reason: constipation Enoxaparin Sodium (Enoxaparin Sodium 40 Mg/0.4 Ml Syringe) 40 mg SUBCUT Q24H [facility] Last Admin: 06/20/22 17:48 Dose: 40 mg Documented By: CANDACE Famotidine (Famotidine 20 Mg Tablet) 40 mg PO DAILY [facility] Last Admin: 06/21/22 08:26 Dose: 40 mg Documented By: CANDACE Hydromorphone HCl (Hydromorphone Hcl 0.5 Mg/0.5 Ml Syringe) 0.5 mg IVPUSH Q4H PRN; Protocol PRN Reason: Pain, Severe (Pain Scale 7-10) Last Admin: 06/21/22 13:00 Dose: 0.5 mg Documented By: JOSIAH Lactated Ringer's (Lr) 1,000 mls @ 100 mls/hr IVCONT .Q10H [facility] Last Admin: 06/21/22 08:22 Dose: 100 mls/hr Documented By: CANDACE Levetiracetam (Levetiracetam 250 Mg Tablet) 750 mg PO BID [facility] Last Admin: 06/21/22 08:25 Dose: 750 mg Documented By: CANDACE Loratadine (Loratadine 10 Mg Tablet) 10 mg PO DAILY [facility] Last Admin: 06/21/22 08:25 Dose: 10 mg Documented By: CANDACE Metoprolol Succinate (Metoprolol Succinate Er 25 Mg Tab.Er.24h) 25 mg PO DAILY [facility]; Protocol Last Admin: 06/21/22 08:26 Dose: 25 mg Documented By: CANDACE Multivitamins/Vitamin C (Multivitamin Tablet) 1 tab PO DAILY [facility] Last Admin: 06/21/22 08:26 Dose: 1 tab Documented By: CANDACE Non-Formulary Medication (Testosterone) 5 pump TOPICAL DAILY [facility] Ondansetron HCl (Ondansetron Hcl 4 Mg/2 Ml Vial) 4 mg IVPUSH Q8H PRN PRN Reason: Nausea and Vomiting Last Admin: 06/20/22 12:36 Dose: 4 mg Documented By: CANDACE Oxycodone HCl (Oxycodone Hcl Immed Release 5 Mg Tablet) 5 mg PO Q6H PRN PRN Reason: Pain, Moderate (Pain Scale 4-6 Pharmacy Consult (Consult Rx Perform Med Rec) 1 each MISCELLANE ONCE PRN PRN Reason: Consult order Sodium Chloride (0.9 % Sodium Chloride Flush 3 Ml Syringe) 3 ml IVFLUSH QSHIFT [facility] Last Admin: 06/21/22 08:26 Dose: 3 ml Documented By: CANDACE Tamsulosin HCl (Tamsulosin Hcl 0.4 Mg Capsule) 0.4 mg PO BID [facility] Last Admin: 06/21/22 08:27 Dose: 0.4 mg Documented By: CANDACE Labs CBC & Chem 7: 06/21/22 07:42 06/21/22 07:42 Labs: Laboratory Results - last 24 hr 06/21/22 06/21/22 07:42 07:42 MCV 88.0 MCH 28.6 MCHC 32.5 RDW 13.4 Plt Count 135 L MPV 9.1 L Absolute Nucleated RBC 0.000 Nucleated RBC % (auto) 0.0 Anion Gap 13 Estim Creat Clear Calc 113.7 Estimated GFR > 60 Random Glucose 96 Calcium 8.5 Microbiology Microbiology Results: Microbiology 06/19/22 13:06 Blood Culture - Preliminary Blood - Venous No growth after 24 hours. 06/19/22 13:05 Blood Culture - Preliminary Blood - Venous No growth after 24 hours. Procedures Date of Service Date of Service: 06/21/22 Progress Note: A&P Assessment and plan (1) Pancreatic cyst: Status: Acute Assessment and Plan: MRCP reviewed - findings consistent with pseudocyst likely from alcohol for chronic pancreatitis no surgical intervention necessary at this time allow this to much long-term would be drainage down the line, internal drainage if possible exam benign diet as tolerated Time Spent With Patient Time: Total time spent is greater than 50% in coordination of care (as documented) at patient's floor/unit and/or counseling patient: Quality Stroke Does the patient have a stroke diagnosis?: No VTE Prior VTE?: No VTE Risk Level:: Medical - moderate - high VTE Device Contraindication: Treatment Not Indicated VTE Drug Contraindication: N/A - Med Ordered
[2022-06-21] MEDS: Sucralfate 1 GM TABLET PO (17:05)
[2022-06-21] MEDS: Amitriptyline HCl 50 MG TABLET 200 MG PO (21:28)
[2022-06-22 07:53] VITALS: BP 138/98; PULSE 70; RESP 18; TEMP 37.2; O2SAT 93
[2022-06-22] MEDS: HYDROmorphone HCl 0.5 MG/0.5 ML SYRINGE IVPUSH ×2 (08:34→12:39)
[2022-06-22] MEDS: Loratadine 10 MG TABLET PO (08:35)
[2022-06-22] MEDS: levETIRAcetam 250 MG TABLET 750 MG PO (08:35)
[2022-06-22] MEDS: clonazePAM 1 MG TABLET 2 MG PO (08:35)
[2022-06-22] MEDS: cloNIDine HCL 0.1 MG TABLET PO (08:35)
[2022-06-22] MEDS: Sucralfate 1 GM TABLET PO (08:35)
[2022-06-22] MEDS: Multivitamin TABLET 1 TAB PO (08:35)
[2022-06-22] MEDS: Metoprolol Succinate ER 25 MG TAB.ER.24H PO (08:35)
[2022-06-22] MEDS: Atorvastatin Calcium 80 MG TABLET PO (08:35)
[2022-06-22] MEDS: Famotidine 20 MG TABLET 40 MG PO (08:36)
[2022-06-22] MEDS: Aspirin Enteric Coated 81 MG TABLET.DR PO (08:36)
[2022-06-22] MEDS: Tamsulosin HCL 0.4 MG CAPSULE PO (08:36)
[2022-06-22] MEDS: 0.9 % Sodium Chloride Flush 3 ML SYRINGE IVFLUSH (08:45)
[2022-06-22 11:12] VITALS: BP 127/83; PULSE 77
[2022-06-22 11:13] VITALS: BP 124/80; PULSE 65
[2022-06-22 11:15] VITALS: BP 112/78; PULSE 91
[2022-06-22 11:28] VITALS: BP 122/83; PULSE 77; RESP 20; TEMP 36.6; O2SAT 96
[2022-06-22] MEDS: Pentoxifylline ER 400 MG TABLET.ER PO (11:28)
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
--- NOTE | 2022-06-22 14:55 | MHC.CM.PN ---
pt dcd home no skilled servceos ordered by md kathia henley from [phone] was notified of dc and working on [facility]
[2022-06-22 15:20] VITALS: BP 121/89; PULSE 73; RESP 20; TEMP 36.9; O2SAT 94
[2022-06-22] MEDS: oxyCODONE HCl Immed Release 5 MG TABLET PO (16:03)
== END 2022-06-22 16:30 | disposition home or self-care (01) | DRG 439 ==
LOC: HO.ED 16:32 → HO.EDOVER 17:45 → HO.IMC 06-20 07:20
PROVIDERS: Physician Assistant; Admitting Provider Physician Assistant; Emergency Provider Internal Medicine; PCP Nurse Practitioner Family; Visit Provider Nurse Practitioner Acute Care
DX: K86.3 Pseudocyst of pancreas (principal); I50.22 Chronic systolic (congestive) heart failure; R65.10 Systemic inflammatory response syndrome (SIRS) of non-infectious origin without acute organ dysfunction; I11.0 Hypertensive heart disease with heart failure; K86.1 Other chronic pancreatitis; I25.10 Atherosclerotic heart disease of native coronary artery without angina pectoris; K29.20 Alcoholic gastritis without bleeding; E86.0 Dehydration; F10.10 Alcohol abuse, uncomplicated; F41.9 Anxiety disorder, unspecified; F32.A Depression, unspecified; E29.1 Testicular hypofunction; G47.33 Obstructive sleep apnea (adult) (pediatric); G40.909 Epilepsy, unspecified, not intractable, without status epilepticus; R55 Syncope and collapse; E66.9 Obesity, unspecified; Z68.33 Body mass index [BMI] 33.0-33.9, adult; Z20.822 Contact with and (suspected) exposure to COVID-19; Z95.5 Presence of coronary angioplasty implant and graft; Z87.440 Personal history of urinary (tract) infections; Z87.891 Personal history of nicotine dependence; Z88.0 Allergy status to penicillin; Z79.82 Long term (current) use of aspirin; Z79.899 Other long term (current) drug therapy
CPT/HCPCS: 36415; 70450; 71045; 72125; 74177; 74183; 80048; 80076; 80307; 81001; 82077; 82550; 83605; 83690; 83735; 83880; 84484; 85025; 85027; 85379; 87040; 87635; 93005; 96361; 96374; 96375; 96376; 99285; A9585; J1170; J1650; J2270; J2405; Q9967

== ENCOUNTER 2022-07-15 11:58 | Emergency (ER) | payer MEDICARE, MEDICAID, SELFPAY ==
--- NOTE | ~2022-07-15 | XR_ITS ---
EXAMINATION: XR SHOULDER, LEFT XR ELBOW, LEFT CLINICAL INFORMATION: Pain. COMPARISON: None TECHNIQUE: Three views of the left shoulder. 3 views of the left elbow. FINDINGS: Left shoulder: Multiple soft tissue anchors are evident at the humeral head, consistent with prior rotator cuff repair. There is mild chondral subluxation of the humeral head at the glenoid. No dislocation. Mild glenohumeral osteoarthritis with small marginal osteophytes. Moderate acromioclavicular osteoarthritis. Osseous rotation of the distal clavicle may be due to prior trauma. No acute fractures are identified. Left elbow: No fracture or malalignment. No joint effusion. Small marginal osteophytes at the proximal ulna. Joint spaces are normal. Small enthesopathic spur at the triceps insertion. Mild dorsal soft tissue swelling. XR/XR elbow LT min 3V IMPRESSION: 1. No acute fracture or malalignment at the left shoulder and elbow. 2. Mild glenohumeral and moderate acromioclavicular osteoarthritis. 3. Minimal osteoarthritis in the left elbow.
--- NOTE | ~2022-07-15 | XR_ITS ---
EXAMINATION: XR SHOULDER, LEFT XR ELBOW, LEFT CLINICAL INFORMATION: Pain. COMPARISON: None TECHNIQUE: Three views of the left shoulder. 3 views of the left elbow. FINDINGS: Left shoulder: Multiple soft tissue anchors are evident at the humeral head, consistent with prior rotator cuff repair. There is mild chondral subluxation of the humeral head at the glenoid. No dislocation. Mild glenohumeral osteoarthritis with small marginal osteophytes. Moderate acromioclavicular osteoarthritis. Osseous rotation of the distal clavicle may be due to prior trauma. No acute fractures are identified. Left elbow: No fracture or malalignment. No joint effusion. Small marginal osteophytes at the proximal ulna. Joint spaces are normal. Small enthesopathic spur at the triceps insertion. Mild dorsal soft tissue swelling. XR/XR shoulder LT min 2V IMPRESSION: 1. No acute fracture or malalignment at the left shoulder and elbow. 2. Mild glenohumeral and moderate acromioclavicular osteoarthritis. 3. Minimal osteoarthritis in the left elbow.
--- NOTE | ~2022-07-15 | CT_ITS ---
EXAMINATION: CT HEAD WITHOUT CONTRAST CT CERVICAL SPINE WITHOUT CONTRAST CLINICAL INFORMATION: Head strike. Question loss of consciousness. COMPARISON: Head CTs dated June 19, 2022 and January 29, 2022. CT scan of the cervical spine dated June 19, 2022. TECHNIQUE: CT of the head and cervical spine were performed without intravenous contrast. Multiplanar reformats were rendered and reviewed. This CT examination was performed using dose optimization techniques as appropriate, variously including the following: *Automated exposure control *Adjustment of mA and/or kV according to patient size (this includes techniques or standardized protocols for targeted exams where dose is matched to indication/reason for exam; i.e. extremities or head) *Use of iterative reconstruction technique DLP: 1477 mGy-cm. FINDINGS: CT head: No intracranial hemorrhage, large infarction, or mass lesion is seen. No extra-axial collection is appreciated. The ventricles are normal in size and configuration without evidence of hydrocephalus. The visualized paranasal sinuses and mastoid air cells are clear. CT cervical spine: The cervical alignment is normal. The craniocervical junction is normal. The vertebral body heights are maintained. No cervical spine fracture is seen. Mild to moderate disc degenerative change and left neuroforaminal narrowing at C5-C6. The paraspinal soft tissues are within normal limits. The partially imaged lung apices are clear. CT/CT head/brain wo IV con IMPRESSION: CT head: No acute intracranial finding. CT cervical spine: No cervical spine fracture or traumatic malalignment identified.
--- NOTE | ~2022-07-15 | CT_ITS ---
EXAMINATION: CT HEAD WITHOUT CONTRAST CT CERVICAL SPINE WITHOUT CONTRAST CLINICAL INFORMATION: Head strike. Question loss of consciousness. COMPARISON: Head CTs dated June 19, 2022 and January 29, 2022. CT scan of the cervical spine dated June 19, 2022. TECHNIQUE: CT of the head and cervical spine were performed without intravenous contrast. Multiplanar reformats were rendered and reviewed. This CT examination was performed using dose optimization techniques as appropriate, variously including the following: *Automated exposure control *Adjustment of mA and/or kV according to patient size (this includes techniques or standardized protocols for targeted exams where dose is matched to indication/reason for exam; i.e. extremities or head) *Use of iterative reconstruction technique DLP: 1477 mGy-cm. FINDINGS: CT head: No intracranial hemorrhage, large infarction, or mass lesion is seen. No extra-axial collection is appreciated. The ventricles are normal in size and configuration without evidence of hydrocephalus. The visualized paranasal sinuses and mastoid air cells are clear. CT cervical spine: The cervical alignment is normal. The craniocervical junction is normal. The vertebral body heights are maintained. No cervical spine fracture is seen. Mild to moderate disc degenerative change and left neuroforaminal narrowing at C5-C6. The paraspinal soft tissues are within normal limits. The partially imaged lung apices are clear. CT/CT cervical spine wo IV con IMPRESSION: CT head: No acute intracranial finding. CT cervical spine: No cervical spine fracture or traumatic malalignment identified.
[2022-07-15 12:01] VITALS: BP 118/76; PULSE 94; PULSE 99; RESP 18; TEMP 37.2; O2SAT 100; BMI 38.0
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
--- OUTSIDE RECORDS SUMMARY | 2022-07-15 12:58 | XMS_ITS | Continuity of Care Document ---
:1970 Author Organization [facility] Address [address] [place] [address]- Care Team Providers Name Role Phone Annalee CARNES, Aaliyah Primary Care Physician [place] [facility] [place] 10/09/[address] [address]- Discharge Disposition: A-D/C Walkout Attending Physician: Not on Staff, Attending MD Admitting Physician: Not on Staff, Admitting MD Referring Physician: Not on Staff, Referring MD Allergies, Adverse Reactions, Alerts Substance Reaction Severity Status penicillin Active Immunizations Given and Recorded Vaccine Date Status Refusal Reason influenza virus vaccine, inactivated 09/26/13 Given influenza virus vaccine, inactivated 07/09/11 Given influenza virus vaccine, inactivated 08/09/10 Given tetanus/diphtheria/pertussis, acel(Tdap) 07/27/12 Given pneumococcal 23-valent vaccine 08/09/10 Given Diphth-Tetanus Toxoids Adsorbed(oldterm)1 06/08/07 Given 1Admin Note: Pt states had this done 2 yrs ago. 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 Refills 0, Maintenance, 12/15/17 13:09:10, Route to Pharmacy Electronically, [id number], [facility] Start Date: 12/15/17 Stop Date: 01/14/18 Status: Orderedatorvastatin 80 mg oral tablet = 80 mg, By Mouth, Daily at bedtime, # 30 tablet, 0 Refills, Maintenance, Tablet, Route to Pharmacy Electronically, [id number], [facility] 3 Start Date: 12/15/17 Stop Date: 01/14/18 Status: OrderedcloNIDine 0.1 mg oral tablet 0.1 mg, By Mouth, 4 times a day, # 30 tablet, Refills 0, Maintenance, 12/13/17 4:30:24 Start Date: 12/13/17 Status: OrderedCoreg 6.25 mg oral tablet 6.25 mg, 1, tablet, By Mouth, 2 times a day, # 60 tablet, Refills 0, Tot. Refills 0, Maintenance, 12/15/17 13:10:30, Route to Pharmacy Electronically, [id number], [facility] 3 Start Date: 12/15/17 Status: OrderedDepakote ER 500 mg oral tablet, extended release 1 tablet = 500 mg, By Mouth, Daily, # 30 tablet, 5 Refills, Maintenance, 04/15/19 16:03:17 EDT, ER Tablet Start Date: 04/15/19 Stop Date: 10/12/19 Status: OrderedGabapentin By Mouth, 0 Refills, Maintenance, 08/24/17 9:04:19 Start Date: 08/24/17 Status: OrderedHydrOXYzine 0 Refills, Maintenance, 08/24/17 9:04:04 Start Date: 08/24/17 Status: Orderedibuprofen 600 mg oral tablet = 600 mg, By Mouth, 3 times a day, PRN Pain , Mild, # 90 tablet, 0 Refills, Maintenance, 04/10/15 9:06:46, Tablet Start Date: 04/10/15 Stop Date: 05/10/15 Status: OrderedKeppra 500 mg oral tablet 1 tablet = 500 mg, By Mouth, 2 times a day, # 42 tablet, 0 Refills, Maintenance, 06/16/15 15:11:22, Tablet Start Date: 06/16/15 Stop Date: 07/07/15 Status: OrderedPlavix 75 mg oral tablet 75 mg, By Mouth, Daily, # 30 tablet, Refills 0, Tot. Refills 0, Maintenance, 12/15/17 13:09:19, Route to Pharmacy Electronically, [id number], [facility] Start Date: 12/15/17 Stop Date: 01/14/18 Status: OrderedProAir HFA 90 mcg/inh inhalation aerosol with adapter 2 puffs, Inhalation, 4 times a day, PRN Wheezing/Shortness of Breath, # 1 each, 0 Refills, Maintenance, wheezing, 2 puffs Inhalation 4 times a day,x30 days,PRN:Wheezing/Shortness of Breath Start Date: 09/26/13 Stop Date: 10/26/13 Status: Ordered Problem List Condition Effective Dates Status Health Status Informant Anxiety(Confirmed) Active Asthma(Confirmed)(Improving) Active Pain in right testicle(Confirmed) Active Posttraumatic stress Active disorder(Confirmed) Tobacco abuse(Confirmed) Active Results Radiology Reports Exam Date Time Procedure Performing Provider Status 10/09/20 3:20 PM Chest Portable Jessy Dietrich; Mitchell (Verified) Notes:(Chest Portable) Reason For Exam: Chest Pain;Other:RESULT: Chest Portable Chest Portable Reason: Other:; Chest Pain; Clinical Question(s): Other: COMPARISON: 09/25/2013 FINDINGS: LINES AND TUBES: None. LUNGS AND PLEURA: Mild linear atelectasis at the lung bases. No pleural effusion. No pneumothorax. HEART, MEDIASTINUM AND FRANCIA: Heart is normal in size. Normal upper mediastinal and hilar contour. BONES AND SOFT TISSUES: No acute abnormality. Postsurgical changes of the right proximal humerus with soft tissue anchors. IMPRESSION: Minimal linear atelectasis at the lung bases. WSN: [id number] Ordering Physician: Winter Hickman Dictated By: Andria Lei MD Dictated Date/Time: 10/09/20 3:24 pm Reviewed By: Andria Lei MD Signed By: Andria Lei MD Signed Date/Time: 10/09/20 3:24 pm Transcribed By: SILVESTRE Transcribed Date/Time: 10/09/20 3:23 pm Vital Signs Most recent to oldest [Reference Range]: 1 2 Oxygen Saturation [94-100 %] 94 % 99 % (10/09/20 4:11 PM) (10/09/20 2:47 PM) Pulse Rate [55-90 bpm] 86 bpm 88 bpm (10/09/20 4:11 PM) (10/09/20 2:47 PM) Blood Pressure [90-138/55-84 mm Hg] 107/66 mm Hg (10/09/20 4:11 PM) Respiratory Rate [16-30 br/min] 20 br/min (10/09/20 4:11 PM) Temperature [96.8-100.4 DegF] 97.3 DegF (10/09/20 4:11 PM) Mode of Delivery (Oxygen) Room air Room air (10/09/20 4:11 PM) (10/09/20 2:47 PM) Blood pressure sites Arm, right (10/09/20 4:11 PM) Temperature Route Oral (10/09/20 4:11 PM) Social History Social History Type Response Smoking Status Current some day smoker entered on: 09/26/13 Sex
--- OUTSIDE RECORDS SUMMARY | 2022-07-15 12:58 | XMS_ITS | Continuity of Care Document ---
:1970 Author Organization [facility] Address [address] [place] [address]- Care Team Providers Name Role Phone Not on Staff, PCP Primary Care Physician Unavailable Encounter [facility] Date(s): 11/28/20 - 11/29/[address] [address]- Discharge Disposition: A-D/C Home Attending Physician: Chelsea Silveira MD Admitting Physician: Chelsea Silveira MD Referring Physician: Not on Staff, Referring MD Allergies, Adverse Reactions, Alerts Substance Reaction Severity Status penicillin Active Immunizations Given and Recorded Vaccine Date Status Refusal Reason tetanus/diphtheria/pertussis, acel(Tdap) 11/29/20 Given tetanus/diphtheria/pertussis, acel(Tdap) 07/27/12 Given influenza virus vaccine, inactivated 09/26/13 Given influenza virus vaccine, inactivated 07/09/11 Given influenza virus vaccine, inactivated 08/09/10 Given pneumococcal 23-valent vaccine 08/09/10 Given Diphth-Tetanus Toxoids Adsorbed(oldterm)1 06/08/07 Given 1Admin Note: Pt states had this done 2 yrs ago. 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 Refills 0, Maintenance, 12/15/17 13:09:10, Route to Pharmacy Electronically, [id number], [facility] Start Date: 12/15/17 Stop Date: 01/14/18 Status: Orderedatorvastatin 80 mg oral tablet = 80 mg, By Mouth, Daily at bedtime, # 30 tablet, 0 Refills, Maintenance, Tablet, Route to Pharmacy Electronically, [id number], [facility] 3 Start Date: 12/15/17 Stop Date: [...] Maintenance, 12/15/17 13:10:30, Route to Pharmacy Electronically, [id number], [facility] 3 Start Date: 12/15/17 Status: OrderedDepakote ER 500 mg oral tablet, extended release 1 tablet = 500 mg, By Mouth, Daily, # 30 tablet, 5 Refills, Maintenance, 04/15/19 16:03:17 EDT, ER Tablet Start Date: 04/15/19 Stop Date: 10/12/19 Status: OrderedGabapentin By Mouth, 0 Refills, Maintenance, 08/24/17 9:04:19 Start Date: 08/24/17 Status: Orderedgabapentin 300 mg oral capsule 300 mg, Capsule, By Mouth, 11/29/20 9:00:00 EST Start Date: 11/29/20 Stop Date: 11/29/20 Status: CompletedHydrOXYzine 0 Refills, Maintenance, 08/24/17 9:04:04 Start Date: [...] Start Date: 06/16/15 Stop Date: 07/07/15 Status: Orderedlisinopril 5 mg oral tablet 2.5 mg, Tablet, By Mouth, 11/29/20 9:00:00 EST Start Date: 11/29/20 Stop Date: 11/29/20 Status: Completedmetoprolol 25 mg oral tablet, extended release 25 mg, XL Tablet, By Mouth, 11/29/20 9:00:00 EST Start Date: 11/29/20 Stop Date: 11/29/20 Status: CompletedPlavix 75 mg oral tablet 75 mg, By Mouth, Daily, # 30 tablet, Refills 0, Tot. Refills 0, Maintenance, 12/15/17 13:09:19, Route to Pharmacy Electronically, [id number], [facility] Start Date: 12/15/17 Stop Date: [...] Posttraumatic stress Active disorder(Confirmed) Tobacco abuse(Confirmed) Active Vital Signs Most recent to oldest [Reference 1 2 3 Range]: Oxygen Saturation [94-100 %] 99 % 92 % (11/29/20 10:18 AM) *L* (11/29/20 1:51 AM) Pulse Rate [55-90 bpm] 87 bpm 90 bpm (11/29/20 9:09 AM) (11/29/20 1:51 AM) Blood Pressure [90-138/55-84 mm 138/84 mm Hg 138/84 mm Hg 108/64 mm Hg Hg] (11/29/20 9:09 AM) (11/29/20 9:09 AM) (11/29/20 1:51 A M) Respiratory Rate [16-30 br/min] 18 br/min 16 br/min (11/29/20 9:10 AM) (11/29/20 1:51 AM) Temperature [96.8-100.4 DegF] 98.2 DegF (11/29/20 1:51 AM) Mode of Delivery (Oxygen) Room air Room air (11/29/20 10:18 AM) (11/29/20 1:51 AM) Blood pressure sites Arm, right Arm, right (11/29/20 9:09 AM) (11/29/20 1:51 AM) Temperature Route Oral (11/29/20 1:51 AM) Social History Social History Type Response Smoking Status Current some day smoker entered on: 09/26/13 Sex
--- OUTSIDE RECORDS SUMMARY | 2022-07-15 12:58 | XMS_ITS | Continuity of Care Document ---
:1970 Author Organization [facility] Address [address] [place] [id number]- Care Team Providers Name Role Phone Not on Staff, PCP Primary Care Physician Unavailable Encounter [facility] [place] Date(s): 03/22/21 - 03/23/[address] [address]- Encounter Diagnosis Abdominal pain (Final) - 03/22/21 Discharge Disposition: A-D/C Home Attending Physician: Gwendolyn Zamorano MD Admitting Physician: Gwendolyn Zamorano MD Referring Physician: Not on Staff, Referring [...] had this done 2 yrs ago. 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 Refills 0, Maintenance, 12/15/17 13:09:10, Route to Pharmacy Electronically, [id number], [facility] Start Date: 12/15/17 Stop Date: 01/14/18 Status: Orderedatorvastatin 80 mg oral tablet = 80 mg, By Mouth, Daily at bedtime, # 30 tablet, 0 Refills, Maintenance, Tablet, Route to Pharmacy Electronically, [id number], [facility] 3 Start Date: 12/15/17 Stop Date: 01/14/18 Status: OrderedcloNIDine 0.1 mg oral tablet 0.1 mg, By Mouth, 4 times a day, # 30 tablet, Refills 0, Maintenance, 12/13/17 4:30:24 Start Date: 12/13/17 Status: OrderedCoreg 6.25 mg oral tablet 6.25 mg, 1, tablet, By Mouth, 2 times a day, # 60 tablet, Refills 0, Tot. Refills 0, Maintenance, 12/15/17 13:10:30, Route to Pharmacy Electronically, [id number], [facility] 3 Start Date: 12/15/17 Status: OrderedDepakote ER [...] Start Date: 06/16/15 Stop Date: 07/07/15 Status: OrderedMorPHINE Inj 4 mg, Injection, IV Push Slowly, Every 5 minutes for 3 doses/times, PRN for Pain , Moderate, and SBPgreater than 100, Routine, 03/22/21 15:01:00 EDT, Stop date Limited # of times Start Date: 03/22/21 Stop Date: 03/22/21 Status: CompletedPlavix 75 mg oral tablet 75 mg, By Mouth, Daily, # 30 tablet, Refills 0, Tot. Refills 0, Maintenance, 12/15/17 13:09:19, Route to Pharmacy Electronically, [id number], [facility] Start Date: 12/15/17 Stop [...] stress Active disorder(Confirmed) Tobacco abuse(Confirmed) Active Results Orders for Microbiology Reports Name Date Blood Culture 03/22/21 Blood Culture #2 03/22/21 Microbiology Reports TEST:Blood Culture STATUS:Unauthenticated BODY SITE: SOURCE:Blood COLLECTED DATE/TIME:03/22/21 3:05 PMBlood Culture SPECIMEN DESCRIPTION : BLOOD RAC SPECIAL REQUESTS : NONE CULTURE : NO GROWTH AFTER 24 HOURS REPORT STATUS : PRELIMINARY REPORT TEST:Blood Culture, Second Order STATUS:Unauthenticated BODY SITE: SOURCE:Blood COLLECTED DATE/TIME:03/22/21 3:05 PMBlood Culture, Second Order SPECIMEN DESCRIPTION : BLOOD LT HAND SPECIAL REQUESTS : NONE CULTURE : NO GROWTH AFTER 24 HOURS REPORT STATUS : PRELIMINARY REPORT Vital Signs Most recent to oldest 1 2 3 [Reference Range]: Oxygen Saturation [94-100 %] 98 % 98 % 97 % (03/22/21 8:38 PM) (03/22/21 6:10 PM) (03/22/21 2:5 2 PM) Pulse Rate [55-90 bpm] 68 bpm 76 bpm 84 bpm (03/22/21 8:38 PM) (03/22/21 6:10 PM) (03/22/21 2:5 2 PM) Blood Pressure [90-138/55-84 mm 157/95 mm Hg 134/76 mm Hg 145/92 mm Hg Hg] *H* (03/22/21 6:10 PM) *H* (03/22/21 8:38 PM) (03/22/21 2:52 PM) Respiratory Rate [16-30 br/min] 16 br/min 18 br/min 18 br/min (03/22/21 8:38 PM) (03/22/21 8:38 PM) (03/22/21 6:1 0 PM) Temperature [96.8-100.4 DegF] 98.4 DegF 98.5 DegF 98 .1 DegF (03/22/21 8:38 PM) (03/22/21 2:52 PM) (03/22/21 2:1 2 PM) Mode of Delivery (Oxygen) Room air Room air Room a ir (03/22/21 8:38 PM) (03/22/21 6:10 PM) (03/22/21 2:5 2 PM) Blood pressure sites Arm, left Arm, left Arm, left (03/22/21 8:38 PM) (03/22/21 6:10 PM) (03/22/21 2:5 2 PM) Temperature Route Oral Oral Oral (03/22/21 8:38 PM) (03/22/21 2:52 PM) (03/22/21 2:1 2 PM) Social History Social History Type Response Smoking Status Current some day smoker entered on: 09/26/13 Sex
--- OUTSIDE RECORDS SUMMARY | 2022-07-15 12:59 | XMS_ITS | Continuity of Care Document ---
:1970 Author Organization [facility] Address [address] [place] [id number] Care Team Providers Name Role Phone Yuliya CARNES, Jessy Leyva Primary Care Physician Encounter [facility] Date(s): 04/22/21 - 04/23/[address] [address] Encounter Diagnosis Collapse (Final) - 04/22/21 Discharge Disposition: A-D/C Home Attending Physician: Gian Hendrix MD Admitting Physician: Michelle NEAL, Holly Apple Referring Physician: Not on Staff, Referring MD [...] had this done 2 yrs ago. [employer] Medications Acetaminophen = 500 mg, By Mouth, prn, 0 Refills, Maintenance, 04/23/21 3:41:00 EDT, Partial fill upon patient request if the prescription is for a schedule II opioid drug. Start Date: 04/23/21 Status: Orderedacetaminophen-oxyCODONE 325 mg-5 mg oral tablet 1, tablet, By Mouth, Every 8 hours, PRN, # 14 tablet, Refills 0, Tot. Refills 0, Maintenance, Pain ,Severe, 04/23/21 14:16:00 EDT, Route to Pharmacy Electronically, [id number] Tablet,Partial fill upon patient request if the prescrip... Start Date: 04/23/21 Status: OrderedamiTRIPTYLINE = 200 mg, By Mouth, Daily at bedtime, 0 Refills, Maintenance, 08/24/17 9:04:11 EST Start Date: 08/24/17 Status: Orderedaspirin 81 mg oral delayed release tablet 81 mg, 1, tablet, By Mouth, Daily, # 30 tablet, Refills 3, Tot. Refills 3, Maintenance, 04/23/21 13:53:00 EDT, Route to Pharmacy Electronically, [facility] #[id number], Partial fill upon patient request if the prescription is for a schedule II op... Start Date: 04/23/21 Status: Orderedaspirin 81 mg oral delayed release tablet 81 mg, By Mouth, Daily, # 30 tablet, Refills 0, Tot. Refills 0, Maintenance, 12/15/17 13:09:10, Route to Pharmacy Electronically, [id number], [facility] 3 Start Date: 12/15/17 Stop Date: 01/14/18 Status: OrderedclonazePAM 2 mg oral tablet 1 tablet = 2 mg, By Mouth, 3 times a day, PRN, 0 Refills, Maintenance, 04/23/21 3:46:00 EDT, Partialfill upon patient request if the prescription is for a schedule II opioid drug. Start Date: 04/23/21 Status: OrderedcloNIDine 0.1 mg oral tablet 0.1 mg, By Mouth, 4 times a day, # 30 tablet, Refills 0, Maintenance, 12/13/17 4:30:24 Start Date: 12/13/17 Status: OrderedCoreg 6.25 mg oral tablet 6.25 mg, Tablet, By Mouth, 04/23/21 9:00:00 EDT Start Date: 04/23/21 Stop Date: 04/23/21 Status: CompletedDepakote ER 500 mg oral tablet, extended release 1 tablet = 500 mg, By Mouth, Daily, # 30 tablet, 5 Refills, Maintenance, 04/15/19 16:03:17 EDT, ER Tablet Start Date: 04/15/19 Stop Date: 10/12/19 Status: OrderedDilaudid Inj 0.5 mg, Injection, IV Push Slowly, Every 4 hours, PRN for Pain , Severe, Routine, 04/23/21 2:14:00 EDT Start Date: 04/23/21 Stop Date: 04/24/21 Status: Discontinuedfamotidine 20 mg oral tablet 20 mg, 1, tablet, By Mouth, Daily, # 30 tablet, Refills 0, Maintenance, 04/23/21 3:47:00 EDT, Partial fill upon patient request if the prescription is for a schedule II opioid drug. Start Date: 04/23/21 Status: OrderedGabapentin By Mouth, 0 Refills, Maintenance, 08/24/17 9:04:19 Start Date: 08/24/17 Status: Orderedibuprofen 600 mg oral tablet = 600 mg, By Mouth, 3 times a day, PRN Pain , Mild, # 30 tablet, 0 Refills, Maintenance, 04/10/15 9:06:46 EDT, Tablet Start Date: 04/10/15 Status: OrderedKeppra 500 mg oral tablet 1 tablet = 500 mg, By Mouth, 2 times a day, # 42 tablet, 0 Refills, Maintenance, 06/16/15 15:11:22, Tablet Start Date: 06/16/15 Stop Date: 07/07/15 Status: Orderedlisinopril 2.5 mg oral tablet 2.5 mg, 1, tablet, By Mouth, Daily, Refills 0, Maintenance, 04/23/21 3:47:00 EDT, Partial fill upon patient request if the prescription is for a schedule II opioid drug. Start Date: 04/23/21 Status: OrderedLoratadine 10 mg, By Mouth, Daily, Refills 0, Maintenance, 04/23/21 3:47:00 EDT, Partial fill upon patient request if the prescription is for a schedule II opioid drug. Start Date: 04/23/21 Status: Orderedmetoprolol 25 mg oral tablet, extended release 25 mg, 1, tablet, By Mouth, Daily, # 30 tablet, Refills 3, Tot. Refills 3, Maintenance, 04/23/21 13:53:00 EDT, [id number], Partial fill upon patient request if the prescription is for a schedule II op... Start Date: 04/23/21 Status: OrderedProAir HFA 90 mcg/inh inhalation aerosol with adapter 2 puffs, Inhalation, 4 times a day, PRN Wheezing/Shortness of Breath, # 1 each, 0 Refills, Maintenance, wheezing, 2 puffs Inhalation 4 times a day,x30 days,PRN:Wheezing/Shortness of Breath Start Date: 09/26/13 Stop Date: 10/26/13 Status: Orderedrosuvastatin 20 mg oral tablet 1 tablet = 20 mg, By Mouth, Daily, # 30 tablet, 3 Refills, Maintenance, 04/23/21 13:53:00 EDT, Tablet, [facility] #[id number], Partial fill upon patient request if the prescription is for a schedule II opioid drug., 172.72, cm, 04/23/21 11:40:00... Start Date: 04/23/21 Status: Ordered Problem List Condition Effective Dates Status Health Status Informant Anxiety(Confirmed) Active Asthma(Confirmed)(Improving) Active Pain in right testicle(Confirmed) Active Posttraumatic stress Active disorder(Confirmed) Tobacco abuse(Confirmed) Active Results Radiology Reports Exam Date Time Procedure Performing Provider Status 04/22/21 11:49 PM Chest 2 Views Frontal and Lat Shirley Newby (Verified) Notes:(Chest 2 Views Frontal and Lat) Reason For Exam: Traumatic Chest Pain;Other:RESULT: Chest 2 Views Frontal and Lat Chest 2 Views Frontal and Lat Hx of Present Illness: fall from a standing position, c o right knee and left shoulder injury with pain.; Reason: Other:; Traumatic Chest Pain; Clinical Question(s): Other:; Pneumothorax, Fracture COMPARISON: 10/09/2020. FINDINGS: LINES AND TUBES: None. LUNGS AND PLEURA: Clear lungs. Normal pulmonary vascularity. No pleural effusion. No pneumothorax. HEART, MEDIASTINUM AND FRANCIA: Heart is normal in size. Normal upper mediastinal and hilar contour. BONES AND SOFT TISSUES: No acute abnormality. Unchanged fixation anchors in the right humeral head.. IMPRESSION: No acute abnormality. I have personally reviewed the images and I agree with this report. WSN: [id number] Ordering Physician: Landy Lord Dictated By: Misael Phillips DO Dictated Date/Time: 04/23/21 0:02 am Reviewed By: Kashmir Farmer MD Signed By: Kashmir Farmer MD Signed Date/Time: 04/23/21 0:07 am Transcribed By: SILVESTRE Transcribed Date/Time: 04/22/21 11:58 pm Exam Date Time Procedure Performing Provider Status 04/22/21 11:49 PM Shoulder Min 2 Views Left Jona Newby; Auth (Verified) Notes:(Shoulder Min 2 Views Left) Reason For Exam: TraumaRESULT: Shoulder Min 2 Views Left Shoulder Left, 2 views Hx of Present Illness: fall from a standing position, c o right knee and left shoulder injury with pain.; Reason: Trauma; Clinical Question(s): Fracture COMPARISON: None. FINDINGS: No fracture or dislocation. No arthritic change of the glenohumeral joint. Mild degenerative changes of left AC joint appear No calcification of the rotator cuff. The visualized lungs are clear. IMPRESSION: No acute fracture or dislocation. I have personally reviewed the images and I agree with this report. WSN: [id number] Ordering Physician: Landy Lord Dictated By: Misael Phillips DO Dictated Date/Time: 04/23/21 0:02 am Reviewed By: Kashmir Farmer MD Signed By: Kashmir Farmer MD Signed Date/Time: 04/23/21 0:07 am Transcribed By: SILVESTRE Transcribed Date/Time: 04/22/21 11:56 pm Exam Date Time Procedure Performing Provider Status 04/22/21 11:49 PM Knee 1 or 2 Views Left Jona Newby; Auth (V erified) Notes:(Knee 1 or 2 Views Left) Reason For Exam: Puncture WoundRESULT: Knee 1 or 2 Views Left Knee 1 or 2 Views Left, 2 views Hx of Present Illness: fall from a standing position, c o right knee and left shoulder injury with pain.; Reason: Puncture Wound; Clinical Question(s): Fracture COMPARISON: None. FINDINGS: No acute fracture or dislocation. No significant joint effusion. IMPRESSION: No acute osseous injury identified. WSN: [id number] Ordering Physician: Landy Lord Dictated By: Kashmir Farmer MD Dictated Date/Time: 04/22/21 11:54 p Reviewed By: Kashmir Farmer MD Signed By: Kashmir Farmer MD Signed Date/Time: 04/22/21 11:54 pm Transcribed By: SILVESTRE Transcribed Date/Time: 04/22/21 11:54 pm Exam Date Time Procedure Performing Provider Status 04/22/21 11:49 PM Knee 1 or 2 Views Right Andres Newbyian; Auth ( Verified) Notes:(Knee 1 or 2 Views Right) Reason For Exam: TraumaRESULT: Knee 1 or 2 Views Right Knee 1 or 2 Views Right, 2 views Hx of Present Illness: fall from a standing position, c o right knee and left shoulder injury with pain.; Reason: Trauma; Clinical Question(s): Fracture COMPARISON: None. FINDINGS: No acute fracture or dislocation. Probable small knee joint effusion. Mild degenerative changes. IMPRESSION: No acute osseous injury identified. WSN: [id number] Ordering Physician: Landy Lord Dictated By: Kashmir Farmer MD Dictated Date/Time: 04/22/21 11:53 p Reviewed By: Kashmir Farmer MD Signed By: Kashmir Farmer MD Signed Date/Time: 04/22/21 11:53 pm Transcribed By: SILVESTRE Transcribed Date/Time: 04/22/21 11:52 pm Vital Signs Most recent to oldest 1 2 3 [Reference Range]: Height 172.72 cm 172.72 cm 172.72 cm (04/23/21 11:40 AM) (04/23/21 10:05 AM) (04/23/21 7 :07 AM) Weight 109 kg 109.54 kg (04/23/21 3:45 AM) (04/23/21 3:34 AM) Oxygen Saturation [94-100 %] 99 % 99 % 96 % (04/23/21 11:40 AM) (04/23/21 7:07 AM) (04/23/21 3: 45 AM) Pulse Rate [55-90 bpm] 61 bpm 65 bpm 65 bpm (04/23/21 11:40 AM) (04/23/21 8:19 AM) (04/23/21 7: 07 AM) Body Mass Index [18.5-24.99] 36.72 *>HHI* (04/23/21 3:34 AM) Blood Pressure [90-138/55-84 125/61 mm Hg 133/81 mm Hg 133 /81 mm Hg mm Hg] (04/23/21 11:40 AM) (04/23/21 8:19 AM) (04/23/21 7: 07 AM) Respiratory Rate [16-30 20 br/min 20 br/min 20 br/mi n br/min] (04/23/21 12:52 PM) (04/23/21 12:22 PM) (04/23/21 1 1:40 AM) Temperature [96.8-100.4 98.3 DegF 97.9 DegF 97.8 Deg F DegF] (04/23/21 11:40 AM) (04/23/21 7:07 AM) (04/23/21 3: 45 AM) Mode of Delivery (Oxygen) Room air Room air Room a ir (04/23/21 11:40 AM) (04/23/21 7:07 AM) (04/23/21 3: 45 AM) Blood pressure sites Arm, right Arm, right Arm, right (04/23/21 11:40 AM) (04/23/21 7:07 AM) (04/23/21 5: 15 AM) Temperature Route Oral Oral Oral (04/23/21 11:40 AM) (04/23/21 7:07 AM) (04/23/21 3: 45 AM) Dry Weight 109.54 kg (04/23/21 3:34 AM) Weight Obtained Via Bed scale (04/23/21 3:45 AM) Social History Social History Type Response Smoking Status Former smoker, quit more nash n 30 days ago; Other: pt states he quit smoking 6 years ago; entered on: 04/23/21 Sex
[2022-07-15] MEDS: Cyclobenzaprine HCl 10 MG TABLET PO (13:04)
[2022-07-15] MEDS: Acetaminophen 325 MG TABLET 650 MG PO (13:04)
[2022-07-15 13:32] LABS: MANUAL DIFF FLAG NO
[2022-07-15 13:36] LABS: Basophils Absolute Auto 0.1 X10*3/uL (0.0-0.2); Basophils Percent Auto 0.7 % (0-2); Eosinophils Absolute Auto 0.2 X10*3/uL (0.0-0.4); Eosinophils Percent Auto 1.3 % (0-4); Hematocrit 49.5 % (42.0-52.0); Hemoglobin 16.4 g/dl (14.0-18.0); Imm Gran Abs Auto 0.09 X10*3/uL (0.00-0.03); Imm Gran Pct Auto 0.8 % (0.0-0.4); Lymphocytes Absolute Auto 1.3 X10*3/uL (1.2-4.9); Lymphocytes Percent Auto 11.3 % (20-40); Mean Corpuscular HGB Conc 33.1 g/dl (31.0-36.0); Mean Corpuscular Hemoglobin 28.2 pg (27.0-33.0); Mean Corpuscular Volume 85.2 fL (80.0-98.0); Mean Platelet Volume 9.3 fL (9.4-12.4); Monocytes Absolute Auto 0.5 X10*3/uL (0.1-1.2); Monocytes Percent Auto 4.5 % (2-11); Neutrophils Absolute Auto 9.6 x10*3/uL (2.0-8.3); Neutrophils Percent Auto 81.4 % (45-73); Platelet Count 193 X10*3/uL (160-400); Red Blood Count 5.81 X10*6/uL (4.60-5.80); Red Cell Distribution Width 13.4 % (11.0-16.0); White Blood Count 11.7 X10*3/uL (4.8-10.8)
[2022-07-15 13:51] LABS: Magnesium 1.8 mg/dL (1.6-2.6)
[2022-07-15 13:52] LABS: Alanine Aminotransferase 26 U/L (0-40); Alkaline Phosphatase 80 U/L (39-117); Anion Gap 14 (12-20); Aspartate Amino Transferase 24 U/L (5-37); Bilirubin Direct 0.2 mg/dL (0.0-0.5); Bilirubin Total 0.5 mg/dL (0.0-1.0); Blood Urea Nitrogen 6 mg/dL (9-16); Calcium 9.2 mg/dL (8.4-10.2); Carbon Dioxide 23 mmol/L (22-29); Chloride 104 mmol/L (96-108); Creatinine Clr Calc Pharmacy 119.9; Estimated Glomerular Filt Rate > 60; Glucose Random 121 mg/dL (60-115); Potassium 4.3 mmol/L (3.3-5.1); Sodium 137 mmol/L (135-145); Total Protein 6.6 g/dL (6.5-8.0)
[2022-07-15 13:55] LABS: Troponin-I High Sensitivity < 3.5 ng/L (<3.5-35.0)
[2022-07-15] MEDS: Ketorolac Tromethamine 15 MG/ML VIAL IM (15:18)
== END 2022-07-15 15:43 | disposition home or self-care (01) ==
PROVIDERS: Physician Assistant; Emergency Provider Emergency Medicine
DX: S49.92XA Unspecified injury of left shoulder and upper arm, initial encounter (principal); S09.90XA Unspecified injury of head, initial encounter; V03.19XA Pedestrian with other conveyance injured in collision with car, pick-up truck or van in traffic accident, initial encounter; Y93.9 Activity, unspecified; Y92.414 Local residential or business street as the place of occurrence of the external cause; Y99.9 Unspecified external cause status
CPT/HCPCS: 36415; 70450; 72125; 73030; 73080; 80053; 82248; 83735; 84484; 85025; 93005; 96372; 99283; 99284; J1885

== ENCOUNTER 2025-01-28 19:55 | Inpatient (IN) | payer MEDICARE, SELFPAY ==
--- NOTE | 2025-01-28 | ECG_ITS ---
Test Reason : OD Blood Pressure : */* mmHG Vent. Rate : 53 BPM Atrial Rate : 53 BPM P-R Int : 214 ms QRS Dur : 94 ms QT Int : 448 ms P-R-T Axes : 40 5 79 degrees QTcB Int : 420 ms Sinus bradycardia with 1st degree A-V block Incomplete right bundle branch block Inferior infarct (cited on or before 15-Jul-2022) Abnormal ECG When compared with ECG of 15-Jul-2022 13:04, Incomplete right bundle branch block is now Present Referred By: Generic ED Physician Electronically Signed By: ASAEL VALLADARES
[2025-01-28 19:58] VITALS: BP 121/82; BP 164/80; PULSE 50; PULSE 55; RESP 20; TEMP 36.9; O2SAT 96; BMI 32.9
--- NOTE | 2025-01-28 20:02 | ECG_ITS ---
Test Reason : REPEAT FOR OD Blood Pressure : */* mmHG Vent. Rate : 55 BPM Atrial Rate : 55 BPM P-R Int : 232 ms QRS Dur : 94 ms QT Int : 462 ms P-R-T Axes : 59 7 78 degrees QTcB Int : 441 ms Sinus bradycardia with 1st degree A-V block Incomplete right bundle branch block Inferior infarct (cited on or before 15-Jul-2022) Abnormal ECG When compared with ECG of 28-Jan-2025 20:02, No significant change was found Referred By: Jose Raul Mccormick Electronically Signed By: ASAEL VALLADARES
[2025-01-28 20:11] LABS: Glucose, Whole Blood 182 mg/dL (60-115)
--- NOTE | 2025-01-28 20:14 | ED.OVERDOSE ---
HPI - Overdose General Chief Complaint: Overdose Stated Complaint: took 2250 mg of metropolol, bp 78/56 Time Seen by Provider: 01/28/25 19:59 Source: patient and EMS Limitations: no limitations History of Present Illness ED Provider: HPI Narrative: Patient's history of depression bipolar disorder history of overdose and suicidal attempts in the past got upset with his roommate and took his metoprolol succinate which was newly filled about 2250 mg just prior to arrival no vomiting patient feel depressed and overdosed to kill himself but did not work on arrival patient's heart rate was 55 blood pressure 121/82 saturating 96% at room air Related Data Home Medications ?Medication ?Instructions ?Recorded ?Confirmed albuterol sulfate 90 mcg/actuation 2 puff PO Q4H PRN Shortness Of 04/28/21 06/19/22 aerosol inhaler Breath aspirin 81 mg tablet,delayed 1 tab PO DAILY 04/28/21 06/19/22 release amitriptyline 100 mg tablet 2 tab PO BEDTIME 05/17/21 06/19/22 clonidine HCl 0.1 mg tablet 1 tab PO BID 05/17/21 06/19/22 famotidine 40 mg tablet 1 tab PO DAILY 05/17/21 06/19/22 levetiracetam 750 mg tablet 1 tab PO BID 05/17/21 06/19/22 loratadine 10 mg tablet 1 tab PO DAILY 05/17/21 06/19/22 metoprolol succinate 25 mg 1 tab PO DAILY 05/17/21 06/19/22 tablet,extended release 24 hr rosuvastatin 20 mg tablet 1 tab PO DAILY 05/17/21 06/19/22 tamsulosin 0.4 mg capsule 1 cap PO BID 05/17/21 06/19/22 acetaminophen 325 mg tablet 975 mg PO Q8H PRN Pain 03/20/22 06/19/22 clonazepam 2 mg tablet 1 tab PO BID PRN Anxiety 03/20/22 06/19/22 multivitamin 1 tab PO DAILY 03/20/22 06/19/22 testosterone 5 pump topical DAILY 03/20/22 06/19/22 clonazepam 2 mg tablet 1 tab PO DAILY 06/19/22 06/19/22 Previous Rx's ?Medication ?Instructions ?Recorded pentoxifylline 400 mg 400 mg PO TID #90 tabs 06/22/22 tablet,extended release tramadol 50 mg tablet 50 mg PO Q8H PRN pain #9 tabs 06/22/22 acetaminophen 500 mg tablet 500 mg PO Q6H PRN fever or pain 07/15/22 (Tylenol Extra Strength) #14 tabs lidocaine 5 % topical patch 1 patch topical DAILY PRN pain #30 07/15/22 (Lidoderm) ea naproxen 500 mg tablet 500 mg PO BID PRN pain 10 days #20 07/15/22 tabs Allergies Allergy/AdvReac Type Severity Reaction Status Date / Time Penicillins Allergy Unknown Unknown Verified 01/28/25 20:02 Review of Systems Review of Systems: Yes all other systems are reviewed and are negative [facility] Past Medical History Medical History Pancreatic cyst Depression with anxiety Alcohol withdrawal Acute pancreatitis Heart attack Chronic systolic (congestive) heart failure CAD (coronary artery disease) Seizure NAMITA (acute kidney injury) Surgical History Stented coronary artery Family History Family History Mother Breast cancer CAD (coronary artery disease) Father Psoriasis Social History Social History Household Members: None Housing: Apartment Are you a primary home care consultant to a significant other at home: No Do you presently have visiting nurse or other home services: Yes Comment: Refused bed alarm Patient Tobacco Use Status: Former Tobacco user Tobacco use type: Cigarette Second Hand Smoke Exposure: No Substance Use Type: Marijuana and Opiates Advance Directives: No Advance Directives Information Provided: No Do you have a plan to hurt others: No Plan service: Yes Current occupational status: disabled Physical Exam Vital Signs: Vital Signs: Last Vital Signs Temp 98.5 F 01/28/25 19:58 Pulse 57 01/28/25 23:17 Resp 25 H 01/28/25 23:17 BP 104/71 01/28/25 23:17 Pulse Ox 93 01/28/25 23:17 O2 Del Method Room Air 01/28/25 23:17 BMI result Body Mass Index 32.9 Appearance: Alert. Oriented X3. No acute distress. Feel depressed Eyes: PERRLA, No Nystagmus ENT: Pharynx normal. Oral Mucosa moist Neck: Normal inspection. Neck supple. CVS: Normal heart rate and rhythm. Pulses normal. Respiratory: No respiratory distress. Equal air entry bilateral, no wheezing/rales/rhonchi Abdomen: Soft and nontender. Bowel sounds are present, no mass palpable, no CVA tenderness Skin: Skin warm and dry. Normal skin color. Normal skin turgor. Extremities: No lower extremity edema. No calf tenderness Neuro: Oriented X 3. No motor deficit. No sensory deficit.No cerebellar signs , cranial nerves II-XII intact Medications Administered Discontinued Medications Generic Name Dose Route Start Last Admin Trade Name Freq PRN Reason Stop Dose Admin Charcoal 50 gm 01/28/25 20:01 01/28/25 20:18 Activated Charcoal 50 Gm/240 Ml Oral.Susp PO 01/28/25 20:02 50 gm ONCE ONE Administration Sodium Chloride 1,000 mls @ 999 mls/hr 01/28/25 20:02 01/28/25 22:08 Ns IV 01/28/25 21:02 Infused .Q1H1M ONE Infusion Medical Decision Making Medical Decision Making [facility] Narrative: Patient's depression with suicidal attempt overdose on beta amish vitals are stable at this time case discussed with poison control advised to watch for 24 hours repeat cardiograms and cardiac monitoring patient was given charcoal p.o. IV fluids will give glucagon as needed for bradycardia/hypotension and supportive treatment Differential Diagnosis Differential Diagnoses: The differential diagnosis associated with the presentation includes Admission/Observation Consideration of admission/observation: Escalation of care including admission/observation considered Consult Healthcare Provider Management of the patient was discussed with: Hospitalist Lab Data [facility] Lab Attestation statement: I reviewed the patient's lab results. 01/28/25 20:13 01/28/25 20:13 Labs: Lab Results 01/28/25 01/28/25 01/28/25 Range/Units 20:02 20:13 20:21 WBC 6.9 (4.8-10.8) X10*3/uL RBC 4.83 (4.60-5.80) X10*6/uL Hgb 14.4 (14.0-18.0) g/dl Hct 41.9 L (42.0-52.0) % MCV 86.7 (80.0-98.0) fL MCH 29.8 (27.0-33.0) pg MCHC 34.4 (31.0-36.0) g/dl RDW 12.1 (11.0-16.0) % Plt Count 158 L (160-400) X10*3/uL MPV 9.0 L (9.4-12.4) fL Immature Gran % (Auto) 0.6 H (0.0-0.4) % Neut % (Auto) 70.7 (45-73) % Lymph % (Auto) 17.9 L (20-40) % [place] % (Auto) 8.4 (2-11) % Eos % (Auto) 1.5 (0-4) % Baso % (Auto) 0.9 (0-2) % Lymph # (Auto) 1.2 (1.2-4.9) X10*3/uL [place] # (Auto) 0.6 (0.1-1.2) X10*3/uL Eos # (Auto) 0.1 (0.0-0.4) X10*3/uL Baso # (Auto) 0.1 (0.0-0.2) X10*3/uL Abs Immat Gran (auto) 0.04 H (0.00-0.03) X10*3/uL Absolute Neuts (auto) 4.9 (2.0-8.3) x10*3/uL Absolute Nucleated RBC 0.000 (0.0-0.012) X10*3/uL Nucleated RBC % (auto) 0.0 (0.0-0.2) /100WBC VBG pH 7.44 H (7.32-7.43) VBG pCO2 35 mmHg VBG pO2 57 mmHg VBG HCO3 24 (22-26) mmol/L VBG O2 Saturation 86.0 % VBG Base Excess 1.3 mmol/L Sodium 138 (135-145) mmol/L Potassium 4.4 (3.3-5.1) mmol/L Chloride 107 (96-108) mmol/L Carbon Dioxide 21 L (22-29) mmol/L Anion Gap 14 (12-20) BUN 13 (9-16) mg/dL Creatinine 0.91 (0.5-1.4) mg/dL Estim Creat Clear Calc 105.4 Estimated GFR > 60 POC Glucose 182 H (60-115) mg/dL Random Glucose 182 H (60-115) mg/dL Calcium 8.6 D (8.4-10.2) mg/dL Magnesium 2.1 (1.6-2.6) mg/dL Total Bilirubin 0.4 (0.0-1.0) mg/dL AST 49 H (5-37) U/L ALT 41 H (0-40) U/L Alkaline Phosphatase 65 (39-117) U/L Troponin I High Sens < 2.7 (<3.5-35.0) ng/L Total Protein 7.2 (6.5-8.0) g/dL Albumin 3.9 (3.5-5.0) g/dL Salicylates < 5.0 L (15-30) mg/dL Urine Opiates Screen (Not Detect) Ur Buprenorphine Scrn (Not Detect) ng/mL Ur Oxycodone Screen (Not Detect) ng/mL Urine Methadone Screen (Not Detect) ng/mL Urine Fentanyl Screen (Not Detect) Acetaminophen < 3 (<30) mcg/mL Ur Barbiturates Screen (Not Detect) Ur Phencyclidine Scrn (Not Detect) Ur Amphetamines Screen (Not Detect) U Benzodiazepines Scrn (Not Detect) Urine Cocaine Screen (Not Detect) U Marijuana (THC) Screen (Not Detect) Ethyl Alcohol < 10 mg/dL 01/28/25 Range/Units 23:40 WBC (4.8-10.8) X10*3/uL RBC (4.60-5.80) X10*6/uL Hgb (14.0-18.0) g/dl Hct (42.0-52.0) % MCV (80.0-98.0) fL MCH (27.0-33.0) pg MCHC (31.0-36.0) g/dl RDW (11.0-16.0) % Plt Count (160-400) X10*3/uL MPV (9.4-12.4) fL Immature Gran % (Auto) (0.0-0.4) % Neut % (Auto) (45-73) % Lymph % (Auto) (20-40) % [place] % (Auto) (2-11) % Eos % (Auto) (0-4) % Baso % (Auto) (0-2) % Lymph # (Auto) (1.2-4.9) X10*3/uL [place] # (Auto) (0.1-1.2) X10*3/uL Eos # (Auto) (0.0-0.4) X10*3/uL Baso # (Auto) (0.0-0.2) X10*3/uL Abs Immat Gran (auto) (0.00-0.03) X10*3/uL Absolute Neuts (auto) (2.0-8.3) x10*3/uL Absolute Nucleated RBC (0.0-0.012) X10*3/uL Nucleated RBC % (auto) (0.0-0.2) /100WBC VBG pH (7.32-7.43) VBG pCO2 mmHg VBG pO2 mmHg VBG HCO3 (22-26) mmol/L VBG O2 Saturation % VBG Base Excess mmol/L Sodium (135-145) mmol/L Potassium (3.3-5.1) mmol/L Chloride (96-108) mmol/L Carbon Dioxide (22-29) mmol/L Anion Gap (12-20) BUN (9-16) mg/dL Creatinine (0.5-1.4) mg/dL Estim Creat Clear Calc Estimated GFR POC Glucose (60-115) mg/dL Random Glucose (60-115) mg/dL Calcium (8.4-10.2) mg/dL Magnesium (1.6-2.6) mg/dL Total Bilirubin (0.0-1.0) mg/dL AST (5-37) U/L ALT (0-40) U/L Alkaline Phosphatase (39-117) U/L Troponin I High Sens (<3.5-35.0) ng/L Total Protein (6.5-8.0) g/dL Albumin (3.5-5.0) g/dL Salicylates (15-30) mg/dL Urine Opiates Screen Not Detected (Not Detect) Ur Buprenorphine Scrn Not Detected (Not Detect) ng/mL Ur Oxycodone Screen Not Detected (Not Detect) ng/mL Urine Methadone Screen Not Detected (Not Detect) ng/mL Urine Fentanyl Screen Not Detected (Not Detect) Acetaminophen (<30) mcg/mL Ur Barbiturates Screen Not Detected (Not Detect) Ur Phencyclidine Scrn Not Detected (Not Detect) Ur Amphetamines Screen Not Detected (Not Detect) U Benzodiazepines Scrn POSITIVE H (Not Detect) Urine Cocaine Screen POSITIVE H (Not Detect) U Marijuana (THC) Screen POSITIVE H (Not Detect) Ethyl Alcohol mg/dL Independent Interpretation I performed an independent interpretation of an: EKG Interpretation: Sinus bradycardia heart rate 53 beats per minute first-degree heart block incomplete right bundle-branch block no acute ST-T changes no acute ischemia Critical Care Time Critical Care Time Critical Care Time: Yes Total Critical Care Time: 55 Attestation: The patient was critically ill with a high probability of imminent or life threatening deterioration. I spent greater than ?60??minutes of discontinuous time evaluating the patient,delivering critical care at the bedside, discussing and evaluating pertinent data with consultants. Critical care time does not include time spent performing separately billable procedures or teaching. Total time spent performing critical care was 55???minutes. Discharge Plan Discharge Clinical Impression: Suicide attempt by beta amish overdose, Depression Patient Disposition: Admitted As Inpatient Print Language: Lao
[2025-01-28] MEDS: 0.9 % Sodium Chloride 1,000 ML 999 ML IV (20:18)
[2025-01-28] MEDS: Activated charcoaL 50 GM/240 ML ORAL.SUSP PO (20:18)
[2025-01-28 20:20] LABS: MANUAL DIFF FLAG NO
[2025-01-28 20:22] LABS: Basophils Absolute Auto 0.1 X10*3/uL (0.0-0.2); Basophils Percent Auto 0.9 % (0-2); Eosinophils Absolute Auto 0.1 X10*3/uL (0.0-0.4); Eosinophils Percent Auto 1.5 % (0-4); Hematocrit 41.9 % (42.0-52.0); Hemoglobin 14.4 g/dl (14.0-18.0); Imm Gran Abs Auto 0.04 X10*3/uL (0.00-0.03); Imm Gran Pct Auto 0.6 % (0.0-0.4); Lymphocytes Absolute Auto 1.2 X10*3/uL (1.2-4.9); Lymphocytes Percent Auto 17.9 % (20-40); Mean Corpuscular HGB Conc 34.4 g/dl (31.0-36.0); Mean Corpuscular Hemoglobin 29.8 pg (27.0-33.0); Mean Corpuscular Volume 86.7 fL (80.0-98.0); Monocytes Absolute Auto 0.6 X10*3/uL (0.1-1.2); Monocytes Percent Auto 8.4 % (2-11); Neutrophils Absolute Auto 4.9 x10*3/uL (2.0-8.3); Neutrophils Percent Auto 70.7 % (45-73); Platelet Count 158 X10*3/uL (160-400); Red Blood Count 4.83 X10*6/uL (4.60-5.80); Red Cell Distribution Width 12.1 % (11.0-16.0); White Blood Count 6.9 X10*3/uL (4.8-10.8)
[2025-01-28 20:31] LABS: VBG Base Excess 1.3 mmol/L; VBG HCO3 24 mmol/L (22-26); VBG pCO2 35 mmHg; VBG pH 7.44 (7.32-7.43); VBG pO2 57 mmHg
[2025-01-28 20:37] LABS: Acetaminophen LAB < 3 mcg/mL (<30); Salicylate < 5.0 mg/dL (15-30)
[2025-01-28 20:38] LABS: Alanine Aminotransferase 41 U/L (0-40); Albumin Level 3.9 g/dL (3.5-5.0); Alkaline Phosphatase 65 U/L (39-117); Anion Gap 14 (12-20); Aspartate Amino Transferase 49 U/L (5-37); Bilirubin Total 0.4 mg/dL (0.0-1.0); Blood Urea Nitrogen 13 mg/dL (9-16); Calcium 8.6 mg/dL (8.4-10.2); Carbon Dioxide 21 mmol/L (22-29); Chloride 107 mmol/L (96-108); Creatinine Clr Calc Pharmacy 105.4; Estimated Glomerular Filt Rate > 60; Ethanol < 10 mg/dL; Glucose Random 182 mg/dL (60-115); Magnesium 2.1 mg/dL (1.6-2.6); Potassium 4.4 mmol/L (3.3-5.1); Sodium 138 mmol/L (135-145); Total Protein 7.2 g/dL (6.5-8.0)
[2025-01-28 20:40] VITALS: BP 93/66; PULSE 57; RESP 26; O2SAT 95
--- NOTE | 2025-01-28 20:41 | PC.NURSE ---
this rn spoke with poison specialist Breana. per Breana, repeat ekg in a few hours for any changes and treat pt for symptoms. dr.anwer [email or web address].
[2025-01-28 20:47] LABS: Troponin-I High Sensitivity < 2.7 ng/L (<3.5-35.0)
[2025-01-28 21:14] LABS: Venous Blood Gas Refer to POC result
--- OUTSIDE RECORDS SUMMARY | 2025-01-28 21:42 | XMS_ITS | Encounter Summary ---
Author Name [facility] [place] [facility] [place] [facility] [place] Address [address] [place] [id number] Support Name Relationship Address Phone ZURDO KELLOGG Emergency Contact Unknown [phone] Insurance Providers: All historical and current Section Date Range: From patient's date of to the date document was created. This section includes the names of all active insurance providers for the patient. Insurance Provider Type of Coverage Plan Name Start of Policy Coverage End of Policy Coverage Group Number Member ID Insurance Provider's Telephone Number Policy Cope's Name Patient's Relationship to Policy Cope MEDICAID MEDICAID [id number] EAPRAVEEN VAUGHAN Sep 25, 2016 MEDICAI D [id number] FAINA CONTRERAS PATIENT Selected Encounter This section includes the information on record at [place] for the Encounter. Date/Time Encounter Type Encounter Description Reason Provider Source Jan 15, 2025 01:32 PM Outpatient Encounter PAIN CLINIC ICD-10-CM Z59.01 Sheltered homelessness ДМИТРИЙ SHANE [facility] Encounter Template Text not used by [place] Assessments - Encounter Diagnoses This section includes the primary and secondary diagnoses documented for the Encounter. Date/Time Primary/Secondary Diagnosis Diagnosis Name Provider Source Jan 15, 2025 01:59 PM PRIMARY Sheltered homelessness [facility]Й SHANE [facility] Social History: Smoking Status (Most current) and Tobacco Use (All prior to encounter date) This section includes the most current, and the historical, smoking and tobacco- related health factors from the [place] facility where the Encounter took place. Current Smoking Status This section includes the most current smoking, or tobacco-related health factor, from the [place] facility where the Encounter took place. Date/Time Current Smoking Status Comment Mirela campbell Jul 11, 2023 02:49 PM VA-TOBACCO FORMER USER [facility] Tobacco Use History This section includes a history of the smoking, or tobacco-related health factors, that were collected on or before the date of the Encounter. The data comes from the [place] facility where the Encounter took place. Date/Time Smoking Status/Tobacco Use Comment Hugh stafford Jul 11, 2023 02:49 PM VA-TOBACCO QUIT 5 TO < 15 YRS [facility] Encounter Notes: All associated encounter notes This section contains the clinical notes associated to the Encounter. Date/Time Encounter Note(s) Provider Source Jan 15, 2025 01:58 PM ACCOUNTING OF DISCLOSURES NOTE: LOCAL TITLE: STATE PRESCRIPTION DRUG MONITORING PROGRAM STANDARD TITLE: ACCOUNTING OF DISCLOSURES NOTE DATE OF NOTE: JAN 15, 2025@13:58:18 ENTRY DATE: JAN 15, 2025@13:58:18 AUTHOR: ДМИТРИЙ SHANE EXP COSIGNER: URGENCY: STATUS: COMPLETED [facility] PRESCRIPTION DRUG MONITORING PROGRAM Has ADDENDA This PDMP query was submitted by Дмитрий Shane MD. The clinical justification for this PDMP query is to review controlled substances prescribed outside of the [place], and any additional information that may become available, as an important component of standard clinical care, and in accordance with [facility] policy. Patient information was shared with the PDMP [place]. Prescription(s[facility] filled outside the [facility] in the last 90 days are noted. Safety concerns will be discussed with the patient and documented as part of ongoing treatment planning. /mya/ ДМИТРИЙ SHANE MD PHYSICIAN Signed: 01/15/2025 13:59 01/15/2025 ADDENDUM STATUS: COMPLETED Fill Date ID Written Sold Drug Qty Days Prescriber Rx # Pharmacy Refill Daily Dose * Pymt Type CREAM DIPPER 01/13/2025 3 01/13/2025 01/13/2025 Tramadol Hcl 50 Mg Tablet 180.00 30 Da Claudine [id number] Mena (7269) 0/0 60.00 MME [place] 01/08/2025 3 11/01/2024 01/08/2025 Clonazepam 2 Mg Tablet 90.00 30 Ja Mil [id number] Mena (7277) 2/4 [place] 01/06/2025 3 10/29/2024 01/08/2025 Testosterone 1.62% Gel Pump 150.00 40 Ma Spi [id number] Wal (7269) 0/2 [place] 01/01/2025 4 12/31/2024 01/02/2025 Tramadol Hcl 50 Mg Tablet 30.00 5 De Don [id number] Spr (2495) 0/0 60.00 MME [place] 12/31/2024 4 12/31/2024 01/01/2025 Clonazepam 2 Mg Tablet 15.00 5 De Don [id number] Spr (2495) 0/0 [place] 12/09/2024 3 12/09/2024 12/09/2024 Tramadol Hcl 50 Mg Tablet 180.00 30 Da Claudine [id number] Wal (7269) 0/0 60.00 MME [place] 12/07/2024 3 11/01/2024 12/07/2024 Clonazepam 2 Mg Tablet 90.00 30 Ja Mil [id number] Wal (7269) 1 [place] 12/06/2024 3 12/06/2024 12/07/2024 Tramadol Hcl 50 Mg Tablet 12.00 2 De Don [id number] Wal (7269) 0/0 60.00 MME [place] 11/11/2024 3 11/11/2024 11/11/2024 Tramadol Hcl 50 Mg Tablet 180.00 30 Da Claudine [id number] Wal (7269) 0/0 60.00 MME [place] 11/04/2024 3 11/01/2024 11/04/2024 Clonazepam 2 Mg Tablet 90.00 30 Ja Mil [id number] Wal (7269) 0/ [place] 10/29/2024 3 10/29/2024 11/01/2024 Testosterone 1.62% Gel Pump 150.00 50 Ma Spi [id number] Wal (7269) 0/ [place] 10/22/2024 3 10/22/2024 10/22/2024 Tramadol Hcl 50 Mg Tablet 180.00 30 Da Claudine [id number] Wal (7269) 0/0 60.00 MME [place] 10/21/2024 3 07/19/2024 10/22/2024 Clonazepam 2 Mg Tablet 90.00 30 Ja Mil [id number] Wal (7269) 1 [place] 07/22/2024 3 04/17/2024 07/25/2024 Testosterone 1.62% Gel Pump 75.00 20 Ma Spi [id number] Wal (7269) 2/ [place] 07/20/2024 3 07/19/2024 07/20/2024 Tramadol Hcl 50 Mg Tablet 90.00 30 Da Claudine [id number] Wal (7269) 0/0 30.00 MME [place] 07/20/2024 3 07/19/2024 07/20/2024 Clonazepam 2 Mg Tablet 90.00 30 Ja Mil [id number] Wal (7269) 0/4 [place] 06/22/2024 3 06/21/2024 06/22/2024 Tramadol Hcl 50 Mg Tablet 90.00 30 Da Claudine [id number] Wal (7269) 0/0 30.00 MME [place] 06/20/2024 3 03/13/2024 06/21/2024 Clonazepam 2 Mg Tablet 90.00 30 Ja Mil [id number] Wal (7269) 2 [place] 06/20/2024 3 04/17/2024 06/21/2024 Testosterone 1.62% Gel Pump 75.00 20 Ma Spi [id number] Wal (7269) 1 [place] 04/24/2024 3 04/24/2024 04/24/2024 Tramadol Hcl 50 Mg Tablet 180.00 30 Da Claudine [id number] Wal (7269) 0/0 60.00 MME [place] 04/17/2024 3 04/17/2024 04/18/2024 Testosterone 1.62% Gel Pump 75.00 20 Ma Spi [id number] Wal (7269) 0/ [place] 04/12/2024 3 03/13/2024 04/12/2024 Clonazepam 2 Mg Tablet 270.00 90 Ja Mil [id number] Wal (7269) 1 [place] 03/27/2024 3 03/27/2024 03/27/2024 Tramadol Hcl 50 Mg Tablet 84.00 28 Da Claudine [id number] Wal (7269) 0/0 30.00 MME [place] 03/13/2024 3 03/13/2024 03/13/2024 Clonazepam 2 Mg Tablet 90.00 30 Ja Mil [id number] Wal (7269) 0/ [place] 03/08/2024 3 03/06/2024 03/12/2024 Testosterone 1.62% Gel Pump 150.00 30 Ma Spi [id number] Wal (7269) 0/5 [place] 02/28/2024 3 02/21/2024 02/28/2024 Tramadol Hcl 50 Mg Tablet 84.00 28 Da Claudine [id number] Wal (7269) 0/0 30.00 MME [place] 02/09/2024 3 02/09/2024 02/09/2024 Clonazepam 2 Mg Tablet 90.00 30 Ja Mil [id number] Wal (7269) 0/0 [place] 01/29/2024 3 01/29/2024 01/30/2024 Tramadol Hcl 50 Mg Tablet 84.00 28 Da Claudine [id number] Wal (7269) 0/0 30.00 MME [place] 01/09/2024 2 10/13/2023 01/09/2024 Testosterone 1.62% Gel Pump 150.00 40 Ma Spi [id number] Wal (7269) 2/ [place] 01/09/2024 2 01/09/2024 01/09/2024 Clonazepam 2 Mg Tablet 90.00 30 Ja Mil [id number] Wal (7269) 0/0 [place] 01/02/2024 2 01/02/2024 01/03/2024 Tramadol Hcl 50 Mg Tablet 84.00 28 Da Claudine [id number] Wal (7269) 0/0 30.00 MME [place] 12/11/2023 2 12/10/2023 12/11/2023 Clonazepam 2 Mg Tablet 90.00 30 Ja [facility] [id number] Wal (7269) 0/0 [place] 12/06/2023 2 12/06/2023 12/06/2023 Tramadol Hcl 50 Mg Tablet 84.00 28 Da Claudine [id number] Wal (7269) 0/0 30.00 MME [place] 11/29/2023 2 10/13/2023 11/29/2023 Testosterone 1.62% Gel Pump 150.00 40 Ma Spi [id number] Wal (7269) 1/ [place] 11/09/2023 2 09/12/2023 11/11/2023 Clonazepam 2 Mg Tablet 90.00 30 Ja [facility] [id number] Wal (7269) 2/ [place] 11/09/2023 2 11/08/2023 11/11/2023 Tramadol Hcl 50 Mg Tablet 69.00 28 Sh Kil [id number] Wal (7269) 0/0 24.64 MME [place] 11/08/2023 2 11/08/2023 11/08/2023 Tramadol Hcl 50 Mg Tablet 15.00 5 Sh Kil [id number] Wal (7269) 0/0 30.00 MME [place] 10/13/2023 2 10/13/2023 10/18/2023 Testosterone 1.62% Gel Pump 150.00 40 Ma Spi [id number] Wal (7269) 0/2 [place] 10/12/2023 2 09/12/2023 10/13/2023 Clonazepam 2 Mg Tablet 90.00 30 Ja Mil [id number] Wal (7269) 1/ [place] 10/12/2023 2 10/11/2023 10/12/2023 Tramadol Hcl 50 Mg Tablet 84.00 28 Sh Kil [id number] Wal (7269) 0/0 30.00 MME Medicare // ДМИТРИЙ SHANE MD PHYSICIAN Signed: 01/15/2025 14:00 [place] [place] [facility] Jan 15, 2025 01:32 PM PAIN MEDICINE OUTPATIENT NOTE: LOCAL TITLE: PAIN CLINIC NOTE STANDARD TITLE: PAIN MEDICINE OUTPATIENT NOTE DATE OF NOTE: JAN 15, 2025@13:32 ENTRY DATE: JAN 15, 2025@13:32:45 AUTHOR: ДМИТРИЙ SHANE EXP COSIGNER: URGENCY: STATUS: COMPLETED FAINA CONTRERAS is a 54 year old MALE. Chart reviewed by Overdose Review Team who was alerted to recent overdose event via Suicide Behavior and Overdose Report/Comprehensive Suicide Risk Evaluation (SBOR/CSRE). Chart was reviewed for potential interventions which may mitigate future overdose risk including any significant suicide prevention, substance use, medication lethal means, and/or relevant pain management needs. Relevant PMH: Active problems - Computerized Problem List is the source for the followin. Housing adequate 2. Sheltered homelessness 3. Housing lack Active Medications: Active Outpatient Medications (including Supplies): No Medications Found ASSESSMENT: receives most of his care in the community. He receives tramadol 50 mg, 6 tabs daily, and clonazepam 2 mg, 3 tabs daily. SUICIDE AND OVERDOSE ASSESSMENT: Estimated date of suicide attempt/preparatory behavior: Nov Overdose intent: Intentional Method involved in most recent overdose/preparatory event and any additional pertinent details: [place] took metoprolol, clonidine, clonazepam Per record review: Previous SBOR/CSRE or overdose events: No Previous suicide behaviors and/or overdose events identified on problem list: No Previous Crisis Line calls: No CARLITO HISTORY: CARLITO diagnoses per problem list: Yes CARLITO diagnoses per remote problem list, not on local problem list: N/A Currently diagnosed with Substance Use Disorder: Yes: AUD Past CARLITO trials or current CARLITO pharmacotherapy: Not Applicable Engaged in non-medication CARLITO therapy: Not Applicable Injection Drug Use: No history of injection drug use noted MENTAL HEALTH: Mental Health diagnoses: YES Patient is engaged in mental health treatment: Yes: Therapy PRESCRIPTION LETHAL MEANS: Prescription Drug Monitoring Program (PDMP) findings: Prescription([facility] in the last 90 days are noted. Tramadol, clonazepam Active/inactive med orders within the last 12 months with potential lethality in overdose: Beta blockers, Other: metoprolol, clonidine UDS results: No data available for: OPIATES SCREEN OXYCODONE SCREEN ZZMETHADONE SCREEN BENZODIAZEPINES SCREEN COCAINE SCREEN CANNABINOIDS SCREEN ALCOHOL, ETHYL URINE AMPHETAMINES SCREEN BUPRENORPHINE SCREEN Ethyl Glucuronide Screen Ethyl Sulfate Ethyl Glucuronide Conf No UDS results found Additional risk factor(s) noted during CPRS review: Dates and notes of interest: November 25, 2024 PAIN MANAGEMENT: Pain diagnoses: No Unmet pain needs: No APPOINTMENT/CONSULTS PENDING: Currently Scheduled: No data available No pending appointments or consults found in record review CHART UPDATES: Problem list updated with overdose-related event(s) information by Overdose Review Team RECOMMENDATIONS/CONSIDERAT IONS FOR CARE TEAM MEMBERS ALERTED: Suicide Prevention: Consider completing/updating Comprehensive Suicide Risk Evaluation (CSRE) Mental Health: Assess need/interest in MH medication treatment. Assess need/interest in MH non-medication treatment (therapy). maintains close contact with Chaplain Vo. *Note: Chart review and recommendations made collaboratively by Overdose Review Team. Further assessment, reassessment, and treatment planning should be completed as clinically indicated by this 's care teams. Time vested by team: 30 minutes NOTE: This is an electronic (non-face to face) note performed to aid in the treatment of the patient and is based upon a review of the chart. Under some circumstances, this note may have been requested by internal protocols. The chart was reviewed in the detail reflected in the note and the recommendations were based on the available information and the specific request. /mya/ ДМИТРИЙ SHANE MD PHYSICIAN Signed: 01/15/2025 14:06 Receipt Acknowledged By: 01/16/2025 15:59 /es/ TITA MARQUEZ M.D. Attending Psychiatrist 01/15/2025 15:15 /es/ MICHAEL AGRAWAL [facility] Teletypewriter Operator 01/24/2025 14:16 /es/ BENJIE KIRBY [facility] SUICIDE CLAY MODELER 01/15/2025 14:26 /es/ YUDI VO 01/15/2025 14:22 /es/ NELSON WANG, PHARM.D CLINICAL PHARMACIST PRACTITIONER ДМИТРИЙ [place] [place] [facility]
--- OUTSIDE RECORDS SUMMARY | 2025-01-28 21:42 | XMS_ITS ---
Author Name [facility] Organization Unknown Encounters Encounter Type Encounter Reason Primary Diagnosis Location Date Emergency Alcohol use, unspecified with intoxication, unspecified Constant Therapy 10/27/2021 Care Team Organization Name Specialty Phone Email Start Date End Da varun Constant Therapy 10/27/2021 05/13/2024 Constant Therapy ADAL ESTEVEZ Primary Care 10/27/2021 10/27/2021
--- OUTSIDE RECORDS SUMMARY | 2025-01-28 21:42 | XMS_ITS ---
Author Name [facility] [place] [facility] [place] [facility] [place] Address [address] [place] [id number] Support Name Relationship Address Phone ZURDO KELLOGG Emergency Contact Unknown Insurance Providers: All historical and current Section [...] Relationship to Policy Cope MEDICAID MEDICAID [id number] Sep 25, 2016 MEDICAI D [id number] FAINA CONTRERAS PATIENT Selected Encounter This section includes the information on record at [place] for the Encounter. 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 Date/Time Primary/Secondary Diagnosis Diagnosis Name Provider Source Jun 27, 2024 09:54 AM PRIMARY Spiritual or quaker counseling JULIÁN VO [facility] Social History: Smoking Status (Most current) and Tobacco Use (All prior to encounter date) This section includes the most current, and the historical, smoking and tobacco- related health factors from the [place] facility where the Encounter took place. Current Smoking Status This section includes the most current smoking, or tobacco-related health factor, from the [place] facility where the Encounter took place. Date/Time Current Smoking Status Comment Facil ity Jul 11, 2023 02:49 PM VA-TOBACCO FORMER USER [facility] Tobacco Use History This section includes a history of the smoking, or tobacco-related health factors, that were collected on or before the date of the Encounter. The data comes from the [place] facility where the Encounter took place. Date/Time Smoking Status/Tobacco Use Comment F acility Jul 11, 2023 02:49 PM [place]-TOBACCO QUIT 5 TO < 15 YRS [facility] Encounter Notes: All associated encounter notes This section contains the clinical notes associated to the Encounter. Date/Time Encounter Note(s) Provider Source Jun 27, 2024 09:47 AM PASTORAL CARE COUN SELING NOTE: LOCAL TITLE: WOOD MACHINE CARVER COUNSELING NOTE STANDARD TITLE: PASTORAL CARE COUNSELING NOTE DATE OF NOTE: JUN 27, 2024@09:47 ENTRY DATE: JUN 27, 2024@09:47:55 AUTHOR: YUDI VO EXP COSIGNER: URGENCY: STATUS: COMPLETED Date: 27 June 2024 Time: 0900 hrs. Confirm Mandaeism Preference: Unk/No-Pref Branch of Service: Love With Food Spiritual Needs/Concerns: Inyokern approached outside near the pavilion this morning and engaged in an easy conversation. appeared much better than during the previous visit (see mechanical supervisor counseling note from 20 June 2024). Harvey Points During Discussion: Inyokern shared aspects of his life and situation and spoke with encouragement about the future and their plans. CH listened giving space for to continue sharing if needed. Impressions: has gone from not wanting to have anything to do with their spiritual self to speaking openly with chapel staff and sharing personal beliefs and utilizing the chapel for personal prayer. All of this has been done within a one-year time span. Pastoral Plan: Continue to support according to their needs. Offer listening more than talking and allow the space to work through issues verbally. Length of Visit: 30 mins. /mya/ YUDI VO Signed: 06/27/2024 09:54 YUDI VO [facility]
--- OUTSIDE RECORDS SUMMARY | 2025-01-28 21:42 | XMS_ITS | Clinical Summary ---
Author Organization [facility] Address [address] [place] [address] Care Team Providers Care Chief Radiation Therapist Name Role Phone Jessy Dwyer ALEC Primary Care Provider [phone] Allergies Active Allergy Reactions Criticality Noted Date Comments Penicillins Unknown/Patient and Family Unable to Define Medium 10/27/2021 Social History Tobacco Use Types Packs/Day Years Used Date Smoking Tobacco: Never Assessed Sex and Gender Information Value Date Recorded Sex Assigned at Not on file Legal Sex Male 1:04 AM EST Gender Identity Not on file Sexual Orientation Not on file Last Filed Vital Signs Vital Sign Reading Time Taken Comments Blood Pressure 125/88 10/27/2021 1:08 AM EST Pulse 89 10/27/2021 1:08 AM EST Temperature 36 ??C (96.8 ??F) 10/27/2021 1:08 AM EST Respiratory Rate 18 10/27/2021 1:08 AM EST Oxygen Saturation 96% 10/27/2021 1:08 AM EST Inhaled Oxygen Concentration - - Weight - - Height - - Body Mass Index - - Plan of Treatment Health Maintenance Due Date Last Done Comments Hepatitis C Virus Screening 1970 HIV Screening 1983 DTaP/Tdap/Td Vaccines (1 - Tdap) 1989 Hepatitis B Vaccines (1 of 3 - 19+ 3-dose series) 1989 Colonoscopy 2015 Pneumococcal Vaccines 50+ (1 of 1 - PCV) 2020 Zoster (Shingles) Vaccine (1 of 2) 2020 COVID-19 Vaccine (1 - 2023-2 5 season) 2024 Influenza Vaccine 04/25/2025 05/18/2015, , 07/09/2011, Additional history exists Insurance [facility] Care Teams Chief Radiation Therapist Relationship Specialty Start Date End Date Jessy Dwyer APRN [address] [place] [id number] PCP - General Family Medicine 10/27/21
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
--- OUTSIDE RECORDS SUMMARY | 2025-01-28 21:42 | XMS_ITS ---
Author Name [facility] [place] [facility] [place] [facility] [place] Address [address] [place] [address] Support Name Relationship Address Phone ZURDO KELLOGG [...] Patient's Relationship to Policy Cope MEDICAID MEDICAID [facility] Sep 25, 2016 MEDICAI D [id number] FAINA CONTRERAS PATIENT Selected Encounter This section includes the information on record at [place] for the Encounter. Date/Time Encounter Type Encounter Description Reason Provider Source Jan 15, 2025 01:32 PM MTMS BY PHARM MEAT MARKET MANAGER 15 MIN PAIN CLINIC ICD-10-CM Z59.01 Sheltered homelessness [facility]ENNELSON [facility] Encounter Template Text not used by [place] Assessments - Encounter Diagnoses This section includes the primary and secondary diagnoses documented for the Encounter. Date/Time Primary/Secondary Diagnosis Diagnosis Name Provider Source Jan 15, 2025 01:46 PM PRIMARY Sheltered homelessness [facility]ELSON [facility]EDEÑO [facility] Jan 15, 2025 01:46 PM SECONDARY Problem related to housing and economic circumstances, unsp [facility]ENNELSON [facility] [place] [facility] Social History: Smoking Status (Most current) and Tobacco Use (All prior to encounter date) This section includes the most current, and the historical, smoking and tobacco- related health factors from the [place] facility where the Encounter took place. Current Smoking Status This section includes the most current smoking, or tobacco-related health factor, from the [place] facility where the Encounter took place. Date/Time Current Smoking Status Comment Facil ity Jul 11, 2023 02:49 PM VA-TOBACCO FORMER USER [facility] Tobacco Use History This section includes a history of the smoking, or tobacco-related health factors, that were collected on or before the date of the Encounter. The data comes from the [place] facility where the Encounter took place. Date/Time Smoking Status/Tobacco Use Comment F acility Jul 11, 2023 02:49 PM VA-TOBACCO QUIT 5 TO < 15 YRS [facility] Encounter Notes: All associated encounter notes This section contains the clinical notes associated to the Encounter. Date/Time Encounter Note(s) Provider Source Jan 15, 2025 01:33 PM ACCOUNTING OF DISC LOSURES NOTE: LOCAL TITLE: STATE PRESCRIPTION DRUG MONITORING PROGRAM STANDARD TITLE: ACCOUNTING OF DISCLOSURES NOTE DATE OF NOTE: JAN 15, 2025@13:33:27 ENTRY DATE: JAN 15, 2025@13:33:27 AUTHOR: NELSON CEDEÑO EXP COSIGNER: URGENCY: STATUS: COMPLETED This PDMP query was submitted by Nelson Cedeño. The clinical justification for this PDMP query is to review controlled substances prescribed outside of the [facility], and any additional information that may become available, as an important component of standard clinical care, and in accordance with [facility] policy. Patient information was shared with the PDMP [place]. Prescription(s) filled outside the [facility] in the last 90 days are noted. However, they do not raise significant safety concerns and do not influence the treatment plan at this time. Fill Date ID Written Sold Drug Qty Days Prescriber Rx # Pharmacy Refill Daily Dose * Pymt Type SYSTEMS INTEGRATOR 01/13/2025 3 01/13/2025 01/13/2025 Tramadol Hcl 50 Mg Tablet 180.00 30 Da Claudine [id number] [facility] (7469) 0/0 60.00 MME Medicare [place] 01/08/2025 3 11/01/2024 01/08/2025 Clonazepam 2 Mg Tablet 90.00 30 Ja Mil [id number] [facility] (7901) 2/4 [place] 01/06/2025 3 10/29/2024 01/08/2025 Testosterone 1.62% Gel Pump 150.00 40 Ma Spi [id number] [facility] (7269) 0/2 [place] 01/01/2025 4 12/31/2024 01/02/2025 Tramadol Hcl 50 Mg Tablet 30.00 5 De Don [id number] Spr (2495) 0/0 60.00 MME [place] 12/31/2024 4 12/31/2024 01/01/2025 Clonazepam 2 Mg Tablet 15.00 5 De Don [id number] Spr (2495) 0/0 [place] 12/09/2024 3 12/09/2024 12/09/2024 Tramadol Hcl 50 Mg Tablet 180.00 30 Da Claudine [id number] [facility] (7269) 0/0 60.00 MME [place] 12/07/2024 3 11/01/2024 12/07/2024 Clonazepam 2 Mg Tablet 90.00 30 Ja Mil [id number] [facility] (7269) 1/ Medicare [place] 12/06/2024 3 12/06/2024 12/07/2024 Tramadol Hcl 50 Mg Tablet 12.00 2 De Don [id number] [facility] (7269) 0/0 60.00 MME Medicare [place] /mya/ NELSON CEDEÑO, PHARM.D CLINICAL PHARMACIST PRACTITIONER Signed: 01/15/2025 13:47 NELSON CEDEÑO [place] [facility]
--- OUTSIDE RECORDS SUMMARY | 2025-01-28 21:42 | XMS_ITS | Encounter Summary ---
Author Name [facility] [place] [facility] [place] Address [address] [place] [address] Support Name Relationship Address Phone ZURDO KELLOGG [...] Patient's Relationship to Policy Cope MEDICAID MEDICAID [facility] Sep 25, 2016 MEDICAI D [id number] FAINA CONTRERAS PATIENT Selected Encounter This section includes the information on record at [place] for the Encounter. Date/Time Encounter Type Encounter Description Reason Provider Source Apr 15, 2024 10:00 AM CASE MANAGEMENT THI & PHOTO EDITOR INDIV ICD-10-CM Z59.01 Sheltered homelessness JACQUI GARRIDO [facility] Encounter Template Text not used by [place] Assessments - Encounter Diagnoses This section includes the primary and secondary diagnoses documented for the Encounter. Date/Time Primary/Secondary Diagnosis Diagnosis Name Provider Source Apr 16, 2024 11:22 AM PRIMARY Sheltered homelessness JACQUI GARRIDO [facility] Social History: Smoking Status (Most current) and Tobacco Use (All prior to encounter date) This section includes the most current, and the historical, smoking and tobacco- related health factors from the [place] facility where the Encounter took place. Current Smoking Status This section includes the most current smoking, or tobacco-related health factor, from the [place] facility where the Encounter took place. Date/Time Current Smoking Status Comment Facil adrian Jul 11, 2023 02:49 PM VA-TOBACCO FORMER USER [facility] Tobacco Use History This section includes a history of the smoking, or tobacco-related health factors, that were collected on or before the date of the Encounter. The data comes from the [place] facility where the Encounter took place. Date/Time Smoking Status/Tobacco Use Comment F nydia Jul 11, 2023 02:49 PM VA-TOBACCO QUIT 5 TO < 15 YRS [facility] Encounter Notes: All associated encounter notes This section contains the clinical notes associated to the Encounter. Date/Time Encounter Note(s) Provider Source Apr 15, 2024 11:02 AM SOCIAL WORK NOTE: LOCAL TITLE: [employer] PROGRESS NOTE STANDARD TITLE: SOCIAL WORK NOTE DATE OF NOTE: APR 15, 2024@11:02 ENTRY DATE: APR 15, 2024@11:02:47 AUTHOR: JACQUI GARRIDO COSIGNER: URGENCY: STATUS: COMPLETED [employer] PROGRESS NOTE Contact Collaborative contact: Location of contact:Office Length of Contact: 20 mins Diagnosis Addressed: Homelessness Primary Goal Addressed: Residential Stability Objective(s) Addressed: Housing Plan Intervention: Case Management Afshan said that on 04/30/24 at 1250am he has a reserved flight from [facility] to [facility] and then [facility]. He plans to use [facility] transport 04/29 to [facility]. Afshan said he has a condo rented in [facility] from 04/30- of Jul 2024. Then he plans to find a home more permanent home and his eventual goal is to buy a condo in [facility] [place]. Afshan said he no longer has ongoing court cases and stated, everything dismissed. I have the best clinical data abstractor in the world. He said he has been attending many medical appts and will be traveling with 90 days supply of meds. Overall, afshan said he is very healthy and no longer having to take some meds, such as for lactose intolerance. Afshan said he plans to access medical care in [facility] [place] and said once he pays $100 deductible Medicare and [facility] plans should still provide coverage. Afshan discussed looking forward to his move to [facility] and stated, honestly I have just had it for being in [place]. Yamilkat was pleasant and appropriate, good mood, congruent affect, no evidence acute distress or SI, and future oriented. Plan: -Afshan plans to discharge from [facility] and move to [facility] 04/29/24 Future Clinic Visits No data available Active Outpatient Medications (including Supplies): No Medications Found /mya/ AMALIA ZAVALA, [facility] Counterintelligence Agent Signed: 04/16/2024 11:22 JACQUI GARRIDO [facility]
--- OUTSIDE RECORDS SUMMARY | 2025-01-28 21:42 | XMS_ITS | Encounter Summary ---
Author Name [facility] [place] [facility] [place] Address [address] [place] [address] Support Name Relationship Address Phone ZURDO KELLOGG Emergency Contact Unknown [phone] Insurance Providers: All historical and current Section [...] Patient's Relationship to Policy Cope MEDICAID MEDICAID [facility] ST[facility] ALEXUS Sep 25, 2016 MEDICAI D [id number] FAINA CONTRERAS PATIENT Selected Encounter This section includes the information on record at [place] for the Encounter. Date/Time Encounter Type Encounter Description Reason Pro vider Source Jul 16, 2024 10:00 AM Outpatient Encounter THI & EXTERMINATOR TERMITE INDIV IHE Encounter Template Text not used by [facility] Social History: Smoking Status (Most current) and [...] 11, 2023 02:49 PM VA-TOBACCO FORMER USER [facility] Tobacco Use History This section includes a history of the smoking, or tobacco-related health factors, that were collected on or before the date of the Encounter. The data comes from the [place] facility where the Encounter took place. Date/Time Smoking Status/Tobacco Use Comment F acility Jul 11, 2023 02:49 PM VA-TOBACCO QUIT 5 TO < 15 YRS [facility] Encounter Notes: All associated encounter notes This section contains the clinical notes associated to the Encounter. Date/Time Encounter Note(s) Provider Source Jul 19, 2024 03:25 PM ADDENDUM: LOCAL TITLE: Addendum STANDARD TITLE: ADDENDUM DATE OF NOTE: JUL 19, 2024@15:25:45 ENTRY DATE: JUL 19, 2024@15:25:45 AUTHOR: VERA JIMENEZ EXP COSIGNER: URGENCY: STATUS: COMPLETED Date: 07/19/2024 Vp Human Resources contacted to reschedule visit for [employer] visit. [place] reports he is planning to leave for [facility] on 07/25/2024 and was open to meeting with personal lines underwriter and student sports intern. [place] agreed to visit in [facility] 9a on 07/23/2024 at 08:30am. No other needs identified at this time. /mya/ VERA JIMENEZ SOFTWARE ENGINEER SALES Signed: 07/19/2024 15:27 Receipt Acknowledged By: 07/23/2024 08:31 /es/ RUSSELL VARMA Social Work Screen Printing Press Operator === --- Original Document --- 07/16/24 APPOINTMENT NO SHOW: Patient Name: FAINA CONTRERAS Patient SSN: [id number] Date and time of Appointment No show : 07/16/24 10:00 PATIENT PHONE - PHONE NUMBER [CELLULAR] - Patient's medical record was reviewed. Follow-up actions were determined and initiated: Please check/complete as applies: [ ]Telephoned Directly [ ]Re-scheduled for next available appt [ ]Sent a N0-show letter ( must call for appointment) [X]Other (Emergent/Overbook, etc.): Telephoned [place] [phone] [employer] Additional Comments: This personal lines underwriter telephoned [facility] 26 and was informed that had left campus and had gone into the community. This personal lines underwriter will contact to reschedule appointment. Future Clinic Visits No data available /mya/ RUSSELL VARMA Social Work Screen Printing Press Operator Signed: 07/16/2024 10:52 /robert JIMENEZ SOFTWARE ENGINEER SALES Cosigned: 07/16/2024 10:53 07/16/2024 ADDENDUM STATUS: COMPLETED This personal lines underwriter attempted to reach [place] by phone. [place] did not answer and personal lines underwriter was not able to leave voicemail. [employer] social workers will work with [place] corrections caseworker to attempt to reschedule. /mya/ RUSSELL VARMA Social Work Screen Printing Press Operator Signed: 07/16/2024 14:34 /robert JIMENEZ SOFTWARE ENGINEER SALES Cosigned: 07/16/2024 14:56 VERA JIMENEZ [place] [facility] [place] [facility] Jul 16, 2024 10:33 AM CLERICAL NOTE: LOCAL TITLE: APPOINTMENT NO SHOW STANDARD TITLE: CLERICAL NOTE DATE OF NOTE: JUL 16, 2024@10:33 ENTRY DATE: JUL 16, 2024@10:33:37 AUTHOR: RUSSELL VARMA EXP COSIGNER: VERA JIMENEZ URGENCY: STATUS: COMPLETED APPOINTMENT NO SHOW Has ADDENDA Patient Name: FAINA CONTRERAS Patient SSN: [id number] Date and time of Appointment No show : 07/16/24 10:00 PATIENT PHONE - PHONE NUMBER [CELLULAR] - Patient's medical record was reviewed. Follow-up actions were determined and initiated: Please check/complete as applies: [ ]Telephoned Directly [ ]Re-scheduled for next available appt [ ]Sent a N0-show letter ( must call for appointment) [X]Other (Emergent/Overbook, etc.): Telephoned [facility] 26 [facility] [employer] Additional Comments: This personal lines underwriter telephoned [facility] 26 and was informed that [place] had left campus and had gone into the community. This personal lines underwriter will contact to reschedule appointment. Future Clinic Visits No data available /mya/ RUSSELL VARMA Social Work Screen Printing Press Operator Signed: 07/16/2024 10:52 /robert HERNANDEZZ SOFTWARE ENGINEER SALES Cosigned: 07/16/2024 10:53 07/16/2024 ADDENDUM STATUS: COMPLETED This personal lines underwriter attempted to reach [place] by phone. did not answer and personal lines underwriter was not able to leave [facility]. [employer] social workers will work with [place] corrections caseworker to attempt to reschedule. /mya/ RUSSELL VARMA Social Work Screen Printing Press Operator Signed: 07/16/2024 14:34 /robert JIMENEZ SOFTWARE ENGINEER SALES Cosigned: 07/16/2024 14:56 07/19/2024 ADDENDUM STATUS: COMPLETED Date: 07/19/2024 Vp Human Resources contacted to reschedule visit for [employer] visit. reports he is planning to leave for [facility] on 07/25/2024 and was open to meeting with personal lines underwriter and student sports intern. agreed to visit in [facility] 9a on 07/23/2024 at 08:30am. No other needs identified at this time. /mya/ VERA JIMENEZ SOFTWARE ENGINEER SALES Signed: 07/19/2024 15:27 Receipt Acknowledged By: * AWAITING SIGNATURE * RUSSELL VARMA ANNA M [facility] [facility]
--- OUTSIDE RECORDS SUMMARY | 2025-01-28 21:42 | XMS_ITS | Encounter Summary ---
Author Name [facility] [place] [facility] [place] Address [address] [place] [id number] Support Name Relationship Address Phone ZURDO KELLOGG [...] HARDEEP ALEXUS Sep [birth year], 2016 MEDICAI D [id number] FAINA CONTRERAS PATIENT Selected Encounter This section includes the information on record at [place] for the Encounter. Date/Time Encounter Type Encounter Description Reason Provider Source Jun 20, 2024 09:00 AM PSYCHOLOGICAL AIDE BUS OPERATOR INDIVIDU PSYCHOLOGICAL AIDE SERVICE - INDIVIDUAL ICD-10-CM Z71.81 Spiritual or buddhism counseling JULIÁN VO [facility] Encounter Template Text not used by [place] Assessments - Encounter Diagnoses This section includes the primary and secondary diagnoses documented for the Encounter. Date/Time Primary/Secondary Diagnosis Diagnosis Name Provider Source Jun 20, 2024 11:09 AM PRIMARY Spiritual or buddhism counseling JULIÁN VO [facility] Social History: Smoking Status (Most current) and Tobacco Use (All prior to encounter date) This section includes the most current, and the historical, smoking and tobacco- related health factors from the [place] facility where the Encounter took place. Current Smoking Status This section includes the most current smoking, or tobacco-related health factor, from the [place] facility where the Encounter took place. Date/Time Current Smoking Status Comment Facil ity Jul 11, 2023 02:49 PM VA-TOBACCO FORMER USER [facility] Tobacco Use History This section includes a history of the smoking, or tobacco-related health factors, that were collected on or before the date of the Encounter. The data comes from the [place] facility where the Encounter took place. Date/Time Smoking Status/Tobacco Use Comment F acility Jul 11, 2023 02:49 PM [place]-TOBACCO QUIT 5 TO < 15 YRS [facility] Encounter Notes: All associated encounter notes This section contains the clinical notes associated to the Encounter. Date/Time Encounter Note(s) Provider Source Jun 20, 2024 11:00 AM PASTORAL CARE COUN SELING NOTE: LOCAL TITLE: PSYCHOLOGICAL AIDE COUNSELING NOTE STANDARD TITLE: PASTORAL CARE COUNSELING NOTE DATE OF NOTE: JUN 20, 2024@11:00 ENTRY DATE: JUN 20, 2024@11:00:48 AUTHOR: YUDI VO EXP COSIGNER: URGENCY: STATUS: COMPLETED Date: 20 June 2024 Time: 0900 hrs. Confirm Anabaptism Preference: Unk/No-Pref Branch of Service: [employer] Spiritual Needs/Concerns: [place] stopped by trimmer and borer machine operator offices this morning needing to talk. appeared in some emotional distress but nothing that CH felt concerned about. has spent the last several weeks in a different country so the visit this morning was a nice surprise. [place] During Discussion: [place] shared some of their recent events/experiences and showed pictures from where they have been staying. During the visit did make a few comments about financial concerns and how they are attempting to get things straightened out with their bank so they can [place] being [place]. The financial concerns seemed to be the most pressing spiritual concern as states they have been internalizing blame and current struggles as God's punishments for previous mistakes. Impressions: [place] is a good person that deserves happiness and good things. He is stronger than he realizes and seems determined to correct his current situation and quickly [place]. Pastoral Plan: Be available for even after he returns home. Conduct regular check in with and offer support as needed. Length of Visit: 60 mins. /mya/ YUDI VO Signed: 06/20/2024 11:09 YUDI VO [facility]
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
--- OUTSIDE RECORDS SUMMARY | 2025-01-28 21:42 | XMS_ITS | Encounter Summary ---
Author Name [facility] [place] [facility] [place] Address [address] [place] [address] Support Name Relationship Address Phone ZURDO KELLOGG Emergency Contact Unknown [phone] Insurance Providers: All historical and current Section [...] Patient's Relationship to Policy Cope MEDICAID MEDICAID [facility] LETI HARDEEP VAUGHAN Sep 25, 2016 MEDICAI D [id number] FAINA CONTRERAS PATIENT Selected Encounter This section includes the information on record at [place] for the Encounter. Date/Time Encounter Type Encounter Description Reason Pro vider Source IHE Encounter Template Text not used by [facility]
--- OUTSIDE RECORDS SUMMARY | 2025-01-28 21:42 | XMS_ITS ---
Author Name [facility] [place] Organization [facility] [place] Address [address] [place] [id number] Support Name Relationship Address Phone ZURDO KELLOGG [...] Patient's Relationship to Policy Cope MEDICAID MEDICAID [facility] [place]AND [place] Sep 25, 2016 MEDICAI D [id number] FAINA CONTRERAS PATIENT Selected Encounter This section includes the information on record at [place] for the Encounter. 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 Date/Time Primary/Secondary Diagnosis Diagnosis Name Provider Source Mar 06, 2024 04:02 PM PRIMARY Spiritual or yazidism counseling ONESIMO STOCKTON [facility] Social History: Smoking Status (Most current) and Tobacco Use (All prior to encounter date) This section includes the most current, and the historical, smoking and tobacco- related health factors from the [place] facility where the Encounter took place. Current Smoking Status This section includes the most current smoking, or tobacco-related health factor, from the [place] facility where the Encounter took place. Date/Time Current Smoking Status Comment Facil ity Jul 11, 2023 02:49 PM VA-TOBACCO FORMER USER [facility] Tobacco Use History This section includes a history of the smoking, or tobacco-related health factors, that were collected on or before the date of the Encounter. The data comes from the [place] facility where the Encounter took place. Date/Time Smoking Status/Tobacco Use Comment F acandreas Jul 11, 2023 02:49 PM VA-TOBACCO QUIT 5 TO < 15 YRS [facility] Encounter Notes: All associated encounter notes This section contains the clinical notes associated to the Encounter. Date/Time Encounter Note(s) Provider Source Mar 06, 2024 02:00 PM PASTORAL CARE COUN SELING NOTE: LOCAL TITLE: WARRANT SERVER COUNSELING NOTE STANDARD TITLE: PASTORAL CARE COUNSELING NOTE DATE OF NOTE: MAR 06, 2024@14:00 ENTRY DATE: MAR 06, 2024@15:55:31 AUTHOR: ONESIMO STOCKTON EXP COSIGNER: URGENCY: STATUS: COMPLETED Date: 06 March 2024 Time: 1400 hrs Zoroastrianism Preference: unknown Branch of Service: [employer] Visit Type: Spiritual, Individual Discussion: Rumford came to chapel and spoke of being discouraged. spoke of recent choices he made that he regrets and the consequences of those choices. Rumford spoke of the complications of his living situation and that he looks forward to when he leaves his current living situation. also spoke of being lonely, and that he hasn't been to the chapel to pray in a few days. Rumford sees this as a problem because he says he does better with his routines in place and that coming to the chapel to pray is part of the structure of his day, each morning. Impressions: appeared discouraged, sad, frustrated, and wanting to do better. Pastoral Plan: Will continue to be available to Rumford for support. Length of Visit: 60 minutes /mya/ ONESIMO STOCKTON Signed: 03/06/2024 16:02 ONESIMO STOCKTON [facility]
--- OUTSIDE RECORDS SUMMARY | 2025-01-28 21:42 | XMS_ITS | Encounter Summary ---
Author Name [facility] [place] [facility] [place] Address [address] [place] [id number] Support Name Relationship Address Phone ZURDO KELLOGG Emergency Contact Unknown [phone] Insurance Providers: All historical and current Section [...] Patient's Relationship to Policy Cope MEDICAID MEDICAID [facility] STAND [place] Sep 25, 2016 MEDICAI D [id number] FAINA CONTRERAS PATIENT Selected Encounter This section includes the information on record at [place] for the Encounter. 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 Date/Time Primary/Secondary Diagnosis Diagnosis Name Provider Source February 12, 2024 01:41 PM PRIMARY Sheltered homelessness JACQUI GARRIDO [facility] Social History: Smoking Status (Most current) and Tobacco Use (All prior to encounter date) This section includes the most current, and the historical, smoking and tobacco- related health factors from the [place] facility where the Encounter took place. Current Smoking Status This section includes the most current smoking, or tobacco-related health factor, from the [place] facility where the Encounter took place. Date/Time Current Smoking Status Comment Mirela campbell Jul 11, 2023 02:49 PM VA-TOBACCO FORMER USER [facility] Tobacco Use History This section includes a history of the smoking, or tobacco-related health factors, that were collected on or before the date of the Encounter. The data comes from the [place] facility where the Encounter took place. Date/Time Smoking Status/Tobacco Use Comment Hugh stafford Jul 11, 2023 02:49 PM VA-TOBACCO QUIT 5 TO < 15 YRS [facility] Encounter Notes: All associated encounter notes This section contains the clinical notes associated to the Encounter. Date/Time Encounter Note(s) Provider Source February 12, 2024 10:02 AM SOCIAL WORK NOTE: LOCAL TITLE: [facility] QUARTERLY REVIEW STANDARD TITLE: SOCIAL WORK NOTE DATE OF NOTE: FEBRUARY 12, 2024@10:02 ENTRY DATE: FEBRUARY 12, 2024@10:02:48 AUTHOR: JACQUI GARRIDO COSIGNER: URGENCY: STATUS: COMPLETED [facility] QUARTERLY PROGRESS NOTE Review conducted via: In-Person contact Present: [facility] Length of Contact: 30 mins. Diagnosis Addressed: Homelessness Veterans progress on goals (in his/her own words) Residential Stability: Afshan plans to leave to fly to [facility] on 04/30/24. Afshan said he will be staying in an Air BnB and stated, then go from there and travel. Increase Self-Determination: Afshan said he has been able to save money and get dental care needed. Afshan engaged in [place] [employer] groups and feels he has personally learned and grown in both spirituality and personality. Afshan noticeably more calm and less irritable during this appt. He easily engaged in discussion and there was no evidence of acute distress or SI. Increase Skill Level or Income: SSDI monthly amount is $2220. Afshan plans to get Social Security fci when he turns 55 years old, which he expects to increase the amount of his income. Barriers (if any): Afshan said he has an upcoming court date for disturbing the peace for using drone on [facility] property. He reported he has spoken with [place] Police and they stated, we will take care of it and afshan feels it is an illegal ticket. was offered the opportunity to suggest areas of improvement or express satisfaction in general and specifically with the [facility] Liaison's service delivery and care coordination. indicated satisfaction with services and programming at this time. No If NO, describe concern and how it was addressed by the Liaison: New Goals/Next Steps: Vet plans to discharge from [facility] and move to [place] 04/30/24. Intervention: Collaborate with [facility] Provider as needed to assist [facility] in meeting objectives. NEXT QUARTERLY REVIEW DUE: 3 months Future Clinic Visits No data available Active Outpatient Medications (including Supplies): No Medications Found /mya/ AMALIA ZAVALA, ATHLETIC FIELD CUSTODIAN Brick Tosser Signed: 02/12/2024 13:[address] [facility]
[2025-01-28 21:53] VITALS: BP 95/62; PULSE 57; RESP 24; O2SAT 90
--- NOTE | 2025-01-28 22:19 | PC.NURSE ---
pt resting comfortably with eyes closed, breathing even and unlabored, no apparent distress. VSS. sitter at bedside
[2025-01-28 23:17] VITALS: BP 104/71; PULSE 57; RESP 25; O2SAT 93
--- NOTE | 2025-01-28 23:33 | PC.NURSE ---
pt given food per request
--- NOTE | 2025-01-28 23:43 | PC.NURSE ---
spoke with poison control. ekg q2hr x3, the ekg q4hr for 24 hours. MD gonzalez
[2025-01-29] VITALS (13 sets, daily range): BP systolic 76–124; BP diastolic 42–79; PULSE 43–91; RESP 11–26; TEMP 36.5–37.1; O2SAT 94–97
--- NOTE | 2025-01-29 | ECG_ITS ---
Test Reason : repeat ekg Blood Pressure : */* mmHG Vent. Rate : 48 BPM Atrial Rate : 48 BPM P-R Int : 226 ms QRS Dur : 88 ms QT Int : 450 ms P-R-T Axes : 63 27 101 degrees QTcB Int : 402 ms Sinus bradycardia with 1st degree A-V block Nonspecific T wave abnormality Abnormal ECG When compared with ECG of 28-Jan-2025 22:57, Criteria for Inferior infarct are no longer Present Referred By: Gwendolyn Armando Electronically Signed By: ASAEL VALLADARES
[2025-01-29 00:05] LABS: Amphetamine Screen Urine Not Detected (Not Detect); Barbiturates, Urine Not Detected (Not Detect); Benzodiazepines Screen Urine POSITIVE (Not Detect); Buprenorphine Scr Not Detected (Not Detect); Cannabinoid Screen Urine POSITIVE (Not Detect); Cocaine Screen Urine POSITIVE (Not Detect); Fentanyl, urine Not Detected (Not Detect); Methadone Screen, Urine Not Detected (Not Detect); Opiate Screen Urine Not Detected (Not Detect); Oxycodone Screen Urine Not Detected (Not Detect); Phencyclidine Screen Urine Not Detected (Not Detect)
--- NOTE | 2025-01-29 01:31 | P.HPHOSP_ITS ---
History of Present Illness Date of Service: 01/29/25 <KIERA Hernandez Last Filed: 01/29/25 01:39> Attending physician on admission: Irvin Virgen <KIERA Hernandez Last Filed: 01/29/25 01:39> Chief Complaint: Metoprolol overdose <KIERA Hernandez Last Filed: 01/29/25 01:39> Patient is a 54-year-old male with a past medical history significant for depression, bipolar, history of overdose and suicide attempts, CAD, CO/stent x2, ?seizure, history alcohol withdrawal, pancreatitis, who presented to the ED via EMS after taking 2250 mg of metoprolol. The patient reports that he was arguing with his new roommate who reportedly took his metoprolol so he trickle large amount of anger. He reports history of multiple suicide attempts, a few recently however he states this was not a suicide attempt as he would have chosen something like his oxycodone. He was placed on a section 12 by PD. He has no concerns currently including chest pain, shortness of breath, headache, nausea, vomiting, diarrhea or urinary symptoms. <KIERA Hernandez Last Filed: 01/29/25 01:39> Review of Systems 2 Constitutional: Constitutional: Denies body ache(s), Denies chills, Denies fatigue, Denies fever(s) and Denies headache(s) <KIERA Hernandez Last Filed: 01/29/25 01:39> Eyes: Eyes: Denies change in vision and Denies photophobia <KIERA Hernandez Last Filed: 01/29/25 01:39> ENT: Denies headache(s), Denies nasal congestion, Denies nasal discharge and Denies sore throat <KIERA Hernandez Last Filed: 01/29/25 01:39> Cardiovascular: Cardiovascular: Denies chest pain, Denies rapid heart rate, Denies leg edema, Denies lightheadedness and Denies dyspnea <KIERA Hernandez Last Filed: 01/29/25 01:39> Respiratory: Respiratory: Denies chest congestion, Denies cough, Denies dyspnea and Denies wheezing <KIERA Hernandez Last Filed: 01/29/25 01:39> Gastrointestinal: Gastrointestinal: Denies diarrhea and Denies vomiting < KIERA Hernandez Last Filed: 01/29/25 01:39> Genitourinary: Genitourinary: Denies dysuria and Denies urinary urgency < KIERA Hernandez Last Filed: 01/29/25 01:39> Musculoskeletal: Musculoskeletal: Denies myalgias <KIERA Hernandez Last Filed: 01/29/25 01:39> Integumentary/Breasts: Skin/Breast: Denies rash <KIERA Hernandez Last Filed: 01/29/25 01:39> Neurologic: Denies confusion and Denies headache(s) <KIERA Hernandez Last Filed: 01/29/25 01:39> Psychiatric: Psychiatric: Denies confusion <KIERA Hernandez Last Filed: 01/29/25 01:39> Endocrine: Endocrine: Denies fatigue <KIERA Hernandez Last Filed: 01/29/25 01:39> Hematologic/Lymphatic: Hematologic/Lymphatic: Denies easy bleeding and Denies easy bruising <KIERA Hernandez Last Filed: 01/29/25 01:39> Allergic/Immunologic: Allergic/Immunologic: Denies wheezing <KIERA Hernandez Last Filed: 01/29/25 01:39> [facility] Medical History: Medical History Pancreatic cyst Depression with anxiety Alcohol withdrawal Acute pancreatitis Heart attack Chronic systolic (congestive) heart failure CAD (coronary artery disease) Seizure NAMITA (acute kidney injury) <KIERA Hernandez Last Filed: 01/29/25 01:39> Functional capacity: independent ambulation <KIERA Hernandez Last Filed: 01/29/25 01:39> Family History: Family History Mother Breast cancer CAD (coronary artery disease) Father Psoriasis <Gwendolyn Armando PA-C - Last Filed: 01/29/25 01:39> Surgical History: Surgical History Stented coronary artery <KIERA Hernandez Last Filed: 01/29/25 01:39> Social History: Social History Household Members: None Housing: Apartment Are you a primary customer care specialist to a significant other at home: No Do you presently have visiting nurse or other home services: Yes Comment: Refused bed alarm Patient Tobacco Use Status: Former Tobacco user Tobacco use type: Cigarette Second Hand Smoke Exposure: No Substance Use Type: Marijuana and Opiates Advance Directives: No Advance Directives Information Provided: No Do you have a plan to hurt others: No Plan service: Yes Current occupational status: disabled <KIERA Hernandez Last Filed: 01/29/25 01:39> Narrative: Former smoker, reports social occasional alcohol, smokes marijuana, denies cocaine use <KIERA Hernandez Last Filed: 01/29/25 01:39> Meds Allergies/Adverse reactions: Allergies Allergy/AdvReac Type Severity Reaction Status Date / Time Penicillins Allergy Unknown Unknown Verified 01/28/25 20:02 <KIERA Hernandez Last Filed: 01/29/25 01:39> Active Medications: Current Medications Acetaminophen (Acetaminophen 325 Mg Tablet) 975 mg PO Q6H PRN PRN Reason: Pain, Mild 1-3,fever,headache Calcium Carbonate (Calcium Carbonate 750 Mg Tab.Chew) 750 mg PO Q4H PRN PRN Reason: Heartburn Enoxaparin Sodium (Enoxaparin Sodium 40 Mg/0.4 Ml Syringe) 40 mg SUBCUT Q24H WILMER Magnesium Hydroxide (Milk Of Magnesia 30 Ml Oral.Susp) 30 ml PO DAILY PRN PRN Reason: Constipation Melatonin (Melatonin 3 Mg Tablet) 6 mg PO BEDTIME PRN PRN Reason: Insomnia Ondansetron HCl (Ondansetron Hcl 4 Mg/2 Ml Vial) 4 mg IVPUSH Q8H PRN PRN Reason: Nausea and Vomiting Sodium Chloride (0.9 % Sodium Chloride Flush 3 Ml Syringe) 3 ml [facility]USH [facility] <Gwendolyn Armando PA-C - Last Filed: 01/29/25 01:39> Home medications: Home Medications ?Medication ?Instructions ?Recorded ?Confirmed ?Last Taken ?Type albuterol sulfate 90 mcg/actuation 2 puff PO Q4H PRN Shortness Of 04/28/21 06/19/22 04/27/21 History aerosol inhaler Breath aspirin 81 mg tablet,delayed 1 tab PO DAILY 04/28/21 06/19/22 06/18/22 History release amitriptyline 100 mg tablet 2 tab PO BEDTIME 05/17/21 06/19/22 06/18/22 History clonidine HCl 0.1 mg tablet 1 tab PO BID 05/17/21 06/19/22 06/18/22 History famotidine 40 mg tablet 1 tab PO DAILY 05/17/21 06/19/22 06/18/22 History levetiracetam 750 mg tablet 1 tab PO BID 05/17/21 06/19/22 06/18/22 History loratadine 10 mg tablet 1 tab PO DAILY 05/17/21 06/19/22 06/18/22 History metoprolol succinate 25 mg 1 tab PO DAILY 05/17/21 06/19/22 06/18/22 History tablet,extended release 24 hr rosuvastatin 20 mg tablet 1 tab PO DAILY 05/17/21 06/19/22 06/18/22 History tamsulosin 0.4 mg capsule 1 cap PO BID 05/17/21 06/19/22 06/18/22 History acetaminophen 325 mg tablet 975 mg PO Q8H PRN Pain 03/20/22 06/19/22 03/19/22 History clonazepam 2 mg tablet 1 tab PO BID PRN Anxiety 03/20/22 06/19/22 Unknown History multivitamin 1 tab PO DAILY 03/20/22 06/19/22 06/18/22 History testosterone 5 pump topical DAILY 03/20/22 06/19/22 06/18/22 History clonazepam 2 mg tablet 1 tab PO DAILY 06/19/22 06/19/22 06/18/22 History <Gwendolyn Armando PA-C - Last Filed: 01/29/25 01:39> Physical Exam 2 Vital Signs and Narrative: Vital Signs: Last Vital Signs Temp 98.5 F 01/28/25 19:58 Pulse 57 01/28/25 23:17 Resp 25 H 01/28/25 23:17 BP 104/71 01/28/25 23:17 Pulse Ox 93 01/28/25 23:17 O2 Del Method Room Air 01/28/25 23:17 BMI result Body Mass Index 32.9 <Gwendolyn Armando PA-C - Last Filed: 01/29/25 01:39> General: AOx3, no acute distress Resp: CTA bilaterally CVS: bradycardic GI: +BS, NT, no distention Skin: Warm, dry Neuro: Cranial nerves II-XII grossly intact bilaterally. Motor grossly intact bilaterally Extremities: No LE edema Psych: Appropriate affect <Gwendolyn Armando PA-C - Last Filed: 01/29/25 01:39> Const: General: No confusion <RODGER Hernandez - Last Filed: 01/29/25 01:39> Orientation/consciousness: No confusion <Gwendolyn Armando PA-C Mai Last Filed: 01/29/25 01:39> Eyes: Direct Ophthalmoscopy: No photophobia <Gwendolyn Armando PA-C - Last Filed: 01/29/25 01:39> Neuro: General: No confusion <Gwendolyn Armando PA-C - Last Filed: 01/29/25 01:39> Results Labs CBC and Chem 7: 01/28/25 20:13 01/28/25 20:13 <Gwendolyn Armando PA-C Mai Last Filed: 01/29/25 01:39> Labs: Laboratory Results - last 24 hr 01/28/25 01/28/25 01/28/25 20:02 20:13 20:21 MCV 86.7 MCH 29.8 MCHC 34.4 RDW 12.1 Plt Count 158 L MPV 9.0 L Immature Gran % (Auto) 0.6 H Neut % (Auto) 70.7 Lymph % (Auto) 17.9 L [place] % (Auto) 8.4 Eos % (Auto) 1.5 Baso % (Auto) 0.9 Lymph # (Auto) 1.2 [place] # (Auto) 0.6 Eos # (Auto) 0.1 Baso # (Auto) 0.1 Abs Immat Gran (auto) 0.04 H Absolute Neuts (auto) 4.9 Absolute Nucleated RBC 0.000 Nucleated RBC % (auto) 0.0 VBG pH 7.44 H VBG pCO2 35 VBG pO2 57 VBG HCO3 24 VBG O2 Saturation 86.0 VBG Base Excess 1.3 Anion Gap 14 Estim Creat Clear Calc 105.4 Estimated GFR > 60 POC Glucose 182 H Random Glucose 182 H Calcium 8.6 D Magnesium 2.1 Total Bilirubin 0.4 AST 49 H ALT 41 H Alkaline Phosphatase 65 Total Protein 7.2 Albumin 3.9 Salicylates < 5.0 L Urine Opiates Screen Ur Buprenorphine Scrn Ur Oxycodone Screen Urine Methadone Screen Urine Fentanyl Screen Acetaminophen < 3 Ur Barbiturates Screen Ur Phencyclidine Scrn Ur Amphetamines Screen U Benzodiazepines Scrn Urine Cocaine Screen U Marijuana (THC) Screen Ethyl Alcohol < 10 01/28/25 23:40 MCV MCH MCHC RDW Plt Count MPV Immature Gran % (Auto) Neut % (Auto) Lymph % (Auto) [place] % (Auto) Eos % (Auto) Baso % (Auto) Lymph # (Auto) [place] # (Auto) Eos # (Auto) Baso # (Auto) Abs Immat Gran (auto) Absolute Neuts (auto) Absolute Nucleated RBC Nucleated RBC % (auto) VBG pH VBG pCO2 VBG pO2 VBG HCO3 VBG O2 Saturation VBG Base Excess Anion Gap Estim Creat Clear Calc Estimated GFR POC Glucose Random Glucose Calcium Magnesium Total Bilirubin AST ALT Alkaline Phosphatase Total Protein Albumin Salicylates Urine Opiates Screen Not Detected Ur Buprenorphine Scrn Not Detected Ur Oxycodone Screen Not Detected Urine Methadone Screen Not Detected Urine Fentanyl Screen Not Detected Acetaminophen Ur Barbiturates Screen Not Detected Ur Phencyclidine Scrn Not Detected Ur Amphetamines Screen Not Detected U Benzodiazepines Scrn POSITIVE H Urine Cocaine Screen POSITIVE H U Marijuana (THC) Screen POSITIVE H Ethyl Alcohol <Gwendolyn Armando PA-C - Last Filed: 01/29/25 01:39> Assessment and Plan (1) Suicide attempt by beta amish overdose: Status: Acute <Gwendolyn Armando PA-C - Last Filed: 01/29/25 01:39> Patient is a 54-year-old male with a past medical history significant for depression, bipolar, history of overdose and suicide attempts, CAD, CO/stent x2, seizure disorder, history alcohol withdrawal, pancreatitis, who presented to the ED via EMS after taking 2250 mg of metoprolol. Suicide attempt by beta amish overdose - heart rate around 40s, blood pressure maintaining systolic in the 100s - EKG with sinus bradycardia and first-degree AV block - given charcoal in ED and 1 L NS - add glucagon to mg IV x1 - follow poison control recommendations noted by ED nurse, EKG q.2h x3 followed by EKG q.4h times 24 hours - monitor on telemetry - admit for observation Mood disorder - sitter - care team consult in a.m. - hold clonazepam and amitriptyline due to side effect orthostatic hypotension seizure disorder - continue home meds once confirmed full code VTE prophy: lovenox Patient with a suicide attempt by beta amish overdose, requiring admission for observation for cardiac monitoring and serial EKGs. <Gwendolyn Armando PA-C - Last Filed: 01/29/25 01:39> Patient is a 54-year-old male with a past medical history significant for depression, bipolar, history of overdose and suicide attempts, CAD, CO/stent x2, seizure disorder, history alcohol withdrawal, pancreatitis, who presented to the ED via EMS after taking 2250 mg of metoprolol. Suicide attempt by beta amish overdose - heart rate around 40s, blood pressure maintaining systolic in the 100s - EKG with sinus bradycardia and first-degree AV block - given charcoal in ED and 1 L NS - add glucagon 2mg IV x1 - follow poison control recommendations noted by ED nurse, EKG q.2h x3 followed by EKG q.4h times 24 hours - monitor on telemetry - admit for observation Mood disorder - sitter - care team consult in a.m. - hold clonazepam and amitriptyline due to side effect orthostatic hypotension seizure disorder - continue home meds once confirmed full code VTE prophy: lovenox Patient with a suicide attempt by beta amish overdose, requiring admission for observation for cardiac monitoring and serial EKGs. <Irvin Virgen MD - Last Filed: 01/29/25 02:02> Quality Stroke Does the patient have a stroke diagnosis?: No <Gwendolyn Armando PA-C - Last Filed: 01/29/25 01:39> VTE Prior VTE?: No <Gwendolyn Armando PA-C - Last Filed: 01/29/25 01:39> VTE Risk Level:: Medical - moderate - high <KIERA Hernadnez Last Filed: 01/29/25 01:39> VTE Device Contraindication: Treatment Not Indicated <Gwendolyn Armando PA-C - Last Filed: 01/29/25 01:39> VTE Drug Contraindication: N/A - Med Ordered <KIERA Hernandez Last Filed: 01/29/25 01:39>
[2025-01-29] MEDS: Enoxaparin Sodium 40 MG/0.4 ML SYRINGE SUBCUT (02:55)
[2025-01-29] MEDS: glucagon HCL 1 MG VIAL 2 MG IVPUSH ×2 (02:55→04:25)
--- NOTE | 2025-01-29 02:57 | PM.EVENT ---
Event Note Date of Service: 01/29/25 Event Note: Patient with hypotension and bradycardia in the setting of beta-amish poisoning. Ordered IV glucagon, IV atropine, IV calcium gluconate and IV albumin. Closely monitor. Low threshold to start vasopressors Time Spent With Patient Time: Total time managing care of this patient today ____ minutes.
[2025-01-29] MEDS: Atropine Sulfate 1 MG/10 ML SYRINGE IVPUSH (03:14)
[2025-01-29] MEDS: Albumin Human 25 % 100 ML 133.33 ML IV ×2 (03:15→04:02)
[2025-01-29] MEDS: Calcium Gluconate/NaCl,Iso-Osm 2 GM/100 ML PLAST..BAG IV (03:30)
--- NOTE | 2025-01-29 03:43 | PC.NURSE ---
Hospitalist aware of low HR and low BP. pt medicated per MAR, po fluids given. when standing to use urinal pt does feel dizzy when standing, asymptomatic when in bed. second IV placed, 20g LAC.
[2025-01-29 04:27] LABS: Lactic Acid 1.8 mmol/L (0.5-2.0)
[2025-01-29 05:06] LABS: Hematocrit 38.1 % (42.0-52.0); Hemoglobin 13.2 g/dl (14.0-18.0); Mean Corpuscular HGB Conc 34.6 g/dl (31.0-36.0); Mean Corpuscular Hemoglobin 29.9 pg (27.0-33.0); Mean Corpuscular Volume 86.2 fL (80.0-98.0); Mean Platelet Volume 9.1 fL (9.4-12.4); Platelet Count 152 X10*3/uL (160-400); Red Blood Count 4.42 X10*6/uL (4.60-5.80); White Blood Count 6.2 X10*3/uL (4.8-10.8)
[2025-01-29 05:19] LABS: Alanine Aminotransferase 36 U/L (0-40); Albumin Level 3.9 g/dL (3.5-5.0); Alkaline Phosphatase 54 U/L (39-117); Anion Gap 12 (12-20); Aspartate Amino Transferase 24 U/L (5-37); Bilirubin Total 0.4 mg/dL (0.0-1.0); Blood Urea Nitrogen 11 mg/dL (9-16); Carbon Dioxide 21 mmol/L (22-29); Chloride 109 mmol/L (96-108); Creatinine Clr Calc Pharmacy 126.2; Estimated Glomerular Filt Rate > 60; Glucose Random 122 mg/dL (60-115); Potassium 3.2 mmol/L (3.3-5.1); Sodium 139 mmol/L (135-145); Total Protein 6.3 g/dL (6.5-8.0)
--- NOTE | 2025-01-29 05:20 | ECG_ITS ---
Test Reason : REPEAT EKG Blood Pressure : */* mmHG Vent. Rate : 48 BPM Atrial Rate : 48 BPM P-R Int : 216 ms QRS Dur : 96 ms QT Int : 474 ms P-R-T Axes : 55 10 75 degrees QTcB Int : 423 ms Sinus bradycardia with 1st degree A-V block Incomplete right bundle branch block Borderline ECG When compared with ECG of 29-Jan-2025 01:39, No significant change was found Referred By: Gwendolyn Armando Electronically Signed By: ASAEL VALLADARES
--- NOTE | 2025-01-29 06:06 | PC.NURSE ---
poison control called to check in, informed of admit to med tele
--- NOTE | 2025-01-29 06:16 | PC.NURSE ---
pt requesting home meds, tramadol and mely, unable to given at this time d/t low HR and BP. this RN explained to pt that i had a low dose of tramadol and potassium to drink. pt refused both, said this is a fcking joke, you are withholding meds from me . pt has been calm and cooperative up until this point, made aware of pts requests. pt very anxious and agitated.
[2025-01-29] MEDS: Potassium Chloride Packet 20 MEQ PACKET 40 MEQ PO (06:57)
[2025-01-29] MEDS: clonazePAM 1 MG TABLET 2 MG PO ×3 (06:58→17:49)
[2025-01-29] MEDS: traMADoL HCL 50 MG TABLET 25 MG PO (06:58)
--- NOTE | 2025-01-29 07:01 | PC.NURSE ---
pt has agreed to take medications at this time. ED MD ordered Klonopin per pt's request. pt now agreeable and calm
[2025-01-29] MEDS: Lactated Ringers 1,000 ML 100 ML IVCONT ×2 (08:14→18:30)
--- NOTE | 2025-01-29 08:27 | PC.NURSE ---
Assumed care of pt at 0700. Pt up ambulating around room with steady gait, a/ox3, respirations even and unlabored, no increased wob/sob noted, maintaining O2 sat >92%, pt placed back on cardiac monitor technician, pt educated on need to keep cardiac monitor technician, HR 50s, sinus abad on monitor- asymptomatic (denies dizziness, cp, sob.) Vitals updated in worklist. BPs soft- 90s/50s, MD aware. Pt given breakfast tray, 1:1 sitter at bedside, call montanez within reach, all needs met at this time.
--- NOTE | 2025-01-29 09:14 | MHC.CM.PN ---
Addendum entered by Christina Reeves 01/30/25 14:18: Home address is [address] [place] [address] in [place]. Per Care Team, Patient is appropriate for IPLOC. CM will follow. Original Note: CM met with Patient at bedside, in the ED and addressed VENCES with him; Patient signed the VENCES but refused his copy. CM later attempted to address IMM (Changed to Inpatient) and he refused to sign and accept a copy). Patient was homeless but more recently was staying with a Roommate/Landlord that he states he has a signed lease with. He describes an argument he had with this person and then described how the services taught him how to kill and torture and that he is good at it but doesn't want to do it and that is why he is here for help. Patient hopes to return to this same location; he is here under a section 12/? suicide attempt and will benefit from a Care Team Consult to assist with disposition. CM has initiated and will follow for dc planning. PCP is from [facility] in [facility]. Transportation at dc is TBD.
--- NOTE | 2025-01-29 09:20 | ECG_ITS ---
Test Reason : REPEAT Blood Pressure : */* mmHG Vent. Rate : 44 BPM Atrial Rate : 44 BPM P-R Int : 210 ms QRS Dur : 90 ms QT Int : 478 ms P-R-T Axes : 57 12 75 degrees QTcB Int : 408 ms Marked sinus bradycardia with 1st degree A-V block Low voltage QRS Nonspecific T wave abnormality Abnormal ECG When compared with ECG of 29-Jan-2025 05:47, No significant change was found Referred By: Gwendolyn Armando Electronically Signed By: ASAEL VALLADARES
--- NOTE | 2025-01-29 09:23 | PHA.MEDREC ---
Pharmacy Consult ? Medication Reconciliation Pharmacy has completed the medication reconciliation. Spoke with pt to confirm medications. Pt was able to confirm medications when going through a list.
[2025-01-29] MEDS: levETIRAcetam 1,000 MG TABLET 1000 MG PO ×2 (10:09→21:12)
[2025-01-29] MEDS: Acetaminophen 325 MG TABLET 975 MG PO (10:09)
[2025-01-29] MEDS: Calcium Carbonate 750 MG TAB.CHEW PO (10:12)
--- NOTE | 2025-01-29 11:37 | PC.NURSE ---
Pt disconnected IV tubing and removed director cardiac by self. Pt educated on need for IV maintenance fluids- pt increasing agitation with staff, yelling/swearing. Unable to reconnect fluids and director cardiac. Aware.
--- NOTE | 2025-01-29 11:38 | MHC.EDTECH ---
Patient getting agitated due to him wanting the curtain closed. quality lab technician tried to explain that they have to be observed and he became argumentative towards staff. RN aware of the issue. Patient also disconnected his IV and threw it on the floor. He would not let the pharmacy intake technician apply the leads to connect him to the heart monitor.
--- NOTE | 2025-01-29 11:42 | PC.NURSE ---
This RN educated pt on need to keep curtain open. Pt anxious about 1:1 sitter making eye contact with him- educated on need for 1:1 sitter for safety. Pt bed turned in room so 1:1 sitter isn't in pt direct line of sight. 1:1 sitter able to safely monitor patient with bed angled. Pt refusing to have IV fluids/teletypesetter monitor reconnected, MD aware. Call montanez within reach, all needs met at this time.
--- NOTE | 2025-01-29 13:27 | PC.NURSE ---
Pt increasing agitation towards staff about home medications. Med rec done by pharmacy, message sent to provider to order home medications. Pt continues to be up walking around the room, taking swiss machinist leads off. 20g IV R ac self removed by patient. 1:1 sitter remains at bedside, pt given lunch tray. Call montanez within reach, all needs met at this time.
--- NOTE | 2025-01-29 13:33 | P.PNIM_ITS ---
Subjective Subjective Date of Service: 01/29/25 Review of Systems Follow up beta-amish overdose Patient alert, oriented conversing Requesting pain medication Physical Exam 2 Vital Signs: Vital Signs: Last Vital Signs Temp 98.2 F 01/29/25 09:17 Pulse 51 01/29/25 12:20 Resp 11 L 01/29/25 12:20 BP 119/74 01/29/25 12:20 Pulse Ox 95 01/29/25 12:20 O2 Del Method Room Air 01/29/25 12:20 BMI result Body Mass Index 32.9 Appearing in no acute distress lung sounds are clear to auscultation heart regular rate rhythm, clear S1, S2 positive bowel sounds, abdomen is soft, nontender neuro patient is alert x3, no focal deficits Objective Data Active Medications Acetaminophen (Acetaminophen 325 Mg Tablet) 975 mg PO Q6H PRN PRN Reason: Pain, Mild 1-3,fever,headache Last Admin: 01/29/25 10:09 Dose: 975 mg Documented By: ANDERSON Calcium Carbonate (Calcium Carbonate 750 Mg Tab.Chew) 750 mg PO Q4H PRN PRN Reason: Heartburn Last Admin: 01/29/25 10:12 Dose: 750 mg Documented By: ANDERSON Enoxaparin Sodium (Enoxaparin Sodium 40 Mg/0.4 Ml Syringe) 40 mg SUBCUT Q24H [facility] Last Admin: 01/29/25 02:55 Dose: 40 mg Documented By: DEB Lactated Ringer's (Lr) 1,000 mls @ 100 mls/hr IVCONT .Q10H [facility] Last Admin: 01/29/25 08:14 Dose: 100 mls/hr Documented By: ANDERSON Levetiracetam (Levetiracetam 1,000 Mg Tablet) 1,000 mg PO BID [facility] Last Admin: 01/29/25 10:09 Dose: 1,000 mg Documented By: ANDERSON Magnesium Hydroxide (Milk Of Magnesia 30 Ml Oral.Susp) 30 ml PO DAILY PRN PRN Reason: Constipation Melatonin (Melatonin 3 Mg Tablet) 6 mg PO BEDTIME PRN PRN Reason: Insomnia Ondansetron HCl (Ondansetron Hcl 4 Mg/2 Ml Vial) 4 mg IVPUSH Q8H PRN PRN Reason: Nausea and Vomiting Sodium Chloride (0.9 % Sodium Chloride Flush 3 Ml Syringe) 3 ml IVFLUSH QSHIFT [facility] Last Admin: 01/29/25 08:25 Dose: Not Given Documented By: ANDERSON Non-Admin Reason: Patient Refused Labs 01/29/25 03:54 01/29/25 03:54 Labs: Laboratory Results - last 24 hr 01/28/25 01/28/25 01/28/25 20:02 20:13 20:21 MCV 86.7 MCH 29.8 MCHC 34.4 RDW 12.1 Plt Count 158 L MPV 9.0 L Immature Gran % (Auto) 0.6 H Neut % (Auto) 70.7 Lymph % (Auto) 17.9 L [place] % (Auto) 8.4 Eos % (Auto) 1.5 Baso % (Auto) 0.9 Lymph # (Auto) 1.2 [place] # (Auto) 0.6 Eos # (Auto) 0.1 Baso # (Auto) 0.1 Abs Immat Gran (auto) 0.04 H Absolute Neuts (auto) 4.9 Absolute Nucleated RBC 0.000 Nucleated RBC % (auto) 0.0 VBG pH 7.44 H VBG pCO2 35 VBG pO2 57 VBG HCO3 24 VBG O2 Saturation 86.0 VBG Base Excess 1.3 Anion Gap 14 Estim Creat Clear Calc 105.4 Estimated GFR > 60 POC Glucose 182 H Random Glucose 182 H Lactic Acid Calcium 8.6 D Magnesium 2.1 Total Bilirubin 0.4 AST 49 H ALT 41 H Alkaline Phosphatase 65 Total Protein 7.2 Albumin 3.9 Salicylates < 5.0 L Urine Opiates Screen Ur Buprenorphine Scrn Ur Oxycodone Screen Urine Methadone Screen Urine Fentanyl Screen Acetaminophen < 3 Ur Barbiturates Screen Ur Phencyclidine Scrn Ur Amphetamines Screen U Benzodiazepines Scrn Urine Cocaine Screen U Marijuana (THC) Screen Ethyl Alcohol < 10 01/28/25 01/29/25 01/29/25 23:40 03:54 04:09 MCV 86.2 MCH 29.9 MCHC 34.6 RDW 12.0 Plt Count 152 L MPV 9.1 L Immature Gran % (Auto) Neut % (Auto) Lymph % (Auto) [place] % (Auto) Eos % (Auto) Baso % (Auto) Lymph # (Auto) [place] # (Auto) Eos # (Auto) Baso # (Auto) Abs Immat Gran (auto) Absolute Neuts (auto) Absolute Nucleated RBC 0.000 Nucleated RBC % (auto) 0.0 VBG pH VBG pCO2 VBG pO2 VBG HCO3 VBG O2 Saturation VBG Base Excess Anion Gap 12 Estim Creat Clear Calc 126.2 Estimated GFR > 60 POC Glucose Random Glucose 122 H Lactic Acid 1.8 Calcium 9.0 Magnesium Total Bilirubin 0.4 AST 24 ALT 36 Alkaline Phosphatase 54 Total Protein 6.3 L Albumin 3.9 Salicylates Urine Opiates Screen Not Detected Ur Buprenorphine Scrn Not Detected Ur Oxycodone Screen Not Detected Urine Methadone Screen Not Detected Urine Fentanyl Screen Not Detected Acetaminophen Ur Barbiturates Screen Not Detected Ur Phencyclidine Scrn Not Detected Ur Amphetamines Screen Not Detected U Benzodiazepines Scrn POSITIVE H Urine Cocaine Screen POSITIVE H U Marijuana (THC) Screen POSITIVE H Ethyl Alcohol Assessment and Plan (1) Suicide attempt by beta amish overdose: Status: Acute Plan 54-year-old male with a past medical history significant for depression, bipolar, history of overdose and suicide attempts, CAD, [place]/stent x2, seizure disorder, history alcohol withdrawal, pancreatitis, who presented to the ED via EMS after taking metoprolol. Patient reported that it could have been 8 pills of his home metoprolol Suicide attempt by beta amish overdose Bradycardia EKG with sinus bradycardia and first-degree AV block given charcoal in ED and 1 L NS glucagon to IV x1 follow poison control recommendations noted by ED nurse, EKG q.2h x3 followed by EKG q.4h times 24 hours (end 01/30/25 0100) monitor on telemetry Hypokalemia repleted Mood disorder sitter care team consult when medically clear hold clonazepam and amitriptyline due to side effect orthostatic hypotension Chronic pain Tramadol prn seizure disorder continue home meds full code VTE prophy: lovenox Quality Stroke Does the patient have a stroke diagnosis?: No VTE Prior VTE?: No VTE Risk Level:: Medical - moderate - high VTE Device Contraindication: Treatment Not Indicated VTE Drug Contraindication: N/A - Med Ordered
[2025-01-29] MEDS: traMADoL HCL 50 MG TABLET 100 MG PO ×2 (13:54→17:50)
[2025-01-29] MEDS: hydrOXYzine HCL 50 MG TABLET PO ×3 (13:54→21:12)
[2025-01-29] MEDS: Milk of Magnesia 30 ML ORAL.SUSP PO (15:27)
--- NOTE | 2025-01-29 18:21 | PC.NURSE ---
Pt becoming agitated/yelling at staff for his anxiety/pain medications. This RN explained to pt meds are on a schedule, pt agitation increased. Per ENTERPRISE APPLICATION DEVELOPER Yamini, ok to give anxiety/pain medications early.
[2025-01-29] MEDS: Amitriptyline HCl 50 MG TABLET 200 MG PO (21:12)
--- NOTE | 2025-01-29 21:20 | ECG_ITS ---
Test Reason : repeat Blood Pressure : */* mmHG Vent. Rate : 48 BPM Atrial Rate : 48 BPM P-R Int : 210 ms QRS Dur : 90 ms QT Int : 458 ms P-R-T Axes : 51 27 64 degrees QTcB Int : 409 ms Sinus bradycardia with 1st degree A-V block Otherwise normal ECG When compared with ECG of 29-Jan-2025 09:24, T wave inversion less evident in Anterior leads Referred By: Gwendolyn Armando Electronically Signed By: ASAEL VALLADARES
--- NOTE | 2025-01-29 22:47 | PC.NURSE ---
Patient arrived to unit approximately at 20:00. Vitals taken and charted. Patient anxious, resistive and can be resistive to care. Patient has 1:[address] Patient now refusing for all vitals signs to be taken and is refusing cardiac tele monitoring. MD notified. No further orders placed.
[2025-01-30] VITALS: BP 100/65; PULSE 40; RESP 16; O2SAT 97
--- NOTE | 2025-01-30 01:20 | ECG_ITS ---
Test Reason : metaprolol od Blood Pressure : */* mmHG Vent. Rate : 49 BPM Atrial Rate : 49 BPM P-R Int : 204 ms QRS Dur : 92 ms QT Int : 472 ms P-R-T Axes : 65 27 64 degrees QTcB Int : 426 ms Sinus bradycardia Otherwise normal ECG When compared with ECG of 29-Jan-2025 13:45, No significant change was found Referred By: Gwendolyn Armando Electronically Signed By: ASAEL VALLADARES
[2025-01-30] MEDS: Lactated Ringers 1,000 ML 100 ML IVCONT (05:23)
[2025-01-30] MEDS: Omeprazole 20 MG CAPSULE.DR PO (05:49)
[2025-01-30] MEDS: Acetaminophen 325 MG TABLET 975 MG PO ×2 (05:57→12:25)
[2025-01-30 06:00] VITALS: BP 103/62; PULSE 45; RESP 16; O2SAT 98
[2025-01-30] MEDS: hydrOXYzine HCL 50 MG TABLET PO ×3 (06:09→19:36)
[2025-01-30 07:08] VITALS: BP 99/63; PULSE 47; RESP 16; TEMP 36.4; O2SAT 92
[2025-01-30 07:13] LABS: Hemoglobin 13.7 g/dl (14.0-18.0); Mean Corpuscular HGB Conc 33.4 g/dl (31.0-36.0); Mean Corpuscular Hemoglobin 29.3 pg (27.0-33.0); Mean Corpuscular Volume 87.8 fL (80.0-98.0); Mean Platelet Volume 9.3 fL (9.4-12.4); Platelet Count 146 X10*3/uL (160-400); Red Blood Count 4.67 X10*6/uL (4.60-5.80); Red Cell Distribution Width 12.1 % (11.0-16.0); White Blood Count 5.5 X10*3/uL (4.8-10.8)
[2025-01-30 07:29] LABS: Alanine Aminotransferase 50 U/L (0-40); Albumin Level 4.1 g/dL (3.5-5.0); Alkaline Phosphatase 50 U/L (39-117); Anion Gap 11 (12-20); Aspartate Amino Transferase 28 U/L (5-37); Bilirubin Total 0.6 mg/dL (0.0-1.0); Blood Urea Nitrogen 16 mg/dL (9-16); Calcium 9.2 mg/dL (8.4-10.2); Carbon Dioxide 22 mmol/L (22-29); Chloride 110 mmol/L (96-108); Estimated Glomerular Filt Rate > 60; Glucose Random 110 mg/dL (60-115); Potassium 4.1 mmol/L (3.3-5.1); Sodium 139 mmol/L (135-145); Total Protein 6.5 g/dL (6.5-8.0)
[2025-01-30] MEDS: Aspirin Enteric Coated 81 MG TABLET.DR PO (07:49)
[2025-01-30] MEDS: Famotidine 20 MG TABLET 40 MG PO (07:49)
[2025-01-30] MEDS: clonazePAM 1 MG TABLET 2 MG PO ×2 (07:49→16:14)
[2025-01-30] MEDS: levETIRAcetam 1,000 MG TABLET 1000 MG PO ×2 (07:49→19:25)
[2025-01-30] MEDS: traMADoL HCL 50 MG TABLET 100 MG PO ×3 (08:03→19:36)
[2025-01-30 10:54] VITALS: BP 105/71; PULSE 48; RESP 16; TEMP 36.3; O2SAT 94
[2025-01-30] MEDS: Ibuprofen 400 MG TABLET PO (12:28)
--- NOTE | 2025-01-30 13:34 | P.DS_ITS ---
DS: Providers Provider Date of Service: 01/30/25 Date of admission: 01/29/25 08:40 Date of discharge: 01/30/25 Primary care physician: Unknown Physician Consults: 01/29/25 01:24 Inpt CARE Team Crisis Consult Routine Comment: Reason for consultation: suicide attempt, metoprolol OD, section 12 by PD 01/29/25 01:26 Consult for Sitter Routine Reason for consultation: suicide attempt Has provider been notified: Yes 01/30/25 11:57 ED CARE Team Crisis Consult Routine Comment: Reason for consultation: suicide attempt, metoprolol OD, section 12 by PD Attending physician on discharge: Dick Lees Discharging clinician: Deanne Sr DS: Diagnosis Discharge Diagnosis (1) Suicide attempt by beta amish overdose: Status: Acute DS: Summary Hospital Course Hospital Course: From H&P on the day of admission Patient is a 54-year-old male with a past medical history significant for depression, bipolar, history of overdose and suicide attempts, CAD, [place]/stent x2, ?seizure, history alcohol withdrawal, pancreatitis, who presented to the ED via EMS after taking 2250 mg of metoprolol. The patient reports that he was arguing with his new roommate who reportedly took his metoprolol so he took a large amount out of anger. He reports history of multiple suicide attempts, a few recently however he states this was not a suicide attempt as he would have chosen something like his oxycodone. He was placed on a section 12 [address]. He has no concerns currently including chest pain, shortness of breath, headache, nausea, vomiting, diarrhea or urinary symptoms. Possible Suicide attempt by beta amish overdose EKG with sinus bradycardia. given charcoal in ED and 1 L NS. Patient's blood pressure was low shortly after admission he received IV glucagon, IV atropine, IV calcium gluconate and IV albumin. His blood pressure has remained stable since that time. Patient's heart rate remains in the high 40s to mid 50s. Patient is asymptomatic. poison control recommendations noted by ED nurse, EKG q.2h x3 followed by EKG q.4h times 24 hours (ended 01/30/25 0100). His metoprolol and clonidine have been on hold. beta amish + clonidine have increased risk for bradycardia when combined. Assess for need to resume clonidine. Had 1: 1 for safety. was seen by care team who recommended inpatient psychiatric level of care. Section 12 has been signed and he will be transferred to inpatient psychiatric floor. Mood. lithium on hold as can cause bradycardia. Hypokalemia repleted and normalized Hypogonadism Testosterone non formulary, will need to be brought from home history of unspecified seizure disorder Continue Keppra thrombocytopenia Chronic CAD with h/o MICHAEL Metoprolol has been on hold for bradycardia. Recommend to hold metoprolol until heart rate consistently above 65. continue aspirin Time Attestation Discharge Coordination Time (in mins): 35 Quality: Safe Use of Opioids Does Pt have an Active Cancer Diagnosis on the Problem List?: No Quality: Stroke Does the patient have a stroke diagnosis?: No Physical Exam Vital Signs: Vital Signs: Last Vital Signs Temp 97.3 F 01/30/25 10:54 Pulse 48 L 01/30/25 10:54 Resp 16 01/30/25 10:54 BP 105/71 01/30/25 10:54 Pulse Ox 94 01/30/25 10:54 O2 Del Method Room Air 01/30/25 10:54 BMI result Body Mass Index 32.9 Const: General: comfortable, no acute distress, alert and awake Nutritional Appearance: average body habitus Orientation/consciousness: patient oriented x3 Resp: Effort & Inspection: normal respiratory effort, able to speak in complete sentences, no respiratory distress and no use of accessory muscles Cardio: Rate: bradycardic GI: Inspection: No distended Palpation (GI): Soft to palpation and nontender Neuro: General: patient oriented x3, moves all extremities and CN's II-XI intact bilaterally DS: Data Data Completed and Pending Completed studies during hospitalization [Text1]: Procedures Detoxification Services for Substance Abuse Treatment (03/20/22) Labs on day of discharge: Laboratory Results - last 24 hr 01/30/25 06:52 WBC 5.5 RBC 4.67 Hgb 13.7 L Hct 41.0 L MCV 87.8 MCH 29.3 MCHC 33.4 RDW 12.1 Plt Count 146 L MPV 9.3 L Absolute Nucleated RBC 0.000 Nucleated RBC % (auto) 0.0 Sodium 139 Potassium 4.1 D Chloride 110 H Carbon Dioxide 22 Anion Gap 11 L BUN 16 Creatinine 0.78 Estim Creat Clear Calc 123.0 Estimated GFR > 60 Random Glucose 110 Calcium 9.2 Total Bilirubin 0.6 AST 28 ALT 50 H Alkaline Phosphatase 50 Total Protein 6.5 Albumin 4.1 Discharge Plan Discharge Patient Disposition: Xfer Psychiatric Hosp Discharge Diagnosis: bradycardia Referrals: Physician,Unknown J [Primary Care Provider] - 1 Week Discharge Medications: Continued aspirin 81 mg tablet,delayed release (DR/EC) 1 tab PO DAILY albuterol sulfate 90 mcg/actuation HFA aerosol inhaler 2 puff PO Q4H PRN (Reason: Shortness Of Breath) famotidine 40 mg tablet 1 tab PO DAILY tamsulosin 0.4 mg capsule 1 cap PO BID amitriptyline 100 mg tablet 2 tab PO BEDTIME loratadine 10 mg tablet 1 tab PO DAILY PRN (Reason: ALLERGIES) rosuvastatin 20 mg tablet 1 tab PO DAILY lidocaine [Lidoderm] 5 % adhesive patch,medicated 1 patch topical DAILY MDD remove after 12 hours PRN (Reason: pain) Qty: 30 0RF Rx Instructions: leave on most painful area for up to 12 hrs testosterone 20.25 mg/1.25 gram (1.62 %) gel in metered-dose pump 4 pump topical DAILY Rx Instructions: 2 PUMPS ON EACH ARM acetaminophen 325 mg Tablet 975 mg PO Q8H PRN (Reason: Pain) clonazepam 2 mg tablet 1 tab PO TID PRN (Reason: Anxiety) levetiracetam [Keppra] 1,000 mg Tablet 1,000 mg PO BID tramadol 50 mg tablet 100 mg PO TID PRN (Reason: pain) hydroxyzine HCl 50 mg tablet 50 mg PO TID PRN (Reason: MOOD / ANXIETY) pantoprazole 40 mg tablet,delayed release (DR/EC) 40 mg PO DAILY@0630 ibuprofen 200 mg Tablet 400 mg PO Q6H PRN (Reason: PHARMACY) folic acid 0.8 mg Capsule 0.8 mg PO DAILY Held clonidine HCl 0.1 mg tablet 1 tab PO BID Hold Instructions: hold for bradycardia metoprolol succinate 25 mg tablet extended release 24 hr 1 tab PO DAILY Hold Instructions: hold for bradycardia lithium carbonate 300 mg tablet 300 mg PO BID Hold Instructions: has been on hold for bradycardia lisinopril 2.5 mg tablet 2.5 mg PO DAILY Hold Instructions: hold for soft bp Discontinued aspirin 325 mg Tablet 650 mg PO Q4-6H PRN (Reason: Pain) Discharge Orders: Discharge Order (Routine); Ordered 01/30/25 Ordered By: Deanne Sr Activity on Discharge: As tolerated Stand Alone Forms: Patient Portal Discharge page Print Language: Kiswahili Care Plan Goals: see below Health Concerns: beta amish overdose Plan of Treatment: metoprolol, clonidine, lithium on hold for bradycardia. patient has remained asymptomtic. low dose lisinopril on hold due to soft blood pressure. hold until bp consiste ntly above 120 systolic. Assessment: transferred to inpatient psychiatric floor for further care
--- NOTE | 2025-01-30 13:44 | MHC.CARE ---
Pt meets the critera for IPLOC secondary to intentional overdose. Section 12a in chart. Provider in agreement
[2025-01-30] MEDS: 0.9 % Sodium Chloride Flush 3 ML SYRINGE IVFLUSH (14:19)
--- NOTE | 2025-01-30 14:23 | MHC.CM.PN ---
Patient's home address is [address] [place] [address]. Per Care Team, Patient is appropriate for IPLOC. CM will follow.
--- NOTE | 2025-01-30 14:23 | PC.NURSE ---
patient refused car unloader helper, removed monitor in presence of this nurse.
--- NOTE | 2025-01-30 15:19 | MHC.CM.PN ---
Patient will be dc'd to [facility].
[2025-01-30 15:36] VITALS: BP 121/77; PULSE 52; RESP 20; TEMP 36.2; O2SAT 95
--- NOTE | 2025-01-30 16:25 | MHC.CARE ---
[facility] authorized 5 days 01/30-02/05/25 [id number] Review with Shima Galvan at [phone]
[2025-01-30 19:19] VITALS: BP 113/73; PULSE 50; RESP 18; TEMP 36.9; O2SAT 95
[2025-01-30] MEDS: Amitriptyline HCl 50 MG TABLET 200 MG PO (19:25)
== END 2025-01-30 19:57 | DRG 918 ==
LOC: HO.ED 01-29 01:19 → HO.EDOVER 01-29 01:27 → HO.IMC 01-29 19:19
PROVIDERS: Physician Assistant; Admitting Provider Student in an Organized Health Care Education/Training Program; Emergency Provider Internal Medicine; Visit Provider Physician Assistant Medical
DX: T44.7X2A Poisoning by beta-adrenoreceptor antagonists, intentional self-harm, initial encounter (principal); I25.10 Atherosclerotic heart disease of native coronary artery without angina pectoris; E87.6 Hypokalemia; G40.909 Epilepsy, unspecified, not intractable, without status epilepticus; E29.1 Testicular hypofunction; G89.29 Other chronic pain; I95.2 Hypotension due to drugs; R00.1 Bradycardia, unspecified; Z95.5 Presence of coronary angioplasty implant and graft; Z87.891 Personal history of nicotine dependence; Z79.82 Long term (current) use of aspirin; Z79.899 Other long term (current) drug therapy
CPT/HCPCS: 36415; 80053; 80143; 80179; 80307; 82803; 82947; 83605; 83735; 84484; 85025; 85027; 93005; 99285; J0461; J0613; J1610; J1650; J7120; P9047; S9485

== ENCOUNTER → 2025-01-28 20:02 | Outpatient (BNV) | payer MEDICARE, SELFPAY | PROVIDERS: Admitting Provider Student in an Organized Health Care Education/Training Program; Emergency Provider Internal Medicine; Visit Provider Internal Medicine | DX: R00.1 Bradycardia, unspecified (principal); I44.0 Atrioventricular block, first degree; I45.10 Unspecified right bundle-branch block; I25.2 Old myocardial infarction | CPT/HCPCS: 93010 ==

== ENCOUNTER → 2025-01-29 00:59 | Outpatient (BNV) | payer MEDICARE, SELFPAY | PROVIDERS: Admitting Provider Student in an Organized Health Care Education/Training Program; Emergency Provider Internal Medicine; Visit Provider Physician Assistant | DX: T44.7X2A Poisoning by beta-adrenoreceptor antagonists, intentional self-harm, initial encounter (principal) | CPT/HCPCS: 99239 ==

== ENCOUNTER → 2025-01-29 01:39 | Outpatient (BNV) | payer MEDICARE, SELFPAY | PROVIDERS: Admitting Provider Student in an Organized Health Care Education/Training Program; Emergency Provider Internal Medicine; Visit Provider Internal Medicine | DX: R00.1 Bradycardia, unspecified (principal); I44.0 Atrioventricular block, first degree; I45.10 Unspecified right bundle-branch block | CPT/HCPCS: 93010 ==

== ENCOUNTER 2025-01-29 08:40 | Outpatient (BNV) | payer MEDICARE, SELFPAY | END 2025-01-30 01:20 | PROVIDERS: Admitting Provider Student in an Organized Health Care Education/Training Program; Emergency Provider Internal Medicine; Visit Provider Internal Medicine | DX: R00.1 Bradycardia, unspecified (principal) | CPT/HCPCS: 93010 ==

== ENCOUNTER 2025-01-30 20:04 | Inpatient (IN) | payer MEDICARE, SELFPAY ==
--- NOTE | 2025-01-30 15:44 | PM.EVENT ---
Event Note Date of Service: 01/31/25 Event Note: Pt to transfer from medicine s/p overdose metoprolol ER 4-8 tablets. Team recommends to hold clonidine, lisinopril, metoprolol, lithium until heart rate is consistently greater than 65, which could be a few days. Time Spent With Patient Time: Total time managing care of this patient today ____ minutes.
[2025-01-30 18:00] VITALS: BP 111/73; PULSE 56; RESP 16; TEMP 37; O2SAT 94
--- OUTSIDE RECORDS SUMMARY | 2025-01-30 20:08 | XMS_ITS | Clinical Summary ---
Author Organization [facility]ly [facility] Address [address] [place] [address] Care Team Providers Care Canal Boat Captain Name Role Phone Jessy Dwyer ALEC Primary Care Provider [phone] Allergies Active Allergy Reactions Criticality Noted Date [...] 05/18/2015, , 07/09/2011, Additional history exists [facility] [employer] Care Teams Canal Boat Captain Relationship Specialty Start Date End Date Jessy Dwyer APRN [address] [place] [id number] PCP - General Family Medicine 10/27/21
--- OUTSIDE RECORDS SUMMARY | 2025-01-30 20:08 | XMS_ITS | Continuity of Care Document ---
Author Name [facility] Organization [facility] Care Team Providers Care Ct Scan Tech Name Role Phone [facility] Unavailable Unavailable Problems Combined list of problems [...] Diagnosis: ICD-10-CM F32.A Depression, unspecified Active Diagnosis [facility] Diagnosis: ICD-10-CM Z59.01 Sheltered homelessness Active Diagnosis [facility] Diagnosis: ICD-10-CM Z59.9 Problem related to housing and economic circumstances, unsp Active Diagnosis [facility] Diagnosis: ICD-10-CM Z71.81 Spiritual or nondenominational counseling Active Diagnosis [facility] Immunizations Combined list of available immunizations from the Department of Defense and Veterans Affairs facilities. 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 Status Comments Source INFLUENZA, INJECTABLE, QUADRIVALENT, PRESERVATIVE FREE 2018 150 complet ed Site: Left Deltoid [facility] Encounters Combined [...] Disposition Source [facility] CASE MANAGEMENT [id number] Diagnos is: ICD-10- CM Z59.01 Fdc ed homeles ENID Schroeder 08/28 [facility] [facility] [id number] Diagnos is: ICD-10- CM Z71.81 Spiritu al or religio us residential substance abuse counselor ing HENRY VO M 09/23 [facility] [place] [place] [facility] [id number] Diagnos is: ICD-10- CM Z71.81 Spiritu al or religio us residential substance abuse counselor ing HENRY VO M 09/30 [facility] [place] [place] [facility] [id number] Diagnos is: ICD-10- CM Z71.81 Spiritu al or religio us residential substance abuse counselor ing HENRY VO M 10/01 [facility] [place] [facility] [place] [facility] [id number] Diagnos is: ICD-10- CM Z71.81 Spiritu al or religio us residential substance abuse counselor ing HENRY VO M 10/07 [facility] [place] [facility] [place] [facility] [id number] Diagnos is: ICD-10- CM Z71.81 Spiritu al or religio us residential substance abuse counselor ing HENRY VO M 10/14 [facility] [place] [place] [facility] [employer] [id number] Diagnos is: ICD-10- CM Z71.81 Spiritu al or religio us residential substance abuse counselor ing HENRY VO M 10/21 [facility] [place] [place] [facility] [id number] Diagnos is: ICD-10- CM Z71.81 Spiritu al or religio us residential substance abuse counselor ing HENRY VO M 10/21 [facility] [place] [place] [facility] [employer] [facility]U [id number] Diagnos is: ICD-10- CM Z71.81 Spiritu al or religio us residential substance abuse counselor ing HENRY VO M 10/25 [facility] [place] [facility] [place] [facility] [employer] [facility] [id number] Diagnos is: ICD-10- CM Z71.81 Spiritu al or religio us residential substance abuse counselor ing HENRY VO M 10/25 [facility] [place] [facility] [employer] [facility] [id number] Diagnos is: ICD-10- CM Z71.81 Spiritu al or religio us residential substance abuse counselor ing Malik STOCKTON R 10/27 [facility] [place] [place] [facility] [id number] Diagnos is: ICD-10- CM Z71.81 Spiritu al or religio us residential substance abuse counselor ing HENRY VO M 10/28 [facility] [place] [place] [facility] [id number] Diagnos is: ICD-10- CM Z71.81 Spiritu al or religio us residential substance abuse counselor ing HENRY VO M 10/28 [facility] [place] [facility] [place] [facility] [employer] [employer] [id number] Diagnos is: ICD-10- CM Z71.81 Spiritu al or religio us residential substance abuse counselor ing HENRY VO M 11/02 [facility] [place] [facility] [place] [facility] [employer] [facility] [id number] Diagnos is: ICD-10- CM Z71.81 Spiritu al or religio us residential substance abuse counselor ing Malik STOCKTON R 11/03 [facility] [place] [facility] [place] [facility] [id number] Diagnos is: ICD-10- CM Z71.81 Spiritu al or religio us residential substance abuse counselor ing PRIDDSHARON,HENRY LLIAM M 11/04 [facility] [place] [facility] [place] [facility] [id number] Diagnos is: ICD-10- CM Z71.81 Spiritu al or religio us residential substance abuse counselor ing PRIDDHENRY HERRERAIAM M 11/11 [facility] [place] [place] [facility] [id number] Diagnos is: ICD-10- CM Z71.81 Spiritu al or religio us residential substance abuse counselor ing PRIDDSHARON,HENRY LLIAM M 11/11 [facility] [place] [place] [facility] [id number] Diagnos is: ICD-10- CM Z71.81 Spiritu al or religio us residential substance abuse counselor ing PRIDDSHARON,WI LLIAM M 11/18 [facility] [place] [place] [facility] [id number] Diagnos is: ICD-10- CM Z71.81 Spiritu al or religio us residential substance abuse counselor ing PRIDDSHARON,WI LLIAM M 11/18 [facility] [place] [facility] [place] [facility] [id number] Diagnos is: ICD-10- CM Z71.81 Spiritu al or religio us residential substance abuse counselor ing Malik STOCKTON R 11/23 [facility] [place] [facility] [place] [facility] [id number] Diagnos is: ICD-10- CM Z71.81 Spiritu al or religio us residential substance abuse counselor ing HENRY VO LLIAM M 11/24 [facility] [place] [facility] [place] [facility] [employer] [employer] [facility] [id number] Diagnos is: ICD-10- CM Z71.81 Spiritu al or religio us residential substance abuse counselor ing HENRY VO LLIAM M 11/29 [facility] [place] [place] [facility] [id number] Diagnos is: ICD-10- CM Z71.81 Spiritu al or religio us residential substance abuse counselor ing HENRY VO LLIAM M 12/01 [facility] [place] [place] [facility] [id number] Diagnos is: ICD-10- CM Z71.81 Spiritu al or religio us residential substance abuse counselor ing HENRY VO LLIAM M 12/01 [facility] [place] [place] [facility] CASE MANAGEMENT [id number] Diagnos is: ICD-10- CM Z59.01 Fdc ed true george RADHIKA,ENID ICE 12/04 [facility] [place] [facility] [place] [facility] [employer] [facility] [id number] Diagnos is: ICD-10- CM Z71.81 Spiritu al or religio us residential substance abuse counselor ing HENRY VO LLIAM M 12/06 [facility] [place] [facility] [place] [facility] [id number] Diagnos is: ICD-10- CM Z71.81 Spiritu al or religio us residential substance abuse counselor ing PRIDDIS,WI LLIAM M 12/07 [facility] [place] [facility] [place] [facility] [id number] Diagnos is: ICD-10- CM Z71.81 Spiritu al or religio us residential substance abuse counselor ing PRIDDIS,WI LLIAM M 12/08 [facility] [place] [facility] [place] [facility] [id number] Diagnos is: ICD-10- CM Z71.81 Spiritu al or religio us residential substance abuse counselor ing PRIDDSHARON,WI LLIAM M 12/28 [facility] [place] [facility] [place] [facility] [id number] Diagnos is: ICD-10- CM Z71.81 Spiritu al or religio us residential substance abuse counselor ing PRIDDIS,WI LLIAM M 12/29 [facility] [place] [facility] [place] [facility] [id number] Diagnos is: ICD-10- CM Z71.81 Spiritu al or religio us residential substance abuse counselor ing PRIDDIS,WI LLIAM M 01/05 [facility] [place] [facility] [place] [facility] [id number] Diagnos is: ICD-10- CM Z71.81 Spiritu al or religio us residential substance abuse counselor ing PRIDDIS,WI LLIAM M 01/12 [facility] [place] [facility] [place] [facility] [id number] Diagnos is: ICD-10- CM Z71.81 Spiritu al or religio us residential substance abuse counselor ing HENRY VO M 01/18 [facility] [place] [facility] [place] [facility] [id number] Diagnos is: ICD-10- CM Z71.81 Spiritu al or religio us residential substance abuse counselor ing HENRY VO M 01/18 [facility] [place] [facility] [place] [facility] [id number] Diagnos is: ICD-10- CM Z71.81 Spiritu al or religio us residential substance abuse counselor ing HENRY VO M 01/19 [facility] [place] [facility] [place] [facility] [id number] Diagnos is: ICD-10- CM Z71.81 Spiritu al or religio us residential substance abuse counselor ing HENRY VOIAYaz M 01/26 [facility] [place] [facility] [place] [facility] [id number] Diagnos is: ICD-10- CM Z71.81 Spiritu al or religio us residential substance abuse counselor ing HENRY VO M 02/02 [facility] [place] [facility] [place] [facility] CASE MANAGEMENT [id number] Diagnos is: ICD-10- CM Z59.01 Fdc ed true GARRIDO,02/11 [facility] [place] [facility] [place] [facility] [id number] Diagnos is: ICD-10- CM Z71.81 Spiritu al or religio us residential substance abuse counselor ing HENRY VOIAYaz M 02/16 [facility] [place] [place] [facility] [employer] [facility] [id number] Diagnos is: ICD-10- CM Z71.81 Spiritu al or religio us residential substance abuse counselor ing Malik STOCKTON R 03/06 [facility] [place] [facility] [place] [facility] [id number] Diagnos is: ICD-10- CM Z71.81 Spiritu al or religio us residential substance abuse counselor ing TAVO,HENRY LLIAM M 03/31 [facility] [place] [facility] [place] [facility] [id number] Diagnos is: ICD-10- CM Z71.81 Spiritu al or religio us residential substance abuse counselor ing HENRY VO LLIAM M 04/06 [facility] [place] [facility] [place] [facility] [employer] [facility] [id number] Diagnos is: ICD-10- CM Z71.81 Spiritu al or religio us residential substance abuse counselor ing TAVO,HENRY LLIAM M 04/12 [facility] [place] [facility] [place] [facility] [id number] Diagnos is: ICD-10- CM Z71.81 Spiritu al or religio us residential substance abuse counselor ing TAVO,HENYR LLIAM M 04/12 [facility] [place] [facility] [place] [facility] [id number] Diagnos is: ICD-10- CM Z71.81 Spiritu al or religio us residential substance abuse counselor ing TAVO,WI LLIAM M 04/13 [facility] [place] [facility] [place] [facility] CASE MANAGEMENT [id number] Diagnos is: ICD-10- CM Z59.01 Fdc ed homeENID Felipe ICE 04/15 [facility] [place] [facility] [place] [facility] [id number] Diagnos is: ICD-10- CM Z71.81 Spiritu al or religio us residential substance abuse counselor ing HENRY VO LLIAM M 04/20 [facility] [place] [facility] [place] [facility] [id number] Diagnos is: ICD-10- CM Z71.81 Spiritu al or religio us residential substance abuse counselor ing HENRY VO LLIAM M 04/20 [facility] [place] [facility] [place] [facility] Outpatient Encounter [id number] 04/29 [facility] [place] [facility] [place] [facility] [employer] [facility] [id number] Diagnos is: ICD-10- CM Z71.81 Spiritu al or religio us residential substance abuse counselor HENRY ZhuM M 06/20 [facility] [place] [facility] [place] [facility] PSYCH DIAGNOSTIC EVALUATION [id number] Diagnos is: ICD-10- CM Z59.01 Fdc ed homemaninder JIMENEZHAYDE JONES G 06/25 [facility] [place] [facility] [place] [facility] [employer] [facility] [id number] Diagnos is: ICD-10- CM Z71.81 Spiritu al or religio us residential substance abuse counselor HENRY Zhu M 06/27 [facility] [place] [facility] [place] [facility] [id number] Diagnos is: ICD-10- CM Z71.81 Spiritu al or religio us residential substance abuse counselor ing PRIDDSHARON,WI LLIAM M 07/06 [facility] [place] [employer] [facility] [id number] Diagnos is: ICD-10- CM Z71.81 Spiritu al or religio us residential substance abuse counselor ing PRISHEFALISHARON,WI ERLINDAIAM M 07/13 [facility] [place] Outpatient Encounter [id number] 07/16 [facility] [place] Outpatient Encounter [id number] 07/23 [facility] [place] [facility] [employer] [employer] [facility] [id number] Diagnos is: ICD-10- CM Z71.81 Spiritu al or religio us residential substance abuse counselor ing PRISHEFALISHARON,WI LLIAM M 07/24 [facility] [place] Outpatient Encounter [id number] 07/26 [facility] [place] Outpatient Encounter [id number] 07/30 [facility] [place] [employer] [id number] Diagnos is: ICD-10- CM Z71.81 Spiritu al or religio us residential substance abuse counselor ing LEXASHEFALISHARON,WI ERLINDAIAM M 10/31 [facility] [place] Outpatient Encounter [id number] 11/25 [facility] [place] [facility] [employer] [employer] [id number] Diagnos is: ICD-10- CM Z71.81 Spiritu al or religio us residential substance abuse counselor HENRY Zhu 12/13 [facility] [place] [facility] [place] [facility] Outpatient Encounter [id number] 12/16 [facility] [place] [facility] [place] [facility] [employer] IN[facility]U [id number] 1. Diagnos is: ICD-10- CM Z71.81 Spiritu al or religio us residential substance abuse counselor HENRY Zhu 12/20 [facility] [place] [facility] [place] [facility] SUICD BASED CLN EVAL [id number] Diagnos is: ICD-10- CM Z59.9 Problem related to housing and economi c circums tansarmad, ALEXA Mazariegos 01/09 [facility] [place] [facility] [place] [facility] MTMS BY PHARM PHYSICIAN SPECIALIST 15 MIN [id number] 1. Diagnos is: ICD-10- CM Z59.01 Fdc ed homeles doris TEP,TRUMANGERMAN S MEJIA 01/15 [facility] [place] [facility] [place] [facility] Outpatient Encounter [id number] Diagnos is: ICD-10- CM Z59.01 Fdc ed homeles doris KUPFERSCHM ID,LOVELY B 01/15 [facility] [place] [facility] Outpatient Encounter [id number] Diagnos is: ICD-10- CM F32.A Depress ion, unspeci fied JAN MARQUEZ 01/16 [facility] Social History Combined list of available smoking, tobacco, and other social history from Department of Defense and Veterans Affairs facilities. Social History Type Response Date Comment Sourc e Tobacco smoking status NHIS VA-TOBACCO FORMER USER 07/11/2023 [facility] History of tobacco use VA-TOBACCO QUIT 5 TO < 15 YRS 07/11/2023 [facility] [place] [facility]
--- NOTE | 2025-01-30 20:31 | PC.NURSE ---
pt signed a 3 day notice on 01/30/25. up on monday02/04/25.
[2025-01-30 21:02] VITALS: BMI 32.1
[2025-01-30] MEDS: Amitriptyline HCl 50 MG TABLET 200 MG PO (21:42)
[2025-01-30] MEDS: traMADoL HCL 50 MG TABLET 100 MG PO (21:43)
[2025-01-30] MEDS: clonazePAM 1 MG TABLET 2 MG PO (21:44)
[2025-01-30] MEDS: Tamsulosin HCL 0.4 MG CAPSULE PO (21:44)
[2025-01-30] MEDS: levETIRAcetam 1,000 MG TABLET 1000 MG PO (21:44)
--- NOTE | 2025-01-31 03:07 | PC.NURSE ---
Pt is a 54yo male admitted on [place] CV [place] [facility] [place] depression and SI. He signed a 3 Day notice form immediately on the unit. Pt has hx of bipolar d/o, OD, suicide attempts, CAH, seizure d/o, alcohol withdrawal and pancreatitis. Per crisis assessment, Pt presented to ED via EMS after taking 2250ng of Metoprolol. He was arguing with his new roommate. He reports multiple suicide attempts, a few recently however he states that this was not a suicide attempt as he would have chosen something like his Oxycodone . On unit admission, Pt was initially calm and pleasant but later became irritable and agitated b/c some of his documents/rent papers were missing. He states I am not doing anything until I find does documents. The documents were later found and he was able to cooperate and participated in the admission process. He denies SI/HI/AH/VH. Reports some anxiety and depression. Safety search/skin check was unremarkable, with only scars found on the left hand due to past self harm behavior. Pt signed/filled some release of information forms, menu, statement of understanding of valuables but declined to fill my contacts form. Treatment plan and safety tools done but yet to be signed. Pt was placed on 5 minutes safety check for seizure precaution/high fall risks.
[2025-01-31] MEDS: Ibuprofen 400 MG TABLET PO (06:28)
[2025-01-31] MEDS: hydrOXYzine HCL 50 MG TABLET PO (06:29)
[2025-01-31] MEDS: Acetaminophen 325 MG TABLET 975 MG PO (06:29)
[2025-01-31] MEDS: traMADoL HCL 50 MG TABLET 100 MG PO ×2 (07:43→13:55)
[2025-01-31] MEDS: clonazePAM 1 MG TABLET 2 MG PO ×2 (07:43→13:17)
[2025-01-31 08:32] LABS: Estimated Average Glucose 114 mg/dL; Hemoglobin A1C 144.7453 umol/L; Hemoglobin A1c % 5.6 % (<6.0); Total Hemoglobin (HGBA1C) 3894.5373 umol/L
[2025-01-31 08:34] VITALS: BP 116/65; PULSE 69; RESP 16; TEMP 36.4; O2SAT 97
[2025-01-31] MEDS: Tamsulosin HCL 0.4 MG CAPSULE PO (08:37)
[2025-01-31] MEDS: Atorvastatin Calcium 10 MG TABLET PO (08:37)
[2025-01-31] MEDS: Famotidine 20 MG TABLET 40 MG PO (08:37)
[2025-01-31] MEDS: levETIRAcetam 1,000 MG TABLET 1000 MG PO (08:37)
[2025-01-31 08:43] LABS: Cholesterol 193 mg/dL (<200); HDL Cholesterol 36 mg/dL (>40); LDL Cholesterol Calculated 127 mg/dL (<100); Magnesium 2.1 mg/dL (1.6-2.6); Triglycerides 151 mg/dL (<150)
[2025-01-31] MEDS: Aspirin 81 MG TAB.CHEW PO (08:43)
[2025-01-31 08:58] LABS: Thyroid Stimulating Hormone 2.95 uIU/mL (0.32-4.0)
[2025-01-31 09:00] VITALS: BP 114/62; PULSE 78; RESP 16; TEMP 36.9; O2SAT 98
[2025-01-31 09:11] LABS: Folate 12.2 ng/mL (> or = 4.0); Vitamin B12 536 pg/mL (200-900)
--- NOTE | 2025-01-31 10:06 | HO.PSYADMNOT ---
HPI Date of Service: 01/31/25 Chief Complaint: Depression,antihypertensive overdose Sources of Information: patient interviewed, chart reviewed and crisis/core team assessment reviewed Additional Sources of Information: Pt seen 1145am, 115pm, 2pm HPI Subjective Notes: Novoa Warning, Conditional Voluntary and 3 Day Healthcare Proxy: No Guardianship: No Medical Problems Affecting Mental Status: No Narrative: 54 yo male, transfer from medicine after a two day admit, 01/28-01/30, s/p metoprolol OD which pt reports was not a suicide attempt. Pt reports he was having an argument with his room-mate who was using cocaine and was dysregulated, yelling at him and making accusations. Pt took Valium to calm himself. This was not effective, so he called police to help his room-mate get help. He decided to take more valium and while they were arguing he took the wrong bottle of meds and took metoprolol. The police decided I was the one who needed to come in, not her. I would tell you if this were a suicide attempt- I assure you it was not. Pt asks for discharge. He has urgency as he is worried about his belongings in the apartment he shares with his room-mate. He believes she will act out in anger and destroy his things. 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 If destroyed, he will have no source of income. Pt was agitated about this and was difficult with his peers, calling one peer retard . Other male peers responded and were threatening to pt and pt responded verbally to all of them, angering each peer. Met with pt x 3 to discuss history, assess safety and attempt to place a plan of care together with him. He was able to discuss and help create a safety plan and will administratively discharge this afternoon. Past Psychiatric History: IP: Several- Most recently in [facility] with discharge last week s/p OD OP: [facility]- Dr. Davis for meds, John Perry for therapy Trials: Several Pt denies current AH,VH, SI, HI. He reports hx of AH, states stress brings these sx on. Medical Evaluation Reviewed: Yes [facility] Medical History (Updated 01/31/25 @ 16:01 by Lin Strauss, UNIX ADMINISTRATOR) Substance induced mood disorder PTSD (post-traumatic stress disorder) Pancreatic cyst Depression with anxiety Alcohol withdrawal Acute pancreatitis Heart attack Chronic systolic (congestive) heart failure CAD (coronary artery disease) Seizure NAMITA (acute kidney injury) Surgical History Stented coronary artery Family History: addiction Social History: Born, raised in [place]. 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 Substance History: tox positive for cocaine, cannabis, benzodiazepines Trauma History: affirms Diagnostics Vital Signs (24Hr): Vital Signs - 24 hr 01/30/25 18:00 01/31/25 08:34 Temperature 98.6 F 97.5 F Pulse Rate 56 69 Respiratory Rate 16 16 Blood Pressure 111/73 116/65 Pulse Oximetry 94 97 Oxygen Delivery Method Room Air Room Air BMI result Body Mass Index 32.1 Labs Labs: Laboratory Results - last 48 hr 01/31/25 08:08 Estimat Average Glucose 114 Hemoglobin A1c % 5.6 Magnesium 2.1 Triglycerides 151 H Cholesterol 193 LDL Cholesterol, Calc 127 H HDL Cholesterol 36 L Vitamin B12 536 Folate 12.2 TSH 2.95 Free T4 1.20 Meds/Allergies Meds Home Medications ?Medication ?Instructions ?Recorded ?Confirmed ?Type albuterol sulfate 90 mcg/actuation 2 puff PO Q4H PRN Shortness Of 04/28/21 01/31/25 History aerosol inhaler Breath aspirin 81 mg tablet,delayed 1 tab PO DAILY 04/28/21 01/31/25 History release amitriptyline 100 mg tablet 2 tab PO BEDTIME 05/17/21 01/31/25 History famotidine 40 mg tablet 1 tab PO DAILY 05/17/21 01/31/25 History loratadine 10 mg tablet 1 tab PO DAILY PRN ALLERGIES 05/17/21 01/31/25 History rosuvastatin 20 mg tablet 1 tab PO DAILY 05/17/21 01/31/25 History tamsulosin 0.4 mg capsule 1 cap PO BID 05/17/21 01/31/25 History acetaminophen 325 mg tablet 975 mg PO Q8H PRN Pain 03/20/22 01/31/25 History clonazepam 2 mg tablet 1 tab PO TID PRN Anxiety 03/20/22 01/31/25 History testosterone 4 pump topical DAILY 03/20/22 01/31/25 History folic acid 0.8 mg capsule 0.8 mg PO DAILY 01/29/25 01/31/25 History hydroxyzine HCl 50 mg tablet 50 mg PO TID PRN MOOD / ANXIETY 01/29/25 01/31/25 History ibuprofen 200 mg tablet 400 mg PO Q6H PRN PHARMACY 01/29/25 01/31/25 History levetiracetam 1,000 mg tablet 1,000 mg PO BID 01/29/25 01/31/25 History (Keppra) pantoprazole 40 mg tablet,delayed 40 mg PO DAILY@0630 01/29/25 01/31/25 History release tramadol 50 mg tablet 100 mg PO TID PRN pain 01/29/25 01/31/25 History Allergies Allergies Allergy/AdvReac Type Severity Reaction Status Date / Time Penicillins Allergy Unknown Unknown Verified 01/28/25 20:02 Mental Status Exam Mental Status Exam Patient Appearance: Appropriate Patient Orientation: Person, Place, Time and Situation Level of Consciousness: Restless and Alert Patient Behavior: Talkative, Cooperative, Distractible and Good Eye Contact Mood Description: Anxious and Apprehensive Affect Description: Anxious and Apprehensive Patient Cognition Impaired: No Ability to Follow Directions: Good Speech Pattern: Spontaneous Speech Memory Description: Intact Hallucinations: None Delusions: Not Present Thought Process: Intact and Goal Oriented Thought Content: positive for Intact, positive for Circumstantial, positive for Goal Oriented, positive for Suicidal Ideation (denies) and positive for Homicidal Ideation (denies) Depressive Symptoms: Increased Anxiety and Thoughts of /Suicide (denies) Abnormal Motor Activity Signs and Symptoms: Restlessness Judgement: Good Assessment & Plan Assessment & Plan (1) PTSD (post-traumatic stress disorder): Status: Acute Code(s): F43.10 - Post-traumatic stress disorder, unspecified (2) Substance induced mood disorder: Status: Acute Code(s): F19.94 - Other psychoactive substance use, unspecified with psychoactive substance-induced mood disorder (3) Adult antisocial behavior: Status: Acute Code(s): Z72.811 - Adult antisocial behavior Plan Pt will administratively discharge today. He has tw contact information and is aware he may call/return at any time if treatment is needed. [facility] He declined this service writer's request to contact them. He did accept medication suggestions and longer term treatment suggestions and states he will discuss these with Dr. Davis and his therapist. He will take an Uber to his home. He will ask police to meet him there so he may retrieve his belongings. He plans to stay with a friend when this is complete. He denies SI,HI and has no current sx of michelle or psychosis. Patient educated on: medication risk/benefits and therapeutic strategies Informed Consent: understands Reason for continued inpatient stay Substantial Risk for: stable for discharge Statement Statement: I have reviewed the history and physical and performed a pertinent examination on my patient. No changes have occurred unless specified. If the History and Physical was not performed prior to admission, the Hospitalist's service will be consulted for completing the admission physical. Time Spent With Patient Time: Total time managing care of this patient today ____ minutes.
[2025-01-31] MEDS: Folic Acid 1 MG TABLET PO (13:17)
--- NOTE | 2025-01-31 16:04 | P.DS_ITS ---
DS: Providers Provider Date of Service: 01/31/25 Date of admission: 01/30/25 20:04 Date of discharge: 01/31/25 Primary care physician: Unknown Physician Admitting clinician: Lin Strauss Attending physician on admission: Gold Ferreira Attending physician on discharge: Gold Ferreira Discharging clinician: Lin Strauss DS: Diagnosis Discharge Diagnosis (1) PTSD (post-traumatic stress disorder): Status: Acute (2) Substance induced mood disorder: Status: Acute (3) Adult antisocial behavior: Status: Acute DS: Medications Discharge Medications Home Medications: Home Medications ?Medication ?Instructions ?Recorded ?Confirmed albuterol sulfate 90 mcg/actuation 2 puff PO Q4H PRN Shortness Of 04/28/21 01/31/25 aerosol inhaler Breath aspirin 81 mg tablet,delayed 1 tab PO DAILY 04/28/21 01/31/25 release amitriptyline 100 mg tablet 2 tab PO BEDTIME 05/17/21 01/31/25 famotidine 40 mg tablet 1 tab PO DAILY 05/17/21 01/31/25 loratadine 10 mg tablet 1 tab PO DAILY PRN ALLERGIES 05/17/21 01/31/25 rosuvastatin 20 mg tablet 1 tab PO DAILY 05/17/21 01/31/25 tamsulosin 0.4 mg capsule 1 cap PO BID 05/17/21 01/31/25 acetaminophen 325 mg tablet 975 mg PO Q8H PRN Pain 03/20/22 01/31/25 clonazepam 2 mg tablet 1 tab PO TID PRN Anxiety 03/20/22 01/31/25 testosterone 4 pump topical DAILY 03/20/22 01/31/25 folic acid 0.8 mg capsule 0.8 mg PO DAILY 01/29/25 01/31/25 hydroxyzine HCl 50 mg tablet 50 mg PO TID PRN MOOD / ANXIETY 01/29/25 01/31/25 ibuprofen 200 mg tablet 400 mg PO Q6H PRN PHARMACY 01/29/25 01/31/25 levetiracetam 1,000 mg tablet 1,000 mg PO BID 01/29/25 01/31/25 (Keppra) pantoprazole 40 mg tablet,delayed 40 mg PO DAILY@0630 01/29/25 01/31/25 release tramadol 50 mg tablet 100 mg PO TID PRN pain 01/29/25 01/31/25 Previous Rx's ?Medication ?Instructions ?Recorded lidocaine 5 % topical patch 1 patch topical DAILY PRN pain #30 07/15/22 (Lidoderm) ea Mental Status Exam Mental Status Exam Patient Appearance: Appropriate Patient Orientation: Person, Place, Time and Situation Level of Consciousness: Restless and Alert Patient Behavior: Talkative, Cooperative, Distractible and Good Eye Contact Mood Description: Anxious and Apprehensive Affect Description: Anxious and Apprehensive Patient Cognition Impaired: No Ability to Follow Directions: Good Speech Pattern: Spontaneous Speech Memory Description: Intact Hallucinations: None Delusions: Not Present Thought Process: Intact and Goal Oriented Thought Content: positive for Intact, positive for Circumstantial, positive for Goal Oriented, positive for Suicidal Ideation (denies) and positive for Homicidal Ideation (denies) Depressive Symptoms: Increased Anxiety and Thoughts of /Suicide (denies) Abnormal Motor Activity Signs and Symptoms: Restlessness Judgement: Good Data Data Completed and Pending Completed studies during hospitalization [Text1]: 01/31/25 08:08 Estimat Average Glucose 114 Hemoglobin A1c % 5.6 Magnesium 2.1 Triglycerides 151 H Cholesterol 193 LDL Cholesterol, Calc 127 H HDL Cholesterol 36 L Vitamin B12 536 Folate 12.2 TSH 2.95 Free T4 1.20 DS: Summary Hospital Course Hospital Course: 54 yo male, transfer from medicine after a two day admit, 01/28-01/30, s/p metoprolol OD which pt reports was not a suicide attempt. Pt reports he was hav ing an argument with his room-mate who was using cocaine and was dysregulated, yelling at him and making accusations. Pt took Valium to calm himself. This was not effective, so he called police to help his room-mate get help. He decided to take more valium and while they were arguing he took the wrong bottle of meds and took metoprolol. The police decided I was the one who needed to come in, not her. I would tell you if this were a suicide attempt- I assure you it was not. Pt asks for discharge. He has urgency as he is worried about his belongings in the apartment he shares with his room-mate. He believes she will act out in anger and destroy his things. 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 If destroyed, he will have no source of income. Pt was agitated about this and was difficult with his peers, calling one peer retard . Other male peers responded and were threatening to pt and pt responded verbally to all of them, angering each peer. Met with pt x 3 to discuss history, assess safety and attempt to place a plan of care together with him. He was able to discuss and help create a safety plan and will administratively discharge this afternoon. Status at Discharge Functional status at discharge: independent ambulation Overall status at discharge: patient is back to baseline Time Spent with Patient Time attestation: Total time managing care of this patient today ____ minutes. Time spent: Greater than 30 minutes Discharge Plan Discharge Anticipated Discharge Date/Time: 01/31/25 14:00 Patient Disposition: Home, Self-Care Discharge Diagnosis: PTSD Recurrent Major Depression Polysubstance Use Disorder Referrals: Psychiatry Dr. Davis [Other] - 3-5 Days (Pt reported he will follow up on his own. ) [facility] [Other] - 1 Week ([facility] provides same-day evaluation and referral to treatment, evening and weekend hours, and timely follow-up appointments [facility] Includes [facility] in [place], provides: An outpatient behavioral health clinic 17/04 mobile crisis services Crisis stabilization for youth and adults. Our [facility] program delivers these services as an alternative to hospital emergency departments and psychiatric hospitalization. It also offers respite, outreach, medication management, and peer-level support to ensure that your family member is taken care of on every level.) Physician,Unknown J [Primary Care Provider] - 1 Week (Please call [facility] to set up PCP and follow-up appt within [address] [address] ) Discharge Medications: Continued aspirin 81 mg tablet,delayed release (DR/EC) 1 tab PO DAILY albuterol sulfate 90 mcg/actuation HFA aerosol inhaler 2 puff PO Q4H PRN (Reason: Shortness Of Breath) famotidine 40 mg tablet 1 tab PO DAILY tamsulosin 0.4 mg capsule 1 cap PO BID amitriptyline 100 mg tablet 2 tab PO BEDTIME loratadine 10 mg tablet 1 tab PO DAILY PRN (Reason: ALLERGIES) rosuvastatin 20 mg tablet 1 tab PO DAILY lidocaine [Lidoderm] 5 % adhesive patch,medicated 1 patch topical DAILY MDD remove after 12 hours PRN (Reason: pain) Qty: 30 0RF Rx Instructions: leave on most painful area for up to 12 hrs testosterone 20.25 mg/1.25 gram (1.62 %) gel in metered-dose pump 4 pump topical DAILY Rx Instructions: 2 PUMPS ON EACH ARM acetaminophen 325 mg Tablet 975 mg PO Q8H PRN (Reason: Pain) clonazepam 2 mg tablet 1 tab PO TID PRN (Reason: Anxiety) levetiracetam [Keppra] 1,000 mg Tablet 1,000 mg PO BID tramadol 50 mg tablet 100 mg PO TID PRN (Reason: pain) hydroxyzine HCl 50 mg tablet 50 mg PO TID PRN (Reason: MOOD / ANXIETY) pantoprazole 40 mg tablet,delayed release (DR/EC) 40 mg PO DAILY@0630 ibuprofen 200 mg Tablet 400 mg PO Q6H PRN (Reason: PHARMACY) folic acid 0.8 mg Capsule 0.8 mg PO DAILY Discontinued clonidine HCl 0.1 mg tablet 1 tab PO BID metoprolol succinate 25 mg tablet extended release 24 hr 1 tab PO DAILY lithium carbonate 300 mg tablet 300 mg PO BID lisinopril 2.5 mg tablet 2.5 mg PO DAILY Discharge Orders: Discharge Order (Routine); Ordered 01/31/25 Ordered By: Lin Strauss Diet: Advance to usual diet Activity on Discharge: As tolerated Stand Alone Forms: Patient Portal Discharge page, Community Support Print Language: Iraqi Care Plan Goals: Mood and Behavioral Stabilization Abstinence from Substances Health Concerns: Mood and Behavioral Stabilization Abstinence from Substances Monitor blood pressure and pulse Plan of Treatment: Follow up with out patient providers and PCP Take medications as directed. ---Do not take [place], Clonidine, Lisinopril, Metoprolol until you meet with your primary care physician and have your blood pressure and pulse evaluated. --Call/Return as needed. Pt given contact numbers to call or can present as needed. Assessment: Denies SI, HI, AH, VH. No sx of acute michelle or psychosis. Pt plans to follow up with therapist and psychiatrist upon discharge Pt plans to follow up with PCP upon discharge Discharge Date/Time: 01/31/25 14:40
== END 2025-01-31 14:40 | disposition home or self-care (01) | DRG 885 ==
PROVIDERS: Admitting Provider Clinical Nurse Specialist Psychiatric/Mental Health, Adult; Visit Provider Clinical Nurse Specialist Psychiatric/Mental Health, Adult
DX: F33.9 Major depressive disorder, recurrent, unspecified (principal); F19.94 Other psychoactive substance use, unspecified with psychoactive substance-induced mood disorder; I25.10 Atherosclerotic heart disease of native coronary artery without angina pectoris; F43.10 Post-traumatic stress disorder, unspecified; Z72.811 Adult antisocial behavior; Z87.891 Personal history of nicotine dependence; Z79.82 Long term (current) use of aspirin; Z79.899 Other long term (current) drug therapy
CPT/HCPCS: 36415; 80061; 82607; 82746; 83036; 83735; 84439; 84443

== ENCOUNTER → 2025-01-30 20:04 | Outpatient (BNV) | payer MEDICARE, SELFPAY | PROVIDERS: Admitting Provider Clinical Nurse Specialist Psychiatric/Mental Health, Adult; Visit Provider Clinical Nurse Specialist Psychiatric/Mental Health, Adult | DX: F19.94 Other psychoactive substance use, unspecified with psychoactive substance-induced mood disorder (principal); F43.11 Post-traumatic stress disorder, acute; Z72.811 Adult antisocial behavior | CPT/HCPCS: 90792; 99499 ==

== ENCOUNTER 2025-01-31 15:50 | Emergency (ER) | payer MEDICARE, SELFPAY ==
[2025-01-31 16:07] VITALS: BP 100/76; PULSE 91; RESP 18; TEMP 36.2; O2SAT 97; BMI 31.9
[2025-01-31] MEDS: LORazepam 1 MG TABLET 2 MG PO ×2 (16:15→19:53)
--- NOTE | 2025-01-31 16:17 | ED_ITS ---
HPI - Psych General Chief Complaint: Psychiatric Symptoms Stated Complaint: thoughts of self harm, and harming others. Time Seen by Provider: 01/31/25 15:51 Source: patient, EMS and old records reviewed Mode of arrival: EMS Limitations: no limitations History of Present Illness ED Provider: RAMYA LOPES Narrative: 54 yo male with PMH of anti social personality disorder, depression, CAD, CHF, seizures, who just got off our inpatient mental health unit he went back to his prior living arrangement and found out he could not enter due to restraining order. He is making threats to hurt her and overdose on his medications. You won't be able to keep me safe man. No overdose or self harm at this time. He tells me has no access to his medications now. MD complaint: suicidal ideation, feels depressed and homicidal ideation Onset (ago): hour(s) (2) Duration: constant History of same: Yes Relieving factors: none Exacerbating factors: other Context: significant life stressor Associated psychiatric symptoms: depression and suicidal ideation Associated symptoms: denies other symptoms Treatments prior to arrival: none Related Data Home Medications ?Medication ?Instructions ?Recorded ?Confirmed albuterol sulfate 90 mcg/actuation 2 puff PO Q4H PRN Shortness Of 04/28/21 01/31/25 aerosol inhaler Breath aspirin 81 mg tablet,delayed 1 tab PO DAILY 04/28/21 01/31/25 release amitriptyline 100 mg tablet 2 tab PO BEDTIME 05/17/21 01/31/25 famotidine 40 mg tablet 1 tab PO DAILY 05/17/21 01/31/25 loratadine 10 mg tablet 1 tab PO DAILY PRN ALLERGIES 05/17/21 01/31/25 rosuvastatin 20 mg tablet 1 tab PO DAILY 05/17/21 01/31/25 tamsulosin 0.4 mg capsule 1 cap PO BID 05/17/21 01/31/25 acetaminophen 325 mg tablet 975 mg PO Q8H PRN Pain 03/20/22 01/31/25 clonazepam 2 mg tablet 1 tab PO TID PRN Anxiety 03/20/22 01/31/25 testosterone 4 pump topical DAILY 03/20/22 01/31/25 folic acid 0.8 mg capsule 0.8 mg PO DAILY 01/29/25 01/31/25 hydroxyzine HCl 50 mg tablet 50 mg PO TID PRN MOOD / ANXIETY 01/29/25 01/31/25 ibuprofen 200 mg tablet 400 mg PO Q6H PRN PHARMACY 01/29/25 01/31/25 levetiracetam 1,000 mg tablet 1,000 mg PO BID 01/29/25 01/31/25 (Keppra) pantoprazole 40 mg tablet,delayed 40 mg PO DAILY@0630 01/29/25 01/31/25 release tramadol 50 mg tablet 100 mg PO TID PRN pain 01/29/25 01/31/25 clonidine HCl 0.1 mg tablet 0.1 mg PO BID 01/31/25 01/31/25 hydroxyzine HCl 50 mg tablet 50 mg PO TID 01/31/25 01/31/25 hepoec-eblbrdox-qtkibow 1 cap PO BID 01/31/25 01/31/25 24,000-76,000-120,000 unit capsule,delayed rel (Creon) lisinopril 2.5 mg tablet 2.5 mg PO DAILY 01/31/25 01/31/25 lithium carbonate 300 mg tablet mg PO BID 01/31/25 metoprolol succinate 25 mg 25 mg PO DAILY 01/31/25 01/31/25 tablet,extended release 24 hr Previous Rx's ?Medication ?Instructions ?Recorded lidocaine 5 % topical patch 1 patch topical DAILY PRN pain #30 07/15/22 (Lidoderm) ea Allergies Allergy/AdvReac Type Severity Reaction Status Date / Time Penicillins Allergy Unknown Unknown Verified 01/31/25 16:10 Review of Systems 2 Review of Systems: Constitutional : No Fever, No Chills ENT/Mouth : No Ear Pain, No Nasal Congestion, No sore throat Eyes: No Eye Pain, No Swelling, No Redness Cardiovascular : No Chest Pain, No SOB Respiratory : No Cough, No Sputum, No Dyspnea Gastrointestinal : No Nausea, No Vomiting, No Diarrhea, No Hematochezia, No Melena Genitourinary : No Dysuria, No Urinary Frequency, No Hematuria Musculoskeletal : No Myalgias Skin : No Skin Lesions, No rash Neuro : No Weakness, No Numbness, No Paresthesias, No Dizziness, No Headache Psych : positive Anxiety, positive Depression, positive SI/HI All other systems reviewed and are negative PMFSH Past Medical History Attestation statement: The following information was validated with the patient. Source: old records reviewed Medical History Substance induced mood disorder PTSD (post-traumatic stress disorder) Pancreatic cyst Depression with anxiety Alcohol withdrawal Acute pancreatitis Heart attack Chronic systolic (congestive) heart failure CAD (coronary artery disease) Seizure NAMITA (acute kidney injury) Surgical History Stented coronary artery Family History Family History Mother Breast cancer CAD (coronary artery disease) Father Psoriasis Social History Social History Household Members: Friend(s) Housing: Apartment Are you a primary critical care physician assistant to a significant other at home: No Do you presently have visiting nurse or other home services: No Comment: 1-1 sitter Patient Tobacco Use Status: Former Tobacco user Tobacco use type: Cigarette e-Cigarette/Vaping Use: Never Used Second Hand Smoke Exposure: No Use of substances other than those prescribed or required for medical reasons: Yes Substance Use Type: Prescription Drugs Advance Directives: No Advance Directives Information Provided: No Do you have a plan to hurt others: No Plan service: Yes Current occupational status: disabled Sexual orientation: Straight/Heterosexual Physical Exam 2 Vital Signs: Vital Signs: Last Vital Signs Temp 97.2 F 01/31/25 16:21 Pulse 91 01/31/25 16:21 Resp 18 01/31/25 16:21 BP 100/76 01/31/25 16:21 Pulse Ox 97 01/31/25 16:21 O2 Del Method Room Air 01/31/25 16:21 BMI result Body Mass Index 31.9 Appearance: Alert. Oriented X3. No acute distress. yelling out fuck intermittently agitated. Eyes: Pupils equal, round and reactive to light. ENT: Pharynx normal. atraumatic Neck: Normal inspection. Neck supple. CVS: Pulses normal. Respiratory: No respiratory distress. Abdomen: atraumatic Skin: Skin warm and dry. Normal skin color. Extremities: No lower extremity edema. Neuro: Oriented X 3. No motor deficit. No sensory deficit. CN2-12 intact Course Course Course Narrative: CARE team IPLOC Medications Administered Generic Name Dose Route Start Last Admin Trade Name Freq PRN Reason Stop Dose Admin Acetaminophen 975 mg 01/31/25 18:35 01/31/25 21:10 Acetaminophen 325 Mg Tablet PO 975 mg Q8H PRN Administration Pain, Mild 1-3,fever,headache Amitriptyline HCl 200 mg 01/31/25 21:00 01/31/25 21:09 Amitriptyline Hcl 50 Mg Tablet PO 200 mg BEDTIME WILMER Administration Lipase/Protease/Amylase 1 cap 01/31/25 21:00 01/31/25 21:09 Lipase/Prot/Amylase 24/76/120k 1 Cap Capsule.Dr PO 1 cap BID WILMER Administration Clonazepam 2 mg 01/31/25 18:35 01/31/25 18:58 Clonazepam 1 Mg Tablet PO 2 mg TID PRN Administration Anxiety Hydroxyzine HCl 50 mg 01/31/25 18:35 01/31/25 21:10 Hydroxyzine Hcl 50 Mg Tablet PO 50 mg TID PRN Administration MOOD / ANXIETY Levetiracetam 1,000 mg 01/31/25 21:00 01/31/25 21:10 Levetiracetam 1,000 Mg Tablet PO 1,000 mg BID WILMER Administration Tamsulosin HCl 0.4 mg 01/31/25 21:00 01/31/25 21:09 Tamsulosin Hcl 0.4 Mg Capsule PO 0.4 mg BID WILMER Administration Tramadol HCl 100 mg 01/31/25 18:35 01/31/25 18:58 Tramadol Hcl 50 Mg Tablet PO 100 mg TID PRN Administration Pain, Moderate(Pain Scale 4-6) Discontinued Medications Generic Name Dose Route Start Last Admin Trade Name Freq PRN Reason Stop Dose Admin Hydroxyzine HCl 50 mg 01/31/25 17:07 01/31/25 17:12 Hydroxyzine Hcl 50 Mg Tablet PO 01/31/25 17:08 50 mg ONCE ONE Administration Lorazepam 2 mg 01/31/25 16:09 01/31/25 16:15 Lorazepam 1 Mg Tablet PO 01/31/25 16:10 2 mg ONCE ONE Administration Lorazepam 2 mg 01/31/25 19:46 01/31/25 19:53 Lorazepam 1 Mg Tablet PO 01/31/25 19:47 2 mg ONCE ONE Administration Olanzapine 5 mg 01/31/25 17:01 01/31/25 17:05 Olanzapine 5 Mg Tablet PO 01/31/25 17:02 5 mg ONCE ONE Administration Medical Decision Making Medical Decision Making MDM Narrative: 54 yo male with PMH of anti social personality disorder, depression, CAD, CHF, seizures now here with SI/HI and unable to get his medications. He definitely has significant anger and is demanding repeat medications for anger I have ordered labs, CARE team consult and repeat PRNs for his symptoms. Differential Diagnosis Differential Diagnoses: The differential diagnosis associated with the presentation includes antisocial personality disorder, depression Admission/Observation Consideration of admission/observation: Escalation of care including admission/observation considered physician observation started at 423pm pending CARE team Consult Healthcare Provider Management of the patient was discussed with: Behavioral Health Provider Lab Data [facility] Lab Attestation statement: I reviewed the patient's lab results. 01/31/25 16:26 01/31/25 16:26 Labs: Lab Results 01/31/25 01/31/25 Range/Units 16:26 16:38 WBC 6.0 (4.8-10.8) X10*3/uL RBC 4.62 (4.60-5.80) X10*6/uL Hgb 14.0 (14.0-18.0) g/dl Hct 40.1 L (42.0-52.0) % MCV 86.8 (80.0-98.0) fL MCH 30.3 (27.0-33.0) pg MCHC 34.9 (31.0-36.0) g/dl RDW 12.0 (11.0-16.0) % Plt Count 151 L (160-400) X10*3/uL MPV 9.4 (9.4-12.4) fL Immature Gran % (Auto) 0.7 H (0.0-0.4) % Neut % (Auto) 77.2 H (45-73) % Lymph % (Auto) 13.4 L (20-40) % [place] % (Auto) 6.9 (2-11) % Eos % (Auto) 0.8 (0-4) % Baso % (Auto) 1.0 (0-2) % Lymph # (Auto) 0.8 L (1.2-4.9) X10*3/uL [place] # (Auto) 0.4 (0.1-1.2) X10*3/uL Eos # (Auto) 0.1 (0.0-0.4) X10*3/uL Baso # (Auto) 0.1 (0.0-0.2) X10*3/uL Abs Immat Gran (auto) 0.04 H (0.00-0.03) X10*3/uL Absolute Neuts (auto) 4.6 (2.0-8.3) x10*3/uL Absolute Nucleated RBC 0.000 (0.0-0.012) X10*3/uL Nucleated RBC % (auto) 0.0 (0.0-0.2) /100WBC Sodium 139 (135-145) mmol/L Potassium 4.0 (3.3-5.1) mmol/L Chloride 106 (96-108) mmol/L Carbon Dioxide 22 (22-29) mmol/L Anion Gap 15 (12-20) BUN 25 H (9-16) mg/dL Creatinine 1.09 (0.5-1.4) mg/dL Estim Creat Clear Calc 86.7 Estimated GFR > 60 Random Glucose 109 (60-115) mg/dL Calcium 9.2 (8.4-10.2) mg/dL Total Bilirubin 0.3 (0.0-1.0) mg/dL Direct Bilirubin 0.1 (0.0-0.5) mg/dL AST 23 (5-37) U/L ALT 47 H (0-40) U/L Alkaline Phosphatase 56 (39-117) U/L Total Protein 6.9 (6.5-8.0) g/dL Albumin 4.4 (3.5-5.0) g/dL Urine Color Yellow Urine Appearance Clear Urine pH 5.5 (5.0-9.0) Ur Specific [place] 1.020 (1.005-1.025) Urine Protein Negative (Neg-Trace) mg/dL Urine Glucose (UA) Negative (Negative) mg/dL Urine Ketones Negative (Negative) mg/dL Urine Blood Trace H (Negative) Urine Nitrite Negative (Negative) Ur Leukocyte Esterase Negative (Negative) Urine RBC 0-2 (0-2) /HPF Urine WBC 0-5 (0-5) /HPF Ur Squamous Epith Cells 0-2 (0-2) /HPF Urine Bacteria None Seen (None Seen) Hyaline Casts 0-2 (0-2) /LPF Urine Opiates Screen Not Detected (Not Detect) Ur Buprenorphine Scrn Not Detected (Not Detect) ng/mL Ur Oxycodone Screen Not Detected (Not Detect) ng/mL Urine Methadone Screen Not Detected (Not Detect) ng/mL Urine Fentanyl Screen Not Detected (Not Detect) Ur Barbiturates Screen Not Detected (Not Detect) Ur Phencyclidine Scrn Not Detected (Not Detect) Ur Amphetamines Screen Not Detected (Not Detect) U Benzodiazepines Scrn POSITIVE H (Not Detect) Urine Cocaine Screen POSITIVE H (Not Detect) U Marijuana (THC) Screen POSITIVE H (Not Detect) Ethyl Alcohol < 10 mg/dL Independent Historian Clinical information obtained from an independent historian. History obtained from or confirmed by: EMS External Record Review External record reviewed: Inpatient record and Outpatient record Social Determinants Patient?s care significantly limited by Social Determinants of Health including: Inadequate housing, Alcoholism and drug addiction in family and Problems related to primary support group Discharge Plan Discharge Clinical Impression: Adult antisocial behavior Prescriptions: No Action aspirin 81 mg tablet,delayed release (DR/EC) 1 tab PO DAILY albuterol sulfate 90 mcg/actuation HFA aerosol inhaler 2 puff PO Q4H PRN (Reason: Shortness Of Breath) famotidine 40 mg tablet 1 tab PO DAILY tamsulosin 0.4 mg capsule 1 cap PO BID amitriptyline 100 mg tablet 2 tab PO BEDTIME loratadine 10 mg tablet 1 tab PO DAILY PRN (Reason: ALLERGIES) rosuvastatin 20 mg tablet 1 tab PO DAILY lidocaine [Lidoderm] 5 % adhesive patch,medicated 1 patch topical DAILY MDD remove after 12 hours PRN (Reason: pain) Qty: 30 0RF Rx Instructions: leave on most painful area for up to 12 hrs testosterone 20.25 mg/1.25 gram (1.62 %) gel in metered-dose pump 4 pump topical DAILY Rx Instructions: 2 PUMPS ON EACH ARM acetaminophen 325 mg Tablet 975 mg PO Q8H PRN (Reason: Pain) clonazepam 2 mg tablet 1 tab PO TID PRN (Reason: Anxiety) levetiracetam [Keppra] 1,000 mg Tablet 1,000 mg PO BID tramadol 50 mg tablet 100 mg PO TID PRN (Reason: pain) hydroxyzine HCl 50 mg tablet 50 mg PO TID PRN (Reason: MOOD / ANXIETY) pantoprazole 40 mg tablet,delayed release (DR/EC) 40 mg PO DAILY@0630 ibuprofen 200 mg Tablet 400 mg PO Q6H PRN (Reason: PHARMACY) folic acid 0.8 mg Capsule 0.8 mg PO DAILY clonidine HCl 0.1 mg tablet 0.1 mg PO BID metoprolol succinate 25 mg tablet extended release 24 hr 25 mg PO DAILY Creon 24,000-76,000 -120,000 unit capsule,delayed release(DR/EC) 1 cap PO BID hydroxyzine HCl 50 mg tablet 50 mg PO TID lithium carbonate 300 mg tablet PO BID lisinopril 2.5 mg tablet 2.5 mg PO DAILY Interventions: [place]-Suicide Risk Severity Scale Last Done: 01/31/25 17:06 Print Language: [place]
[2025-01-31 16:21] VITALS: BP 100/76; PULSE 91; RESP 18; TEMP 36.2; O2SAT 97
[2025-01-31 16:33] LABS: MANUAL DIFF FLAG NO
[2025-01-31 16:36] LABS: Basophils Absolute Auto 0.1 X10*3/uL (0.0-0.2); Eosinophils Absolute Auto 0.1 X10*3/uL (0.0-0.4); Eosinophils Percent Auto 0.8 % (0-4); Hematocrit 40.1 % (42.0-52.0); Imm Gran Abs Auto 0.04 X10*3/uL (0.00-0.03); Imm Gran Pct Auto 0.7 % (0.0-0.4); Lymphocytes Absolute Auto 0.8 X10*3/uL (1.2-4.9); Lymphocytes Percent Auto 13.4 % (20-40); Mean Corpuscular HGB Conc 34.9 g/dl (31.0-36.0); Mean Corpuscular Hemoglobin 30.3 pg (27.0-33.0); Mean Corpuscular Volume 86.8 fL (80.0-98.0); Mean Platelet Volume 9.4 fL (9.4-12.4); Monocytes Absolute Auto 0.4 X10*3/uL (0.1-1.2); Monocytes Percent Auto 6.9 % (2-11); Neutrophils Absolute Auto 4.6 x10*3/uL (2.0-8.3); Neutrophils Percent Auto 77.2 % (45-73); Platelet Count 151 X10*3/uL (160-400); Red Blood Count 4.62 X10*6/uL (4.60-5.80)
--- OUTSIDE RECORDS SUMMARY | 2025-01-31 16:43 | XMS_ITS | Continuity of Care Document ---
Author Name [facility] Organization [facility] Care Team Providers Care Clinic Director Name Role Phone [facility] Unavailable Unavailable Problems Combined list of problems [...] Diagnosis: ICD-10-CM F32.A Depression, unspecified Active Diagnosis [facility] Diagnosis: ICD-10-CM Z59.01 Sheltered homelessness Active Diagnosis [facility] Diagnosis: ICD-10-CM Z59.9 Problem related to housing and economic circumstances, unsp Active Diagnosis [facility] Diagnosis: ICD-10-CM Z71.81 Spiritual or yazidi counseling Active Diagnosis [facility] Immunizations Combined list of available immunizations from the Department of Defense and Veterans Affairs facilities. Immunization Series Date Given Administered By Site Reaction Lot Number CVX Code Drug Mis Specialist Status Comments Source INFLUENZA, INJECTABLE, QUADRIVALENT, PRESERVATIVE FREE 2018 150 complet ed Site: Left Deltoid [facility] Encounters Combined [...] Disposition Source [facility] CASE MANAGEMENT [id number] Diagnos is: ICD-10- CM Z59.01 Snf ed homeles ENID Schroeder 08/28 [facility] WORK[facility] [employer] [id number] Diagnos is: ICD-10- CM Z71.81 Spiritu al or religio us correctional counselor ing HENRY VO M 09/23 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 OUTREACH WORKER [employer]FLOW [employer]PER[employer] [id number] Diagnos is: ICD-10- CM Z71.81 Spiritu al or religio us correctional counselor ing HENRY VO M 10/01 [facility] [place] [place] OUTREACH WORKER [employer]FLOW [employer]PER[employer] [id number] Diagnos is: ICD-10- CM Z71.81 Spiritu al or religio us correctional counselor ing HENRY VO M 10/07 [facility] [place] [place] OUTREACH WORKER [employer]FLOW [employer]PER[employer] [id number] Diagnos is: ICD-10- CM Z71.81 Spiritu al or religio us correctional counselor ing HENRY VO M 10/14 [facility] [place] OUTREACH WORKER REFL[employer]PER[employer] [id number] Diagnos is: ICD-10- CM Z71.81 Spiritu al or religio us correctional counselor ing HENRY VO M 10/21 [facility] [place] OUT[facility]ACH WORK[facility] [employer]FL[employer]PER[employer] [id number] Diagnos is: ICD-10- CM Z71.81 Spiritu al or religio us correctional counselor ing HENRY VO M 10/21 [facility] 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 OUT[facility]ACH WORKER REFLOW OPER[employer] [id number] Diagnos is: ICD-10- CM Z71.81 Spiritu al or religio us correctional counselor ing Malik STOCKTON R 10/27 [facility] [place] [facility] OUTREACH WORKER REFLOW [employer]PER[employer] [id number] Diagnos is: ICD-10- CM Z71.81 Spiritu al or religio us correctional counselor ing HENRY VO M 10/28 [facility] [place] [facility] OUTREACH WORKER REFLOW [employer]PER[employer] [id number] Diagnos is: ICD-10- CM Z71.81 Spiritu al or religio us correctional counselor ing HENRY VO M 10/28 [facility] 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 OUTREACH WORKER REFLOW OPER[employer] [id number] Diagnos is: ICD-10- CM Z71.81 Spiritu al or religio us correctional counselor ing PRIDDSHARON,HENRY LLIAM M 11/04 [facility] [place] [place] OUTREACH WORKER REFL[employer]PER[employer] [id number] Diagnos is: ICD-10- CM Z71.81 Spiritu al or religio us correctional counselor ing PRIDDHENRY HERRERAIAM M 11/11 [facility] [place] [place] OUTREACH WORKER REFL[employer]PER[employer] [id number] Diagnos is: ICD-10- CM Z71.81 Spiritu al or religio us correctional counselor ing PRIDDSHARON,HENRY LLIAM M 11/11 [facility] [place] [place] OUTREACH WORKER REFLOW [employer]PER[employer] [id number] Diagnos is: ICD-10- CM Z71.81 Spiritu al or religio us correctional counselor ing PRIDDSHARON,WI LLIAM M 11/18 [facility] [place] [place] OUTREACH WORKER REFLOW OPER[employer] [id number] Diagnos is: ICD-10- CM Z71.81 Spiritu al or religio us correctional counselor ing PRIDDSHARON,WI LLIAM M 11/18 [facility] [place] 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 OUTREACH WORKER REFLOW OPER[employer] [id number] Diagnos is: ICD-10- CM Z71.81 Spiritu al or religio us correctional counselor ing HENRY VO LLIAM M 11/24 [facility] [place] [facility] 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 OUTREACH WORKER REFLOW OPERATOR [employer] [id number] Diagnos is: ICD-10- CM Z71.81 Spiritu al or religio us correctional counselor ing HENRY VO LLIAM M 12/01 [facility] [place] OUTREACH WORKER REFLOW OPER[employer] [id number] Diagnos is: ICD-10- CM Z71.81 Spiritu al or religio us correctional counselor ing HENRY VO LLIAM M 12/01 [facility] [place] [facility] CASE MANAGEMENT [id number] Diagnos is: ICD-10- CM Z59.01 Snf ed true george RADHIKA,ENID ICE 12/04 [facility] [place] [facility] 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 OUTREACH WORKER REFL[employer]PER[employer] [id number] Diagnos is: ICD-10- CM Z71.81 Spiritu al or religio us correctional counselor ing PRIDDIS,WI LLIAM M 12/07 [facility] [place] [place] OUTREACH WORKER REFLOW OPER[employer] [id number] Diagnos is: ICD-10- CM Z71.81 Spiritu al or religio us correctional counselor ing PRIDDIS,WI LLIAM M 12/08 [facility] [place] [place] [facility] OUTREACH WORKER REFLOW OPER[employer] [id number] Diagnos is: ICD-10- CM Z71.81 Spiritu al or religio us correctional counselor ing PRIDDSHARON,WI LLIAM M 12/28 [facility] [place] [facility] [place] [facility] OUTREACH WORKER REFLOW OPER[employer] [id number] Diagnos is: ICD-10- CM Z71.81 Spiritu al or religio us correctional counselor ing PRIDDIS,WI LLIAM M 12/29 [facility] [place] [facility] [place] [facility] OUTREACH WORKER REFLOW OPERATOR [employer] [id number] Diagnos is: ICD-10- CM Z71.81 Spiritu al or religio us correctional counselor ing PRIDDIS,WI LLIAM M 01/05 [facility] [place] [place] OUTREACH WORKER REFLOW OPERATOR [employer] [id number] Diagnos is: ICD-10- CM Z71.81 Spiritu al or religio us correctional counselor ing PRIDDIS,WI LLIAM M 01/12 [facility] [place] OUTREACH WORKER REFLOW OPER[employer] [id number] Diagnos is: ICD-10- CM Z71.81 Spiritu al or religio us correctional counselor ing HENRY VO M 01/18 [facility] [place] [facility] [place] OUTREACH WORKER REFLOW OPER[employer] [id number] Diagnos is: ICD-10- CM Z71.81 Spiritu al or religio us correctional counselor ing HENRY VO M 01/18 [facility] [place] [facility] [place] OUTREACH WORKER REFLOW OPERATOR GROUP [id number] Diagnos is: ICD-10- CM Z71.81 Spiritu al or religio us correctional counselor ing HENRY VO M 01/19 [facility] [place] [facility] [place] [facility] OUTREACH WORKER REFLOW OPERATOR GROUP [id number] Diagnos is: ICD-10- CM Z71.81 Spiritu al or religio us correctional counselor ing HENRY VOIAYaz M 01/26 [facility] [place] [facility] [place] OUTREACH WORKER REFLOW OPERATOR [employer] [id number] Diagnos is: ICD-10- CM Z71.81 Spiritu al or religio us correctional counselor ing HENRY VO M 02/02 [facility] [place] [facility] [place]NAG[facility] [id number] Diagnos is: ICD-10- CM Z59.01 Snf ed true GARRIDO,02/11 [facility] [place] [facility] [place] [facility] OUTREACH WORKER REFLOW OPER[employer] [id number] Diagnos is: ICD-10- CM Z71.81 Spiritu al or religio us correctional counselor ing HENRY VOIAYaz M 02/16 [facility] [place] [place] OUTREACH WORKER REFLOW OPERATOR INDIVIDU [id number] Diagnos is: ICD-10- CM Z71.81 Spiritu al or religio us correctional counselor ing Malik STOCKTON R 03/06 [facility] [place] [place] [facility] OUTREACH WORKER REFLOW OPERATOR [employer] [id number] Diagnos is: ICD-10- CM Z71.81 Spiritu al or religio us correctional counselor ing TAVO,HENRY LLIAM M 03/31 [facility] [place] [place] [facility] OUTREACH WORKER REFLOW OPERATOR GROUP [id number] Diagnos is: ICD-10- CM Z71.81 Spiritu al or religio us correctional counselor ing HENRY VO LLIAM M 04/06 [facility] [place] [place] OUTREACH WORKER REFLOW OPERATOR INDIVIDU [id number] Diagnos is: ICD-10- CM Z71.81 Spiritu al or religio us correctional counselor ing TAVO,HENRY LLIAM M 04/12 [facility] [place] [facility] [place] [facility] OUTREACH WORKER REFLOW OPERATOR [employer] [id number] Diagnos is: ICD-10- CM Z71.81 Spiritu al or religio us correctional counselor ing TAVO,HENRY LLIAM M 04/12 [facility] [place] [place] [facility] OUTREACH WORKER REFLOW OPERATOR [employer] [id number] Diagnos is: ICD-10- CM Z71.81 Spiritu al or religio us correctional counselor ing TAVO,WI LLIAM M 04/13 [facility] [place] [facility] CASE MANAGEMENT [id number] Diagnos is: ICD-10- CM Z59.01 Snf ed homeENID Felipe ICE 04/15 [facility] [place] [place] OUTREACH WORKER REFLOW OPER[employer] [id number] Diagnos is: ICD-10- CM Z71.81 Spiritu al or religio us correctional counselor ing HENRY VO LLIAM M 04/20 [facility] [place] [place] [facility] OUTREACH WORKER REFLOW OPER[employer] [id number] Diagnos is: ICD-10- CM Z71.81 Spiritu al or religio us correctional counselor ing HENRY VO LLIAM M 04/20 [facility] [place] Outpatient Encounter [id number] 04/29 [facility] [place] [facility] [place] [facility] COMM[facility]ITY HEALTH OUTREACH WORKER REFLOW OPERATOR INDIVIDU [id number] Diagnos is: ICD-10- CM Z71.81 Spiritu al or religio us correctional counselor HENRY ZhuM M 06/20 [facility] [place] [facility] [place] PSYCH DIAGNOSTIC EVALUATION [id number] Diagnos is: ICD-10- CM Z59.01 Snf ed homemaninder JIMENEZHAYDE JOENS G 06/25 [facility] [place] [place] [facility] OUTREACH WORKER REFLOW OPERATOR INDIVIDU [id number] Diagnos is: ICD-10- CM Z71.81 Spiritu al or religio us correctional counselor HENRY Zhu M 06/27 [facility] [place] [place] [facility] OUTREACH WORKER REFLOW OPERATOR [employer] [id number] Diagnos is: ICD-10- CM Z71.81 Spiritu al or religio us correctional counselor ing PRIDDSHARON,WI LLIAM M 07/06 [facility] OUTREACH WORKER REFLOW OPERATOR INDIVIDU [id number] Diagnos is: ICD-10- CM Z71.81 Spiritu al or religio us correctional counselor ing PRISHEFALISHARON,WI ERLINDAIAM M 07/13 [facility] Outpatient Encounter [id number] 07/16 [facility] Outpatient Encounter [id number] 07/23 [facility] OUTREACH WORKER REFLOW OPERATOR INDIVIDU [id number] Diagnos is: ICD-10- CM Z71.81 Spiritu al or religio us correctional counselor ing PRISHEFALISHARON,WI LLIAM M 07/24 [facility] Outpatient Encounter [id number] 07/26 [facility] Outpatient Encounter [id number] 07/30 [facility] OUTREACH WORKER REFLOW OPERATOR INDIVIDU [id number] Diagnos is: ICD-10- CM Z71.81 Spiritu al or religio us correctional counselor ing LEXASHEFALISHARON,WI ERLINDAIAM M 10/31 [facility] Outpatient Encounter [id number] 11/25 [facility] OUTREACH WORKER REFLOW OPERATOR INDIVIDU [id number] Diagnos is: ICD-10- CM Z71.81 Spiritu al or religio us correctional counselor HENRY Zhu 12/13 [facility] [place] [facility] Outpatient Encounter [id number] 12/16 [facility] [place] [place] [facility] OUTREACH WORKER REFLOW OPERATOR INDIVIDU [id number] 1. Diagnos is: ICD-10- CM Z71.81 Spiritu al or religio us correctional counselor HENRY Zhu 12/20 [facility] [place] [place] [facility] SUICD BASED CLN EVAL [id number] Diagnos is: ICD-10- CM Z59.9 Problem related to housing and economi c circums tansarmad, ALEXA Mazariegos 01/09 [facility] [place] [place] [facility] MTMS BY PHARM ACCOUNTS RECEIVABLE CLERK 15 MIN [id number] 1. Diagnos is: ICD-10- CM Z59.01 Snf ed homeles doris TEP,TRUMANGERMAN S MEJIA 01/15 [facility] [place] [place] Outpatient Encounter [id number] Diagnos is: ICD-10- CM Z59.01 Snf ed homeles doris KUPFERSCHM ID,LOVELY B 01/15 [facility] [place] Outpatient Encounter [id number] Diagnos is: ICD-10- CM F32.A Depress ion, unspeci fied JAN MARQUEZ 01/16 [facility] Social History Combined list of available smoking, tobacco, and other social history from Department of Defense and Veterans Affairs facilities. Social History Type Response Date Comment Sourc e Tobacco smoking status NHIS VA-TOBACCO FORMER USER 07/11/2023 [facility] History of tobacco use VA-TOBACCO QUIT 5 TO < 15 YRS 07/11/2023 [facility] [place] [facility]
--- OUTSIDE RECORDS SUMMARY | 2025-01-31 16:43 | XMS_ITS | Clinical Summary ---
Author Organization [facility] Address [address] [place] [address] Care Team Providers Care Code Number Stamper Name Role Phone Jessy Dwyer ALEC Primary Care Provider [phone] Allergies Active Allergy Reactions Criticality Noted Date [...] 05/18/2015, , 07/09/2011, Additional history exists [facility] [employer] Care Teams Code Number Stamper Relationship Specialty Start Date End Date Jessy Dwyer APRN [address] [place] [id number] PCP - General Family Medicine 10/27/21
[2025-01-31 16:58] LABS: Alanine Aminotransferase 47 U/L (0-40); Albumin Level 4.4 g/dL (3.5-5.0); Anion Gap 15 (12-20); Aspartate Amino Transferase 23 U/L (5-37); Bilirubin Direct 0.1 mg/dL (0.0-0.5); Bilirubin Total 0.3 mg/dL (0.0-1.0); Blood Urea Nitrogen 25 mg/dL (9-16); Calcium 9.2 mg/dL (8.4-10.2); Carbon Dioxide 22 mmol/L (22-29); Chloride 106 mmol/L (96-108); Creatinine Clr Calc Pharmacy 86.7; Estimated Glomerular Filt Rate > 60; Ethanol < 10 mg/dL; Glucose Random 109 mg/dL (60-115); Sodium 139 mmol/L (135-145); Total Protein 6.9 g/dL (6.5-8.0)
[2025-01-31] MEDS: OLANZapine 5 MG TABLET PO (17:05)
[2025-01-31] MEDS: hydrOXYzine HCL 50 MG TABLET PO ×2 (17:12→21:10)
[2025-01-31 17:22] LABS: Alkaline Phosphatase 56 U/L (39-117)
[2025-01-31 17:24] LABS: Amphetamine Screen Urine Not Detected (Not Detect); Barbiturates, Urine Not Detected (Not Detect); Benzodiazepines Screen Urine POSITIVE (Not Detect); Buprenorphine Scr Not Detected (Not Detect); Cannabinoid Screen Urine POSITIVE (Not Detect); Cocaine Screen Urine POSITIVE (Not Detect); Fentanyl, urine Not Detected (Not Detect); Methadone Screen, Urine Not Detected (Not Detect); Opiate Screen Urine Not Detected (Not Detect); Oxycodone Screen Urine Not Detected (Not Detect); Phencyclidine Screen Urine Not Detected (Not Detect)
--- NOTE | 2025-01-31 17:27 | PC.NURSE ---
Patient angry states he has this rage that won't quit he just wants to go jump from a tall building. Had already given him ativan 2mg po Dr. Roach ordered zyprexa 5mg and atarax. care team went in right after he was medicated.
[2025-01-31] MEDS: traMADoL HCL 50 MG TABLET 100 MG PO (18:58)
[2025-01-31] MEDS: clonazePAM 1 MG TABLET 2 MG PO (18:58)
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
[2025-01-31 19:21] LABS: Appearance Urine Clear; Color Urine Yellow; Glucose Urine UA Negative (Negative); Leukocyte Esterase Urine Negative (Negative); Nitrite Urine Negative (Negative); PH 5.5 (5.0-9.0); UMIC TRIGGER UA YES; Urine Blood Trace (Negative); Urine Ketones Negative (Negative); Urine Protein Negative (Neg-Trace)
[2025-01-31 19:26] LABS: Bacteria Urine None Seen (None Seen); Hyaline Casts Urine 0-2 /LPF (0-2); RBC Urine 0-2 /HPF (0-2); Squamous Epithelial Cell Urine 0-2 /HPF (0-2); WBC Urine 0-5 /HPF (0-5)
[2025-01-31] MEDS: Lipase/Prot/Amylase 24/76/120K 1 CAP CAPSULE.DR PO (21:09)
[2025-01-31] MEDS: Tamsulosin HCL 0.4 MG CAPSULE PO (21:09)
[2025-01-31] MEDS: Amitriptyline HCl 50 MG TABLET 200 MG PO (21:09)
[2025-01-31] MEDS: levETIRAcetam 1,000 MG TABLET 1000 MG PO (21:10)
[2025-01-31] MEDS: Acetaminophen 325 MG TABLET 975 MG PO (21:10)
[2025-02-01 06:27] VITALS: RESP 16
--- NOTE | 2025-02-01 07:12 | PC.NURSE ---
Assumed care of patient at 0645, patient appears to be in no apparent distress this am, ambulating to bathroom and back, offering no complaints to this RN or techs. Continue plan of care for [facility]
[2025-02-01 07:17] VITALS: BP 117/82; PULSE 95; RESP 14; TEMP 36.5; O2SAT 96
[2025-02-01] MEDS: Omeprazole 20 MG CAPSULE.DR PO (07:19)
[2025-02-01] MEDS: hydrOXYzine HCL 50 MG TABLET PO ×2 (07:20→16:55)
[2025-02-01] MEDS: Acetaminophen 325 MG TABLET 975 MG PO (07:20)
[2025-02-01] MEDS: Ibuprofen 400 MG TABLET PO ×2 (07:21→13:44)
--- NOTE | 2025-02-01 07:27 | PC.NURSE ---
Pt reports I feel like I am getting very angry, like I am gonna snap something . Pt requesting something to help him calm down, reporting that he took medications yesterday that seemed to have helped. Provider Margarita lucas texted at 0725 for PO Ativan and Zyprxa as they were both given yesterday with positive effect
[2025-02-01] MEDS: OLANZapine 5 MG TABLET PO (07:36)
[2025-02-01] MEDS: LORazepam 1 MG TABLET 2 MG PO (07:36)
[2025-02-01] MEDS: Tamsulosin HCL 0.4 MG CAPSULE PO (08:07)
[2025-02-01] MEDS: Famotidine 20 MG TABLET 40 MG PO (08:07)
[2025-02-01] MEDS: Aspirin Enteric Coated 81 MG TABLET.DR PO (08:07)
[2025-02-01] MEDS: Lipase/Prot/Amylase 24/76/120K 1 CAP CAPSULE.DR PO (08:07)
[2025-02-01] MEDS: levETIRAcetam 1,000 MG TABLET 1000 MG PO (08:07)
[2025-02-01] MEDS: Atorvastatin Calcium 80 MG TABLET PO (08:07)
[2025-02-01] MEDS: Folic Acid 1 MG TABLET PO (08:07)
[2025-02-01] MEDS: clonazePAM 1 MG TABLET 2 MG PO ×2 (08:09→16:36)
[2025-02-01] MEDS: traMADoL HCL 50 MG TABLET 100 MG PO ×2 (08:12→16:36)
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
[2025-02-01] MEDS: OLANZapine 10 MG TABLET PO (11:28)
[2025-02-01] MEDS: diphenhydrAMINE HCL 25 MG CAPSULE 50 MG PO (11:28)
--- NOTE | 2025-02-01 11:40 | PC.NURSE ---
late entry: Patient reports that he is increasing in agitation feeling like he wants to harm someone. Provider messaged, medications ordered and administered
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
--- NOTE | 2025-02-01 12:28 | MHC.CARE ---
Pt Accepted to [facility] for [address]pm Dr. Giordano [address] [place] [address]
[2025-02-01 13:00] VITALS: BP 119/77; PULSE 100; RESP 18; TEMP 36.7; O2SAT 93
[2025-02-01] MEDS: diazePAM 10 MG/2 ML CARTRIDGE 7 MG IM (13:00)
[2025-02-01] MEDS: OLANZapine 10 MG VIAL 5 MG IM (13:00)
--- NOTE | 2025-02-01 13:03 | PC.NURSE ---
Addendum entered by Leslie Moncada 02/01/25 16:02: 3mg Diazepam wasted with FLORENTINO Calvillo Original Note: MD at pt bedside to speak with patient about increasing agitation and homicidal thoughts. Verbal order for IM medications due to ineffective PO medication attempts. Verbal order for 7mg Valium IM and 5mg Olanzapine IM STAT. Jeffrey, sales engineer account manager verified medication dosages with this RN Patient willingly took both IM medications without issue, calm and cooperative at this time
--- NOTE | 2025-02-01 13:12 | PC.NURSE ---
report given to Allyn Villanueva at [facility]
[2025-02-01 13:57] VITALS: BP 124/68; PULSE 109; RESP 16; TEMP 36.3; O2SAT 95
--- NOTE | 2025-02-01 15:45 | PC.NURSE ---
pt was awake for approximately an hour after receiving IM medications, pt ambulated back to his room and fell asleep. Pt is sleeping at this time, respirations are even and unlabored, no apparent distress is noted at this time
[2025-02-01 16:42] VITALS: BP 123/82; PULSE 105; RESP 20; O2SAT 98
--- NOTE | 2025-02-01 16:42 | PC.NURSE ---
pt awake at this time, calm and cooperative, offering no complaints to this RN. pt reporting bilateral knee pain in which he received PRN medication for. Pt now ambulating around [facility] pod, no apparent distress noted
--- NOTE | 2025-02-01 16:50 | PC.NURSE ---
Shortly after waking, patient reports that he feels rage again and wants to be sedated for the rage. This RN explained that medicating constantly, while it can make him feel better, may not always be the option. this RN encouraged patient to use alternative coping mechanisms such as talking with peers, watching TV or reading. Pt declined
--- NOTE | 2025-02-01 17:14 | PHA.MEDREC ---
Addendum entered by Elissa Cook RPh 02/01/25 17:20: reviewed by [facility]. Original Note: Pharmacy Consult ? Medication Reconciliation Pharmacy has completed the medication reconciliation. Reviewed med rec done by nursing. Used discharge papers, claim history, and last visit medications to confirm med list.
[2025-02-01 17:35] VITALS: BP 131/74; PULSE 97; RESP 16; TEMP 36.9; O2SAT 99
== END 2025-02-01 17:45 ==
PROVIDERS: Emergency Medicine; Emergency Provider Emergency Medicine Emergency Medical Services
DX: F32.A Depression, unspecified (principal); R45.851 Suicidal ideations; Z72.811 Adult antisocial behavior; F43.10 Post-traumatic stress disorder, unspecified; F19.94 Other psychoactive substance use, unspecified with psychoactive substance-induced mood disorder; Z91.51 Personal history of suicidal behavior; I25.10 Atherosclerotic heart disease of native coronary artery without angina pectoris; I50.22 Chronic systolic (congestive) heart failure; Z79.82 Long term (current) use of aspirin; Z79.899 Other long term (current) drug therapy
CPT/HCPCS: 36415; 80048; 80076; 80307; 81001; 85025; 96372; 99285; J2359; J3360; S9485

== ENCOUNTER 2025-02-14 19:10 | Emergency (ER) | payer MEDICARE, SELFPAY ==
[2025-02-14] VITALS (9 sets, daily range): BP systolic 79–130; BP diastolic 50–98; PULSE 55–90; RESP 16–20; TEMP 36.4–36.9; O2SAT 85–99; BMI 28.7
--- NOTE | ~2025-02-14 | XR_ITS ---
CLINICAL HISTORY: possible aspiration, od Chest Radiograph Comparison: CT/ND/SR - CT ABDOMEN PELVIS W IV CON - 06/19/22 14:57 EDT CR/SR - XR CHEST 1V - 06/19/22 12:18 EDT Findings: No cardiomegaly. Normal mediastinal contours. No pneumothorax. Unchanged linear opacity in the right lower lung zone is likely scarring. Linear opacity in the left lower lung zone could be atelectasis or scarring, similar to the study from 06/19/22. No pleural effusion. Normal upper abdomen. No acute fracture. Impression: No definitive evidence of aspiration pneumonia. This document has been electronically signed by: Judy Root MD on 02/14/2025 22:34:05
--- NOTE | 2025-02-14 19:43 | PC.NURSE ---
patient cahnged over in main ED walking with mildly unsteady gait, charge nurse reports client took 4 50mg tramadol around 1530, and again took 4 more tramadol when ems arrived. patient presents with mild confusion, disinhibited. rude, yelling out for earplugs and coffee.
--- NOTE | 2025-02-14 20:00 | PC.NURSE ---
client is somnolent, falling asleep w bp cuff on.
--- NOTE | 2025-02-14 20:04 | ECG_ITS ---
Test Reason : OVERDOSE Blood Pressure : */* mmHG Vent. Rate : 58 BPM Atrial Rate : 58 BPM P-R Int : 236 ms QRS Dur : 98 ms QT Int : 466 ms P-R-T Axes : 56 23 79 degrees QTcB Int : 457 ms Sinus bradycardia with 1st degree A-V block Incomplete right bundle branch block Borderline ECG When compared with ECG of 30-Jan-2025 07:39, MS interval has increased Referred By: Lito Avila Electronically Signed By: Jaime Mcgovern
--- NOTE | 2025-02-14 20:06 | ED_ITS ---
HPI - Psych General Chief Complaint: Psychiatric Symptoms Stated Complaint: taking a bunch of meds making si statements Time Seen by Provider: 02/14/25 20:03 History of Present Illness ED Provider: Lito Avila MD HPI Narrative: [age] male brought in for SI. Verbally reported to EMS taking total of 400 mg tramadol. He was outside in the right hotel. Related Data Home Medications ?Medication ?Instructions ?Recorded ?Confirmed albuterol sulfate 90 mcg/actuation 2 puff PO Q4H PRN Shortness Of 04/28/21 02/15/25 aerosol inhaler Breath aspirin 81 mg tablet,delayed 1 tab PO DAILY 04/28/21 02/15/25 release amitriptyline 100 mg tablet 2 tab PO BEDTIME 05/17/21 02/15/25 famotidine 40 mg tablet 1 tab PO DAILY 05/17/21 02/15/25 loratadine 10 mg tablet 1 tab PO DAILY PRN ALLERGIES 05/17/21 02/15/25 rosuvastatin 20 mg tablet 1 tab PO DAILY 05/17/21 02/15/25 tamsulosin 0.4 mg capsule 1 cap PO BID 05/17/21 02/15/25 acetaminophen 325 mg tablet 975 mg PO Q8H PRN Pain 03/20/22 02/15/25 clonazepam 2 mg tablet 1 tab PO TID PRN Anxiety 03/20/22 02/15/25 testosterone 4 pump topical DAILY 03/20/22 02/15/25 hydroxyzine HCl 50 mg tablet 50 mg PO TID PRN MOOD / ANXIETY 01/29/25 02/15/25 ibuprofen 200 mg tablet 400 mg PO Q6H PRN PHARMACY 01/29/25 02/15/25 levetiracetam 1,000 mg tablet 1,000 mg PO BID 01/29/25 02/15/25 (Keppra) tramadol 50 mg tablet 100 mg PO TID PRN pain 01/29/25 02/15/25 clonidine HCl 0.1 mg tablet 0.1 mg PO BID anxiety 01/31/25 02/15/25 ldhupr-[id number]-ikaelln 1 cap PO BID 01/31/25 02/15/25 24,000-76,000-120,000 unit capsule,delayed rel (Creon) metoprolol succinate 25 mg 25 mg PO DAILY 01/31/25 02/15/25 tablet,extended release 24 hr folic acid 1 mg tablet 1 mg PO DAILY 02/01/25 02/15/25 lisinopril 2.5 mg tablet 2.5 mg PO DAILY 02/15/25 02/15/25 lithium carbonate 300 mg 300 mg PO BID 02/15/25 02/15/25 tablet,extended release olanzapine 5 mg tablet (Zyprexa) 5 mg PO TID PRN Agitation 02/15/25 02/15/25 quetiapine 50 mg tablet (Seroquel) 50 mg PO BEDTIME PRN insomnia 02/15/25 02/15/25 Allergies Allergy/AdvReac Type Severity Reaction Status Date / Time Penicillins Allergy Unknown Unknown Verified 02/14/25 19:50 [facility] Past Medical History Medical History Substance induced mood disorder PTSD (post-traumatic stress disorder) Pancreatic cyst Depression with anxiety Alcohol withdrawal Acute pancreatitis Heart attack Chronic systolic (congestive) heart failure CAD (coronary artery disease) Seizure NAMITA (acute kidney injury) Surgical History Stented coronary artery Family History Family History Mother Breast cancer CAD (coronary artery disease) Father Psoriasis Social History Social History Household Members: Friend(s) Housing: Apartment Are you a primary managed care director to a significant other at home: No Do you presently have visiting nurse or other home services: No Comment: 1-1 sitter Patient Tobacco Use Status: Former Tobacco user Tobacco use type: Cigarette e-Cigarette/Vaping Use: Never Used Second Hand Smoke Exposure: No Substance Use Type: Prescription Drugs service: Yes Current occupational status: disabled Sexual orientation: Straight/Heterosexual Physical Exam 2 Vital Signs: Vital Signs: Last Vital Signs Temp 97.9 F 02/16/25 13:38 Pulse 82 02/16/25 13:38 Resp 16 02/16/25 13:38 BP 114/74 02/16/25 13:38 Pulse Ox 96 02/16/25 13:38 O2 Del Method Room Air 02/16/25 13:38 O2 Flow Rate 4 02/15/25 03:22 BMI result Body Mass Index 28.7 Const: Other: EXAM: Gen: Sleeping, easily arousable. No clinical evidence of trauma pupils small but reactive and symmetric Head: Atraumatic Eyes: Anicteric, Normal conjunctiva. ENT: Moist mucosa, no pallor. ? Neck: Supple. Respiratory: Breathing comfortably, No distress.Clear to auscultation bilaterally, symmetric chest expansion, No wheeze, rales, ronchi. Cardiovascular: Regular rate and rhythm. No murmurs or rub. Well perfused periphery, warm extremities. No edema. ? Abdominal: Soft, no objective distension. No palpable masses or obvious organomegaly. No focal tenderness, no guarding, no rebound tenderness or other peritoneal findings. : No flank tenderness. Neuro: Alert. Gross movement of all extremities intact. ? Skin: Tattoos no bruising or lesions Vital signs: See flowsheet Psych: SI, intentional overdose prior to her arrival Course Reevaluation(s) Reevaluation #1: Time: 08:35 Date: 02/16/25 Provider: Lito Avila MD Patient in physician observation for psychiatric evaluation.? No acute events reported overnight. No current complaints. VS stable.? Patient is in bed search status/pending CARE team evaluation. Will continue to monitor. Reevaluation #2: Time: 13:35 Date: 02/16/25 Provider: Lito Avila MD Physician observation ended at 13:35. Patient has been cleared for discharge by the CARE team. Will follow up as an outpatient. / Medications Administered Discontinued Medications Generic Name Dose Route Start Last Admin Trade Name Freq PRN Reason Stop Dose Admin Acetaminophen 975 mg 02/15/25 11:18 02/15/25 20:14 Acetaminophen 325 Mg Tablet PO 975 mg QID PRN Administration Pain, Moderate(Pain Scale 4-6) Amitriptyline HCl 200 mg 02/15/25 21:00 02/15/25 20:11 Amitriptyline Hcl 50 Mg Tablet PO 200 mg BEDTIME WILMER Administration Lipase/Protease/Amylase 1 cap 02/15/25 10:00 02/16/25 08:20 Lipase/Prot/Amylase 24/76/120k 1 Cap Capsule. PO 1 cap BID WILMER Administration Aspirin 81 mg 02/15/25 10:00 02/16/25 08:20 Aspirin Enteric Coated 81 Mg Tablet. PO 81 mg DAILY WILMER Administration Atorvastatin Calcium 80 mg 02/15/25 10:15 02/16/25 08:20 Atorvastatin Calcium 80 Mg Tablet PO 80 mg DAILY WILMER Administration Clonazepam 2 mg 02/15/25 09:57 02/16/25 08:20 Clonazepam 1 Mg Tablet PO 2 mg TID PRN Administration Anxiety Clonidine HCl 0.1 mg 02/15/25 10:00 02/16/25 08:20 Clonidine Hcl 0.1 Mg Tablet PO 0.1 mg BID WILMER Administration Protocol Famotidine 40 mg 02/16/25 09:00 02/16/25 08:20 Famotidine 20 Mg Tablet PO 40 mg DAILY WILMER Administration Folic Acid 1 mg 02/15/25 10:00 02/16/25 08:20 Folic Acid 1 Mg Tablet PO 1 mg DAILY WILMER Administration Hydroxyzine HCl 50 mg 02/15/25 00:09 02/15/25 02:53 Hydroxyzine Hcl 50 Mg Tablet PO 02/15/25 00:10 Not Given ONCE ONE Sodium Chloride 1,000 mls @ 999 mls/hr 02/14/25 21:43 02/14/25 23:37 Ns IV 02/14/25 22:43 Infused .Q1H1M STA Infusion Sodium Chloride 1,000 mls @ 999 mls/hr 02/14/25 21:43 02/14/25 23:37 Ns IV 02/14/25 22:43 Infused .Q1H1M STA Infusion Lactated Ringer's 1,000 mls @ 999 mls/hr 02/14/25 23:28 02/15/25 01:18 Lr IV 02/15/25 00:28 Infused .Q1H1M STA Infusion Ibuprofen 400 mg 02/15/25 09:57 02/15/25 10:51 Ibuprofen 400 Mg Tablet PO 400 mg Q6H PRN Administration Pain, Mild (Pain Scale 1-3) Levetiracetam 1,000 mg 02/15/25 08:12 02/15/25 08:40 Levetiracetam 1,000 Mg Tablet PO 02/15/25 08:13 1,000 mg ONCE ONE Administration Levetiracetam 1,000 mg 02/15/25 10:00 02/16/25 08:20 Levetiracetam 1,000 Mg Tablet PO 1,000 mg BID WILMER Administration Lisinopril 2.5 mg 02/15/25 10:00 02/16/25 08:20 Lisinopril 2.5 Mg Tablet PO 2.5 mg DAILY WILMER Administration Protocol [place] Carbonate 300 mg 02/15/25 10:00 02/16/25 08:20 [place] Carbonate Er 300 Mg Tablet.Er PO 300 mg BID WILMER Administration Metoprolol Succinate 25 mg 02/15/25 10:00 02/16/25 08:21 Metoprolol Succinate Er 25 Mg Tab.Er.24h PO 25 mg DAILY WILMER Administration Protocol Naloxone HCl 2 mg 02/14/25 21:43 02/14/25 21:48 Naloxone Hcl 2 Mg/2 Ml Syringe IVPUSH 02/14/25 21:44 2 mg ONCE ONE Administration Olanzapine 5 mg 02/15/25 09:57 02/16/25 13:23 Olanzapine 5 Mg Tablet PO 5 mg TID PRN Administration Agitation Tamsulosin HCl 0.4 mg 02/16/25 09:00 02/16/25 08:20 Tamsulosin Hcl 0.4 Mg Capsule PO 0.4 mg BID WILMER Administration Medical Decision Making Medical Decision Making MDM Narrative: [age] male with tramadol overdose. This is not a significant amount of tramadol but we will monitor him for any sedation, QT prolongation. Standard workup including Tylenol salicylate tox. Patient revealing he ?drank white claw? took tramadol and thinks he might have taken his clonazepam. Pending ECG, labs at 08:30 we will follow this and continue to monitor him closely Patient will need care team evaluation for SI Time: 23:35 Date: 02/14/25 Provider: Demetrio Gillis MD Start physician observation I assumed care of this patient at 19:00 hours from my colleague, Dr. Lito Laboy. Patient was initially in the ED Behavioral unit and was transferred to the ED for hypotension and lethargy. Patient's blood pressure was 87/68. On my examination the patient was lethargic but did answer questions, he fell asleep when not stimulated. His exam was otherwise unremarkable. I ordered Narcan 2 mg IV, the patient became more awake but agitated. He was also ordered to get lactated Ringer's x2 L. patient's remember heat blood pressure at 23:26 hours is 108/70 and the patient is resting comfortably. I ordered 1/3 L of LR since I think the patient is probably volume depleted. My independent interpretation patient's laboratory evaluation is as follows: CBC was normal. Glucose elevated 141. Salicylate and acetaminophen levels were below detectable limits. Patient's ethanol level and drug screen urine are pending. We will keep the patient in the emergency department under medical observation until his laboratory evaluation is complete and to continue to monitor his blood pressures. I did add a CK to his labs as well. Will continue with cardiac, O2 saturation and BP monitoring until a.m. patient is on a one-to-one observation as well. 08:13 The patient is awake and alert. States that he has not taken intentional overdose of tramadol but he did take a large dose of clonazepam to try to help with his anxiety. He is concerned that he may have had a seizure overnight as well. Patient states that he was supposed to be taking Keppra 1000 mg twice a day but his prescription was for 500 mg twice a day and he believes that he has been under dosed. The patient was given Keppra 1000 mg orally now. Patient denies being homicidal. He states that he is having suicidal thoughts but does not have an active plan. He would like to talk to the care team. The patient is medically cleared to be evaluated by the care team. At the end of my shift, the patient's care was turned over to my colleague, Dr. Kwadwo Schmidt Admission/Observation Consideration of admission/observation: Escalation of care including admission/observation considered (Yes) Lab Data MDM Lab Attestation statement: I reviewed the patient's lab results. 02/14/25 21:17 02/14/25 21:17 Labs: Lab Results 02/14/25 02/15/25 Range/Units 21:17 06:20 WBC 7.9 (4.8-10.8) X10*3/uL RBC 4.52 L (4.60-5.80) X10*6/uL Hgb 13.3 L (14.0-18.0) g/dl Hct 39.2 L (42.0-52.0) % MCV 86.7 (80.0-98.0) fL MCH 29.4 (27.0-33.0) pg MCHC 33.9 (31.0-36.0) g/dl RDW 12.0 (11.0-16.0) % Plt Count 227 D (160-400) X10*3/uL MPV 8.8 L (9.4-12.4) fL Immature Gran % (Auto) 0.6 H (0.0-0.4) % Neut % (Auto) 71.6 (45-73) % Lymph % (Auto) 19.2 L (20-40) % [place] % (Auto) 6.3 (2-11) % Eos % (Auto) 1.4 (0-4) % Baso % (Auto) 0.9 (0-2) % Lymph # (Auto) 1.5 (1.2-4.9) X10*3/uL [place] # (Auto) 0.5 (0.1-1.2) X10*3/uL Eos # (Auto) 0.1 (0.0-0.4) X10*3/uL Baso # (Auto) 0.1 (0.0-0.2) X10*3/uL Abs Immat Gran (auto) 0.05 H (0.00-0.03) X10*3/uL Absolute Neuts (auto) 5.6 (2.0-8.3) x10*3/uL Absolute Nucleated RBC 0.000 (0.0-0.012) X10*3/uL Nucleated RBC % (auto) 0.0 (0.0-0.2) /100WBC Sodium 139 (135-145) mmol/L Potassium 4.3 (3.3-5.1) mmol/L Chloride 106 (96-108) mmol/L Carbon Dioxide 25 (22-29) mmol/L Anion Gap 12 (12-20) BUN 12 (9-16) mg/dL Creatinine 1.10 (0.5-1.4) mg/dL Estim Creat Clear Calc 86.9 Estimated GFR > 60 Random Glucose 141 H (60-115) mg/dL Calcium 9.1 (8.4-10.2) mg/dL Total Bilirubin 0.6 (0.0-1.0) mg/dL AST 31 (5-37) U/L ALT 38 (0-40) U/L Alkaline Phosphatase 68 (39-117) U/L Total Creatine Kinase 680 H (38-174) U/L Total Protein 6.9 (6.5-8.0) g/dL Albumin 4.3 (3.5-5.0) g/dL Urine Color Yellow Urine Appearance Clear Urine pH 7.0 (5.0-9.0) Ur Specific [place] 1.010 (1.005-1.025) Urine Protein Negative (Neg-Trace) mg/dL Urine Glucose (UA) Negative (Negative) mg/dL Urine Ketones Negative (Negative) mg/dL Urine Blood Negative (Negative) Urine Nitrite Negative (Negative) Ur Leukocyte Esterase Negative (Negative) Salicylates < 5.0 L (15-30) mg/dL Urine Opiates Screen Not Detected (Not Detect) Ur Buprenorphine Scrn Not Detected (Not Detect) ng/mL Ur Oxycodone Screen Not Detected (Not Detect) ng/mL Urine Methadone Screen Not Detected (Not Detect) ng/mL Urine Fentanyl Screen Not Detected (Not Detect) Acetaminophen < 3 (<30) mcg/mL Ur Barbiturates Screen Not Detected (Not Detect) Ur Phencyclidine Scrn Not Detected (Not Detect) Ur Amphetamines Screen Not Detected (Not Detect) U Benzodiazepines Scrn POSITIVE H (Not Detect) Urine Cocaine Screen Not Detected (Not Detect) U Marijuana (THC) Screen POSITIVE H (Not Detect) Ethyl Alcohol < 10 mg/dL Discharge Plan Discharge Clinical Impression: Accidental overdose, Suicidal ideation, Anxiety, Acute hypotension, Volume depletion Patient Disposition: Home, Self-Care Instructions: Adult Overdose (ED) Additional Instructions: Your urine tox screen was positive for benzodiazepines and marijuana. Your alcohol level was below detectable limits. When you presented to the emergency department you were very altered and your blood pressure was extremely low and he required 3 L of fluid IV in order to get your blood pressure to a normal range. You should taking medications as prescribed by your providers. Taking too much these medications can be dangerous and can lead to . Take Keppra 1000 mg every 12 hours Follow-up with your doctor in 2 days. Please return to the emergency department if your symptoms get worse or if you develop any symptoms that are concerning to you. Prescriptions: No Action aspirin 81 mg tablet,delayed release (DR/EC) 1 tab PO DAILY albuterol sulfate 90 mcg/actuation HFA aerosol inhaler 2 puff PO Q4H PRN (Reason: Shortness Of Breath) famotidine 40 mg tablet 1 tab PO DAILY tamsulosin 0.4 mg capsule 1 cap PO BID amitriptyline 100 mg tablet 2 tab PO BEDTIME loratadine 10 mg tablet 1 tab PO DAILY PRN (Reason: ALLERGIES) rosuvastatin 20 mg tablet 1 tab PO DAILY testosterone 20.25 mg/1.25 gram (1.62 %) gel in metered-dose pump 4 pump topical DAILY Rx Instructions: 2 PUMPS ON EACH ARM acetaminophen 325 mg Tablet 975 mg PO Q8H PRN (Reason: Pain) clonazepam 2 mg tablet 1 tab PO TID PRN (Reason: Anxiety) olanzapine [Zyprexa] 5 mg tablet 5 mg PO TID PRN (Reason: Agitation) lithium carbonate 300 mg tablet extended release 300 mg PO BID lisinopril 2.5 mg tablet 2.5 mg PO DAILY quetiapine [Seroquel] 50 mg tablet 50 mg PO BEDTIME PRN (Reason: insomnia ) levetiracetam [Keppra] 1,000 mg Tablet 1,000 mg PO BID tramadol 50 mg tablet 100 mg PO TID PRN (Reason: pain) Rx Instructions: PRN for moderate to severe neck pain hydroxyzine HCl 50 mg tablet 50 mg PO TID PRN (Reason: MOOD / ANXIETY) ibuprofen 200 mg Tablet 400 mg PO Q6H PRN (Reason: PHARMACY) clonidine HCl 0.1 mg tablet 0.1 mg PO BID metoprolol succinate 25 mg tablet extended release 24 hr 25 mg PO DAILY Creon 24,000-76,000 -120,000 unit capsule,delayed release(DR/EC) 1 cap PO BID folic acid 1 mg tablet 1 mg PO DAILY Interventions: Patrick-Suicide Risk Severity Scale Last Done: 02/16/25 05:01 ED Discharge Assessment Last Done: 02/16/25 13:38 Discharge Date/Time: 02/16/25 13:39 Print Language: [place]
--- OUTSIDE RECORDS SUMMARY | 2025-02-14 20:17 | XMS_ITS ---
Author Name [facility] [facility] [place] Address [address] [place] [id number] Support Name Relationship Address Phone ZURDO KELLOGG Emergency Contact Unknown [phone] Insurance Providers: All historical and current Section [...] STAND ALEXUS Sep 25, 2016 MEDICAI D [id number] FAINA CONTRERAS PATIENT Selected Encounter This section includes the information on record at [place] for the Encounter. 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 Date/Time Primary/Secondary Diagnosis Diagnosis Name Provider Source Dec 13, 2024 12:19 PM PRIMARY Spiritual or jain counseling JULIÁN VO [facility] Social History: Smoking Status (Most current) [...] place. Date/Time Current Smoking Status Comment Mirela ity Jul 11, 2023 02:49 PM VA-TOBACCO FORMER USER [facility] Tobacco Use History This section includes a history of the smoking, or tobacco-related health factors, that were collected on or before the date of the Encounter. The data comes from the [place] facility where the Encounter took place. Date/Time Smoking Status/Tobacco Use Comment F acility Jul 11, 2023 02:49 PM VA-TOBACCO QUIT 5 TO < 15 YRS [facility] Encounter Notes: All associated encounter notes This section contains the clinical notes associated to the Encounter. Date/Time Encounter Note(s) Provider Source Dec 13, 2024 12:05 PM PASTORAL CARE TELE PHONE ENCOUNTER NOTE: LOCAL TITLE: TELEPHONE NOTE/FINANCIAL SALES MANAGER COUNSELING STANDARD TITLE: PASTORAL CARE TELEPHONE ENCOUNTER NOTE DATE OF NOTE: DEC 13, 2024@12:05 ENTRY DATE: DEC 13, 2024@12:05:37 AUTHOR: YUDI VO EXP COSIGNER: URGENCY: STATUS: COMPLETED Date: 13 December 2024 Time: 1145 hrs. Confirm Tenriism Preference: Unk/No-Pref Branch of Service: [place] Spiritual Needs/Concerns: Logan, who is known to [facility] from previous encounters, called [facility] this morning to say they had taken too many pills and was scared. There were other people in the room with , but those people are not known to this CH. CH asked if the paramedics had been called. stated the paramedics were on the way. CH used a separate phone to call/verify paramedics were responding. [place] During Discussion: CH stayed on the phone with for approximately 12 mins until medical help arrived. Impressions: says they are in a dark place meaning emotional/psychological distress Pastoral Plan: CH will follow up with and will work with to see if appropriate housing can be found for or if they can be placed in a long- term treatment facility to receive professional care as needed. Length of Visit: 30 mins. /mya/ YUDI VO Signed: 12/13/2024 12:19 YUDI VO [facility]
--- NOTE | 2025-02-14 20:22 | PC.NURSE ---
patient in interaction w provider stated etoh and clonazepam may have also been ingested
--- NOTE | 2025-02-14 20:36 | PC.NURSE ---
bp trending down, notified charge via [place]
[2025-02-14 21:22] LABS: MANUAL DIFF FLAG NO
[2025-02-14 21:23] LABS: Basophils Absolute Auto 0.1 X10*3/uL (0.0-0.2); Basophils Percent Auto 0.9 % (0-2); Eosinophils Absolute Auto 0.1 X10*3/uL (0.0-0.4); Eosinophils Percent Auto 1.4 % (0-4); Hematocrit 39.2 % (42.0-52.0); Hemoglobin 13.3 g/dl (14.0-18.0); Imm Gran Abs Auto 0.05 X10*3/uL (0.00-0.03); Imm Gran Pct Auto 0.6 % (0.0-0.4); Lymphocytes Absolute Auto 1.5 X10*3/uL (1.2-4.9); Lymphocytes Percent Auto 19.2 % (20-40); Mean Corpuscular HGB Conc 33.9 g/dl (31.0-36.0); Mean Corpuscular Hemoglobin 29.4 pg (27.0-33.0); Mean Corpuscular Volume 86.7 fL (80.0-98.0); Mean Platelet Volume 8.8 fL (9.4-12.4); Monocytes Absolute Auto 0.5 X10*3/uL (0.1-1.2); Monocytes Percent Auto 6.3 % (2-11); Neutrophils Absolute Auto 5.6 x10*3/uL (2.0-8.3); Neutrophils Percent Auto 71.6 % (45-73); Platelet Count 227 X10*3/uL (160-400); Red Blood Count 4.52 X10*6/uL (4.60-5.80); White Blood Count 7.9 X10*3/uL (4.8-10.8)
[2025-02-14] MEDS: 0.9 % Sodium Chloride 1,000 ML 999 ML IV ×2 (21:45)
[2025-02-14] MEDS: Naloxone HCl 2 MG/2 ML SYRINGE IVPUSH (21:48)
[2025-02-14 21:50] LABS: Acetaminophen LAB < 3 mcg/mL (<30); Alanine Aminotransferase 38 U/L (0-40); Albumin Level 4.3 g/dL (3.5-5.0); Alkaline Phosphatase 68 U/L (39-117); Anion Gap 12 (12-20); Aspartate Amino Transferase 31 U/L (5-37); Bilirubin Total 0.6 mg/dL (0.0-1.0); Blood Urea Nitrogen 12 mg/dL (9-16); Calcium 9.1 mg/dL (8.4-10.2); Carbon Dioxide 25 mmol/L (22-29); Chloride 106 mmol/L (96-108); Creatinine Clr Calc Pharmacy 86.9; Estimated Glomerular Filt Rate > 60; Ethanol < 10 mg/dL; Glucose Random 141 mg/dL (60-115); Potassium 4.3 mmol/L (3.3-5.1); Salicylate < 5.0 mg/dL (15-30); Sodium 139 mmol/L (135-145); Total Protein 6.9 g/dL (6.5-8.0)
[2025-02-14] MEDS: Lactated Ringers 1,000 ML 999 ML IV (23:37)
--- NOTE | 2025-02-14 23:41 | PC.NURSE ---
This policy writer typist assumed care of this Pt at 2300. Pt appears to be sleeping, equal, non labored respirations. Plan of care on going. 1:1 sitter at bedside.
[2025-02-15 00:15] VITALS: BP 110/67; PULSE 51; RESP 20; O2SAT 95
--- NOTE | 2025-02-15 01:00 | PC.NURSE ---
Pt awake, attempting to get OOB, unsteady gait, incontinent of urine. New linens, gown provided. Plan of care on going.
[2025-02-15 03:22] VITALS: BP 109/62; PULSE 50; RESP 20; O2SAT 95
[2025-02-15 06:00] VITALS: BP 124/70; PULSE 47; RESP 14; TEMP 36.4; O2SAT 95
--- NOTE | 2025-02-15 06:16 | PC.NURSE ---
Pt awake, ambulated to BR independently with steady gait. Urine sample collected and sent to lab.
[2025-02-15 06:30] LABS: Appearance Urine Clear; Color Urine Yellow; Glucose Urine UA Negative (Negative); Leukocyte Esterase Urine Negative (Negative); Nitrite Urine Negative (Negative); Urine Blood Negative (Negative); Urine Ketones Negative (Negative); Urine Protein Negative (Neg-Trace)
[2025-02-15 06:43] LABS: Amphetamine Screen Urine Not Detected (Not Detect); Barbiturates, Urine Not Detected (Not Detect); Benzodiazepines Screen Urine POSITIVE (Not Detect); Buprenorphine Scr Not Detected (Not Detect); Cannabinoid Screen Urine POSITIVE (Not Detect); Cocaine Screen Urine Not Detected (Not Detect); Fentanyl, urine Not Detected (Not Detect); Methadone Screen, Urine Not Detected (Not Detect); Opiate Screen Urine Not Detected (Not Detect); Oxycodone Screen Urine Not Detected (Not Detect); Phencyclidine Screen Urine Not Detected (Not Detect)
--- NOTE | 2025-02-15 06:45 | PC.NURSE ---
Med rec Done using prescription bottles.
[2025-02-15 07:57] VITALS: BP 94/57; PULSE 53; RESP 16; O2SAT 93
[2025-02-15] MEDS: levETIRAcetam 1,000 MG TABLET 1000 MG PO ×3 (08:40→20:14)
--- NOTE | 2025-02-15 09:43 | PHA.MEDREC ---
Pharmacy Consult ? Medication Reconciliation Pharmacy has completed the medication reconciliation.Med rec done by nursing, reviewed by pharmacist, Patient was recently discharged from hospital on 01/31/25. Several meds were put on hold at this time due to low blood pressure. Patient states he was seen by his regular doctor and these meds were resumed.
[2025-02-15] MEDS: Lithium Carbonate ER 300 MG TABLET.ER PO ×2 (10:50→20:14)
[2025-02-15] MEDS: Lipase/Prot/Amylase 24/76/120K 1 CAP CAPSULE.DR PO ×2 (10:50→20:13)
[2025-02-15] MEDS: Aspirin Enteric Coated 81 MG TABLET.DR PO (10:50)
[2025-02-15] MEDS: Metoprolol Succinate ER 25 MG TAB.ER.24H PO (10:51)
[2025-02-15] MEDS: clonazePAM 1 MG TABLET 2 MG PO ×3 (10:51→23:19)
[2025-02-15] MEDS: Folic Acid 1 MG TABLET PO (10:51)
[2025-02-15] MEDS: lisinopriL 2.5 MG TABLET PO (10:51)
[2025-02-15] MEDS: Atorvastatin Calcium 80 MG TABLET PO (10:51)
[2025-02-15] MEDS: Ibuprofen 400 MG TABLET PO (10:51)
[2025-02-15] MEDS: cloNIDine HCL 0.1 MG TABLET PO ×2 (10:51→20:14)
[2025-02-15] MEDS: OLANZapine 5 MG TABLET PO ×2 (14:13→20:15)
[2025-02-15] MEDS: Acetaminophen 325 MG TABLET 975 MG PO ×2 (14:13→20:14)
--- NOTE | 2025-02-15 16:56 | MHC.CARE ---
Patient has been accepted to [facility] for tomorrow, 02/16/25 per [facility]. They will call after 9 to coordinate admission. He is voluntary/ seeking this LOC, and has his medication with him.
[2025-02-15 20:04] VITALS: BP 97/58; PULSE 57; RESP 16; TEMP 37.1; O2SAT 98
[2025-02-15] MEDS: Amitriptyline HCl 50 MG TABLET 200 MG PO (20:11)
[2025-02-15 20:14] VITALS: BP 97/58
[2025-02-16] MEDS: lisinopriL 2.5 MG TABLET PO (08:20)
[2025-02-16] MEDS: Aspirin Enteric Coated 81 MG TABLET.DR PO (08:20)
[2025-02-16] MEDS: Lipase/Prot/Amylase 24/76/120K 1 CAP CAPSULE.DR PO (08:20)
[2025-02-16] MEDS: Lithium Carbonate ER 300 MG TABLET.ER PO (08:20)
[2025-02-16] MEDS: Tamsulosin HCL 0.4 MG CAPSULE PO (08:20)
[2025-02-16] MEDS: Famotidine 20 MG TABLET 40 MG PO (08:20)
[2025-02-16] MEDS: Atorvastatin Calcium 80 MG TABLET PO (08:20)
[2025-02-16] MEDS: cloNIDine HCL 0.1 MG TABLET PO (08:20)
[2025-02-16] MEDS: Folic Acid 1 MG TABLET PO (08:20)
[2025-02-16] MEDS: levETIRAcetam 1,000 MG TABLET 1000 MG PO (08:20)
[2025-02-16] MEDS: clonazePAM 1 MG TABLET 2 MG PO (08:20)
[2025-02-16] MEDS: Metoprolol Succinate ER 25 MG TAB.ER.24H PO (08:21)
--- NOTE | 2025-02-16 08:54 | PC.NURSE ---
Pt intrusive and making inappropriate comments towards other pts in the pod damn girl, you're tall and pretty . Pt redirected by this RN. Pt reports he just wants to talk with other people
[2025-02-16 08:57] VITALS: BP 114/74; PULSE 82; RESP 16; TEMP 36.6; O2SAT 96
[2025-02-16] MEDS: OLANZapine 5 MG TABLET PO (13:23)
[2025-02-16 13:38] VITALS: BP 114/74; PULSE 82; RESP 16; TEMP 36.6; O2SAT 96
== END 2025-02-16 13:39 | disposition home or self-care (01) ==
PROVIDERS: Emergency Medicine Emergency Medical Services; Emergency Provider Emergency Medicine
DX: T40.422A Poisoning by tramadol, intentional self-harm, initial encounter (principal); T40.421A Poisoning by tramadol, accidental (unintentional), initial encounter; Y92.9 Unspecified place or not applicable; R45.851 Suicidal ideations; Z79.899 Other long term (current) drug therapy; I45.10 Unspecified right bundle-branch block; F41.9 Anxiety disorder, unspecified; I95.9 Hypotension, unspecified; E86.0 Dehydration; Z51.81 Encounter for therapeutic drug level monitoring; R00.1 Bradycardia, unspecified
CPT/HCPCS: 36415; 71045; 80053; 80143; 80179; 80307; 81003; 82550; 85025; 93005; 96361; 96374; 99285; J2310; J7120; S9485

== ENCOUNTER → 2025-02-14 20:04 | Outpatient (BNV) | payer MEDICARE, SELFPAY | PROVIDERS: Emergency Provider Emergency Medicine; Visit Provider Internal Medicine Cardiovascular Disease | DX: I44.0 Atrioventricular block, first degree (principal); I45.10 Unspecified right bundle-branch block; R00.1 Bradycardia, unspecified | CPT/HCPCS: 93010 ==

== ENCOUNTER → 2025-02-14 21:13 | Outpatient (BNV) | payer MEDICARE, SELFPAY | PROVIDERS: Emergency Provider Emergency Medicine Emergency Medical Services; Visit Provider Radiology Diagnostic Radiology | DX: R91.8 Other nonspecific abnormal finding of lung field (principal) | CPT/HCPCS: 71045 ==

== ENCOUNTER 2025-03-26 15:27 | Inpatient (IN) | payer MEDICARE, SELFPAY ==
[2025-03-26 15:48] VITALS: BP 118/72; BP 141/92; PULSE 78; PULSE 89; RESP 14; TEMP 36.8; O2SAT 97; BMI 29.0
[2025-03-26 15:54] VITALS: RESP 16
--- NOTE | 2025-03-26 16:10 | ED.PSYCH ---
HPI - Psych General Chief Complaint: Psychiatric Symptoms Stated Complaint: SI Time Seen by Provider: 03/26/25 15:44 Source: patient Mode of arrival: EMS Limitations: no limitations History of Present Illness ED Provider: Dante Castillo PA-C HPI Narrative: 55-year-old male with medical history of PTSD, mood disorder, SI, CAD, CHF, seizure presents to the ED today due to 2 weeks of increased depression. 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 He states that the living situation has become tense, and this negatively affects his depression and anxiety. Patient reports an increase in nightmares over the past 2 weeks where he wakes up sweating and hitting/punching things around him. Patient states he is currently hearing voices, the voices are always present and telling him to harm himself. Patient reports SI with ideas of jumping off a building, states he has ?surveyed? several buildings that are tall enough for him to jump off of. He denies visual hallucinations. He states that when interactions with his roommate become extremely tense he does have thoughts of harming her, but does not have an active plan. He states he does not feel safe where he lives currently, and is looking for respite care. He also states he does not think his medication doses are ?strong enough?. He reports calling his psychiatric provider today who encouraged him to seek care in the emergency department. Patient states he smokes medical marijuana, does not engage in any other drugs or alcohol use. Patient states he currently has a headache and chronic knee pain and is requesting ibuprofen, and something for his increased anxiety. Patient has clonazepam t.i.d. p.r.n. that he will be dosed with. Patient states he has been out of his lithium for the past 4 days. Denies chest pain, shortness of breath, nausea, vomiting, visual changes, black/tarry stool, urinary symptoms. MD complaint: suicidal ideation Onset (ago): week(s) (2) Duration: getting worse History of same: Yes Relieving factors: none Exacerbating factors: none Associated psychiatric symptoms: depression and auditory hallucinations Treatments prior to arrival: none If self harm: admits thoughts of self harm and has plan (jump off of a building) Related Data Home Medications ?Medication ?Instructions ?Recorded ?Confirmed albuterol sulfate 90 mcg/actuation 2 puff PO Q4H PRN Shortness Of 04/28/21 03/26/25 aerosol inhaler Breath aspirin 81 mg tablet,delayed 1 tab PO DAILY 04/28/21 03/26/25 release amitriptyline 100 mg tablet 2 tab PO BEDTIME 05/17/21 03/26/25 famotidine 40 mg tablet 1 tab PO DAILY 05/17/21 03/26/25 loratadine 10 mg tablet 1 tab PO DAILY ALLERGIES 05/17/21 03/26/25 rosuvastatin 20 mg tablet 1 tab PO DAILY 05/17/21 03/26/25 tamsulosin 0.4 mg capsule 1 cap PO BID 05/17/21 03/26/25 clonazepam 2 mg tablet 1 tab PO TID PRN Anxiety 03/20/22 03/26/25 testosterone 4 pump topical DAILY 03/20/22 03/26/25 levetiracetam 1,000 mg tablet 1,000 mg PO BID 01/29/25 03/26/25 (Keppra) tramadol 50 mg tablet 100 mg PO TID PRN pain 01/29/25 03/26/25 clonidine HCl 0.1 mg tablet 0.1 mg PO BID anxiety 01/31/25 03/26/25 [id number]-[id number] 1 cap PO BID 01/31/25 03/26/25 24,000-76,000-120,000 unit capsule,delayed rel (Creon) metoprolol succinate 25 mg 25 mg PO DAILY 01/31/25 03/26/25 tablet,extended release 24 hr folic acid 1 mg tablet 1 mg PO DAILY 02/01/25 03/26/25 lisinopril 2.5 mg tablet 2.5 mg PO DAILY 02/15/25 03/26/25 lithium carbonate 300 mg 300 mg PO BID 02/15/25 03/26/25 tablet,extended release olanzapine 5 mg tablet (Zyprexa) 5 mg PO BID Agitation 02/15/25 03/26/25 Allergies Allergy/AdvReac Type Severity Reaction Status Date / Time Penicillins Allergy Unknown Unknown Verified 03/26/25 15:53 Review of Systems Review of Systems: CONST: Negative for fever, body aches and chills. HENT: Negative for neck pain/stiffness, headache, congestion, sore throat, swelling. POS headache EYES: Negative for discharge/pain or vision changes. RESP: Negative for cough/hemoptysis and shortness of breath. CV: Negative chest pain, difficulty breathing, palpitations. ABD: Negative pain, nausea, vomiting. : Negative increase frequency, dysuria, blood in urine or stool. MUSC: Negative for muscle aches, edema. POS chronic L knee pain SKIN: Negative rash, lesions/sores. NEURO: Negative dizziness, weakness. PSYCH: POS increased depression/anxiety, auditory hallucinations, SI with plan to jump from building. Yes all other systems are reviewed and are negative PMFSH Past Medical History Attestation statement: The following information was validated with the patient. Source: old records reviewed and nursing notes reviewed Medical History Depression Substance induced mood disorder PTSD (post-traumatic stress disorder) Pancreatic cyst Depression with anxiety Alcohol withdrawal Acute pancreatitis Heart attack Chronic systolic (congestive) heart failure CAD (coronary artery disease) Seizure NAMITA (acute kidney injury) Surgical History Stented coronary artery Family History Family History Mother Breast cancer CAD (coronary artery disease) Father Psoriasis Social History Social History Household Members: Friend(s) Housing: Apartment Are you a primary healthcare corporate account director to a significant other at home: No Do you presently have visiting nurse or other home services: No Alcohol intake: current Alcohol intake frequency: a few times a week Comment: 1-1 sitter Patient Tobacco Use Status: Former Tobacco user Tobacco use type: Cigarette Smoked in Last 30 Days: Yes e-Cigarette/Vaping Use: Never Used Second Hand Smoke Exposure: No Use of substances other than those prescribed or required for medical reasons: No Substance Use Type: Prescription Drugs service: Yes Current occupational status: disabled Sexual orientation: Straight/Heterosexual Physical Exam Vital Signs: Vital Signs: Last Vital Signs Temp 98.3 F 03/26/25 15:48 Pulse 89 03/26/25 15:48 Resp 16 03/26/25 15:54 BP 141/92 H 03/26/25 15:48 Pulse Ox 97 03/26/25 15:48 O2 Del Method Room Air 03/26/25 15:48 BMI result Body Mass Index 29.0 GENERAL APPEARANCE: ?AxOx4, cooperative, wants to talk about his situation, no acute distress. HEENT: ?NC, AT. MMM. EOMI, clear conjunctiva, oropharynx clear. NECK: ?Supple without lymphadenopathy.? No stiffness or restricted ROM. HEART:? Normal rate and regular rhythm, normal S1/S1, no m/r/g LUNGS:? no respiratory distress EXTREMITIES: ?Without cyanosis, clubbing or edema. NEUROLOGICAL: ?Grossly nonfocal. Alert and oriented, moving all 4 extremities. Observed to ambulate with normal gait. Skin: ?Warm and dry without any rash. Course Course Course Narrative: 6:18 PM 03/26/2025 (Noris MCNEIL): Signed out to this provider at shift change, in summary the patient is a 55-year-old male presenting to the ED for evaluation of suicidal ideation as well as homicidal ideation towards his roommate, patient also reports he has been without his lithium for the past few days. The patient denies auditory or visual hallucinations, is requesting admission to respite. Patient received clonazepam for anxiety and ibuprofen for a headache. Patient is signed out to this provider pending care team evaluation. Medications Administered Generic Name Dose Route Start Last Admin Trade Name Freq PRN Reason Stop Dose Admin Clonazepam 2 mg 03/26/25 16:14 03/26/25 16:41 Clonazepam 1 Mg Tablet PO 2 mg TID PRN Administration Anxiety Tramadol HCl 100 mg 03/26/25 16:14 03/26/25 16:41 Tramadol Hcl 50 Mg Tablet PO 100 mg TID PRN Administration Pain, Moderate(Pain Scale 4-6) Discontinued Medications Generic Name Dose Route Start Last Admin Trade Name Freq PRN Reason Stop Dose Admin Ibuprofen 600 mg 03/26/25 16:11 03/26/25 16:42 Ibuprofen 600 Mg Tablet PO 03/26/25 16:12 600 mg ONCE ONE Administration Medical Decision Making Medical Decision Making MDM Narrative: 55-year-old male with medical history of PTSD, mood disorder, SI, CAD, CHF, seizure presents to the ED today due to 2 weeks of increased depression. 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 He states that the living situation has become tense, and this negatively affects his depression and anxiety. Patient reports an increase in nightmares over the past 2 weeks where he wakes up sweating and hitting/punching things around him. Patient states he is currently hearing voices, the voices are always present and telling him to harm himself. Patient reports SI with ideas of jumping off a building, states he has ?surveyed? several buildings that are tall enough for him to jump off of. He denies visual hallucinations. He states that when interactions with his roommate become extremely tense he does have thoughts of harming her, but does not have an active plan. He states he does not feel safe where he lives currently, and is looking for respite care. He also states he does not think his medication doses are ?strong enough?. He reports calling his psychiatric provider today who encouraged him to seek care in the emergency department. Patient states he smokes medical marijuana, does not engage in any other drugs or alcohol use. Patient states he currently has a headache and chronic knee pain and is requesting ibuprofen, and something for his increased anxiety. Patient has clonazepam t.i.d. p.r.n. that he will be dosed with. VSS, patient cooperative, in no acute distress, nontoxic appearing. Physical exam benign. Patient reports increased depression/anxiety, with SI of jumping off building, HI to harm roommate when situation gets tense, auditory hallucinations of voices telling him to harm himself, patient does not feel safe at home at this time due to his roommates behaviors of engaging in crack cocaine and prostitution. Will obtain labs, UA, UA drug screen. Completed med rec the patient can take medications that he usually takes at home. Patient will be dosed with home clonazepam dose that he is prescribed t.i.d. p.r.n. for increased anxiety. We will be given 600 mg ibuprofen for headache and knee pain. Will place care team consult as patient is looking for respite. Differential Diagnosis Differential Diagnoses: The differential diagnosis associated with the presentation includes Depression Anxiety SI Admission/Observation Consideration of admission/observation: Escalation of care including admission/observation considered Consult Healthcare Provider Management of the patient was discussed with: Photostat Operator Helper (CARE team) Lab Data MDM Lab Attestation statement: I reviewed the patient's lab results. 03/26/25 16:18 03/26/25 16:18 Labs: Lab Results 03/26/25 03/26/25 03/26/25 Range/Units 16:01 16:18 16:55 WBC 6.4 (4.8-10.8) X10*3/uL RBC 4.59 L (4.60-5.80) X10*6/uL Hgb 13.6 L (14.0-18.0) g/dl Hct 39.9 L (42.0-52.0) % MCV 86.9 (80.0-98.0) fL MCH 29.6 (27.0-33.0) pg MCHC 34.1 (31.0-36.0) g/dl RDW 13.0 (11.0-16.0) % Plt Count 167 D (160-400) X10*3/uL MPV 9.5 (9.4-12.4) fL Immature Gran % (Auto) 0.5 H (0.0-0.4) % Neut % (Auto) 74.4 H (45-73) % Lymph % (Auto) 16.8 L (20-40) % [place] % (Auto) 5.7 (2-11) % Eos % (Auto) 1.7 (0-4) % Baso % (Auto) 0.9 (0-2) % Lymph # (Auto) 1.1 L (1.2-4.9) X10*3/uL [place] # (Auto) 0.4 (0.1-1.2) X10*3/uL Eos # (Auto) 0.1 (0.0-0.4) X10*3/uL Baso # (Auto) 0.1 (0.0-0.2) X10*3/uL Abs Immat Gran (auto) 0.03 (0.00-0.03) X10*3/uL Absolute Neuts (auto) 4.7 (2.0-8.3) x10*3/uL Absolute Nucleated RBC 0.000 (0.0-0.012) X10*3/uL Nucleated RBC % (auto) 0.0 (0.0-0.2) /100WBC Sodium 137 (135-145) mmol/L Potassium 4.0 (3.3-5.1) mmol/L Chloride 109 H (96-108) mmol/L Carbon Dioxide 23 (22-29) mmol/L Anion Gap 9 L (12-20) BUN 11 (9-16) mg/dL Creatinine 0.76 (0.5-1.4) mg/dL Estim Creat Clear Calc 110.1 Estimated GFR > 60 Random Glucose 106 (60-115) mg/dL Calcium 8.6 (8.4-10.2) mg/dL Total Bilirubin 0.5 (0.0-1.0) mg/dL AST 33 (5-37) U/L ALT 45 H (0-40) U/L Alkaline Phosphatase 50 (39-117) U/L Total Protein 6.8 (6.5-8.0) g/dL Albumin 4.3 (3.5-5.0) g/dL Hold Yellow Top See Note Urine Color Yellow Urine Appearance Clear Urine pH 6.5 (5.0-9.0) Ur Specific [place] 1.020 (1.005-1.025) Urine Protein Negative (Neg-Trace) mg/dL Urine Glucose (UA) Negative (Negative) mg/dL Urine Ketones Negative (Negative) mg/dL Urine Blood Negative (Negative) Urine Nitrite Negative (Negative) Ur Leukocyte Esterase Trace H (Negative) Urine RBC 0-2 (0-2) /HPF Urine WBC 0-5 (0-5) /HPF Ur Squamous Epith Cells 0-2 (0-2) /HPF Urine Bacteria None Seen (None Seen) Hyaline Casts 0-2 (0-2) /LPF Urine Opiates Screen Not Detected (Not Detect) Ur Buprenorphine Scrn Not Detected (Not Detect) ng/mL Ur Oxycodone Screen Not Detected (Not Detect) ng/mL Urine Methadone Screen Not Detected (Not Detect) ng/mL Urine Fentanyl Screen Not Detected (Not Detect) Ur Barbiturates Screen Not Detected (Not Detect) Ur Phencyclidine Scrn Not Detected (Not Detect) Ur Amphetamines Screen Not Detected (Not Detect) U Benzodiazepines Scrn POSITIVE H (Not Detect) [place] < 0.10 L (0.60-1.20) mmol/L Urine Cocaine Screen Not Detected (Not Detect) U Marijuana (THC) Screen POSITIVE H (Not Detect) Ethyl Alcohol < 10 mg/dL Discharge Plan Discharge Prescriptions: No Action aspirin 81 mg tablet,delayed release (DR/EC) 1 tab PO DAILY albuterol sulfate 90 mcg/actuation HFA aerosol inhaler 2 puff PO Q4H PRN (Reason: Shortness Of Breath) famotidine 40 mg tablet 1 tab PO DAILY tamsulosin 0.4 mg capsule 1 cap PO BID amitriptyline 100 mg tablet 2 tab PO BEDTIME loratadine 10 mg tablet 1 tab PO DAILY rosuvastatin 20 mg tablet 1 tab PO DAILY testosterone 20.25 mg/1.25 gram (1.62 %) gel in metered-dose pump 4 pump topical DAILY Rx Instructions: 2 PUMPS ON EACH ARM clonazepam 2 mg tablet 1 tab PO TID PRN (Reason: Anxiety) olanzapine [Zyprexa] 5 mg tablet 5 mg PO BID lithium carbonate 300 mg tablet extended release 300 mg PO BID lisinopril 2.5 mg tablet 2.5 mg PO DAILY levetiracetam [Keppra] 1,000 mg Tablet 1,000 mg PO BID tramadol 50 mg tablet 100 mg PO TID PRN (Reason: pain) Rx Instructions: PRN for moderate to severe neck pain clonidine HCl 0.1 mg tablet 0.1 mg PO BID metoprolol succinate 25 mg tablet extended release 24 hr 25 mg PO DAILY Creon 24,000-76,000 -120,000 unit capsule,delayed release(DR/EC) 1 cap PO BID folic acid 1 mg tablet 1 mg PO DAILY Interventions: Crisp-Suicide Risk Severity Scale Last Done: 03/26/25 15:54 Print Language: Estonian
[2025-03-26 16:12] LABS: Appearance Urine Clear; Glucose Urine UA Negative (Negative); PH 6.5 (5.0-9.0); Specific Gravity - Urine 1.020 (1.005-1.025); UMIC TRIGGER UACC YES
[2025-03-26 16:20] LABS: Cannabinoid Screen Urine POSITIVE (Not Detect)
[2025-03-26 16:24] LABS: MANUAL DIFF FLAG NO
--- NOTE | 2025-03-26 16:28 | MHC.EDTECH ---
Patient requesting Propel water packets from belongings. This tech retrieved closed/sealed packets. Placed in a clear bag and labeled with patient name. Located on refrigerator.
[2025-03-26 16:30] LABS: Hematocrit 39.9 % (42.0-52.0); Hemoglobin 13.6 g/dl (14.0-18.0); Imm Gran Abs Auto 0.03 X10*3/uL (0.00-0.03); Imm Gran Pct Auto 0.5 % (0.0-0.4); Lymphocytes Absolute Auto 1.1 X10*3/uL (1.2-4.9); Mean Corpuscular HGB Conc 34.1 g/dl (31.0-36.0); Mean Corpuscular Hemoglobin 29.6 pg (27.0-33.0); Mean Corpuscular Volume 86.9 fL (80.0-98.0); NRBC Abs Auto 0.000 X10*3/uL (0.0-0.012); NRBC Pct Auto 0.0 /100WBC (0.0-0.2); Platelet Count 167 X10*3/uL (160-400); Red Blood Count 4.59 X10*6/uL (4.60-5.80); White Blood Count 6.4 X10*3/uL (4.8-10.8)
[2025-03-26 16:55] LABS: Alanine Aminotransferase 45 U/L (0-40); Albumin Level 4.3 g/dL (3.5-5.0); Alkaline Phosphatase 50 U/L (39-117); Anion Gap 9 (12-20); Aspartate Amino Transferase 33 U/L (5-37); Blood Urea Nitrogen 11 mg/dL (9-16); Calcium 8.6 mg/dL (8.4-10.2); Carbon Dioxide 23 mmol/L (22-29); Chloride 109 mmol/L (96-108); Creatinine Clr Calc Pharmacy 110.1; Estimated Glomerular Filt Rate > 60; Potassium 4.0 mmol/L (3.3-5.1); Sodium 137 mmol/L (135-145); Total Protein 6.8 g/dL (6.5-8.0)
[2025-03-26 17:15] LABS: Lithium < 0.10 mmol/L (0.60-1.20)
--- NOTE | 2025-03-26 17:29 | PC.NURSE ---
Pt has been ambulating around pod with steady gait, offering no complaints to this RN, currently listening to meditation music with pod issued headphones. Pt is now expressing thoughts of suicidal ideation with a plan to jump off a building which he was not previously endorsing. He reports that he feels as though he needs to go inpatient to have his medications adjusted
--- NOTE | 2025-03-26 17:30 | PC.NURSE ---
RE: med rec This RN completed med rec with patient's assistance. pt reports his medications are up to date and the majority of his medications are identical to when he was discharged from [facility]
--- OUTSIDE RECORDS SUMMARY | 2025-03-26 18:39 | XMS_ITS | Clinical Summary ---
Author Organization [facility] Address [address] [place] [address] Care Team Providers Care Service Cashier Name Role Phone Jessy Dwyer ALEC Primary Care Provider [phone] Allergies Active Allergy Reactions Criticality Noted Date [...] 89 10/27/2021 1:08 AM EST Temperature 36 C (96.8 F) 10/27/2021 1:08 AM EST Respiratory Rate 18 [...] Vaccine (1 of 2) 2020 COVID-19 Vaccine ( - 2023-2 5 season) 2024 Influenza Vaccine 04/25/2025 05/18/2015, , 07/09/2011, Additional history exists Insurance [facility] [employer] Care Teams Service Cashier Relationship Specialty Start Date End Date Jessy Dwyer APRN [address] [place] [id number] PCP - General Family Medicine 10/27/21
--- OUTSIDE RECORDS SUMMARY | 2025-03-26 18:39 | XMS_ITS ---
[facility] Name [facility] Encounters Encounter Type Encounter Reason Primary Diagnosis Location Date Emergency Alcohol use, unspecified with intoxication, unspecified [facility] 10/27/2021 Care Team Organization Name Specialty Phone Email Start Date End Da varun [facility] 10/27/2021 05/13/2024 [facility] 10/27/2021 10/27/2021
[2025-03-26 20:03] VITALS: BP 115/79; PULSE 74; RESP 18; TEMP 36.6; O2SAT 96
[2025-03-26 21:22] VITALS: BP 115/79
--- NOTE | 2025-03-26 22:18 | PC.NURSE ---
Patient wants hid PRN Klonopin and Tramadol before due time, provider notified/okayed to administer early.
[2025-03-26] MEDS: Lipase/Prot/Amylase 24/76/120K 1 CAP CAPSULE.DR PO (22:38)
--- NOTE | 2025-03-27 | ECG_ITS ---
Test Reason : r/o prolonged qt Blood Pressure : */* mmHG Vent. Rate : 70 BPM Atrial Rate : 70 BPM P-R Int : 204 ms QRS Dur : 92 ms QT Int : 392 ms P-R-T Axes : 51 19 62 degrees QTcB Int : 423 ms Normal sinus rhythm Normal ECG When compared with ECG of 14-Feb-2025 21:10, MO interval has decreased Referred By: Honey Ochoa Electronically Signed By: HALEIGH ARMENTA MD
[2025-03-27 05:13] VITALS: BP 107/73; PULSE 64; RESP 18; TEMP 36.6; O2SAT 96
--- NOTE | 2025-03-27 05:34 | PC.NURSE ---
Patient exhibit med seeking behavior, constantly asking for his Klonopin and Tramadol ahead of time, when attempted to educate PRN order patent became verbally abusive towards staff member sometime threatening. Patient is not compliant with redirection often gets argumentative over every little things. Stands in front of nurses station when out of room and demands things very rudely. Disposition per care team is section-12 inpatient bed search, will continue to monitor
[2025-03-27] MEDS: Metoprolol Succinate ER 25 MG TAB.ER.24H PO (08:15)
[2025-03-27] MEDS: Lipase/Prot/Amylase 24/76/120K 1 CAP CAPSULE.DR PO (08:15)
[2025-03-27] MEDS: Aspirin Enteric Coated 81 MG TABLET.DR PO (08:16)
--- NOTE | 2025-03-27 08:23 | PC.NURSE ---
pt a&o, ambulating on unit, pt requested to speak with provider about PRN medications as he felt he should be able to take it every 6hours, Dr. Ochoa spoke with the patient and orders are being changed with pharmacy. pt medicated with all other meds per order, ekg was performed for inpt placement. plan of care ongoing
--- NOTE | 2025-03-27 11:08 | PHA.MEDREC ---
Addendum entered by Elissa Cook RPh 03/27/25 11:41: reviewed by [facility]. Original Note: Pharmacy Consult ? Medication Reconciliation Pharmacy reviewed med rec done by nursing. Spoke with pt to confirm his medications. Clonzaepam 2mg and Tramadol 100mg tab taken Q6h PRN instead of TID, per pt. Pt confirmed he is taking Creon 1 Cap BIDWM; updated BID to BIDWM pt adamant about taking this med with breakfast and Dinner. Pt takes his Rosuvastatin at bedtime; nurse had confirmed daily. PT also confirmed he takes some OTC medications; Multivitamin, Fish Oil 1000mg and Vitamin C, B12 and D3 but didn't remember the dose of those meds at this time.
[2025-03-27 14:00] VITALS: BP 115/71; PULSE 63; RESP 17; TEMP 36.4; O2SAT 94
[2025-03-27 14:53] VITALS: BMI 34.9
--- NOTE | 2025-03-27 15:33 | PC.ADMIT ---
Patient was admitted at 1350 on a CV from the ED POD with a dx of PTSD and Unspecified Depressive Disorder. Patient was BIBA after reporting to EMS he has things going on at home that he needs to think through in a safe place . Per crisis eval, pt reported his roommate was uses cocaine and becomes verbally aggressive, thus exacerbating his depressive symptoms. Upon arrival to the unit, patient was increasingly irritable and negative towards staff, with limited participation during 1:1. Stated he came to the hospital because My life is up in the air , when asked to elaborate, pt stated It's none of your business . He endorses occasional AH along with SI. When asked if pt had a plan he stated yes, but its none of your [employer] business! . He endorsed HI For every second since I've gotten on this damn unit , but was vague with who it was towards. Patient then stated to this nurse Just give me the damn papers you want me to sign. I'm not participating in shit while I'm here. I want to sign a 3-day . After the admission assessment, patient continuously asked to use his phone to get numbers out of. Patient then refused to let staff see what he was doing on his phone and declined to hand the phone back to staff. Patient repeatedly demanded to be discharged and stated I'm not giving my phone back until I can leave . Provider was aware, security was called and proceeded to administratively discharge the patient.
--- NOTE | 2025-03-27 15:35 | HO.PSYADMNOT ---
HPI Date of Service: 03/27/25 Chief Complaint: psychosis Sources of Information: patient interviewed, chart reviewed and crisis/core team assessment reviewed HPI Subjective Notes: [place]oa Warning and Conditional Voluntary Narrative: Patient is a 55-year-old male with history of MDD, PTSD and antisocial personality disorder who presented to ER via ambulance due to stating he has things going on at home that he needs to think through in a safe place . Per crisis report, patient reports ongoing interpersonal conflict in his home which he identifies as contributing to worsening depressive symptoms. He reports his roommate has made attempts to evict him and fabricated allegations in an effort to obtain a restraining order against him. Patient endorsed vague SI stating, I just can't do it anymore . Patient reports auditory hallucinations telling him to harm himself and calling him useless . Patient reported he attempted suicide by ingesting 30 Valium pills this past Monday. He was last admitted to [facility] on 03/18/2025 And was discharged due to behavioral issues; [facility] reported they can not accommodate him in the future. Utox positive for marijuana and benzodiazepines. During admission assessment, patient presents alert and oriented x3. Uncooperative. Irritable. Patient refusing to answer questions upon admission. When asked what brought him to the hospital, patient stated, none of your fucking business . Patient stated, I came here to get my head straight but I end up on a locked unit. This is not what I wanted. I need housing. Just let me fucking go . When T/W attempted to ask patient further questions, patient began using profanities at T/W. T/W informed patient if he wanted to talk later to let nursing staff know. Per nursing staff, Patient requested to use personal cell phone to obtain phone numbers; patient refused to return cell phone to staff when completed. T/W attempted to speak with patient about unit rules; patient continued to demand to be discharged. Pt stated, you better fucking discharge me. I'm not giving you back my phone. I don't care . Patient was administratively discharged. Patient reports he plans on following up with his outpatient providers and feels he does not need to be inpatient. Past Psychiatric History: History of multiple inpatient psychiatric hospitalizations OP: [facility]- Dr. Davis for meds, [facility] Perry for therapy Trials: Several Pt denies current AH,VH, SI, HI. He reports hx of AH, states stress brings these sx on. Medical Evaluation Reviewed: Yes [facility] Medical History Depression Substance induced mood disorder PTSD (post-traumatic stress disorder) Pancreatic cyst Depression with anxiety Alcohol withdrawal Acute pancreatitis Heart attack Chronic systolic (congestive) heart failure CAD (coronary artery disease) Seizure NAMITA (acute kidney injury) Surgical History Stented coronary artery Family History: addiction Social History: Born, raised in [place]. 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 Trauma History: affirms Diagnostics Vital Signs (24Hr): Vital Signs - 24 hr 03/26/25 15:48 03/26/25 15:54 03/26/25 20:03 Temperature 98.3 F 97.9 F Pulse Rate 89 74 Respiratory Rate 14 16 18 Blood Pressure 141/92 H 115/79 Pulse Oximetry 97 96 Oxygen Delivery Method Room Air Room Air 03/26/25 21:22 03/27/25 05:13 03/27/25 14:00 Temperature 97.8 F 97.5 F Pulse Rate 64 63 Respiratory Rate 18 17 Blood Pressure 115/79 107/73 115/71 Pulse Oximetry 96 94 Oxygen Delivery Method Room Air Room Air BMI result Body Mass Index 34.9 Labs 03/26/25 16:18 03/26/25 16:18 Labs: Laboratory Results - last 48 hr 03/26/25 03/26/25 03/26/25 16:01 16:18 16:55 WBC 6.4 RBC 4.59 L Hgb 13.6 L Hct 39.9 L MCV 86.9 MCH 29.6 MCHC 34.1 RDW 13.0 Plt Count 167 D MPV 9.5 Immature Gran % (Auto) 0.5 H Neut % (Auto) 74.4 H Lymph % (Auto) 16.8 L [place] % (Auto) 5.7 Eos % (Auto) 1.7 Baso % (Auto) 0.9 Lymph # (Auto) 1.1 L [place] # (Auto) 0.4 Eos # (Auto) 0.1 Baso # (Auto) 0.1 Abs Immat Gran (auto) 0.03 Absolute Neuts (auto) 4.7 Absolute Nucleated RBC 0.000 Nucleated RBC % (auto) 0.0 Sodium 137 Potassium 4.0 Chloride 109 H Carbon Dioxide 23 Anion Gap 9 L BUN 11 Creatinine 0.76 Estim Creat Clear Calc 110.1 Estimated GFR > 60 Random Glucose 106 Calcium 8.6 Total Bilirubin 0.5 AST 33 ALT 45 H Alkaline Phosphatase 50 Total Protein 6.8 Albumin 4.3 Hold Yellow Top See Note Urine Color Yellow Urine Appearance Clear Urine pH 6.5 Ur Specific [place] 1.020 Urine Protein Negative Urine Glucose (UA) Negative Urine Ketones Negative Urine Blood Negative Urine Nitrite Negative Ur Leukocyte Esterase Trace H Urine RBC 0-2 Urine WBC 0-5 Ur Squamous Epith Cells 0-2 Urine Bacteria None Seen Hyaline Casts 0-2 Urine Opiates Screen Not Detected Ur Buprenorphine Scrn Not Detected Ur Oxycodone Screen Not Detected Urine Methadone Screen Not Detected Urine Fentanyl Screen Not Detected Ur Barbiturates Screen Not Detected Ur Phencyclidine Scrn Not Detected Ur Amphetamines Screen Not Detected U Benzodiazepines Scrn POSITIVE H [place] < 0.10 L Urine Cocaine Screen Not Detected U Marijuana (THC) Screen POSITIVE H Ethyl Alcohol < 10 Meds/Allergies Meds Home Medications ?Medication ?Instructions ?Recorded ?Confirmed ?Type albuterol sulfate 90 mcg/actuation 2 puff PO Q4H PRN Shortness Of 04/28/21 03/26/25 History aerosol inhaler Breath aspirin 81 mg tablet,delayed 81 mg PO DAILY 04/28/21 03/27/25 History release amitriptyline 100 mg tablet 200 mg PO BEDTIME 05/17/21 03/27/25 History famotidine 40 mg tablet 40 mg PO DAILY 05/17/21 03/27/25 History loratadine 10 mg tablet 1 tab PO DAILY ALLERGIES 05/17/21 03/26/25 History rosuvastatin 20 mg tablet 20 mg PO BEDTIME 05/17/21 03/27/25 History tamsulosin 0.4 mg capsule 0.4 mg PO BID 05/17/21 03/27/25 History clonazepam 2 mg tablet 1 tab PO Q6H PRN Anxiety 03/20/22 03/27/25 History testosterone 4 pump topical DAILY 03/20/22 03/26/25 History levetiracetam 1,000 mg tablet 1,000 mg PO BID 05/07/25 07/02/25 History (Keppra) tramadol 50 mg tablet 100 mg PO Q6H PRN pain 01/29/25 03/27/25 History clonidine HCl 0.1 mg tablet 0.1 mg PO BID anxiety 01/31/25 03/26/25 History fdyadf-ynqspxdm-eovefzf 1 cap PO BIDWM 01/31/25 03/27/25 History 24,000-76,000-120,000 unit capsule,delayed rel (Creon) metoprolol succinate 25 mg 25 mg PO DAILY 01/31/25 03/26/25 History tablet,extended release 24 hr folic acid 1 mg tablet 1 mg PO DAILY 02/01/25 03/26/25 History lisinopril 2.5 mg tablet 2.5 mg PO DAILY 02/15/25 03/26/25 History lithium carbonate 300 mg 300 mg PO BID 02/15/25 03/26/25 History tablet,extended release olanzapine 5 mg tablet (Zyprexa) 5 mg PO BID Agitation 02/15/25 03/26/25 History multivitamin 1 tab PO DAILY 03/27/25 03/27/25 History omega 3-jal-bxz-fish oil 1,000 mg 1 cap PO DAILY 03/27/25 03/27/25 History (120 mg-180 mg) capsule (Fish Oil) Allergies Allergies Allergy/AdvReac Type Severity Reaction Status Date / Time Penicillins Allergy Unknown Unknown Verified 03/26/25 15:53 Mental Status Exam Mental Status Exam Patient Appearance: Appropriate Patient Orientation: Person, Place, Time and Situation Level of Consciousness: Awake and Alert Patient Behavior: Guarded, Verbal Threats, Swearing and Uncooperative Mood Description: Hostile and Angry Affect Description: Angry Ability to Follow Directions: Fair Speech Pattern: Clear, Loud and Includes Profanity Memory Description: Intact Hallucinations: None Delusions: Not Present Thought Process: Intact Thought Content: positive for Intact Assessment & Plan Assessment & Plan (1) MDD (major depressive disorder), recurrent episode: Status: Acute Code(s): F33.9 - Major depressive disorder, recurrent, unspecified (2) PTSD (post-traumatic stress disorder): Status: Acute Code(s): F43.10 - Post-traumatic stress disorder, unspecified (3) Antisocial personality disorder: Status: Acute Code(s): F60.2 - Antisocial personality disorder Plan Per nursing staff, Patient requested to use personal cell phone to obtain phone numbers; patient refused to return cell phone to staff when completed. T/W attempted to speak with patient about unit rules; patient continued to demand to be discharged. Pt stated, you better fucking discharge me. I'm not giving you back my phone. I don't care . Patient was administratively discharged. Patient reports he plans on following up with his outpatient providers and feels he does not need to be inpatient. Patient educated on: diagnosis, medication risk/benefits and therapeutic strategies Reason for continued inpatient stay Substantial Risk for: other (Administratively discharged) Statement Statement: I have reviewed the history and physical and performed a pertinent examination on my patient. No changes have occurred unless specified. If the History and Physical was not performed prior to admission, the Hospitalist's service will be consulted for completing the admission physical. Time Spent With Patient Time: Total time managing care of this patient today _60___ minutes.
--- NOTE | 2025-03-27 15:35 | PM.PSYDC ---
DS: Providers Provider Date of Service: 03/27/25 Date of admission: 03/27/25 12:55 Date of discharge: 03/27/25 Primary care physician: Unknown Physician Admitting clinician: Roopa Chahal Attending physician on admission: Gold Ferreira Attending physician on discharge: Gold Ferreira Discharging clinician: Roopa Chahal DS: Medications Discharge Medications Home Medications: Home Medications ?Medication ?Instructions ?Recorded ?Confirmed albuterol sulfate 90 mcg/actuation 2 puff PO Q4H PRN Shortness Of 04/28/21 03/26/25 aerosol inhaler Breath aspirin 81 mg tablet,delayed 81 mg PO DAILY 04/28/21 03/27/25 release amitriptyline 100 mg tablet 200 mg PO BEDTIME 05/17/21 03/27/25 famotidine 40 mg tablet 40 mg PO DAILY 05/17/21 03/27/25 loratadine 10 mg tablet 1 tab PO DAILY ALLERGIES 05/17/21 03/26/25 rosuvastatin 20 mg tablet 20 mg PO BEDTIME 05/17/21 03/27/25 tamsulosin 0.4 mg capsule 0.4 mg PO BID 05/17/21 03/27/25 clonazepam 2 mg tablet 1 tab PO Q6H PRN Anxiety 03/20/22 03/27/25 testosterone 4 pump topical DAILY 03/20/22 03/26/25 levetiracetam 1,000 mg tablet 1,000 mg PO BID 01/29/25 03/26/25 (Keppra) tramadol 50 mg tablet 100 mg PO Q6H PRN pain 01/29/25 03/27/25 clonidine HCl 0.1 mg tablet 0.1 mg PO BID anxiety 01/31/25 03/26/25 npocvd-xihzkvxm-eeortnv 1 cap PO BIDWM 01/31/25 03/27/25 24,000-76,000-120,000 unit capsule,delayed rel (Creon) metoprolol succinate 25 mg 25 mg PO DAILY 01/31/25 03/26/25 tablet,extended release 24 hr folic acid 1 mg tablet 1 mg PO DAILY 02/01/25 03/26/25 lisinopril 2.5 mg tablet 2.5 mg PO DAILY 02/15/25 03/26/25 lithium carbonate 300 mg 300 mg PO BID 02/15/25 03/26/25 tablet,extended release olanzapine 5 mg tablet (Zyprexa) 5 mg PO BID Agitation 02/15/25 03/26/25 multivitamin 1 tab PO DAILY 03/27/25 03/27/25 omega 1-cai-clk-fish oil 1,000 mg 1 cap PO DAILY 03/27/25 03/27/25 (120 mg-180 mg) capsule (Fish Oil) Mental Status Exam Mental Status Exam Narrative: Patient Appearance: Appropriate Patient Orientation: Person, Place, Time and Situation Level of Consciousness: Awake and Alert Patient Behavior: Guarded, Verbal Threats, Swearing and Uncooperative Mood Description: Hostile and Angry Affect Description: Angry Ability to Follow Directions: Fair Speech Pattern: Clear, Loud and Includes Profanity Memory Description: Intact Hallucinations: None Delusions: Not Present Thought Process: Intact Thought Content: positive for Intact Data Data Completed and Pending Completed studies during hospitalization [Text1]: 03/26/25 03/26/25 03/26/25 16:01 16:18 16:55 WBC 6.4 RBC 4.59 L Hgb 13.6 L Hct 39.9 L MCV 86.9 MCH 29.6 MCHC 34.1 RDW 13.0 Plt Count 167 D MPV 9.5 Immature Gran % (Auto) 0.5 H Neut % (Auto) 74.4 H Lymph % (Auto) 16.8 L [place] % (Auto) 5.7 Eos % (Auto) 1.7 Baso % (Auto) 0.9 Lymph # (Auto) 1.1 L [place] # (Auto) 0.4 Eos # (Auto) 0.1 Baso # (Auto) 0.1 Abs Immat Gran (auto) 0.03 Absolute Neuts (auto) 4.7 Absolute Nucleated RBC 0.000 Nucleated RBC % (auto) 0.0 Sodium 137 Potassium 4.0 Chloride 109 H Carbon Dioxide 23 Anion Gap 9 L BUN 11 Creatinine 0.76 Estim Creat Clear Calc 110.1 Estimated GFR > 60 Random Glucose 106 Calcium 8.6 Total Bilirubin 0.5 AST 33 ALT 45 H Alkaline Phosphatase 50 Total Protein 6.8 Albumin 4.3 Hold Yellow Top See Note Urine Color Yellow Urine Appearance Clear Urine pH 6.5 Ur Specific [place] 1.020 Urine Protein Negative Urine Glucose (UA) Negative Urine Ketones Negative Urine Blood Negative Urine Nitrite Negative Ur Leukocyte Esterase Trace H Urine RBC 0-2 Urine WBC 0-5 Ur Squamous Epith Cells 0-2 Urine Bacteria None Seen Hyaline Casts 0-2 Urine Opiates Screen Not Detected Ur Buprenorphine Scrn Not Detected Ur Oxycodone Screen Not Detected Urine Methadone Screen Not Detected Urine Fentanyl Screen Not Detected Ur Barbiturates Screen Not Detected Ur Phencyclidine Scrn Not Detected Ur Amphetamines Screen Not Detected U Benzodiazepines Scrn POSITIVE H [place] < 0.10 L Urine Cocaine Screen Not Detected U Marijuana (THC) Screen POSITIVE H Ethyl Alcohol < 10 DS: Summary Hospital Course Hospital Course: Patient is a 55-year-old male with history of MDD, PTSD and antisocial personality disorder who presented to ER via ambulance due to stating he has things going on at home that he needs to think through in a safe place . Per crisis report, patient reports ongoing interpersonal conflict in his home which he identifies as contributing to worsening depressive symptoms. He reports his roommate has made attempts to evict him and fabricated allegations in an effort to obtain a restraining order against him. Patient endorsed vague SI stating, I just can't do it anymore . Patient reports auditory hallucinations telling him to harm himself and calling him useless . Patient reported he attempted suicide by ingesting 30 Valium pills this past Monday. He was last admitted to [facility] on 03/18/2025 And was discharged due to behavioral issues; [facility] reported they can not accommodate him in the future. Utox positive for marijuana and benzodiazepines. During admission assessment, patient presents alert and oriented x3. Uncooperative. Irritable. Patient refusing to answer questions upon admission. When asked what brought him to the hospital, patient stated, none of your [employer] business . Patient stated, I came here to get my head straight but I end up on a locked unit. This is not what I wanted. I need housing. Just let me fucking go . When T/W attempted to ask patient further questions, patient began using profanities at T/W. T/W informed patient if he wanted to talk later to let nursing staff know. Per nursing staff, Patient requested to use personal cell phone to obtain phone numbers; patient refused to return cell phone to staff when completed. T/W attempted to speak with patient about unit rules; patient continued to demand to be discharged. Pt stated, you better fucking discharge me. I'm not giving you back my phone. I don't care . Patient was administratively discharged. Patient reports he plans on following up with his outpatient providers and feels he does not need to be inpatient. Status at Discharge Cognitive/behavioral status at discharge: Patient has a safety plan that includes presenting to the closest ER or calling 911 if feeling unsafe. Functional status at discharge: independent ambulation Overall status at discharge: patient is back to baseline Time Spent with Patient Time attestation: Total time managing care of this patient today _20___ minutes. Time spent: Less than 30 minutes Discharge Plan Discharge Anticipated Discharge Date/Time: 03/27/25 15:31 Patient Disposition: Home, Self-Care Discharge Diagnosis: Antisocial personality d/o Referrals: Physician,Unknown J [Primary Care Provider, Medical] - 1 Week Discharge Medications: Continued aspirin 81 mg tablet,delayed release (DR/EC) 81 mg PO DAILY albuterol sulfate 90 mcg/actuation HFA aerosol inhaler 2 puff PO Q4H PRN (Reason: Shortness Of Breath) famotidine 40 mg tablet 40 mg PO DAILY tamsulosin 0.4 mg capsule 0.4 mg PO BID amitriptyline 100 mg tablet 200 mg PO BEDTIME loratadine 10 mg tablet 1 tab PO DAILY rosuvastatin 20 mg tablet 20 mg PO BEDTIME testosterone 20.25 mg/1.25 gram (1.62 %) gel in metered-dose pump 4 pump topical DAILY Rx Instructions: 2 PUMPS ON EACH ARM clonazepam 2 mg tablet 1 tab PO Q6H MDD 6 PRN (Reason: Anxiety) olanzapine [Zyprexa] 5 mg tablet 5 mg PO BID lithium carbonate 300 mg tablet extended release 300 mg PO BID lisinopril 2.5 mg tablet 2.5 mg PO DAILY levetiracetam [Keppra] 1,000 mg Tablet 1,000 mg PO BID tramadol 50 mg tablet 100 mg PO Q6H MDD 300 PRN (Reason: pain) Rx Instructions: PRN for moderate to severe neck pain clonidine HCl 0.1 mg tablet 0.1 mg PO BID metoprolol succinate 25 mg tablet extended release 24 hr 25 mg PO DAILY Creon 24,000-76,000 -120,000 unit capsule,delayed release(DR/EC) 1 cap PO BIDWM folic acid 1 mg tablet 1 mg PO DAILY multivitamin Tablet 1 tab PO DAILY omega 5-egc-fip-fish oil [Fish Oil] 1,000 (120-180) mg Capsule 1 cap PO DAILY Discharge Orders: Discharge Order (Routine); Ordered 03/27/25 Ordered By: Roopa Chahal Diet: Regular diet Activity on Discharge: As tolerated Stand Alone Forms: Patient Portal Discharge page, Community Support Print Language: German Care Plan Goals: Maintain mood and safe behaviors Take medications as prescribed Continue to pursue sobriety Practice coping skills Continue with outpatient providers and reach out to them as needed Health Concerns: Mood stability and behaviors Sobriety Plan of Treatment: Follow up with your PCP, psychiatric provider and other outpatient providers regarding above concerns Take medications as prescribed Assessment: Patient has a safety plan that includes presenting to the closest ER or calling 911 if feeling unsafe. Discharge Date/Time: 03/27/25 15:40
== END 2025-03-27 15:40 | disposition home or self-care (01) | DRG 883 ==
LOC: HO.ED 18:36 → HO.PADLT16 03-27 13:02
PROVIDERS: Admitting Provider Psychiatry & Neurology Psychiatry; Emergency Provider Emergency Medicine Emergency Medical Services; Visit Provider Psychiatry & Neurology Psychiatry
DX: F60.2 Antisocial personality disorder (principal); F33.9 Major depressive disorder, recurrent, unspecified; F43.10 Post-traumatic stress disorder, unspecified; I25.10 Atherosclerotic heart disease of native coronary artery without angina pectoris; Z87.891 Personal history of nicotine dependence; Z79.82 Long term (current) use of aspirin; Z79.899 Other long term (current) drug therapy
CPT/HCPCS: 36415; 80053; 80178; 80307; 81001; 85025; 93005; 99285; S9485

== ENCOUNTER → 2025-03-27 08:05 | Outpatient (BNV) | payer MEDICARE, SELFPAY | PROVIDERS: Emergency Provider Emergency Medicine Emergency Medical Services; Visit Provider Internal Medicine Cardiovascular Disease | DX: Z13.6 Encounter for screening for cardiovascular disorders (principal) | CPT/HCPCS: 93010 ==

== ENCOUNTER → 2025-03-27 12:55 | Outpatient (BNV) | payer MEDICARE, SELFPAY | PROVIDERS: Admitting Provider Psychiatry & Neurology Psychiatry; Emergency Provider Emergency Medicine Emergency Medical Services; Visit Provider Registered Nurse | DX: F33.1 Major depressive disorder, recurrent, moderate (principal); F60.2 Antisocial personality disorder; F43.11 Post-traumatic stress disorder, acute | CPT/HCPCS: 90792; 99499 ==

== ENCOUNTER 2025-08-22 12:13 | Emergency (ER) | payer MEDICARE, MEDICAID, SELFPAY ==
[2025-08-22 12:19] VITALS: BP 202/100; PULSE 122; O2SAT 98
--- NOTE | 2025-08-22 12:20 | ECG_ITS ---
Test Reason : SYNCOPE Blood Pressure : */* mmHG Vent. Rate : 107 BPM Atrial Rate : 107 BPM P-R Int : 194 ms QRS Dur : 84 ms QT Int : 316 ms P-R-T Axes : 65 45 57 degrees QTcB Int : 421 ms Sinus tachycardia Cannot rule out Anterior infarct , age undetermined Abnormal ECG When compared with ECG of 27-Mar-2025 08:05, Vent. rate has increased by 37 bpm Minimal criteria for Anterior infarct are now Present Referred By: Lyla Condon Electronically Signed By: ASAEL VALLADARES
[2025-08-22 12:21] VITALS: BP 144/109; PULSE 114; RESP 16; TEMP 36.6; O2SAT 96; BMI 28.7
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
--- OUTSIDE RECORDS SUMMARY | 2025-08-22 12:46 | XMS_ITS | Encounter Summary ---
Author Organization [facility] Address [address] [place] [address] [place] [address] Phone Care Team Providers Care Hospital Corpsman Name Role Phone Jessy Dwyer COIL INSPECTOR Primary Care Provider Rachel Mueller RN Unavailable Trae Pederson MD Unavailable [phone] Rachel Mueller RN Unavailable Jessy Dwyer COIL INSPECTOR Primary Care Provider Trae Anthony NP Unavailable Encounter Details Date Type Department Care Team (Late st Contact Info) Description 06/28/2021 Procedure Pass [facility], [address] [address] Social History Tobacco Use Types Packs/Day Years Used Date Smoking Tobacco: Former Cigarettes Q uit: 2015 Smokeless Tobacco: Never Alcohol Use Standard Drinks/Week Comments Yes 6 (1 standard drink = 0.6 oz pur e alcohol) hasn't had a drink in 4 days. Sex and Gender Information Value Date Recorded Sex Assigned at Male 11/14/2017 3:00 PM EST Legal Sex Male 2:51 PM EST Gender Identity Male 11/14/2017 3:00 PM EST Sexual Orientation Straight 11/14/2017 3: 00 PM EST Occupation Industry Job Start Date Job End Date On disability Not on file Not on file Not on file documented as of this encounter Plan of Treatment Not on file documented as of this encounter Visit Diagnoses Not on filedocumented in this encounter Additional Health Concerns Infection Onset Date Last Indicated Resolved Time CoV-Presumed 12/07/2021 12/08/2021 12/29/2021 1:21 AM EDT MRSA 12/08/2021 12/08/2021 12/08/2023 1:23 AM EDT 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 11/25/2024 Assessment Noted Time PHQ-9 Depression Total Score: 16 021 12:27 PM EDT PHQ-2 Depression Total Score: 4 02/19/20 21 12:27 PM EDT documented as of this encounter Care Teams Hospital Corpsman Relationship Specialty Start Date End Date Jessy Dwyer NP PCP - General Family Medicine 11/09/18 06/21/24 Jessy Dwyer NP [address] [place] [phone] PCP - General Nurse Practitioner 06/22/24 Rachel Mueller RN [address] [place] [phone] PHC Label Maker 11/23/20 04/19/22 Trae Pederson MD [address] [place] [phone] Insurance Assigned Provider 06/05/21 11/28/21 Rachel Mueller RN [address] [place] [phone] PHC Label Maker 11/23/20 08/10/22 Trae Anthony NP [address] [place] [phone] Nurse Practitioner 01/16/25 documented as of this encounter Additional Source Comments The information contained in this document represents components of the legal health record. It is not the complete legal health record.[facility]
--- OUTSIDE RECORDS SUMMARY | 2025-08-22 12:46 | XMS_ITS | Encounter Summary ---
Author Organization [facility] Address [address] [place] [address] Phone Care Team Providers Care Double End Chucking Machine Operator Name Role Phone Unknown, Unknown Primary Care Provider Clovis Wynne MD Unavailable Unknown, Unknown Primary Care Provider Jessy Quintero CIVIL ENGINEERING DIRECTOR Primary Care Provider Henry Lincoln MD, MPH Unavailable Trae Reese MD Unavailable [phone] Kavya Canchola MD Unavailable Henry Lincoln MD, MPH Unavailable Rachel Mueller RN Unavailable Jos Virk MD Unavailable Arianna Chu ETL MANAGER Unavailable grover Lyn Olvera MD Unavailable + Trae Pederson MD Unavailable [phone] Rachel Mueller RN Unavailable Jessy Dwyer CIVIL ENGINEERING DIRECTOR Primary Care Provider Trae Anthony CIVIL ENGINEERING DIRECTOR Unavailable Encounter Details Date Type Department Care Team (Late st Contact Info) Description 09/14/2018 Ancillary Orders Virtual Department [address] [place] [address] Kartik Ambrocio MD [address] [place] [address] [email or web address] Social History Tobacco Use Types Packs/Day Years Used Date Smoking Tobacco: Former Smokeless Tobacco: Never Alcohol Use Standard Drinks/Week Comments No 0 (1 standard drink = 0.6 oz pur e alcohol) Sex and Gender Information Value Date Recorded Sex Assigned at Male 11/14/2017 3:00 PM EST Legal Sex Male 2:51 PM EST Gender Identity Male 11/14/2017 3:00 PM EST Sexual Orientation Straight 11/14/2017 3: 00 PM EST documented as of this encounter Plan of Treatment Not on file documented as of this encounter Visit Diagnoses Not on filedocumented in this encounter Additional Health Concerns Infection Onset Date Last Indicated Resolved Time CoV-Risk 06/26/2020 06/27/2020 07/10/2020 1:24 AM EDT CoV-Presumed 12/07/2021 12/08/2021 12/29/2021 1:21 AM EDT MRSA 12/08/2021 12/08/2021 12/08/2023 1:23 AM EDT 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 11/25/2024 documented as of this encounter Care Teams Double End Chucking Machine Operator Relationship Specialty Start Date End Date Unknown, Unknown, PCP - General 08/09/18 10/24/18 Unknown, Unknown, PCP - General 10/25/18 11/08/18 Jessy Dwyer NP [address] [place] [address] PCP - General Family Medicine 11/09/18 06/21/24 Jessy Dwyer NP [address] [place] [address] PCP - General Nurse Practitioner 06/22/24 Clovis Montiel MD [address] [place] [address] [email or web address] Insurance Assigned Provider 08/26/18 08/31/19 Henry Lincoln MD, MPH [address] [place] [phone] [email or web address] Insurance Assigned Provider 08/31/19 08/30/20 Trae Reese MD [address] [place] [address] [email or web address] Insurance Assigned Provider 08/30/20 10/03/20 Kavya Canchola MD [address] [place] [address] [email or web address] Insurance Assigned Provider 10/03/20 10/31/20 Henry Lincoln MD, MPH [address] [place] [phone] [email or web address] Insurance Assigned Provider 10/31/20 01/02/21 Rachel Mueller RN [address] [place] [phone] [email or web address] PHCM Spa Receptionist 11/23/20 04/19/22 Jos Virk MD [address] [place] [address] [email or web address] Insurance Assigned Provider 01/02/21 04/03/21 Arianna Chu LCSW [address] [place] [phone] [email or web address] High School Counselor 02/18/21 02/18/21 Lyn Olvera MD [address] [place] [phone] [email or web address] Insurance Assigned Provider 04/03/21 06/05/21 Trae Pederson MD [address] [place] [phone] Insurance Assigned Provider 06/05/21 11/28/21 Rachel Mueller RN [address] [place] [phone] PHCM Spa Receptionist 11/23/20 08/10/22 rTae Anthony NP [address] [place] [phone] Nurse Practitioner 01/16/25 documented as of this encounter Additional Source Comments The information contained in this document represents components of the legal health record. It is not the complete legal health record.[facility]
--- OUTSIDE RECORDS SUMMARY | 2025-08-22 12:46 | XMS_ITS | Encounter Summary ---
Author Organization [facility] Address [address] [place] [address] [place] [phone] Phone Care Team Providers Care Court Commissioner Name Role Phone Jessy Dwyer MIGRATORY FARM HAND Primary Care Provider [phone] Rachel Mueller RN Unavailable Jos Virk MD Unavailable Lyn Olvera MD Unavailable + Trae Pederson MD Unavailable [phone] Rachel Mueller RN Unavailable Jessy Dwyer MIGRATORY FARM HAND Primary Care Provider Trae Anthony MIGRATORY FARM HAND Unavailable Encounter Details Date Type Department Care Team (Late st Contact Info) Description 03/26/2021 Ancillary Orders [facility],Outside Imaging [address] [place] [address] System, Provider Not In, PhD [address] [phone] Social History Tobacco Use Types Packs/Day Years [...] on file documented as of this encounter Results * CT Abdomen/Pelvis Outside (No Interpretation) (03/22/2021 12:00 AM EDT) Narrative SYSTEMGENERATED, DOCUMENTATION - 03/26/2021 4:53 PM EDT This study is for PACS storage only and not for interpretation. us Provider Not In System PhD IMG OUTSIDE IMAGING W /OUT INTERPRETATION Final Result documented in this encounter Visit Diagnoses Not on filedocumented [...] documented as of this encounter Care Teams Court Commissioner Relationship Specialty Start Date End Date Jessy Dwyer NP PCP - General Family Medicine 11/09/18 06/21/24 Jessy Dwyer NP [address] [place] [phone] PCP - General Nurse Practitioner 06/22/24 Rachel Mueller RN [address] [place] [address] [email or web address] PHCM Skein Spooler 11/23/20 04/19/22 Jos Virk MD [address] [place] [phone] Insurance Assigned Provider 01/02/21 04/03/21 Lyn Olvera MD [address] [place] [address] [email or web address] Insurance Assigned Provider 04/03/21 06/05/21 Trae Pederson MD [address] [place] [phone] Insurance Assigned Provider 06/05/21 11/28/21 Rachel Mueller RN [address] [place] [address] [email or web address] PHCM Skein Spooler 11/23/20 08/10/22 Trae Anthony NP [address] [place] [phone] Nurse Practitioner 01/16/25 documented as of this encounter Additional Source Comments The information contained in this document represents components of the legal health record. It is not the complete legal health record.[facility]
--- OUTSIDE RECORDS SUMMARY | 2025-08-22 12:46 | XMS_ITS | Encounter Summary ---
Author Organization [facility] Address [address] [place] [address] [place] [address] Phone Care Team Providers Care Invoice Clerk Name Role Phone Jessy Dwyer DIETARY DIRECTOR Primary Care Provider [phone] Kavya Canchola MD Unavailable Henry Lincoln MD, MPH Unavailable Rachel Mueller RN Unavailable Jos Virk MD Unavailable [phone] Arianna Chu RUBY ON RAILS CONSULTANT Unavailable [email or web address] Lyn Olvera MD Unavailable + Trae Pederson MD Unavailable [phone] Rachel Mueller RN Unavailable Jessy Dwyer DIETARY DIRECTOR Primary Care Provider [phone] Trae Anthony NP Unavailable Encounter Details Date Type Department Care Team (Late st Contact Info) Description 10/19/2020 Procedure Pass [facility] Admitting Dept Virtual Department [address] [place] [address] Social History Tobacco Use Types Packs/Day Years Used Date Smoking Tobacco: Former Cigarettes Q uit: 2017 Smokeless Tobacco: Never Alcohol Use Standard Drinks/Week [...] documented as of this encounter Care Teams Invoice Clerk Relationship Specialty Start Date End Date Jessy Dwyer DIETARY DIRECTOR PCP - General Family Medicine 11/09/18 06/21/24 Jessy Dwyer NP [address] [place] [address] PCP - General Nurse Practitioner 06/22/24 Kavya Canchola MD [address] [place] [address] [email or web address] Insurance Assigned Provider 10/03/20 10/31/20 Henry Lincoln MD, MPH [address] [place] [address] [email or web address] Insurance Assigned Provider 10/31/20 01/02/21 Rachel Mueller RN [address] [place] [address] PHCM Events Specialist 11/23/20 04/19/22 Jos Virk MD [address] [place] [address] [email or web address] Insurance Assigned Provider 01/02/21 04/03/21 Arianna Chu LCSW [address] [place] [address] [email or web address] Administrator 02/18/21 02/18/21 Lyn Olvera MD [address] [place] [address] [email or web address] Insurance Assigned Provider 04/03/21 06/05/21 Trae Pederson MD [address] [place] [address] [email or web address] Insurance Assigned Provider 06/05/21 11/28/21 Rachel Mueller RN [address] [place] [address] [email or web address] PHCM Events Specialist 11/23/20 08/10/22 Trae Anthony NP [address] [place] [phone] Nurse Practitioner 01/16/25 documented as of this encounter Additional Source Comments The information contained in this document represents components of the legal health record. It is not the complete legal health record.[facility]
--- OUTSIDE RECORDS SUMMARY | 2025-08-22 12:46 | XMS_ITS | Encounter Summary ---
Author Organization [facility] Address [address] [facility] [address] [place] [address] Phone Care Team Providers Care Floor Steward/Stewardess Name Role Phone Jessy Dwyer SALES ADVISOR Primary Care Provider Jessy Dwyer SALES ADVISOR Primary Care Provider Trae Anthony SALES ADVISOR Unavailable Encounter Details Date Type Department Care Team (Late st Contact Info) Description 04/19/2023 Procedure Pass [facility], Ct Scan - [address] [address] Social History Tobacco Use Types Packs/Day Years Used Date Smoking Tobacco: Former Cigarettes 2 20 1 5 - 2014 Smokeless Tobacco: Never Alcohol Use Standard Drinks/Week Comments Yes 0 (1 standard drink = 0.6 oz pur e alcohol) 3 drinks per month at most Education Answer Date Recorded Are you interested in more education? Not on paige e 01/20/2023 Are you concerned about learning? Not on file 01/20/2023 No 01/20/2023 No 01/20/2023 Digital Access Answer Date Recorded No 02/21/2023 No 02/21/2023 Reliable internet access at home? Not on file 02/21/2023 Device with a working camera? Not on file Sex and Gender Information Value Date Recorded [...] Infection Onset Date Last Indicated Resolved Time MRSA 12/08/2021 12/08/2021 12/08/2023 1:23 AM EDT 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 11/25/2024 Assessment Noted Time PHQ-9 Depression Total Score: 16 021 12:27 PM EDT PHQ-2 Depression Total Score: 4 02/19/20 21 12:27 PM EDT documented as of this encounter Care Teams Floor Steward/Stewardess Relationship Specialty Start Date End Date Jessy Dwyer NP PCP - General Family Medicine 11/09/18 06/21/24 Jessy Dwyer NP [address] [place] [address] PCP - General Nurse Practitioner 06/22/24 Trae Anthony NP [address] [place] [address] Nurse Practitioner 01/16/25 documented as of this encounter Additional Source Comments The information contained in this document represents components of the legal health record. It is not the complete legal health record.[facility]
--- OUTSIDE RECORDS SUMMARY | 2025-08-22 12:46 | XMS_ITS | Encounter Summary ---
Author Organization [facility] Address [address] [place] [address] [place] [address] Phone Care Team Providers Care Car Dumper Operator Helper Name Role Phone Jessy Dwyer AIRPLANE INSPECTOR Primary Care Provider Rachel Mueller RN Unavailable Trae Pederson MD Unavailable [phone] Rachel Mueller RN Unavailable Jessy Dwyer AIRPLANE INSPECTOR Primary Care Provider Trae Anthony NP Unavailable Encounter Details Date Type Department Care Team (Late st Contact Info) Description 06/21/2021 Procedure Pass [facility], [address] [address] Social History Tobacco Use Types Packs/Day Years [...] documented as of this encounter Care Teams Car Dumper Operator Helper Relationship Specialty Start Date End Date Jessy Dwyer NP PCP - General Family Medicine 11/09/18 06/21/24 Jessy Dwyer NP [address] [place] [address] PCP - General Nurse Practitioner 06/22/24 Rachel Mueller RN [address] [place] [address] PHC Mechanical Engineering Lecturer 11/23/20 04/19/22 Trae Pederson MD [address] [place] [phone] Insurance Assigned Provider 06/05/21 11/28/21 Rachel Mueller RN [address] [place] [address] PHC Mechanical Engineering Lecturer 11/23/20 08/10/22 Trae Anthony NP [address] [place] [phone] Nurse Practitioner 01/16/25 documented as of this encounter Additional Source Comments The information contained in this document represents components of the legal health record. It is not the complete legal health record.[facility]
--- OUTSIDE RECORDS SUMMARY | 2025-08-22 12:46 | XMS_ITS | Encounter Summary ---
Author Organization [facility] Address [address] [facility] [address] [place] [address] Phone Care Team Providers Care Puff Iron Operator Name Role Phone Jessy Dwyer UNDERGRADUATE ADVISOR Primary Care Provider Jessy Dwyer UNDERGRADUATE ADVISOR Primary Care Provider Trae Anthony UNDERGRADUATE ADVISOR Unavailable Encounter Details Date Type Department Care Team (Late st Contact Info) Description 06/19/2024 Procedure Pass [facility], Ct Scan - [address] [address] Social History Tobacco Use Types Packs/Day Years Used Date Smoking Tobacco: Former Cigarettes 2 20 1 5 - 2015 Smokeless Tobacco: Never Alcohol Use Standard Drinks/Week Comments Not Currently 0 (1 standard drink = 0.6 oz [...] with a working camera? Not on file Intimate Partner Violence Answer Date R ecorded Are you denied basic needs s uch as food, clothing, or medical care? No 06/19/2024 In the past 12 months have y ou been in a relationship with a person who hurts, threatens, or tries to control you? No 06/19/2024 Are you denied basic needs s uch as food, clothing, or medical care? No 06/19/2024 In the past 12 months have y ou been in a relationship with a person who hurts, threatens, or tries to control you? No 06/19/2024 Sex and Gender Information Value Date Recorded Sex Assigned at Male 11/14/2017 3:00 PM EST Legal Sex Male 2:51 PM EST Gender Identity Male 11/14/2017 3:00 PM EST Sexual Orientation Straight 11/14/2017 3: 00 PM EST Occupation Industry Job Start Date Job End Date On disability Not on file Not on file Not on file documented as of this encounter Functional Status * Calculated C-SSRS Risk Score (Lifetime/Recent) Answer Date of Assessment Author No Risk Indicated 06/19/2024 9:55 AM EDT Sindy Yanez RN * [place] Suicide Severity Rating Scale (Screener/Recent Self-Report) Question Answer Date of Assessment Author 1. Wish to be (Past 1 Month) No 024 9:55 AM EDT Sindy Alex, RN 2. Non-Specific Active Suici thom Thoughts (Past 1 Month) No 06/19/2024 9:55 AM Sindy Stewart, RN 6. Suicidal Behavior (Lifetime) No 4 9:55 AM EDT Sindy Alex, RN documented as of this encounter Plan of Treatment Not on file documented as of this encounter Visit Diagnoses Not on filedocumented in this encounter Additional Health Concerns Infection Onset Date Last Indicated Resolved Time 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 11/25/2024 Assessment Noted Time PHQ-9 Depression Total Score: 16 021 12:27 PM EDT PHQ-2 Depression Total Score: 4 02/19/20 21 12:27 PM EDT documented as of this encounter Care Teams Puff Iron Operator Relationship Specialty Start Date End Date Jessy Dwyer NP PCP - General Family Medicine 11/09/18 06/21/24 Jessy Dwyer NP [address] [place] [address] PCP - General Nurse Practitioner 06/22/24 Trae Anthony NP [address] [place] [address] Nurse Practitioner 01/16/25 documented as of this encounter Additional Source Comments The information contained in this document represents components of the legal health record. It is not the complete legal health record.[facility]
--- OUTSIDE RECORDS SUMMARY | 2025-08-22 12:46 | XMS_ITS | Encounter Summary ---
Author Organization [facility] Address [address] [place] [address] [place] [address] Phone Care Team Providers Care Architectural Wood Model Maker Name Role Phone Jessy Dwyer TUCK POINTER Primary Care Provider Rachel Mueller RN Unavailable Trae Pederson MD Unavailable [phone] Rachel Mueller RN Unavailable Jessy Dwyer TUCK POINTER Primary Care Provider Trae Anthony NP Unavailable Encounter Details Date Type Department Care Team (Late st Contact Info) Description 07/23/2021 Procedure Pass [place] Admitting Dept - Virtual Department [address] [place] [address] Social History Tobacco Use Types Packs/Day Years Used Date Smoking Tobacco: Former Cigarettes 2014 Smokeless Tobacco: Never Alcohol Use Standard [...] documented as of this encounter Care Teams Architectural Wood Model Maker Relationship Specialty Start Date End Date Jessy Dwyer NP PCP - General Family Medicine 11/09/18 06/21/24 Jessy Dwyer NP [address] [place] [address] PCP - General Nurse Practitioner 06/22/24 Rachel Mueller RN [address] [place] [phone] PHC [employer] 11/23/20 04/19/22 Trae Pederson MD [address] [place] [phone] Insurance Assigned Provider 06/05/21 11/28/21 Rachel Mueller RN [address] [place] [phone] [employer]C [employer] 11/23/20 08/10/22 Trae Anthony, TRICE [address] [place] [phone] Nurse Practitioner 01/16/25 documented as of this encounter Additional Source Comments The information contained in this document represents components of the legal health record. It is not the complete legal health record.[facility]
--- OUTSIDE RECORDS SUMMARY | 2025-08-22 12:46 | XMS_ITS | Encounter Summary ---
Author Organization [facility] Address [address] [facility] [address] [place] [address] Phone Care Team Providers Care Office Manager Receptionist Name Role Phone Jessy Dwyer SERVICES MGR Primary Care Provider Jessy Dwyer SERVICES MGR Primary Care Provider Trae Anthony SERVICES MGR Unavailable Encounter Details Date Type Department Care Team (Late st Contact Info) Description 06/19/2024 Procedure Pass [facility], Ct Scan - [address] [address] Social History Tobacco Use Types Packs/Day Years [...] 9:55 AM EDT Sindy Yanez RN * [place] Suicide Severity Rating Scale (Screener/Recent Self-Report) Question [...] documented as of this encounter Care Teams Office Manager Receptionist Relationship Specialty Start Date End Date Jessy Dwyer NP PCP - General Family Medicine 11/09/18 06/21/24 Jessy Dwyer NP [address] [place] [address] PCP - General Nurse Practitioner 06/22/24 Trae Anthony NP [address] [place] [address] Nurse Practitioner 01/16/25 documented as of this encounter Additional Source Comments The information contained in this document represents components of the legal health record. It is not the complete legal health record.[facility]
--- OUTSIDE RECORDS SUMMARY | 2025-08-22 12:46 | XMS_ITS | Encounter Summary ---
Author Organization [facility] Address [address] [facility] [address] [place] [address] Phone Care Team Providers Care Operations Engineer Name Role Phone Jessy Dwyer BREAD SLICER MACHINE Primary Care Provider [phone] Jessy Dwyer BREAD SLICER MACHINE Primary Care Provider Trae Anthony BREAD SLICER MACHINE Unavailable Encounter Details Date Type Department Care Team (Late st Contact Info) Description 08/22/2023 Procedure Pass [facility] Admitting Dept Virtual Department [address] [place] [address] Social History Tobacco Use Types Packs/Day Years [...] documented as of this encounter Care Teams Operations Engineer Relationship Specialty Start Date End Date Jessy Dwyer NP PCP - General Family Medicine 11/09/18 06/21/24 Jessy Dwyer NP [address] [place] [address] PCP - General Nurse Practitioner 06/22/24 Trae Anthony NP [address] [place] [phone] Nurse Practitioner 01/16/25 documented as of this encounter Additional Source Comments The information contained in this document represents components of the legal health record. It is not the complete legal health record.[facility]
--- OUTSIDE RECORDS SUMMARY | 2025-08-22 12:46 | XMS_ITS | Encounter Summary ---
Author Organization [facility] Address [address] [facility] [address] [place] [address] Phone Care Team Providers Care Stock Parts Fabricator Name Role Phone Jessy Dwyer COMB WINDER Primary Care Provider Jessy Dwyer COMB WINDER Primary Care Provider Trae Anthony COMB WINDER Unavailable Encounter Details Date Type Department Care Team (Late st Contact Info) Description 04/18/2023 Procedure Pass [facility], Ct Scan - [address] [address] Social History Tobacco Use Types Packs/Day Years [...] Date of Assessment Author No Risk Indicated 04/18/2023 6:16 PM EDT Emely Gilmore RN * [place] Suicide Severity Rating Scale (Screener/Recent Self-Report) Question Answer Date of Assessment Author 1. Wish to be (Past 1 Month) No 023 6:16 PM EDT Emely Gilmore RN 2. Non-Specific Active Suici thom Thoughts (Past 1 Month) No 04/18/2023 6:16 PM EDT Emely Gilmore RN 6. Suicidal Behavior (Lifetime) No 6:16 PM EDT Emely Gilmore RN documented as of this encounter Plan [...] documented as of this encounter Care Teams Stock Parts Fabricator Relationship Specialty Start Date End Date Jessy Dwyer NP PCP - General Family Medicine 11/09/18 06/21/24 Jessy Dwyer NP [address] [place] [address] PCP - General Nurse Practitioner 06/22/24 Trae Anthony NP [address] [place] [phone] Nurse Practitioner 01/16/25 documented as of this encounter Additional Source Comments The information contained in this document represents components of the legal health record. It is not the complete legal health record.[facility]
--- OUTSIDE RECORDS SUMMARY | 2025-08-22 12:46 | XMS_ITS | Encounter Summary ---
Author Organization [facility] Address [address] [facility] [address] [place] [address] Phone Care Team Providers Care Consumer Lending Manager Name Role Phone Unknown, Unknown Primary Care Provider Clovis Wynne MD Unavailable Unknown, Unknown Primary Care Provider Jessy Quintero PETROLEUM PRODUCTION ENGINEER Primary Care Provider Henry Lincoln MD, MPH Unavailable Trae Reese MD Unavailable [phone] Kavya Canchola MD Unavailable Henry Lincoln MD, MPH Unavailable Rachel Mueller RN Unavailable Jos Virk MD Unavailable Arianna Chu FUNERAL LOCATION MANAGER Unavailable grover Lyn Olvera MD Unavailable + Trae Pederson MD Unavailable [phone] Rachel Mueller RN Unavailable Jessy Dwyer PETROLEUM PRODUCTION ENGINEER Primary Care Provider Trae Anthony PETROLEUM PRODUCTION ENGINEER Unavailable Encounter Details Date Type Department Care Team (Late st Contact Info) Description 09/14/2018 Procedure Pass [facility], Mri - [address] [address] Social History Tobacco Use Types Packs/Day Years Used Date Smoking Tobacco: Former Smokeless Tobacco: Never Alcohol Use Standard Drinks/Week Comments No 0 (1 standard drink = 0.6 oz pur e alcohol) Sex and Gender Information Value Date Recorded Sex Assigned at Male 11/14/2017 3:00 PM EST Legal Sex Male 2:51 PM EST Gender Identity Male 11/14/2017 3:00 PM EST Sexual Orientation Straight 11/14/2017 3 :00 PM EST documented as of this encounter [...] documented as of this encounter Care Teams Consumer Lending Manager Relationship Specialty Start Date End Date Unknown, Unknown, PCP - General 08/09/18 10/24/18 Unknown, Unknown, PCP - General 10/25/18 11/08/18 Jessy Dwyer PETROLEUM PRODUCTION ENGINEER [address] [place] [address] PCP - General Family Medicine 11/09/18 06/21/24 Jessy Dwyer PETROLEUM PRODUCTION ENGINEER [address] [place] [address] PCP - General Nurse Practitioner 06/22/24 Clovis Montiel MD [address] [place] [phone] Insurance Assigned Provider 08/26/18 08/31/19 Henry Lincoln MD, MPH [address] [place] [address] Insurance Assigned Provider 08/31/19 08/30/20 Trae Reese MD [address] [place] [address] [email or web address] Insurance Assigned Provider 08/30/20 10/03/20 Kavya Canchola MD [address] [place] [address] Insurance Assigned Provider 10/03/20 10/31/20 Henry Lincoln MD, MPH [address] [place] [address] Insurance Assigned Provider 10/31/20 01/02/21 Rachel Mueller, FLORENTINO [address] [place] [address] [facility] Endodontist 11/23/20 04/19/22 Jos Virk MD [address] [place] [address] Insurance Assigned Provider 01/02/21 04/03/21 Arianna Chu, FUNERAL LOCATION MANAGER [address] [place] [address] Restaurant Lead 02/18/21 02/18/21 Lyn Olvera MD [address] [place] [address] [email or web address] Insurance Assigned Provider 04/03/21 06/05/21 Trae Pederson MD [address] [place] [address] [email or web address] Insurance Assigned Provider 06/05/21 11/28/21 Rachel Mueller RN [address] [place] [address] [email or web address] PHCM Endodontist 11/23/20 08/10/22 Trae Anthony NP [address] [place] [phone] Nurse Practitioner 01/16/25 documented as of this encounter Additional Source Comments The information contained in this document represents components of the legal health record. It is not the complete legal health record.[facility]
--- OUTSIDE RECORDS SUMMARY | 2025-08-22 12:46 | XMS_ITS | Encounter Summary ---
Author Organization [facility] Address [address] [facility] [address] [place] [address] Phone Care Team Providers Care Picture Booker Name Role Phone Jessy Dwyer HORSESHOER Primary Care Provider [phone] Trae Anthony HORSESHOER Unavailable Encounter Details Date Type Department Care Team (Late st Contact Info) Description 11/25/2024 Procedure Pass [facility], Ct Scan - [facility] [address] [place] [address] Social History Tobacco Use Types Packs/Day Years Used Date Smoking Tobacco: Former Cigarettes 2 2014 Smokeless Tobacco: Never Alcohol Use Standard Drinks/Week Comments Not Currently 0 (1 standard drink = 0.6 oz pur e alcohol) 3 drinks per month at most Education Answer Date Recorded Are you interested in more education? Not on paige e 01/20/2023 Are you concerned about learning? Not on file 01/20/2023 No 01/20/2023 No 01/20/2023 Food Answer Date Recorded Within the past 6 months we worried whether our food would run out before we got money to buy more. Unable to assess 025 Within the past 6 months the food we bought just didn't last and we didn't have enough money to get more. Unable to assess 11/25/2024 Residential Stability Answer Date Recor ded What is your housing situation today? Unable to assess 11/25/2024 How many times have you moved in the past 12 mon ths? Unable to assess 11/25/2024 Paying for Meds Answer Date Recorded Do you have trouble paying for medicines? Unable to assess 11/25/2024 Paying Utility Bills Answer Date Record ed Do you have trouble paying y our heating or electricity bill? Unable to assess 11/25/2024 Transportation Answer Date Recorded Has the lack of transportati on kept you from medical appointments or from getting medications? Unable to assess 11/25/2024 Digital Access Answer Date Recorded No 11/25/2024 No 11/25/2024 Do you have reliable internet access at home? Un able to assess 11/25/2024 Do you have a device (e.g., phone, tablet, computer) with a working camera? Unable to assess 11/25/2024 Intimate Partner Violence Answer Date R ecorded Are you denied basic needs s uch as food, clothing, or medical care? No 11/27/2024 In the past 12 months have y ou been in a relationship with a person who hurts, threatens, or tries to control you? No 11/27/2024 Are you denied basic needs s uch as food, clothing, or medical care? No 11/27/2024 In the past 12 months have y ou been in a relationship with a person who hurts, threatens, or tries to control you? No 11/27/2024 Sex and Gender Information Value Date Recorded [...] Score (Lifetime/Recent) Answer Date of Assessment Author High Risk 11/25/2024 3:51 PM Alan Ashley RN * [place] Suicide Severity Rating Scale (Screener/Recent Self-Report) Question Answer Date of Assessment Author 1. Wish to be (Past 1 Month) Yes 025 3:51 PM Alan Ashley RN 2. Non-Specific Active Suici thom Thoughts (Past 1 Month) Yes 11/25/2024 3:51 PM Dusty Ashley RN 3. Active Suicidal Ideation with any Methods (Not Plan) Without Intent to Act (Past 1 Month) Yes 11/25/2024 3:51 PM Alan Ornelas RN 4. Active Suicidal Ideation with Some Intent to Act, Without Specific Plan (Past 1 Month) Yes 11/25/2024 3:51 PM Alan Ornelas RN 5. Active Suicidal Ideation with Specific Plan and Intent (Past 1 Month) Yes 11/25/2024 3:51 PM Alan Ashley RN 6. Suicidal Behavior (Lifetime) Yes 3:51 PM Alan Ashley RN 6. Suicidal Behavior (3 Months) Yes 3:51 PM Alan Ashley RN documented as of this encounter Plan [...] documented as of this encounter Care Teams Picture Booker Relationship Specialty Start Date End Date Jessy Dwyer NP [address] [place] [address] PCP - General Nurse Practitioner 06/22/24 Trae Anthony NP [address] [place] [phone] Nurse Practitioner 01/16/25 documented as of this encounter Additional Source Comments The information contained in this document represents components of the legal health record. It is not the complete legal health record.[facility]
--- OUTSIDE RECORDS SUMMARY | 2025-08-22 12:46 | XMS_ITS | Encounter Summary ---
Author Organization [facility] Address [address] [facility] [address] [place] [address] Phone Care Team Providers Care Motor Equipment Sergeant Name Role Phone Jessy Dwyer MANAGER MEDICAL AFFAIRS Primary Care Provider Jessy Dwyer MANAGER MEDICAL AFFAIRS Primary Care Provider Trae Anthony MANAGER MEDICAL AFFAIRS Unavailable Encounter Details Date Type Department Care Team (Late st Contact Info) Description 06/19/2024 Procedure Pass [facility], Ct Scan - [address] [address] Social History Tobacco Use Types Packs/Day Years [...] 9:55 AM EDT Sindy Yanez RN * [place] Suicide Severity Rating Scale (Screener/Recent Self-Report) Question [...] documented as of this encounter Care Teams Motor Equipment Sergeant Relationship Specialty Start Date End Date Jessy Dwyer NP PCP - General Family Medicine 11/09/18 06/21/24 Jessy Dwyer NP [address] [place] [address] PCP - General Nurse Practitioner 06/22/24 Trae Anthony NP [address] [place] [address] Nurse Practitioner 01/16/25 documented as of this encounter Additional Source Comments The information contained in this document represents components of the legal health record. It is not the complete legal health record.[facility]
--- OUTSIDE RECORDS SUMMARY | 2025-08-22 12:46 | XMS_ITS | Encounter Summary ---
Author Organization [facility] Address [address] [facility] [address] [place] [phone] Phone Care Team Providers Care Functional Tester Name Role Phone Jessy Dwyer BURR FILER Primary Care Provider Jessy Dwyer BURR FILER Primary Care Provider Trae Anthony BURR FILER Unavailable Encounter Details Date Type Department Care Team (Late st Contact Info) Description 04/19/2023 Procedure Pass [facility], Ct Scan - [address] [address] Social History Tobacco Use Types Packs/Day Years [...] documented as of this encounter Care Teams Functional Tester Relationship Specialty Start Date End Date Jessy Dwyer NP PCP - General Family Medicine 11/09/18 06/21/24 Jessy Dwyer NP [address] [place] [address] PCP - General Nurse Practitioner 06/22/24 Trae Anthony NP [address] [place] [phone] Nurse Practitioner 01/16/25 documented as of this encounter Additional Source Comments The information contained in this document represents components of the legal health record. It is not the complete legal health record.[facility]
--- OUTSIDE RECORDS SUMMARY | 2025-08-22 12:46 | XMS_ITS | Encounter Summary ---
Author Organization [facility] Address [address] [place] [address] [place] [address] Phone Care Team Providers Care Authorization Coordinator Name Role Phone Jessy Dwyer THEATRICAL TROUPER Primary Care Provider Rachel Mueller RN Unavailable Rachel Mueller RN Unavailable Jessy Dwyer THEATRICAL TROUPER Primary Care Provider Trae Anthony THEATRICAL TROUPER Unavailable Encounter Details Date Type Department Care Team (Late st Contact Info) Description 01/20/2022 Procedure Pass [place] Admitting Dept - Virtual Department [address] [place] [address] Social History Tobacco Use Types Packs/Day Years Used Date Smoking Tobacco: Former Cigarettes 2 - 2014 Smokeless Tobacco: Never Alcohol Use Standard Drinks/Week Comments Yes 0 (1 standard drink = 0.6 oz pur e alcohol) 3 drinks per month at most Sex and Gender Information Value Date Recorded [...] documented as of this encounter Care Teams Authorization Coordinator Relationship Specialty Start Date End Date Jessy Dwyer THEATRICAL TROUPER PCP - General Family Medicine 11/09/18 06/21/24 Jessy Dwyer NP [address] [place] [address] PCP - General Nurse Practitioner 06/22/24 Rachel Mueller RN [address] [place] [address] [facility] Head Rigger 11/23/20 04/19/22 Rachel Mueller RN [address] [place] [address] [facility] Head Rigger 11/23/20 08/10/22 Trae Anthony, TRICE [address] [place] [phone] Nurse Practitioner 01/16/25 documented as of this encounter Additional Source Comments The information contained in this document represents components of the legal health record. It is not the complete legal health record.[facility]
--- OUTSIDE RECORDS SUMMARY | 2025-08-22 12:46 | XMS_ITS | Encounter Summary ---
Author Organization [facility] Address [address] [place] [address] [place] [address] Phone Care Team Providers Care Boat Tester Name Role Phone Aaliyah Mantilla BOILERHOUSE MECHANIC Primary Care Provider Unknown, Unknown Primary Care Provider Luis hartmann Unknown, Unknown MD Primary Care Provider UnaClovis James MD Unavailable Unknown, Unknown Primary Care Provider Jessy Quintero BOILERHOUSE MECHANIC Primary Care Provider Henry Lincoln MD, MPH Unavailable Trae Reese MD Unavailable [phone] Kavya Canchola MD Unavailable [phone] Henry Lincoln MD, MPH Unavailable [phone] Rachel Mueller RN Unavailable Jos Virk MD Unavailable [phone] Arianna Chu SENIOR COMPENSATION ANALYST Unavailable grover Lyn Olvera MD Unavailable + Trae Pederson MD Unavailable [phone] Rachel Mueller RN Unavailable Jessy Dwyer BOILERHOUSE MECHANIC Primary Care Provider Trae Anthony BOILERHOUSE MECHANIC Unavailable Encounter Details Date Type Department Care Team (Late st Contact Info) Description 11/14/2017 Procedure Pass [facility], Ct Scan - [address] [address] Social History Tobacco Use Types Packs/Day Years [...] documented as of this encounter Care Teams Boat Tester Relationship Specialty Start Date End Date Aaliyah Mantilla NP PCP - General Family Medicine 11/14/17 12/11/17 Unknown, Unknown, PCP - General 12/12/17 01/15/18 Unknown, Unknown, PCP - General 08/09/18 10/24/18 Unknown, Unknown, PCP - General 10/25/18 11/08/18 Jessy Dwyer NP [address] [place] [address] PCP - General Family Medicine 11/09/18 06/21/24 Jessy Dwyer NP [address] [place] [address] PCP - General Nurse Practitioner 06/22/24 Clovis Montiel MD [address] [place] [address] [email or web address] Insurance Assigned Provider 08/26/18 08/31/19 Henry Lincoln MD, MPH [address] [place] [address] [email or web address] Insurance Assigned Provider 08/31/19 08/30/20 Trae Reese MD [address] [place] [address] [email or web address] Insurance Assigned Provider 08/30/20 10/03/20 Kavya Canchola MD [address] [place] [address] [email or web address] Insurance Assigned Provider 10/03/20 10/31/20 Henry Lincoln MD, MPH [address] [place] [phone] [email or web address] Insurance Assigned Provider 10/31/20 01/02/21 Rachel Mueller RN [address] [place] [address] [email or web address] PHC Stitch Bonding Machine Tender Helper 11/23/20 04/19/22 Jos Virk MD [address] [place] [phone] [email or web address] Insurance Assigned Provider 01/02/21 04/03/21 Arianna Chu LCSW [address] [place] [phone] [email or web address] Brake Liner 02/18/21 02/18/21 Lyn Olvera MD [address] [place] [address] [email or web address] Insurance Assigned Provider 04/03/21 06/05/21 Trae Pederson MD [address] [place] [address] [email or web address] Insurance Assigned Provider 06/05/21 11/28/21 Rachel Mueller RN [address] [place] [address] [email or web address] PHCM Stitch Bonding Machine Tender Helper 11/23/20 08/10/22 Trae Anthony NP [address] [place] [phone] Nurse Practitioner 01/16/25 documented as of this encounter Additional Source Comments The information contained in this document represents components of the legal health record. It is not the complete legal health record.[facility]
--- OUTSIDE RECORDS SUMMARY | 2025-08-22 12:46 | XMS_ITS | Encounter Summary ---
Author Organization [facility] Address [address] [place] [address] [place] [address] Phone Care Team Providers Care Striker Out Name Role Phone Jessy Dwyer CHEF ASSISTANT Primary Care Provider [phone] Rachel Mueller RN Unavailable Jos Virk MD Unavailable [phone] Lyn Olvera MD Unavailable + Trae Pederson MD Unavailable [phone] Rachel Mueller RN Unavailable Jessy Dwyer CHEF ASSISTANT Primary Care Provider Trae Anthony NP Unavailable Encounter Details Date Type Department Care Team (Late st Contact Info) Description 03/24/2021 Procedure Pass [place] Admitting Dept - Virtual Department [address] [place] [address] Social History Tobacco Use Types Packs/Day Years Used Date Smoking Tobacco: Former Cigarettes Q uit: 2014 Smokeless Tobacco: Never Alcohol Use Standard [...] documented as of this encounter Care Teams Striker Out Relationship Specialty Start Date End Date Jessy Dwyer NP PCP - General Family Medicine 11/09/18 06/21/24 Jessy Dwyer NP [address] [place] [address] PCP - General Nurse Practitioner 06/22/24 Rachel Mueller RN [address] [place] [phone] PHCM Pipe And Boiler Covers Supervisor 11/23/20 04/19/22 Jos Virk MD [address] [place] [phone] Insurance Assigned Provider 01/02/21 04/03/21 Lyn Olvera MD [address] [place] [address] [email or web address] Insurance Assigned Provider 04/03/21 06/05/21 Trae Pederson MD [address] [place] [phone] [email or web address] Insurance Assigned Provider 06/05/21 11/28/21 Rachel Mueller RN [address] [place] [address] [email or web address] PHCM Pipe And Boiler Covers Supervisor 11/23/20 08/10/22 Trae Anthony NP [address] [place] [phone] Nurse Practitioner 01/16/25 documented as of this encounter Additional Source Comments The information contained in this document represents components of the legal health record. It is not the complete legal health record.[facility]
--- OUTSIDE RECORDS SUMMARY | 2025-08-22 12:46 | XMS_ITS | Encounter Summary ---
Author Organization [facility] Address [address] [place] [address] [place] [phone] Phone Care Team Providers Care Sifter Operator Name Role Phone Jessy Dwyer NP Primary Care Provider [phone] Rachel Mueller RN Unavailable Jos Virk MD Unavailable [phone] Arianna Chu MARKETING SUPPORT COORDINATOR Unavailable [email or web address] Lyn Olvera MD Unavailable + Trae Pederson MD Unavailable [phone] Rachel Mueller RN Unavailable Jessy Dwyer DIRECTOR SUPPLY Primary Care Provider Trae Anthony NP Unavailable Encounter Details Date Type Department Care Team (Late st Contact Info) Description 02/16/2021 Procedure Pass [place] Admitting Dept - Virtual Department [address] [place] [address] Social History Tobacco Use Types Packs/Day Years Used Date Smoking Tobacco: Former Cigarettes Q uit: 2015 Smokeless Tobacco: Never Alcohol Use Standard Drinks/Week Comments Yes 6 (1 standard drink = 0.6 oz pur e alcohol) has cut back in the past week Sex and Gender Information Value Date Recorded [...] EDT 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 11/25/2024 Assessment Noted Time PHQ-2 Depression Total Score: 4 12/15/19 2:30 PM EDT documented as of this encounter Care Teams Sifter Operator Relationship Specialty Start Date End Date Jessy Dwyer NP PCP - General Family Medicine 11/09/18 06/21/24 Jessy Dwyer NP [address] [place] [address] PCP - General Nurse Practitioner 06/22/24 Rachel Mueller RN [address] [place] [address] PHCM Ip Litigation Paralegal 11/23/20 04/19/22 Jos Virk MD [address] [place] [address] Insurance Assigned Provider 01/02/21 04/03/21 Arianna Chu LCSW [address] [place] [address] Mice Raiser 02/18/21 02/18/21 Lyn Olvera MD [address] [place] [address] [email or web address] Insurance Assigned Provider 04/03/21 06/05/21 Trae Pederson MD [address] [place] [phone] [email or web address] Insurance Assigned Provider 06/05/21 11/28/21 Rachel Mueller RN [address] [place] [phone] [email or web address] PHC Ip Litigation Paralegal 11/23/20 08/10/22 Trae Anthony NP [address] [place] [phone] Nurse Practitioner 01/16/25 documented as of this encounter Additional Source Comments The information contained in this document represents components of the legal health record. It is not the complete legal health record.[facility]
--- OUTSIDE RECORDS SUMMARY | 2025-08-22 12:46 | XMS_ITS | Clinical Summary ---
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 contact: [phone] (9AM - 5PM Crista/[facility], Monday-Monday) * Full Code (Latest Code Status on File) Date Activated Date Inactivated Comments 12/13/2024 10:21 PM Question Answer Comments Code Status Confirmed With: Patient * Full Code Date Activated Date Inactivated Comments 11/27/2024 1:22 PM 12/13/2024 10:21 PM Question Answer Comments Code Status Confirmed With: Patient * Full Code Date Activated Date Inactivated Comments 03/24/2021 10:14 AM 11/27/2024 1:22 PM Question Answer Comments Code Status Confirmed With: Patient * Full Code Date Activated Date Inactivated Comments 03/23/2021 12:15 AM 03/24/2021 10:14 AM Question Answer Comments Code Status Confirmed With: Patient * Full Code Date Activated Date Inactivated Comments 02/16/2021 11:35 AM 03/23/2021 12:15 AM Question Answer Comments Code Status Confirmed With: Patient Healthcare Agents on File Name Relationship Healthcare Agent Relationshi p Communication Melba Ventura Other Other (no proxy form on paige e) Care Teams Foreign Clerk Relationship Specialty Start Date End Date Jessy Dwyer NP [address] [place] [address] PCP - General Nurse Practitioner 06/22/24 Dayana Anthony NP [address] [place] [address] Nurse Practitioner 01/16/25 Additional Source Comments The information contained in this document represents components of the legal health record. It is not the complete legal health record.[facility]
--- OUTSIDE RECORDS SUMMARY | 2025-08-22 12:46 | XMS_ITS | Encounter Summary ---
Author Organization [facility] Address [address] [facility] [address] [place] [address] Phone Care Team Providers Care Patient Ombudsperson Name Role Phone Clovis Montiel MD Unavailable Jessy Dwyer SENIOR IT PROJECT MANAGER Primary Care Provider Henry Lincoln MD, MPH Unavailable Trae Reese MD Unavailable [phone] Kavya Canchola MD Unavailable Henry Lincoln MD, MPH Unavailable Rachel Mueller RN Unavailable Jos Virk MD Unavailable Arianna Chu [facility] Unavailable grover Lyn Olvera MD Unavailable + Trae Pederson MD Unavailable [phone] Rachel Mueller RN Unavailable Jessy Dwyer SENIOR IT PROJECT MANAGER Primary Care Provider Trae Anthony SENIOR IT PROJECT MANAGER Unavailable Encounter Details Date Type Department Care Team (Late st Contact Info) Description 06/03/2019 Procedure Pass [facility], [address] [address] Social History Tobacco Use Types Packs/Day Years [...] documented as of this encounter Care Teams Patient Ombudsperson Relationship Specialty Start Date End Date Jessy Dwyer SENIOR IT PROJECT MANAGER [address] [place] [address] PCP - General Family Medicine 11/09/18 06/21/24 Jessy Dwyer SENIOR IT PROJECT MANAGER [address] [place] [address] PCP - General Nurse Practitioner 06/22/24 Clovis Montiel MD [address] [place] [address] [email or web address] Insurance Assigned Provider 08/26/18 08/31/19 Henry Lincoln MD, MPH [address] [place] [address] [email or web address] Insurance Assigned Provider 08/31/19 08/30/20 Trae Reese MD [address] [place] [address] [email or web address] Insurance Assigned Provider 08/30/20 10/03/20 Kavya Canchola MD [address] [place] [address] Insurance Assigned Provider 10/03/20 10/31/20 Henry Lincoln MD, MPH [address] [place] [phone] Insurance Assigned Provider 10/31/20 01/02/21 Rachel Mueller RN [address] [place] [address] [facility] Branch Mechanic 11/23/20 04/19/22 Jos Virk MD [address] [place] [address] Insurance Assigned Provider 01/02/21 04/03/21 Arianna Chu LCSW [address] [place] [address] [email or web address] Hub Cutter Apprentice 02/18/21 02/18/21 Lyn Olvera MD [address] [place] [address] [email or web address] Insurance Assigned Provider 04/03/21 06/05/21 Trae Pederson MD [address] [place], [place] [phone] Insurance Assigned Provider 06/05/21 11/28/21 Rachel Mueller RN [address] [place] [address] [email or web address] PHCM Branch Mechanic 11/23/20 08/10/22 Trae Anthony NP [address] [place] [address] Nurse Practitioner 01/16/25 documented as of this encounter Additional Source Comments The information contained in this document represents components of the legal health record. It is not the complete legal health record.[facility]
--- OUTSIDE RECORDS SUMMARY | 2025-08-22 12:46 | XMS_ITS | Encounter Summary ---
Author Organization [facility] Address [address] [place] [address] Phone Care Team Providers Care Bakery Machine Mechanic Name Role Phone Unknown, Unknown Primary Care Provider Clovis Wynne MD Unavailable Unknown, Unknown Primary Care Provider Jessy Quintero RN SOCIAL SERVICES Primary Care Provider Henry Lincoln MD, MPH Unavailable Trae Reese MD Unavailable [phone] Kavya Canchola MD Unavailable Henry Lincoln MD, MPH Unavailable Rachel Mueller RN Unavailable Jos Virk MD Unavailable [phone] Arianna Chu CARDIOVASCULAR TECHNOLOGIST Unavailable grover Lyn Olvera MD Unavailable + Trae Pederson MD Unavailable [phone] Rachel Mueller RN Unavailable Jessy Dwyer RN SOCIAL SERVICES Primary Care Provider Trae Anthony RN SOCIAL SERVICES Unavailable Reason for Referral * Consultation (Elective) - Closed Specialty Diagnoses / Procedures Referred By Contemily t Referred To Contact Cardiac Rehabilitation Diagnoses NSTEMI (non-ST elevated myocardial infarction) Zechariah Johnson MD [address] [place] [address] Phone: tel: fax: [facility] [address] [place] [address] Phone: tel: Referral ID Status Reason Start Date Expiration Date Visits Re quested Visits Authorized [id number] Closed 01/16/2018 01/16/2019 99 99 Encounter Details Date Type Department Care Team (Late st Contact Info) Description 01/16/2018 Transcribe Orders Virtual Department [address] [place] [address] Zechariah Johnson MD [address] [place] [address] NSTEMI (non-ST elevated myocardial infarction) (Primary Dx) Social History Tobacco Use Types Packs/Day Years [...] as of this encounter Plan of Treatment Scheduled Referrals Name Type Priority Associated Diagnoses Order Schedule Ambulatory referral to [facility] Cardiac Rehab Outpatient Referral Routine NSTEMI (non-ST elevated myocardial infarction) Ordered: 01/16/2018 documented as of this encounter Visit Diagnoses Diagnosis NSTEMI (non-ST elevated myocardial infarction)- Primary Acute myocardial infarction, subendocardial infarction, episode of care unspecified documented in this encounter Additional Health Concerns Infection Onset Date Last Indicated Resolved Time CoV-Risk 06/26/2020 06/27/2020 07/10/2020 1:24 AM EDT CoV-Presumed 12/07/2021 12/08/2021 12/29/2021 1:21 AM EDT MRSA 12/08/2021 12/08/2021 12/08/2023 1:23 AM EDT 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 11/25/2024 documented as of this encounter Care Teams Bakery Machine Mechanic Relationship Specialty Start Date End Date Unknown, Unknown, PCP - General 08/09/18 10/24/18 Unknown, Unknown, PCP - General 10/25/18 11/08/18 Jessy Dwyer, RN SOCIAL SERVICES [address] [place] [address] PCP - General Family Medicine 11/09/18 06/21/24 Jessy Dwyer, RN SOCIAL SERVICES [address] [place] [address] PCP - General Nurse Practitioner 06/22/24 Clovis Montiel MD [address] [place] [address] [email or web address] Insurance Assigned Provider 08/26/18 08/31/19 Henry Lincoln MD, MPH [address] [place] [phone] [email or web address] Insurance Assigned Provider 08/31/19 08/30/20 Trae Reese MD [address] [place] [address] [email or web address] Insurance Assigned Provider 08/30/20 10/03/20 Kavya Canchola MD [address] [place] [phone] Insurance Assigned Provider 10/03/20 10/31/20 Henry Lincoln MD, MPH [address] [place] [phone] Insurance Assigned Provider 10/31/20 01/02/21 Rachel Mueller RN [address] [place] [address] PHCM Tablet Repair 11/23/20 04/19/22 Jos Virk MD [address] [place] [phone] Insurance Assigned Provider 01/02/21 04/03/21 Arianna Chu [address] [address] [email or web address] Title I Coordinator 02/18/21 02/18/21 Lyn Olvera MD [address] [place] [address] [email or web address] Insurance Assigned Provider 04/03/21 06/05/21 Trae Pederson MD [address] [place] [phone] Insurance Assigned Provider 06/05/21 11/28/21 Rachel Mueller RN [address] [place] [address] PHC Tablet Repair 11/23/20 08/10/22 Trae Anthony NP [address] [place] [phone] Nurse Practitioner 01/16/25 documented as of this encounter Additional Source Comments The information contained in this document represents components of the legal health record. It is not the complete legal health record.[facility]
--- OUTSIDE RECORDS SUMMARY | 2025-08-22 12:46 | XMS_ITS | Encounter Summary ---
Author Organization [facility] Address [address] [place] [address] [place] [address] Phone Care Team Providers Care Sheet Tester Name Role Phone Clovis Montiel MD Unavailable Jessy Dwyer LABVIEW PROGRAMMER Primary Care Provider Henry Lincoln MD, MPH Unavailable Trae Reese MD Unavailable [phone] Kavya Canchola MD Unavailable Henry Lincoln MD, MPH Unavailable Rachel Mueller RN Unavailable Jos Virk MD Unavailable Arianna Chu [facility] Unavailable grover Lyn Olvera MD Unavailable + Trae Pederson MD Unavailable [phone] Rachel Mueller RN Unavailable Jessy Dwyer LABVIEW PROGRAMMER Primary Care Provider Trae Anthony LABVIEW PROGRAMMER Unavailable Encounter Details Date Type Department Care Team (Late st Contact Info) Description 12/28/2018 Procedure Pass [place] Admitting Dept - Virtual Department [address] [place] [address] Social History Tobacco Use Types [...] documented as of this encounter Care Teams Sheet Tester Relationship Specialty Start Date End Date Jessy Dwyer LABVIEW PROGRAMMER [address] [place] [address] PCP - General Family Medicine 11/09/18 06/21/24 Jessy Dwyer LABVIEW PROGRAMMER [address] [place] [address] PCP - General Nurse Practitioner 06/22/24 Clovis Montiel MD [address] [place] [address] [email or web address] Insurance Assigned Provider 08/26/18 08/31/19 Henry Lincoln MD, MPH [address] [place] [address] [email or web address] Insurance Assigned Provider 08/31/19 08/30/20 Trae Reese MD [address] [place] [address] [email or web address] Insurance Assigned Provider 08/30/20 10/03/20 Kavya Canchola MD [address] [place] [address] Insurance Assigned Provider 10/03/20 10/31/20 Henry Lincoln MD, MPH [address] [place] [address] Insurance Assigned Provider 10/31/20 01/02/21 Rachel Mueller RN [address] [place] [address] [facility] Real Estate Transaction Manager 11/23/20 04/19/22 Jos Virk MD [address] [place] [phone] Insurance Assigned Provider 01/02/21 04/03/21 Arianna Chu, ROLLER [address] [place] [address] [email or web address] Printing Film Stripper 02/18/21 02/18/21 Lyn Olvera MD [address] [place] [address] [email or web address] Insurance Assigned Provider 04/03/21 06/05/21 Trae Pederson MD [address] [place] [address] Insurance Assigned Provider 06/05/21 11/28/21 Rachel Mueller RN [address] [place] [address] [email or web address] PHCM Real Estate Transaction Manager 11/23/20 08/10/22 Trae Anthony NP [address] [place] [address] Nurse Practitioner 01/16/25 documented as of this encounter Additional Source Comments The information contained in this document represents components of the legal health record. It is not the complete legal health record.[facility]
--- OUTSIDE RECORDS SUMMARY | 2025-08-22 12:46 | XMS_ITS | Encounter Summary ---
Author Organization [facility] Address [address] [place] [address] [place] [address] Phone Care Team Providers Care Road Mechanic Name Role Phone Clovis Montiel MD Unavailable Jessy Dwyer CRYOGENICS ENGINEER Primary Care Provider [phone] Henry Lincoln MD, MPH Unavailable Trae Reese MD Unavailable [phone] Kavya Canchola MD Unavailable Henry Lincoln MD, MPH Unavailable Rachel Mueller RN Unavailable Jos Virk MD Unavailable Arianna Chu [facility] Unavailable grover Lyn Olvera MD Unavailable + Trae Pederson MD Unavailable [phone] Rachel Mueller RN Unavailable Jessy Dwyer CRYOGENICS ENGINEER Primary Care Provider Trae Anthony NP Unavailable Reason for Referral * MRI/CAT Scan - Closed Specialty Diagnoses / Procedures Referred By Contac t Referred To Contact Radiology Diagnoses Cervical radiculopathy Procedures MRI Cervical Spine Ivon Mendosa NP Phone: tel: fax: [email or web address] Referral ID Status Reason Start Date Expiration Date Visits Re quested Visits Authorized [id number] Closed 05/31/2019 05/31/2020 1 1 Encounter Details Date Type Department Care Team (Latest Contact Info) Description 06/03/2019 Ancillary Orders Virtual Department [address] [place] [address] Ivon Mendosa NP [address] [place] [phone] [email or web address] Cervical radiculopathy Social History Tobacco Use Types Packs/Day Years [...] documented as of this encounter Results * MRI CERVICAL SPINE (BONE) WITHOUT CONTRAST (06/14/2019 11:59 AM EDT) Anatomical Region Laterality Modality C-spine Magnetic Resonan ce 06/14/2019 4:07 PM EDT Impressions 06/14/2019 4:22 PM EDT 1. Moderate degenerative disc and mild-moderate degenerative endplate changes at C5-C6. 2. There is narrowing of the left neuroforamen at C5-C6 due to a disc-osteophyte complex. Degree of narrowing appears at least moderate and can be correlated clinically. No other explanation for the patient's signs and symptoms. POS [id number] Narrative 06/14/2019 4:22 PM EDT HISTORY:. Pain since seizure one year ago, numbness and paresthesias in left arm and hand. COMPARISON: None. TECHNIQUE: Exam performed on a 1.5 Diane high-field MRI scanner. Sagittal T1, T2 and STIR, axial T2* gradient echo and 3-D bright fluid sequences were obtained. FINDINGS: Cervicomedullary junction: No abnormalities demonstrated. Spinal cord: No evidence of spinal cord lesions. Spinal cord normal in configuration. C2-C3: No significant abnormalities. C3-C4: Mild facet arthropathy on left. No definite significant neuroforaminal narrowing. No other significant changes. C4-C5: No evidence of significant abnormalities. C5-C6: Moderate disc space narrowing and mild-moderate degenerative endplate changes. Minimal retrolisthesis of C5 on C6. Disc-osteophyte complex extending laterally on left. There is narrowing of the left neuroforamen which appears at least moderate. Right neuroforamen widely patent. No central canal stenosis. C6-C7: Disc height well-maintained. Very small broad-based posterior disc-osteophyte complex. No evidence of spinal stenosis. C7-T1: No significant abnormalities. Vertebrae: No suspicious marrow signal abnormalities. Soft tissue: No evidence of paravertebral masses. Procedure Note Edmond Ritter MD - 06/14/2019 HISTORY:. Pain since seizure one year ago, numbness and paresthesias inleft arm and hand. COMPARISON: None. TECHNIQUE: Exam performed on a 1.5 Diane high-field MRI scanner.Sagittal T1, T2 and STIR, axial T2* gradient echo and 3-D bright fluidsequences were obtained. FINDINGS: Cervicomedullary junction: No abnormalities demonstrated. Spinal cord: No evidence of spinal cord lesions. Spinal cord normal inconfiguration. C2-C3: No significant abnormalities. C3-C4: Mild facet arthropathy on left. No definite significantneuroforaminal narrowing. No other significant changes. C4-C5: No evidence of significant abnormalities. C5-C6: Moderate disc space narrowing and mild-moderate degenerativeendplate changes. Minimal retrolisthesis of C5 on C6. Disc-osteophytecomplex extending laterally on left. There is narrowing of the leftneuroforamen which appears at least moderate. Right neuroforamen widelypatent. No central canal stenosis. C6-C7: Disc height well-maintained. Very small broad-based posteriordisc- osteophyte complex. No evidence of spinal stenosis. C7-T1: No significant abnormalities. Vertebrae: No suspicious marrow signal abnormalities. Soft tissue: No evidence of paravertebral masses. IMPRESSION: 1. Moderate degenerative disc and mild-moderate degenerative endplatechanges at C5-C6. 2. There is narrowing of the left neuroforamen at C5-C6 due to adisc-osteophyte complex. Degree of narrowing appears at least moderateand can be correlated clinically. No other explanation for the patient'ssigns and symptoms. POS [id number] Ivon Mendosa NP IMG MR XSPECIALTY Final Result documented in this encounter Visit Diagnoses Diagnosis Cervical radiculopathy Brachial neuritis or radiculitis nos Cervical radiculopathy Brachial neuritis or radiculitis nos documented in this encounter Additional Health Concerns Infection Onset Date Last Indicated Resolved Time CoV-Risk 06/26/2020 06/27/2020 07/10/2020 1:24 AM EDT CoV-Presumed 12/07/2021 12/08/2021 12/29/2021 1:21 AM EDT MRSA 12/08/2021 12/08/2021 12/08/2023 1:23 AM EDT 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 11/25/2024 documented as of this encounter Care Teams Road Mechanic Relationship Specialty Start Date End Date Jessy Dwyer NP [address] [place] [address] PCP - General Family Medicine 11/09/18 06/21/24 Jessy Dwyer CRYOGENICS ENGINEER [address] [place] [address] PCP - General Nurse Practitioner 06/22/24 Clovis Montiel MD [address] [place] [address] [email or web address] Insurance Assigned Provider 08/26/18 08/31/19 Henry Lincoln MD, MPH [address] [place] [address] Insurance Assigned Provider 08/31/19 08/30/20 Trae Reese MD [address] [place] [address] [email or web address] Insurance Assigned Provider 08/30/20 10/03/20 Kavya Canchola MD [address] [place] [address] Insurance Assigned Provider 10/03/20 10/31/20 Henry Lincoln MD, MPH [address] [place] [address] Insurance Assigned Provider 10/31/20 01/02/21 Rachel Mueller RN [address] [place] [address] [facility] Compensator 11/23/20 04/19/22 Jos Virk MD [address] [place] [address] Insurance Assigned Provider 01/02/21 04/03/21 Arianna Chu LCSW [address] [place] [address] [email or web address] Inside Sales Trainer 02/18/21 02/18/21 Lyn Olvera MD [address] [place] [address] [email or web address] Insurance Assigned Provider 04/03/21 06/05/21 Trae Pederson MD [address] [place] [address] [email or web address] Insurance Assigned Provider 06/05/21 11/28/21 Rachel Mueller RN [address] [place] [address] [email or web address] [facility] Compensator 11/23/20 08/10/22 Trae Anthony NP [address] [place] [phone] Nurse Practitioner 01/16/25 documented as of this encounter Additional Source Comments The information contained in this document represents components of the legal health record. It is not the complete legal health record.[facility]
--- OUTSIDE RECORDS SUMMARY | 2025-08-22 12:46 | XMS_ITS | Encounter Summary ---
Author Organization [facility] Address [address] [facility] [address] [place] [address] Phone Care Team Providers Care Design Engineering Technician Name Role Phone Jessy Dwyer INSOLE DEPARTMENT WORKER Primary Care Provider Jessy Dwyer INSOLE DEPARTMENT WORKER Primary Care Provider Trae Anthony INSOLE DEPARTMENT WORKER Unavailable Encounter Details Date Type Department Care Team (Late st Contact Info) Description 06/19/2024 Procedure Pass [facility], Ct Scan - [address] [address] Social History Tobacco Use Types Packs/Day Years [...] 9:55 AM EDT Sindy Yanez RN * Sampson Suicide Severity Rating Scale (Screener/Recent Self-Report) Question [...] documented as of this encounter Care Teams Design Engineering Technician Relationship Specialty Start Date End Date Jessy Dwyer NP PCP - General Family Medicine 11/09/18 06/21/24 Jessy Dwyer NP [address] [place] [address] PCP - General Nurse Practitioner 06/22/24 Trae Anthony NP [address] [place] [address] Nurse Practitioner 01/16/25 documented as of this encounter Additional Source Comments The information contained in this document represents components of the legal health record. It is not the complete legal health record.[facility]
--- OUTSIDE RECORDS SUMMARY | 2025-08-22 12:46 | XMS_ITS | Encounter Summary ---
Author Organization [facility] Address [address] [place] [address] [place] [address] Phone Care Team Providers Care Latrine Cleaner Name Role Phone Jessy Dwyer RETAIL STORE ASSOCIATE Primary Care Provider [phone] Rachel Mueller RN Unavailable Jos Virk MD Unavailable Arianna Chu SYSTEMS TEST TECHNICIAN Unavailable [email or web address] Lyn Olvera MD Unavailable + Trae Pederson MD Unavailable [phone] Rachel Mueller RN Unavailable Jessy Dwyer RETAIL STORE ASSOCIATE Primary Care Provider Trae Anthony NP Unavailable Encounter Details Date Type Department Care Team (Late st Contact Info) Description 01/22/2021 Procedure Pass [facility], [facility] - [address] [place] [address] Social History Tobacco Use Types Packs/Day Years Used Date Smoking Tobacco: Former Cigarettes Q uit: 2017 Smokeless Tobacco: Never Alcohol Use Standard Drinks/Week Comments Yes 6 (1 standard drink = 0.6 oz pure alcohol) Pt reports not bothered by this amount. Sex and Gender Information Value Date Recorded [...] documented as of this encounter Care Teams Latrine Cleaner Relationship Specialty Start Date End Date Jessy Dwyer NP PCP - General Family Medicine 11/09/18 06/21/24 Jessy Dwyer NP [address] [place] [address] PCP - General Nurse Practitioner 06/22/24 Rachel Mueller RN [address] [place] [address] PHCM Inseam Trimming Machine Operator 11/23/20 04/19/22 Jos Virk MD [address] [place] [address] Insurance Assigned Provider 01/02/21 04/03/21 Arianna Chu LCSW [address] [place] [address] Principal Software Engineer 02/18/21 02/18/21 Lyn Olvera MD [address] [place] [address] [email or web address] Insurance Assigned Provider 04/03/21 06/05/21 Trae Pederson MD [address] [place] [address] [email or web address] Insurance Assigned Provider 06/05/21 11/28/21 Rachel Mueller RN [address] [place] [address] [email or web address] PHC Inseam Trimming Machine Operator 11/23/20 08/10/22 Trae Anthony NP [address] [place] [phone] Nurse Practitioner 01/16/25 documented as of this encounter Additional Source Comments The information contained in this document represents components of the legal health record. It is not the complete legal health record.[facility]
--- OUTSIDE RECORDS SUMMARY | 2025-08-22 12:46 | XMS_ITS | Clinical Summary ---
Author Organization [facility] Address [address] [place] [address] Care Team Providers Care Diesel Engine Mechanic Name Role Phone Jessy Dwyer ALEC Primary Care Provider [phone] Allergies Active Allergy Reactions Criticality Noted Date [...] 50+ (1 of 1 - PCV) 2020 RSV Vaccine 50 years and old er and Patients (1 - Risk 50-74 years 1-dose series) 2020 Zoster (Shingles) Vaccine (1 of 2) 2020 Influenza Vaccine 04/25/2025 05/18/2015, , 07/09/2011, Additional history exists COVID-19 Vaccine (2023-2 5 season) 2025 Insurance [employer] [facility] [employer] Care Teams Diesel Engine Mechanic Relationship Specialty Start Date End Date Jessy Dwyer APRN [address] [place] [id number] PCP - General Family Medicine 10/27/21
--- NOTE | 2025-08-22 12:58 | PC.NURSE ---
Pt states he feels less anxious than he did this am prior to syncopal episode, reufuses cxr at this time stating I dont need that . Will update provider
[2025-08-22 13:29] VITALS: BP 136/99; PULSE 112; RESP 16; O2SAT 98
[2025-08-22 13:35] LABS: D Dimer High Sensitivity 155 NG/ML
[2025-08-22 13:47] LABS: NT Pro B Type Natriuretic Pept < 15.8 pg/mL (<300); Troponin-I High Sensitivity < 2.7 ng/L (<3.5-35.0)
[2025-08-22 13:50] VITALS: BP 129/92; PULSE 110; RESP 18; TEMP 36.6; O2SAT 95
[2025-08-22 13:50] LABS: Hematocrit 45.8 % (42.0-52.0); Hemoglobin 15.5 g/dl (14.0-18.0); Imm Gran Abs Auto 0.06 X10*3/uL (0.00-0.03); Imm Gran Pct Auto 0.5 % (0.0-0.4); Lymphocytes Absolute Auto 0.6 X10*3/uL (1.2-4.9); MANUAL DIFF FLAG SCAN; Mean Corpuscular HGB Conc 33.8 g/dl (31.0-36.0); Mean Corpuscular Hemoglobin 28.2 pg (27.0-33.0); Mean Corpuscular Volume 83.3 fL (80.0-98.0); NRBC Abs Auto 0.000 X10*3/uL (0.0-0.012); NRBC Pct Auto 0.0 /100WBC (0.0-0.2); Platelet Count 194 X10*3/uL (160-400); Red Blood Count 5.50 X10*6/uL (4.60-5.80); SCAN SMEAR FLAG 1; White Blood Count 12.0 X10*3/uL (4.8-10.8)
[2025-08-22 13:53] VITALS: PULSE 79; O2SAT 96
[2025-08-22 13:59] VITALS: BP 124/90; PULSE 109; RESP 18; TEMP 36.6; O2SAT 96
--- NOTE | 2025-08-22 14:04 | PC.NURSE ---
Pt is found to be A&O x 4 and mentally competent to make medical decisiosns. Risks of not completing plan of care explained by Cynthia MCNEIL and pt verbalized understanding. Pt
[2025-08-22 14:12] LABS: Alanine Aminotransferase 41 U/L (0-40); Albumin Level 4.3 g/dL (3.5-5.0); Alkaline Phosphatase 58 U/L (39-117); Anion Gap 14 (12-20); Aspartate Amino Transferase 31 U/L (5-37); Blood Urea Nitrogen 14 mg/dL (9-16); Calcium 8.3 mg/dL (8.4-10.2); Carbon Dioxide 16 mmol/L (22-29); Chloride 117 mmol/L (96-108); Creatinine Clr Calc Pharmacy 109.9; Estimated Glomerular Filt Rate > 60; Magnesium 1.8 mg/dL (1.6-2.6); Potassium 3.7 mmol/L (3.3-5.1); Sodium 143 mmol/L (135-145); Total Protein 7.0 g/dL (6.5-8.0)
== END 2025-08-22 14:13 | disposition left against medical advice (07) ==
PROVIDERS: Physician Assistant Medical; Emergency Provider Emergency Medicine
DX: R55 Syncope and collapse (principal); R00.0 Tachycardia, unspecified; R06.02 Shortness of breath; Z87.891 Personal history of nicotine dependence; Z79.899 Other long term (current) drug therapy
CPT/HCPCS: 36415; 80053; 83735; 83880; 84484; 85025; 85379; 93005; 99284

== ENCOUNTER → 2025-08-22 12:20 | Outpatient (BNV) | payer MEDICARE, MEDICAID, SELFPAY | PROVIDERS: Emergency Provider Emergency Medicine; Visit Provider Internal Medicine | DX: R00.0 Tachycardia, unspecified (principal) | CPT/HCPCS: 93010 ==